=== PATIENT | female | born 1975 | race Caucasian/White ===

== ENCOUNTER 2023-02-04 12:29 | Emergency (ER) | payer MEDICARE, SELFPAY ==
[2023-02-04 12:30] VITALS: BP 135/90; PULSE 114; RESP 15; TEMP 37.2; O2SAT 96; BMI 23.9
--- NOTE | 2023-02-04 12:33 | HMH.EDGENADL ---
Discharge Plan Disposition Chief Complaint: Hyper/Hypoglycemia Prescriptions Prescriptions: No Action atorvastatin 20 mg Tablet 20 mg PO HS risperidone 0.25 mg Tablet 0.25 mg PO BID metoclopramide HCl 5 mg Tablet 5 mg PO AC pantoprazole 40 mg Tablet,Delayed Release (Dr/Ec) 40 mg PO DAILY insulin lispro [Humalog U-100 Insulin] 100 unit/mL Solution See Protocol SQ ACHS Protocol: Insulin Corrective Low-Dose Regimen Condition: Fingerstick Blood Glucose Dose/Route: Insulin Units Condition: 151-200 mg/dl Dose/Route: 2 unit/SQ Condition: 201-250 mg/dl Dose/Route: 4 units/SQ Condition: 251-300 mg/dl Dose/Route: 6 units/SQ Condition: 301-350 mg/dl Dose/Route: 8 units/SQ Condition: 351-400 mg/dl Dose/Route: 10 units/SQ Condition: 401-450 mg/dl Dose/Route: 12 units/SQ Condition: > 450 mg/dl Dose/Route: CALL MD Protocol Text: Low Intensity Sliding Scale Insulin ferrous sulfate 325 mg (65 mg iron) Tablet,Delayed Release (Dr/Ec) 325 mg PO DAILY insulin lispro protamin-lispro [Humalog Mix 75-25 KwikPen] 100 unit/mL (75-25) Insulin Pen 25 unit SQ BID bupropion HCl [Wellbutrin XL] 300 mg Tablet Extended Release 24 Hr 300 mg PO DAILY gabapentin 300 mg Tablet 300 mg PO TID Activity Restrictions/Add. Instructions Additional Instructions/Restrictions: Follow-up with your primary care doctor in about 2 to 3 days. Return to the emergency department immediately if symptoms worsen. Drink plenty of nonsugar a liquids by mouth. Take all your medications including insulin as prescribed. Clinical Impressions Clinical Impression: Hyperglycemia Instructions Patient Instructions: DI for Hyperglycemia -- Adult Discharge ED Provider: Rodríguez Mercado Adult HPI General Chief complaint: Hyper/Hypoglycemia Stated complaint: DKA Time Seen by Provider: 02/04/23 12:33 Mode of Arrival: EMS Source of Information: Patient and EMS History of Present Illness HPI narrative: The patient presents to the emergency department via ambulance complaining of a high blood sugar. The patient has a history of insulin-dependent diabetes. She was recently discharged from another facility for diabetic ketoacidosis. She has not had any insulin since yesterday. Related Data Home Medications Medication Instructions Recorded Confirmed atorvastatin 20 mg tablet 20 mg PO HS Cholesterol 02/04/23 02/04/23 bupropion HCl 300 mg 24 hr tablet, 300 mg PO DAILY Mood 02/04/23 02/04/23 extended release (Wellbutrin XL) ferrous sulfate 325 mg (65 mg 325 mg PO DAILY Supplement 02/04/23 02/04/23 iron) tablet,delayed release gabapentin 300 mg tablet 300 mg PO TID Pain 02/04/23 02/04/23 insulin lispro 100 unit/mL See Protocol SQ ACHS Hyperglycemia 02/04/23 02/04/23 subcutaneous solution (Humalog U-100 Insulin) insulin lispro protamine-lispro 25 unit SQ BID Diabetes 02/04/23 02/04/23 100 unit/mL (75-25) subcutaneous pen (Humalog Mix 75-25 KwikPen) metoclopramide HCl 5 mg tablet 5 mg PO AC Stomach 02/04/23 02/04/23 pantoprazole 40 mg tablet,delayed 40 mg PO DAILY Acid reflux 02/04/23 02/04/23 release risperidone 0.25 mg tablet 0.25 mg PO BID Mood 02/04/23 02/04/23 Allergies Allergy/AdvReac Type Severity Reaction Status Date / Time PENICILLIN Allergy Mild I-RASH Uncoded 10/04/17 14:30 [facility] Disclaimer: The information contained in this section may have been updated after the patient was seen, as this information can be updated by other users. Medical History (Updated 02/04/23 @ 15:21 by Rodríguez Mercado MD) Anxiety Bipolar 1 disorder COVID Diabetes mellitus, insulin dependent (IDDM), uncontrolled DKA (diabetic ketoacidosis) Essential (primary) hypertension Former smoker Gastroparesis GERD (gastroesophageal reflux disease) Herpes High cholesterol History of drug abuse in remission History of suicidal tendencies Leukocytosis MDD (major
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
--- NOTE | 2023-02-04 13:30 | PC.NURSE ---
Spoke to charge and she went to bedside to attempt IV access on patient. Attending provider notified of situation
[2023-02-04 13:48] VITALS: BP 111/77; PULSE 111; O2SAT 97
--- NOTE | 2023-02-04 13:51 | PC.NURSE ---
Pt c/o headache. MD notified. VO Tylenol 1gm
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
--- NOTE | 2023-02-04 13:52 | PC.NURSE ---
pt is sleeping in bed, call light @ bs
[2023-02-04 13:54] LABS: Chloride 102 mmol/L (98-107); Sodium 137 mmol/L (136-145)
[2023-02-04 13:55] LABS: Potassium 4.6 mmoL/L (3.5-5.1)
[2023-02-04 13:57] LABS: Alanine Aminotransferase 70 U/L (12-78); Albumin Level 4.3 g/dl (3.5-5.0); Albumin/Globulin Ratio 1.3 (1.1-1.8); Alkaline Phosphatase 139 U/L (38-126); Anion Gap 19.6 mEq/L (5-15); Aspartate Amino Transferase 38 U/L (14-36); Bilirubin,Total 0.5 mg/dl (0.2-1.3); Blood Urea Nitrogen 33 mg/dl (7-17); Calcium 10.1 mg/dl (8.4-10.2); Carbon Dioxide 20 mmol/L (22.0-30.0); Creatinine Clearance Estimated 52 mL/min (50-200); Estimated Glomerular Filt Rate 44 ml/min (>60); GFR (African American) 53 ML/MIN (>60); Globulin 3.3 g/dL (1.3-3.2); Lipase 158 U/L (23-300); Total Protein,Serum 7.6 g/dl (6.3-8.2)
[2023-02-04 14:00] VITALS: BP 112/72; O2SAT 98
[2023-02-04 14:00] LABS: Glucose 595 mg/dl (74-100)
[2023-02-04 14:01] LABS: Acetone, Serum (Rapid) Small (None Detect)
[2023-02-04 14:15] LABS: Basophils # 0.1 K/mm3 (0-0.2); Basophils % 0.4 % (0.1-2.0); Eosinophils # 0.1 K/mm3 (0.0-0.4); Hematocrit 35.1 % (37.0-47.0); Hemoglobin 10.6 g/dL (12.2-16.2); Lymphocytes # 2.2 K/mm3 (0.7-4.5); Lymphocytes % 17.7 % (10-50); Mean Corpuscular HGB Conc 30.1 g/dL (31.8-35.4); Mean Corpuscular Hemoglobin 26.7 pg (27.0-31.2); Mean Corpuscular Volume 88.9 fl (81-99); Mean Platelet Volume 8.6 fl (7.4-10.4); Monocytes # 0.6 K/mm3 (0.1-1.0); Monocytes % 4.6 % (1.7-9.3); Neutrophils # 9.4 K/mm3 (1.8-7.8); Neutrophils % 76.3 % (37.0-80.0); Platelet Count 401 K/mm3 (142-424); Red Blood Count 3.95 M/mm3 (4.20-5.40); Red Cell Distribution Width 18.9 % (11.5-17.5); White Blood Count 12.3 K/mm3 (4.8-10.8)
[2023-02-04 14:19] LABS: POC Glucose,Bedside 467 (70-110)
[2023-02-04 14:30] VITALS: BP 99/67; PULSE 110; O2SAT 96
[2023-02-04 15:00] VITALS: BP 102/64; PULSE 108; RESP 18; O2SAT 97
--- NOTE | 2023-02-04 15:12 | PC.NURSE ---
Patient has been resting since medicated for nausea and abdominal cramping. FSBS recheck due in 10 minutes
[2023-02-04 15:24] LABS: POC Glucose,Bedside 293 (70-110)
[2023-02-04 15:26] VITALS: BP 102/64; PULSE 98; RESP 15; TEMP 36.5; O2SAT 96
--- NOTE | 2023-02-04 15:26 | PC.NURSE ---
called sammy waller
--- NOTE | 2023-02-04 15:27 | PC.NURSE ---
rachelle rivas called they are setting up for transportation back to facility from er
--- NOTE | 2023-02-04 15:28 | PC.NURSE ---
Diego Mak notified to pickup their resident. Patient still resting, NAD. VSS
== END 2023-02-04 15:58 | disposition home or self-care (01) ==
PROVIDERS: Emergency Provider Emergency Medicine; PCP Emergency Medicine
DX: E11.65 Type 2 diabetes mellitus with hyperglycemia (principal); Z87.891 Personal history of nicotine dependence
CPT/HCPCS: 80053; 82009; 82962; 83690; 85025; 96360; 96361; 96372; 96374; 96375; 99284; 99285; J2405

== ENCOUNTER 2023-02-05 10:46 | Inpatient (IN) | payer MEDICARE, SELFPAY ==
[2023-02-05] VITALS (16 sets, daily range): BP systolic 87–117; BP diastolic 45–73; PULSE 106–122; RESP 15–20; TEMP 36.6–37.3; O2SAT 94–100; BMI 23.5
--- NOTE | 2023-02-05 10:56 | HMH.EDGENADL ---
Discharge Plan Disposition Patient Disposition: Admitted as Observation Condition: Serious Clinical Impressions Clinical Impression: DKA, type 1 Qualifiers: Diabetes mellitus complication detail: without coma Qualified Code(s): E10.10 - Type 1 diabetes mellitus with ketoacidosis without coma Discharge ED Provider: Rodríguez Mercado Adult HPI General Chief complaint: Recheck/Abnormal Lab/Rx Stated complaint: hyperglycemia Time Seen by Provider: 02/05/23 10:56 Mode of Arrival: EMS History of Present Illness HPI narrative: Patient presents to the emergency department via EMS for high glucose. She was seen here yesterday for the same. She is a known type I diabetic. She has a long history of noncompliance. Related Data Home Medications Medication Instructions Recorded Confirmed atorvastatin 20 mg tablet 20 mg PO HS Cholesterol 02/04/23 02/04/23 bupropion HCl 300 mg 24 hr tablet, 300 mg PO DAILY Mood 02/04/23 02/04/23 extended release (Wellbutrin XL) ferrous sulfate 325 mg (65 mg 325 mg PO DAILY Supplement 02/04/23 02/04/23 iron) tablet,delayed release gabapentin 300 mg tablet 300 mg PO TID Pain 02/04/23 02/04/23 insulin lispro 100 unit/mL See Protocol SQ ACHS Hyperglycemia 02/04/23 02/04/23 subcutaneous solution (Humalog U-100 Insulin) insulin lispro protamine-lispro 25 unit SQ BID Diabetes 02/04/23 02/04/23 100 unit/mL (75-25) subcutaneous pen (Humalog Mix 75-25 KwikPen) metoclopramide HCl 5 mg tablet 5 mg PO AC Stomach 02/04/23 02/04/23 pantoprazole 40 mg tablet,delayed 40 mg PO DAILY Acid reflux 02/04/23 02/04/23 release risperidone 0.25 mg tablet 0.25 mg PO BID Mood 02/04/23 02/04/23 Allergies Allergy/AdvReac Type Severity Reaction Status Date / Time Penicillins Allergy Intermediate Rash Verified 02/05/23 11:18 [facility] Disclaimer: The information contained in this section may have been updated after the patient was seen, as this information can be updated by other users. Medical History (Updated 02/05/23 @ 11:59 by Rodríguez Mercado MD) Anxiety Bipolar 1 disorder COVID Diabetes mellitus, insulin dependent (IDDM), uncontrolled DKA (diabetic ketoacidosis) Essential (primary) hypertension Former smoker Gastroparesis GERD (gastroesophageal reflux disease) Herpes High cholesterol History of drug abuse in remission History of suicidal tendencies Leukocytosis MDD (major depressive disorder) Neuropathy MALCOM (obstructive sleep apnea) RLS (restless legs syndrome) UTI (urinary tract infection) Social History (Updated 02/04/23 @ 15:21 by Rodríguez Mercado MD) Smoking Status: Former smoker alcohol intake: never current occupational status: unemployed Travel in the last 8 weeks: None ROS Obtained: Yes All systems reviewed & no additional complaints except as documented Gastrointestinal Gastrointestingal: Reports vomiting Physical Exam General General appearance: alert and in no apparent distress Comment: The patient has ketotic breath. Head Head exam: atraumatic Eye Eye exam: Present normal appearance ENT ENT exam: Present normal exam Neck Neck exam: Present normal inspection and full ROM; Absent tenderness or meningismus Chest Chest inspection: Present normal inspection and symmetric chest wall rise; Absent tenderness Respiratory Respiratory exam: Present normal lung sounds bilaterally; Absent respiratory distress or accessory muscle use Cardiovascular Cardiovascular exam: Present regular rate, normal rhythm and normal heart sounds Abdominal Exam Abdominal exam: Present soft and normal bowel sounds; Absent distention, tenderness, heel tap sign, Chan's sign, Rovsing's sign, tenderness at McBurney's Point or mass Extremities Exam Extremities exam: Present normal inspection and full ROM Back Exam Back exam: Present normal inspection; Absent CVA tenderness (R) or CVA tenderness (L) Neurological Exam Neurological exam: Present alert and oriented X3 Psychiatric
--- NOTE | 2023-02-05 11:05 | PC.NURSE ---
DR PEDERSON AT BEDSIDE
[2023-02-05 11:15] LABS: Basophils # 0.1 K/mm3 (0-0.2); Basophils % 0.5 % (0.1-2.0); Eosinophils # 0.1 K/mm3 (0.0-0.4); Eosinophils % 0.4 % (0.1-12.0); Hematocrit 36.6 % (37.0-47.0); Hemoglobin 10.8 g/dL (12.2-16.2); Lymphocytes # 2.2 K/mm3 (0.7-4.5); Mean Corpuscular HGB Conc 29.3 g/dL (31.8-35.4); Mean Corpuscular Hemoglobin 26.9 pg (27.0-31.2); Mean Corpuscular Volume 91.7 fl (81-99); Mean Platelet Volume 8.6 fl (7.4-10.4); Monocytes # 0.4 K/mm3 (0.1-1.0); Monocytes % 2.4 % (1.7-9.3); Neutrophils % 82.7 % (37.0-80.0); Platelet Count 476 K/mm3 (142-424); Red Cell Distribution Width 18.9 % (11.5-17.5); White Blood Count 15.8 K/mm3 (4.8-10.8)
[2023-02-05 11:16] LABS: Chloride 98 mmol/L (98-107); MANUAL DIFFERENTIAL MANUAL DIFFERENTIAL (MANUAL DIFF)
[2023-02-05 11:17] LABS: Potassium 5.3 mmoL/L (3.5-5.1); Sodium 137 mmol/L (136-145)
[2023-02-05 11:18] LABS: Coronavirus 19, PCR Not Detected (NotDetected); Influenza A, PCR Not Detected (NotDetected); Influenza B, PCR Not Detected (NotDetected)
[2023-02-05 11:19] LABS: Blood Urea Nitrogen 30 mg/dl (7-17); Creatinine Clearance Estimated 58 mL/min (50-200); Estimated Glomerular Filt Rate 44 ml/min (>60); GFR (African American) 53 ML/MIN (>60)
[2023-02-05 11:20] LABS: Anion Gap 33.3 mEq/L (5-15); Calcium 9.9 mg/dl (8.4-10.2); Carbon Dioxide 11 mmol/L (22.0-30.0)
[2023-02-05 11:34] LABS: Glucose 707 mg/dl (74-100)
[2023-02-05 11:35] LABS: Acetone, Serum (Rapid) Large (None Detect); Lymphocytes % 10 % (10-50); Monocytes % 5 % (2-9); Neutrophils % 85 % (42-76); Platelet Estimate Normal; RBC Morphology Normal; Total Cells Counted 100
--- NOTE | 2023-02-05 11:36 | PC.NURSE ---
CRITICAL GLUCOSE 707, PT NAME AND R/V WITH JORGE IN LAB. DR. PEDERSON NOTIFIED. VERBAL ORDER TO INCREASE INSULIN GTT TO 20UNITR/HR
--- NOTE | 2023-02-05 11:39 | PC.NURSE ---
INSULIN GTT INCREASED TO 20/UNITS/HR
--- NOTE | 2023-02-05 11:57 | PC.NURSE ---
DR PEDERSON SPEAKING WITH DR OLVERA FOR ADMISSION
--- NOTE | 2023-02-05 11:59 | PC.NURSE ---
TABLEAU LEAD NOTIFIED OF ADMISSION
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
--- NOTE | 2023-02-05 12:10 | PC.NURSE ---
Call light within reach, fall bracelet placed on patient's left arm; patient educated to not get out of bed without staff present at the BS.
--- NOTE | 2023-02-05 12:14 | PC.NURSE ---
report called to felisha yan on second floor at this time, states she will have staff come down to get pt.
--- NOTE | 2023-02-05 12:15 | PC.NURSE ---
Allergy bracelet placed on patient's left wrist
--- NOTE | 2023-02-05 13:02 | EXP.HP ---
History of Present Illness *Admission Date: 02/05/23 *Reason for visit:: High sugar *History of present illness: 47-year-old female with diabetes type 1 presents to the emergency department due to elevated sugar. She was evaluated in the emergency department yesterday by EMS for high glucose. States she has been having trouble obtaining and taking her outpatient insulin regimen. she is a resident at [facility] noted to have high glucose today and sent to the emergency department. In the emergency department she was noted to be in DKA started on insulin drip IV fluids. She currently is very nauseated. Does not provide much history due to her symptoms. States that she is awaiting placement at some psych facility. Otherwise no concerns or complaints at this time [facility] Disclaimer: The information contained in this section may have been updated after the patient was seen, as this information can be updated by other users. Medical History (Updated 02/05/23 @ 13:10 by Jhoana Stern MD) Anxiety Bipolar 1 disorder COVID Diabetes mellitus, insulin dependent (IDDM), uncontrolled DKA (diabetic ketoacidosis) Essential (primary) hypertension Former smoker Gastroparesis GERD (gastroesophageal reflux disease) Herpes High cholesterol History of drug abuse in remission History of suicidal tendencies Leukocytosis MDD (major depressive disorder) Neuropathy MALCOM (obstructive sleep apnea) RLS (restless legs syndrome) UTI (urinary tract infection) Social History (Updated 02/04/23 @ 15:21 by Rodríguez Mercado MD) Smoking Status: Former smoker alcohol intake: never current occupational status: unemployed Travel in the last 8 weeks: None Review of Systems Review of Systems Review of systems:: unable to obtain and pertinent systems reviewed and negative unless documented below Meds Home Medications and Allergies Home Medications Medication Instructions Recorded Confirmed Type atorvastatin 20 mg tablet 20 mg PO HS Cholesterol 02/04/23 02/04/23 History bupropion HCl 300 mg 24 hr tablet, 300 mg PO DAILY Mood 02/04/23 02/04/23 History extended release (Wellbutrin XL) ferrous sulfate 325 mg (65 mg 325 mg PO DAILY Supplement 02/04/23 02/04/23 History iron) tablet,delayed release gabapentin 300 mg tablet 300 mg PO TID Pain 02/04/23 02/04/23 History insulin lispro 100 unit/mL See Protocol SQ ACHS Hyperglycemia 04/21/23 04/21/23 History subcutaneous solution (Humalog U-100 Insulin) insulin lispro protamine-lispro 25 unit SQ BID Diabetes 02/04/23 02/04/23 History 100 unit/mL (75-25) subcutaneous pen (Humalog Mix 75-25 KwikPen) metoclopramide HCl 5 mg tablet 5 mg PO AC Stomach 02/04/23 02/04/23 History pantoprazole 40 mg tablet,delayed 40 mg PO DAILY Acid reflux 02/04/23 02/04/23 History release risperidone 0.25 mg tablet 0.25 mg PO BID Mood 02/04/23 02/04/23 History New Prescriptions to Start Prescriptions: Allergies Allergy/AdvReac Type Severity Reaction Status Date / Time Penicillins Allergy Intermediate Rash Verified 02/05/23 11:18 Exam Data for Last 24 hours Vital signs and Labs for Last 24 Hours: Temp Pulse Resp BP Pulse Ox 98.0 F 122 H 17 105/62 L 100 02/05/23 12:11 02/05/23 12:13 02/05/23 12:11 02/05/23 12:13 02/05/23 12:13 Laboratory Results - last 24 hr 02/05/23 11:00: WBC 15.8 H D, RBC 4.00 L, Hgb 10.8 L, Hct 36.6 L, MCV 91.7, MCH 26.9 L, MCHC 29.3 L, RDW 18.9 H, Plt Count 476 H, MPV 8.6, Neut % (Auto) 82.7 H, Lymph % (Auto) 14.0, [place] % (Auto) 2.4, Eos % (Auto) 0.4, Baso % (Auto) 0.5, Neut # (Auto) 13.0 H, Lymph # (Auto) 2.2, [place] # (Auto) 0.4, Eos # (Auto) 0.1, Baso # (Auto) 0.1, Total Counted 100, Neutrophils % (Manual) 85 H, Lymphocytes % (Manual) 10, Monocytes % (Manual) 5, Platelet Estimate Normal, RBC Morphology Normal 02/05/23 11:00: Sodium 137, Potassium 5.3 H, Chloride 98, Carbon Dioxide 11 L, Anion Gap 33.3 H, BUN 30 H, Creatinine 1.30 H, Estimated Crea
--- NOTE | 2023-02-05 13:07 | XR_ITS ---
PROCEDURE INFORMATION: Exam: XR Chest Exam date and time: 02/05/2023 1:28 PM Age: 47 years old Clinical indication: Other: Tachycardia TECHNIQUE: Imaging protocol: Radiologic exam of the chest. Views: 1 view. COMPARISON: No relevant prior studies available. FINDINGS: Lungs: Unremarkable. No consolidation. Pleural spaces: Unremarkable. No pleural effusion. No pneumothorax. Heart/Mediastinum: Unremarkable. No cardiomegaly. Bones/joints: Unremarkable. IMPRESSION: No acute findings.
[2023-02-05 13:15] LABS: POC Glucose,Bedside 471 (70-110)
[2023-02-05 14:03] LABS: Microscopic, Urine URINE MICROSCOPIC (MICROSCOPIC)
[2023-02-05 14:04] LABS: Appearance,Urine CLEAR (Clear); Bilirubin,Urine Negative (Negative); Blood, Urine Negative (Negative); Color,Urine YELLOW (Yellow); Glucose,Urine (UA) 3+ (Negative); Ketones,Urine 2+ (Negative); Leukocyte Esterase,Urine Negative (Negative); Nitrate,Urine Negative (Negative); PH,Urine 5.5 (5.0-8.5); Protein,Urine Negative (Negative); Urobilinogen,Urine 0.2 EU/dl (0.2)
[2023-02-05 14:09] LABS: POC Glucose,Bedside 280 (70-110)
[2023-02-05 14:16] LABS: Bacteria,Urine 1+ /lpf; WBC,Urine Occasional #/hpf (0-3)
[2023-02-05 15:13] LABS: POC Glucose,Bedside 155 (70-110)
[2023-02-05 15:59] LABS: Chloride 109 mmol/L (98-107); Sodium 144 mmol/L (136-145)
[2023-02-05 16:00] LABS: Potassium 3.9 mmoL/L (3.5-5.1)
[2023-02-05 16:02] LABS: Blood Urea Nitrogen 28 mg/dl (7-17); Creatinine Clearance Estimated 54 mL/min (50-200); Estimated Glomerular Filt Rate 53 ml/min (>60); GFR (African American) 65 ML/MIN (>60)
[2023-02-05 16:03] LABS: Anion Gap 19.9 mEq/L (5-15); Calcium 8.8 mg/dl (8.4-10.2); Carbon Dioxide 19 mmol/L (22.0-30.0); Glucose 143 mg/dl (74-100)
[2023-02-05 18:09] LABS: POC Glucose,Bedside 152 (70-110)
[2023-02-05 18:09] LABS: POC Glucose,Bedside 165 (70-110)
[2023-02-05 18:09] LABS: POC Glucose,Bedside 138 (70-110)
[2023-02-05 18:09] LABS: POC Glucose,Bedside 205 (70-110)
--- NOTE | 2023-02-05 18:50 | PC.NURSE ---
pt has been combative and uncooperative t/o shift, has threatened to rip IVs out and has been verbally aggressive with staff, remains on room air, pt educated on plan of care
[2023-02-05 19:04] LABS: POC Glucose,Bedside 175 (70-110)
[2023-02-05 19:22] LABS: Chloride 110 mmol/L (98-107); Potassium 3.8 mmoL/L (3.5-5.1); Sodium 144 mmol/L (136-145)
[2023-02-05 19:25] LABS: Anion Gap 16.8 mEq/L (5-15); Blood Urea Nitrogen 25 mg/dl (7-17); Calcium 8.6 mg/dl (8.4-10.2); Carbon Dioxide 21 mmol/L (22.0-30.0); Creatinine Clearance Estimated 59 mL/min (50-200); Estimated Glomerular Filt Rate 60 ml/min (>60); GFR (African American) 72 ML/MIN (>60); Glucose 179 mg/dl (74-100)
--- NOTE | 2023-02-05 23:50 | PC.NURSE ---
notified VALERIE Varela that pt was stuck by Alexandra from lab for BMP once and then when attempted to try again pt stated no more, I will not be stuck anymore , no new orders at this time, will retry to get labs with am labs
[2023-02-06] VITALS (10 sets, daily range): BP systolic 90–112; BP diastolic 49–74; PULSE 97–104; RESP 14–20; TEMP 36.6–37.9; O2SAT 89–99; BMI 20.3
--- NOTE | 2023-02-06 02:05 | PC.NURSE ---
pt's oxygen saturations 88-89% on room air while sleeping, placed 1LNC on pt and sats increased to 91-93%
[2023-02-06 06:20] LABS: POC Glucose,Bedside 213 (70-110)
[2023-02-06 06:20] LABS: POC Glucose,Bedside 173 (70-110)
[2023-02-06 06:20] LABS: POC Glucose,Bedside 146 (70-110)
[2023-02-06 06:20] LABS: POC Glucose,Bedside 161 (70-110)
[2023-02-06 06:20] LABS: POC Glucose,Bedside 214 (70-110)
[2023-02-06 06:20] LABS: POC Glucose,Bedside 173 (70-110)
[2023-02-06 06:59] LABS: Basophils # 0.1 K/mm3 (0-0.2); Basophils % 0.4 % (0.1-2.0); Eosinophils # 0.2 K/mm3 (0.0-0.4); Mean Platelet Volume 8.2 fl (7.4-10.4)
[2023-02-06 07:06] LABS: Eosinophils % 1.6 % (0.1-12.0); Hematocrit 29.4 % (37.0-47.0); Lymphocytes # 3.3 K/mm3 (0.7-4.5); Lymphocytes % 24.6 % (10-50); Mean Corpuscular HGB Conc 31.8 g/dL (31.8-35.4); Mean Corpuscular Hemoglobin 27.4 pg (27.0-31.2); Mean Corpuscular Volume 86.3 fl (81-99); Monocytes # 0.5 K/mm3 (0.1-1.0); Monocytes % 4.1 % (1.7-9.3); Neutrophils # 9.2 K/mm3 (1.8-7.8); Neutrophils % 69.3 % (37.0-80.0); Platelet Count 385 K/mm3 (142-424); Red Blood Count 3.41 M/mm3 (4.20-5.40); White Blood Count 13.3 K/mm3 (4.8-10.8)
[2023-02-06 07:07] LABS: Chloride 109 mmol/L (98-107); Potassium 3.9 mmoL/L (3.5-5.1); Sodium 137 mmol/L (136-145)
[2023-02-06 07:08] LABS: Hemoglobin 9.4 g/dL (12.2-16.2)
[2023-02-06 07:09] LABS: Alanine Aminotransferase 37 U/L (12-78); Aspartate Amino Transferase 27 U/L (14-36); Blood Urea Nitrogen 19 mg/dl (7-17); Creatinine Clearance Estimated 75 mL/min (50-200); Estimated Glomerular Filt Rate 77 ml/min (>60); GFR (African American) 93 ML/MIN (>60)
[2023-02-06 07:10] LABS: Albumin Level 3.1 g/dl (3.5-5.0); Albumin/Globulin Ratio 1.2 (1.1-1.8); Alkaline Phosphatase 94 U/L (38-126); Anion Gap 11.9 mEq/L (5-15); Bilirubin,Total 0.3 mg/dl (0.2-1.3); Calcium 8.1 mg/dl (8.4-10.2); Carbon Dioxide 20 mmol/L (22.0-30.0); Globulin 2.6 g/dL (1.3-3.2); Glucose 201 mg/dl (74-100); Magnesium 1.9 mg/dl (1.6-2.3); Phosphorous 2.8 mg/dl (2.5-4.5); Total Protein,Serum 5.7 g/dl (6.3-8.2)
--- NOTE | 2023-02-06 08:13 | EXP.ACUTE.PN ---
Subjective *Date: 02/06/23 *Time: 11:52 Interval history: No issues. Nausea improving. No concerns or complaints Medical Exam Vital signs and Labs for Last 24 Hours: Vital Signs Temp Pulse Pulse Resp BP BP Pulse Ox 02/06/23 07:34 98.2 F 02/06/23 06:00 104 H 14 107/57 L 99 02/06/23 04:00 100 H 17 106/51 L 91 L 02/06/23 02:00 102 H 15 98/62 L 89 L 02/06/23 00:00 102 H 16 98/49 L 98 02/06/23 04:00 99 H 02/06/23 04:00 98.6 F 02/06/23 00:19 102 H 02/05/23 22:00 106 H 15 93/49 L 94 L 02/05/23 20:00 110 H 18 99/59 L 94 L 02/05/23 20:00 110 H 02/05/23 20:00 112 H 98 02/05/23 20:00 99.2 F 02/05/23 18:00 113 H 20 102/52 L 94 L 02/05/23 17:00 114 H 20 116/46 L 96 02/05/23 16:00 110 H 02/05/23 12:42 120 H 02/05/23 16:00 112 H 20 88/48 L 95 02/05/23 16:16 111 H 95 02/05/23 13:00 118 H 98 02/05/23 15:00 110 H 20 96/60 L 96 02/05/23 14:00 118 H 20 87/70 L 97 02/05/23 15:09 97.8 F 02/05/23 13:00 113 H 16 94/54 L 98 02/05/23 12:13 122 H 105/62 L 100 02/05/23 12:11 98.0 F 120 H 17 105/62 L 02/05/23 11:30 116 H 20 117/73 100 02/05/23 11:18 113 H 15 109/58 L 99 02/05/23 10:47 97.8 F 119 H 18 111/45 L 98 Intake and Output 02/05/23 02/06/23 02/06/23 23:59 07:59 15:59 Intake Total 0 / 0 Output Total 200 / 400 550 / 550 Balance -200 / -400 -550 / -550 Intake: Intake, Oral Amount 0 / 0 Output: Output, Urine Amount 200 / 400 550 / 550 Other: Number of Unmeasured Voids 1 1 Weight 54.002 kg Patient Weight 02/06/23 23:59 Weight 54.002 kg Laboratory Results - last 24 hr 02/05/23 11:00: WBC 15.8 H D, RBC 4.00 L, Hgb 10.8 L, Hct 36.6 L, MCV 91.7, MCH 26.9 L, MCHC 29.3 L, RDW 18.9 H, Plt Count 476 H, MPV 8.6, Neut % (Auto) 82.7 H, Lymph % (Auto) 14.0, [place] % (Auto) 2.4, Eos % (Auto) 0.4, Baso % (Auto) 0.5, Neut # (Auto) 13.0 H, Lymph # (Auto) 2.2, [place] # (Auto) 0.4, Eos # (Auto) 0.1, Baso # (Auto) 0.1, Total Counted 100, Neutrophils % (Manual) 85 H, Lymphocytes % (Manual) 10, Monocytes % (Manual) 5, Platelet Estimate Normal, RBC Morphology Normal 02/05/23 11:00: Sodium 137, Potassium 5.3 H, Chloride 98, Carbon Dioxide 11 L, Anion Gap 33.3 H, BUN 30 H, Creatinine 1.30 H, Estimated Creat Clear 58, Estimated GFR 44 L, Est GFR ( Amer) 53 L, Glucose 707 H*, Calcium 9.9, Acetone Level Large 02/05/23 11:16: SARS-CoV-2 (PCR) Not detected, Influenza A Untype (PCR) Not detected, Influenza Type B (PCR) Not detected 02/05/23 12:04: Urine Color Yellow, Urine Appearance Clear, Urine pH 5.5, Ur Specific Milam 1.010, Urine Protein Negative, Urine Glucose (UA) 3+, Urine Ketones 2+, Urine Blood Negative, Urine Nitrate Negative, Urine Bilirubin Negative, Urine Urobilinogen 0.2, Ur Leukocyte Esterase Negative, Urine RBC None, Urine WBC Occasional, Ur Squamous Epith Cells 3-5, Urine Bacteria 1+ 02/05/23 13:07: POC Glucose 471 H* 02/05/23 14:03: POC Glucose 280 H 02/05/23 15:06: POC Glucose 155 H 02/05/23 15:33: POC Glucose 138 H 02/05/23 15:40: Sodium 144, Potassium 3.9 D, Chloride 109 H, Carbon Dioxide 19 L, Anion Gap 19.9 H, BUN 28 H, Creatinine 1.10 H, Estimated Creat Clear 54, Estimated GFR 53 L, Est GFR ( Amer) 65 D, Glucose 143 H D, Calcium 8.8 02/05/23 16:04: POC Glucose 152 H 02/05/23 17:05: POC Glucose 165 H 02/05/23 18:02: POC Glucose 205 H 02/05/23 18:57: POC Glucose 175 H 02/05/23 19:15: Sodium 144, Potassium 3.8, Chloride 110 H, Carbon Dioxide 21 L, Anion Gap 16.8 H, BUN 25 H, Creatinine 1.00, Estimated Creat Clear 59, Estimated GFR 60, Est GFR ( Amer) 72, Glucose 179 H D, Calcium 8.6 02/05/23 20:24: POC Glucose 173 H 02/05/23 22:17: POC Glucose 161 H 02/06/23 00:02: POC Glucose 146 H 02/06/23 01:50: POC Glucose 173 H 02/06/23 03:41: POC Glucose 213 H 02/06/23 06:12: POC Glucose 214 H
[2023-02-06 10:36] LABS: Acetone, Serum (Rapid) Small (None Detect)
[2023-02-06 14:20] LABS: POC Glucose,Bedside 265 (70-110)
[2023-02-06 16:39] LABS: POC Glucose,Bedside 246 (70-110)
--- NOTE | 2023-02-06 17:44 | PC.NURSE ---
pt has been cooperative t/o shift, has remained on room air, FSBS 265 and 246, has ambulated with standby assist to BR
[2023-02-07] VITALS: BP 100/63; PULSE 95; RESP 18; TEMP 36.9; O2SAT 96
[2023-02-07 04:43] VITALS: BP 121/73; PULSE 96; RESP 18; TEMP 36.7; O2SAT 97; BMI 22.6
[2023-02-07 06:18] LABS: POC Glucose,Bedside 415 (70-110)
[2023-02-07 06:18] LABS: POC Glucose,Bedside 386 (70-110)
--- NOTE | 2023-02-07 07:20 | EXP.DC.SUM ---
General Admission date:: 02/05/23 Discharge date: 02/07/23 HPI HPI HPI: 47-year-old female with diabetes type 1 presents to the emergency department due to elevated sugar. She was evaluated in the emergency department yesterday by EMS for high glucose. States she has been having trouble obtaining and taking her outpatient insulin regimen. she is a resident at [facility] noted to have high glucose today and sent to the emergency department. In the emergency department she was noted to be in DKA started on insulin drip IV fluids. She currently is very nauseated. Does not provide much history due to her symptoms. States that she is awaiting placement at some psych facility. Otherwise no concerns or complaints at this time Hospital Course Hospital Course Hospital Course: 47-year-old female type 1 diabetes presenting with DKA. High anion gap metabolic acidosis on admission. Started on DKA protocol. Problems addressed as follows: Diabetic ketoacidosis, resolved High anion gap metabolic acidosis -Patient started on insulin drip and IV fluids. Tolerated well with closure of gap over the first 24 hours. Transition to a basal bolus regimen. Given patient's residence at a personal half-way, she would benefit from more simplistic dosing. Will transition to twice daily 75/25 dosing with 25 units daily of Humalog mix. A1c obtained during admission, 10.5. Patient tolerating p.o. intake. No signs of infection. No indication for continued treatment of infection. Leukocytosis likely reactive due to her DKA. Patient needs close follow-up with her primary care provider for further adjustment of insulin regimen. Needs monitoring of fingersticks before meals and at bedtime. ALEX versus CKD: ALEX on admission, improved with fluid resuscitation Hyperlipidemia-continue home medications Medically stable for discharge back to personal half-[facility]. Medications sent to [facility] pharmacy. Recommend PCP follow-up for evaluation at [facility] within the next week. Exam Data for Last 24 hours Vital signs and Labs for Last 24 Hours: Temp Pulse Resp BP Pulse Ox 98.1 F 96 H 18 121/73 97 02/07/23 04:43 02/07/23 04:43 02/07/23 04:43 02/07/23 04:43 02/07/23 04:43 Laboratory Results - last 24 hr 02/06/23 06:44: Acetone Level Small 02/06/23 10:55: POC Glucose 265 H 02/06/23 16:32: POC Glucose 246 H 02/06/23 20:29: POC Glucose 386 H* 02/07/23 06:07: POC Glucose 415 H* I & O for Last 24 hours: Intake & Output 02/04/23 02/05/23 02/06/23 02/07/23 23:59 23:59 23:59 23:59 Intake Total 840 / 840 920 / 920 Output Total 400 / 400 950 / 1100 500 / 500 Balance -400 / -400 -110 / -260 420 / 420 Weight 53.099 kg 54.002 kg 60 kg Microbiology Reports for the Last 24 Hours: Microbiology 02/05/23 18:15 Urine,Clean Catch Urine Culture - Preliminary Constitutional Constitutional: no acute distress, average body habitus and chronically ill appearing *Routine HEENT Exam Head: Present normocephalic Eye: Present EOMI and PERRL ENT: Present mucous membranes moist *Routine Neck Exam Neck: Present supple; Absent lymphadenopathy *Routine Respiratory Exam Respiratory: Present CTA bilaterally and normal respiratory effort; Absent rhonchi, wheezes or crackles *Routine Cardiovascular Exam Cardiovascular: Present RRR *Routine Abdominal Exam Abdominal: Present soft, normoactive bowel sounds and tenderness (non-focal) *Routine Rectal Exam Patient deferred: visual exam *Routine Exam Patient deferred: external exam *Routine Extremities Exam Extremities: Absent cyanosis, clubbing or edema *Routine Skin Exam Skin: Present warm; Absent rash *Routine Neurological Exam Neurological: Present alert, oriented X3, CN II-XII intact and moving all extremities; Absent altered mental status Results Data Completed and Pending Labs on day of discharge: Labs from last 24 hours 02/07/23 02/06/23 02/06/23 06:07 20:29 1
[2023-02-07 07:41] LABS: Basophils # 0.1 K/mm3 (0-0.2); Basophils % 0.3 % (0.1-2.0); Eosinophils # 0.4 K/mm3 (0.0-0.4); Eosinophils % 2.4 % (0.1-12.0); Hematocrit 32.4 % (37.0-47.0); Hemoglobin 10.2 g/dL (12.2-16.2); Lymphocytes % 18.8 % (10-50); Mean Corpuscular HGB Conc 31.4 g/dL (31.8-35.4); Mean Corpuscular Hemoglobin 27.7 pg (27.0-31.2); Mean Corpuscular Volume 88.2 fl (81-99); Monocytes # 0.6 K/mm3 (0.1-1.0); Monocytes % 3.5 % (1.7-9.3); Neutrophils # 11.7 K/mm3 (1.8-7.8); Neutrophils % 74.9 % (37.0-80.0); Platelet Count 394 K/mm3 (142-424); Red Blood Count 3.68 M/mm3 (4.20-5.40); Red Cell Distribution Width 19.9 % (11.5-17.5); White Blood Count 15.7 K/mm3 (4.8-10.8)
[2023-02-07 07:42] LABS: Chloride 108 mmol/L (98-107); Sodium 136 mmol/L (136-145)
[2023-02-07 07:43] LABS: MANUAL DIFFERENTIAL MANUAL DIFFERENTIAL (MANUAL DIFF); Potassium 3.5 mmoL/L (3.5-5.1)
[2023-02-07 07:45] LABS: Alanine Aminotransferase 50 U/L (12-78); Albumin Level 3.2 g/dl (3.5-5.0); Albumin/Globulin Ratio 1.1 (1.1-1.8); Alkaline Phosphatase 88 U/L (38-126); Anion Gap 12.5 mEq/L (5-15); Aspartate Amino Transferase 40 U/L (14-36); Bilirubin,Total 0.2 mg/dl (0.2-1.3); Blood Urea Nitrogen 9 mg/dl (7-17); Carbon Dioxide 19 mmol/L (22.0-30.0); Creatinine Clearance Estimated 95 mL/min (50-200); Estimated Glomerular Filt Rate 90 ml/min (>60); GFR (African American) 109 ML/MIN (>60); Globulin 2.8 g/dL (1.3-3.2)
[2023-02-07 07:46] LABS: Calcium 8.2 mg/dl (8.4-10.2); Glucose 315 mg/dl (74-100)
[2023-02-07 07:50] VITALS: PULSE 106; O2SAT 100
[2023-02-07 07:55] VITALS: BP 139/85; PULSE 106; RESP 18; TEMP 36.7; O2SAT 100
[2023-02-07 08:05] LABS: Hemoglobin A1C 10.5 % (4.0-6.0)
[2023-02-07 08:11] LABS: Anisocytosis 1+; Lymphocytes % 18 % (10-50); Macrocytosis 1+; Monocytes % 5 % (2-9); Neutrophils % 77 % (42-76); Ovalocytes 1+; Platelet Estimate Slight Increase; Total Cells Counted 100
--- NOTE | 2023-02-07 09:56 | HMH.OTEV ---
OT Inpatient Evaluation Rehab OT IP Evaluation Start: 02/07/23 08:59 Freq: ONCE Status: Active Protocol: Document 02/07/23 09:47 HUBERMIK (Rec: 02/07/23 09:56 [email or web address] [id number]) Rehab OT IP Assessment Subjective History 47-year-old female with diabetes type 1 presents to the emergency department due to elevated sugar. She was evaluated in the emergency department yesterday by EMS for high glucose. States she has been having trouble obtaining and taking her outpatient insulin regimen. she is a resident at [facility] noted to have high glucose today and sent to the emergency department. In the emergency department she was noted to be in DKA started on insulin drip IV fluids. She currently is very nauseated. Does not provide much history due to her symptoms. States that she is awaiting placement at some psych facility. Otherwise no concerns or complaints at this time. Patient is a resident at [facility] of [facility]. Patient requires SBA/MIn A for ADLs such as bathing. Patient was able to complete all transfers SBA/SUP with RW. Subjective I can get up. Patient sitting upright in bed at arrival of tx. Analysis Patient's functional mobility to complete bed mobility, transfers, fx'l mobility to restroom and toileting. Patient completed all bed mobility task I. Patient completed all transfers I. Patient ambulated from EOB-> restroom ~10ft with SBA for safety with usage of RW. No LOB noted. Patient completed toileting tasks with SBA. Patient ambulated back to
--- NOTE | 2023-02-07 10:54 | DIET.NUTRFU ---
RD saw patient who is diabetic with A1c of 10.4%. Tried to review diet recommendations. She lives at [facility] and reports that she does not get to choose meal items. They are pre-selected. RD reviewed foods she should monitor and try not to eat too many starches or sugary items at one meal. She will be taking insulin upon discharge. She does drink Diet Pepsi, also drinks vitamin water- not sure is sugar free or not. Provided handouts to help. She also indicated she wants to speak to case work aide about discharge plans, they are aware.
[2023-02-07 10:58] VITALS: BMI 22.6
--- NOTE | 2023-02-07 11:01 | SW/DCPLANNER ---
This patient currently resides at [facility]. I have informed Janine reese/ [facility] that this patient is medically stable for discharge today. Janine has requested that [facility] [employer] be arranged. Patient has also requested a call from the Ombudsman at [facility]: I will update Alem Pierce.
[2023-02-07 11:38] VITALS: BP 106/84; PULSE 101; RESP 18; TEMP 36.9; O2SAT 99
--- NOTE | 2023-02-07 12:43 | HMH.PTEV ---
Physical Therapy Evaluation Rehab PT IP Evaluation Start: 02/07/23 08:59 Freq: ONCE Status: Active Protocol: Document 02/07/23 12:33 CECI (Rec: 02/07/23 12:43 CECI [id number]) Subjective/History History History Pt is a 47 year old female that presented to the ED on due to elevated sugar levels. Pt has Type 1 diabetes and reports that she has been having difficulty maintaining her outpatient insulin regimen. Pt resides at [facility]. In the ED, pt was found to be in DKA and started on insulin drip IV fluids. PMH: Anxiety Bipolar 1 disorder COVID Diabetes mellitus, insulin dependent (IDDM), uncontrolled DKA (diabetic ketoacidosis) Essential (primary) hypertension Former smoker Gastroparesis GERD (gastroesophageal reflux disease) Herpes High cholesterol History of drug abuse in remission History of suicidal tendencies Leukocytosis MDD (major depressive disorder ) Neuropathy MALCOM (obstructive sleep apnea) RLS (restless legs syndrome) UTI (urinary tract infection) Subjective Subjective Pt presents sitting upright in bed upon PT arrival. Pt pleasant and agreeable to therapy initial evaluation. Pt reports that she resides at [facility]. Pt reports that she ambulates with a RW at baseline and requires assistance for B/IADL 's. Pt denies reports of pain at rest. Rehab PT IP Eval Objective Appearance Patient Behavior Appropriate Patient Orientation Person,Place,Birthday Difficulty following instructio
--- NOTE | 2023-02-07 14:26 | SW/DCPLANNER ---
[facility] [employer] has been arranged for this patient.
[2023-02-07 14:29] LABS: POC Glucose,Bedside 174 (70-110)
--- NOTE | 2023-02-07 14:58 | PC.NURSE ---
late entry: 1230 Dr Jones notified of pt fsbs of 62 and 51. pt given apple juice per md request. [address] jones of pt repeat fsbs follow juice and lunch. fsbs 174
--- NOTE | 2023-02-08 13:14 | CARE MANAGER ---
Spoke with Janine at [facility]. She states patient is doing well. Her FSBS was 350 she states. She is getting her insulin. Dr. Rachel is due tomorrow and she will discuss with him the insulin orders and seeing if she needs anything increased. No other questions or concerns. TARAH Silva
--- NOTE | 2023-02-11 15:17 | CARE MANAGER ---
Spoke with patient regarding recent discharge. Patient states he is doing well, he is aware of f/u appointments and has started his new medication prescribed at discharge.
== END 2023-02-07 15:50 | disposition home or self-care (01) | DRG 638 ==
LOC: ER 11:59 → 2ND 12:11
PROVIDERS: Internal Medicine Adolescent Medicine; Nurse Practitioner Family; Admitting Provider Student in an Organized Health Care Education/Training Program; Emergency Provider Emergency Medicine; PCP Emergency Medicine; Visit Provider Student in an Organized Health Care Education/Training Program
DX: E10.10 Type 1 diabetes mellitus with ketoacidosis without coma (principal); N17.9 Acute kidney failure, unspecified; Z79.4 Long term (current) use of insulin; E78.00 Pure hypercholesterolemia, unspecified; E10.40 Type 1 diabetes mellitus with diabetic neuropathy, unspecified; E10.22 Type 1 diabetes mellitus with diabetic chronic kidney disease; I12.9 Hypertensive chronic kidney disease with stage 1 through stage 4 chronic kidney disease, or unspecified chronic kidney disease; N18.9 Chronic kidney disease, unspecified; E10.43 Type 1 diabetes mellitus with diabetic autonomic (poly)neuropathy; K31.84 Gastroparesis; G47.33 Obstructive sleep apnea (adult) (pediatric); F31.9 Bipolar disorder, unspecified; Z87.891 Personal history of nicotine dependence; G25.81 Restless legs syndrome
CPT/HCPCS: 36415; 71045; 80048; 80053; 81001; 82009; 82962; 83036; 83735; 84100; 85007; 85025; 87040; 87086; 97161; 97165; 99291; C9803; J2405; U0003; U0005

== ENCOUNTER 2023-02-10 16:19 | Observation (INO) | payer MEDICARE, SELFPAY ==
[2023-02-10 16:20] VITALS: BP 114/86; PULSE 118; RESP 16; TEMP 36.7; O2SAT 100; BMI 19.4
--- NOTE | 2023-02-10 16:31 | HMH.EDGENADL ---
Discharge Plan Disposition Patient Disposition: Admitted As Inpatient Prescriptions Prescriptions: No Action polyethylene glycol 3350 [Miralax] 17 gram Powder In Packet 17 g PO DAILY 30 Days Qty: 30 0RF atorvastatin 20 mg Tablet 20 mg PO HS 30 Days Qty: 30 0RF risperidone 0.25 mg Tablet 0.25 mg PO BID 30 Days Qty: 60 0RF pantoprazole 40 mg Tablet,Delayed Release (Dr/Ec) 40 mg PO DAILY 30 Days Qty: 30 0RF gabapentin 300 mg Capsule 300 mg PO TID 30 Days Qty: 90 0RF ferrous sulfate 325 mg (65 mg iron) Tablet,Delayed Release (Dr/Ec) 325 mg PO DAILY 30 Days Qty: 30 0RF insulin lispro protamin-lispro [Humalog Mix 75-25 KwikPen] 100 unit/mL (75-25) Insulin Pen 25 unit SQ BID 30 Days Qty: 15 0RF Rx Instructions: AT BREAKFAST AND SUPPER bupropion HCl [Wellbutrin XL] 300 mg Tablet Extended Release 24 Hr 300 mg PO DAILY 30 Days Qty: 30 0RF (DME) pen needle, diabetic [BD Ultra-Fine Micro Pen Needle] 32 gauge x 1/4 needle See Rx Instructions .Route Qty: 100 0RF Rx Instructions: As directed Clinical Impressions Clinical Impression: DKA (diabetic ketoacidosis) Instructions Patient Instructions: DI for Hyperglycemia -- Adult Discharge ED Provider: Valerie Loving General Adult HPI General Chief complaint: Hyper/Hypoglycemia Stated complaint: hyperglycemia Time Seen by Provider: 02/10/23 16:31 Mode of Arrival: EMS Source of Information: Patient Limitations: No Limitations Description of Symptoms (Recalled from ER Triage Doc. by RN): Presents from [facility] via EMS d/t hyperglycemia. FSBS >600. Pt states they do not check my blood sugar like they should . Reports she received insulin this morning, however unable to provide surrounding details. History of Present Illness HPI narrative: 47-year-old female from [facility] presents with hyperglycemia glucose was measured as high. She frequently comes to the emergency department for similar issues. She states she has some abdominal discomfort and a mild headache and states that the symptoms usually improve when her blood sugar improves. No fevers or chills she did states she has some vaginal discomfort and she feels like she might have a yeast infection which happens sometimes when her sugar is high. Related Data Previous Rx's Medication Instructions Recorded atorvastatin 20 mg tablet 20 mg PO HS Cholesterol 30 days 02/07/23 #30 tabs bupropion HCl 300 mg 24 hr tablet, 300 mg PO DAILY Mood 30 days #30 02/07/23 extended release (Wellbutrin XL) tabs ferrous sulfate 325 mg (65 mg 325 mg PO DAILY Supplement 30 days 02/07/23 iron) tablet,delayed release #30 tabs gabapentin 300 mg capsule 300 mg PO TID Pain 30 days #90 caps 02/07/23 insulin lispro protamine-lispro 25 unit (0.25 mL) SQ BID Diabetes 02/07/23 100 unit/mL (75-25) subcutaneous 30 days #15 mL pen (Humalog Mix 75-25 KwikPen) pantoprazole 40 mg tablet,delayed 40 mg PO DAILY Acid reflux 30 days 02/07/23 release #30 tabs pen needle, diabetic 32 gauge x #100 ea 02/07/23/ (BD Ultra-Fine Micro Pen Needle) polyethylene glycol 3350 17 gram 17 g PO DAILY 30 days #30 ea 02/07/23 oral powder packet (Miralax) risperidone 0.25 mg tablet 0.25 mg PO BID Mood 30 days #60 02/07/23 tabs Allergies Allergy/AdvReac Type Severity Reaction Status Date / Time Penicillins Allergy Intermediate Rash Verified 02/05/23 11:18 [facility] Disclaimer: The information contained in this section may have been updated after the patient was seen, as this information can be updated by other users. Medical History (Updated 02/10/23 @ 17:30 by Valerie Loving MD) Anxiety Bipolar 1 disorder Constipation COVID Diabetes mellitus, insulin dependent (IDDM), uncontrolled DKA (diabetic ketoacidosis) Essential (primary) hypertension Former smoker Gastroparesis GERD (gastroesophageal reflux disease) Herpes High cholesterol History of drug abuse in remission History of suici
[2023-02-10 16:45] LABS: Basophils # 0.1 K/mm3 (0-0.2); Basophils % 0.4 % (0.1-2.0); Eosinophils # 0.1 K/mm3 (0.0-0.4); Eosinophils % 1.1 % (0.1-12.0); Hematocrit 36.3 % (37.0-47.0); Hemoglobin 10.8 g/dL (12.2-16.2); Lymphocytes # 2.6 K/mm3 (0.7-4.5); Lymphocytes % 21.9 % (10-50); Mean Corpuscular HGB Conc 29.8 g/dL (31.8-35.4); Mean Corpuscular Hemoglobin 27.4 pg (27.0-31.2); Mean Corpuscular Volume 91.7 fl (81-99); Mean Platelet Volume 8.7 fl (7.4-10.4); Monocytes # 0.5 K/mm3 (0.1-1.0); Monocytes % 4.1 % (1.7-9.3); Neutrophils # 8.5 K/mm3 (1.8-7.8); Neutrophils % 72.5 % (37.0-80.0); Platelet Count 387 K/mm3 (142-424); Red Blood Count 3.96 M/mm3 (4.20-5.40); Red Cell Distribution Width 20.1 % (11.5-17.5); White Blood Count 11.7 K/mm3 (4.8-10.8)
--- NOTE | 2023-02-10 16:45 | PC.NURSE ---
ROSIE JAQUEZ NOTIFIED AT THIS TIME. WILL BE IN TO SEE PT ABOUT [facility] AT [facility]
[2023-02-10 16:48] LABS: Chloride 94 mmol/L (98-107); Sodium 130 mmol/L (136-145)
[2023-02-10 16:51] LABS: Alanine Aminotransferase 29 U/L (12-78); Albumin Level 4.4 g/dl (3.5-5.0); Albumin/Globulin Ratio 1.4 (1.1-1.8); Alkaline Phosphatase 126 U/L (38-126); Aspartate Amino Transferase 25 U/L (14-36); Bilirubin,Total 0.6 mg/dl (0.2-1.3); Blood Urea Nitrogen 16 mg/dl (7-17); Calcium 9.2 mg/dl (8.4-10.2); Carbon Dioxide 16 mmol/L (22.0-30.0); Creatinine Clearance Estimated 65 mL/min (50-200); Estimated Glomerular Filt Rate 67 ml/min (>60); GFR (African American) 82 ML/MIN (>60); Globulin 3.1 g/dL (1.3-3.2); Total Protein,Serum 7.5 g/dl (6.3-8.2)
[2023-02-10 16:52] LABS: Magnesium 2.1 mg/dl (1.6-2.3); Phosphorous 4.1 mg/dl (2.5-4.5)
[2023-02-10 17:00] LABS: Glucose 667 mg/dl (74-100)
--- NOTE | 2023-02-10 17:00 | PC.NURSE ---
FS 667. Dr. Loving notified.
[2023-02-10 17:19] LABS: Microscopic, Urine URINE MICROSCOPIC (MICROSCOPIC)
--- NOTE | 2023-02-10 17:39 | HMH.EDGENADL ---
Discharge Plan Disposition Patient Disposition: Admitted As Inpatient Prescriptions Prescriptions: No Action polyethylene glycol 3350 [Miralax] 17 gram Powder In Packet 17 g PO DAILY 30 Days Qty: 30 0RF atorvastatin 20 mg Tablet 20 mg PO HS 30 Days Qty: 30 0RF risperidone 0.25 mg Tablet 0.25 mg PO BID 30 Days Qty: 60 0RF pantoprazole 40 mg Tablet,Delayed Release (Dr/Ec) 40 mg PO DAILY 30 Days Qty: 30 0RF gabapentin 300 mg Capsule 300 mg PO TID 30 Days Qty: 90 0RF ferrous sulfate 325 mg (65 mg iron) Tablet,Delayed Release (Dr/Ec) 325 mg PO DAILY 30 Days Qty: 30 0RF insulin lispro protamin-lispro [Humalog Mix 75-25 KwikPen] 100 unit/mL (75-25) Insulin Pen 25 unit SQ BID 30 Days Qty: 15 0RF Rx Instructions: AT BREAKFAST AND SUPPER bupropion HCl [Wellbutrin XL] 300 mg Tablet Extended Release 24 Hr 300 mg PO DAILY 30 Days Qty: 30 0RF (DME) pen needle, diabetic [BD Ultra-Fine Micro Pen Needle] 32 gauge x 1/4 needle See Rx Instructions .Route Qty: 100 0RF Rx Instructions: As directed Clinical Impressions Clinical Impression: DKA (diabetic ketoacidosis) Instructions Patient Instructions: DI for Hyperglycemia -- Adult Discharge ED Provider: Valerie Loving General Adult HPI General Chief complaint: Hyper/Hypoglycemia Stated complaint: hyperglycemia Time Seen by Provider: 02/10/23 16:31 Mode of Arrival: EMS Source of Information: Patient Limitations: No Limitations Description of Symptoms (Recalled from ER Triage Doc. by RN): Presents from [facility] via EMS d/t hyperglycemia. FSBS >600. Pt states they do not check my blood sugar like they should . Reports she received insulin this morning, however unable to provide surrounding details. Related Data Previous Rx's Medication Instructions Recorded atorvastatin 20 mg tablet 20 mg PO HS Cholesterol 30 days 02/07/23 #30 tabs bupropion HCl 300 mg 24 hr tablet, 300 mg PO DAILY Mood 30 days #30 02/07/23 extended release (Wellbutrin XL) tabs ferrous sulfate 325 mg (65 mg 325 mg PO DAILY Supplement 30 days 02/07/23 iron) tablet,delayed release #30 tabs gabapentin 300 mg capsule 300 mg PO TID Pain 30 days #90 caps 02/07/23 insulin lispro protamine-lispro 25 unit (0.25 mL) SQ BID Diabetes 02/07/23 100 unit/mL (75-25) subcutaneous 30 days #15 mL pen (Humalog Mix 75-25 KwikPen) pantoprazole 40 mg tablet,delayed 40 mg PO DAILY Acid reflux 30 days 02/07/23 release #30 tabs pen needle, diabetic 32 gauge x #100 ea 02/07/2310/20 (BD Ultra-Fine Micro Pen Needle) polyethylene glycol 3350 17 gram 17 g PO DAILY 30 days #30 ea 02/07/23 oral powder packet (Miralax) risperidone 0.25 mg tablet 0.25 mg PO BID Mood 30 days #60 02/07/23 tabs Allergies Allergy/AdvReac Type Severity Reaction Status Date / Time Penicillins Allergy Intermediate Rash Verified 02/05/23 11:18 [facility] Disclaimer: The information contained in this section may have been updated after the patient was seen, as this information can be updated by other users. Medical History (Updated 02/10/23 @ 17:30 by Valerie Loving MD) Anxiety Bipolar 1 disorder Constipation COVID Diabetes mellitus, insulin dependent (IDDM), uncontrolled DKA (diabetic ketoacidosis) Essential (primary) hypertension Former smoker Gastroparesis GERD (gastroesophageal reflux disease) Herpes High cholesterol History of drug abuse in remission History of suicidal tendencies HTN (hypertension) Leukocytosis MDD (major depressive disorder) Neuropathy MALCOM (obstructive sleep apnea) RLS (restless legs syndrome) Sleep apnea UTI (urinary tract infection) Family History (Updated 02/05/23 @ 15:27 by Porsche Fall, TARAH) Other No significant family history Social History (Updated 02/05/23 @ 15:28 by Porsche Fall, TARAH) Smoking Status: Smoker, status unknown alcohol intake: never current occupational status: unemployed Travel in the last 8 wee
--- NOTE | 2023-02-10 17:51 | PC.NURSE ---
[employer] SAL[employer] NOTIFIED OF ADMISSION
[2023-02-10 17:54] LABS: Coronavirus 19, PCR Not Detected (NotDetected); Influenza A, PCR Not Detected (NotDetected); Influenza B, PCR Not Detected (NotDetected)
--- NOTE | 2023-02-10 18:06 | PC.NURSE ---
SHREYAS BRYAN AT BEDSIDE SPEAKING WITH PT
[2023-02-10 18:07] LABS: Appearance,Urine CLEAR (Clear); Bilirubin,Urine Negative (Negative); Blood, Urine 1+ (Negative); Color,Urine YELLOW (Yellow); Glucose,Urine (UA) 3+ (Negative); Ketones,Urine 1+ (Negative); Leukocyte Esterase,Urine Negative (Negative); Nitrate,Urine Negative (Negative); Protein,Urine Negative (Negative); Specific Gravity, Urine <= 1.005 (1.005-1.030); Urobilinogen,Urine 0.2 EU/dl (0.2)
--- NOTE | 2023-02-10 18:08 | PC.NURSE ---
US IV attempted, pt. did not tolerate procedure. Pt states I do not want you to do this anymore, I am done, leave me alone! . Dr. Loving notified. Will continue to monitor.
[2023-02-10 18:39] LABS: RBC,Urine Occasional #/hpf (0-3); Squamous Epithelial Cell,Urine Occasional #/hpf (0-5); WBC,Urine Occasional #/hpf (0-3)
[2023-02-10 18:56] LABS: POC Glucose,Bedside 563 (70-110)
[2023-02-10 18:59] LABS: VBG Base Excess -12.6 mmol/L (-2.4-2.3); VBG HCO3 14.4 mmol/L (23-30); VBG Oxygen Saturation 86.6 % (50-70); VBG PCO2 32.5 mmol/L (35-51); VBG PH 7.27 mmol/L (7.31-7.41); VBG PO2 58.9 mmol/L (28-40); VBG Total CO2 15.4 mmol/L (23-27)
[2023-02-10 19:13] LABS: Chloride 96 mmol/L (98-107); Sodium 132 mmol/L (136-145)
[2023-02-10 19:14] LABS: Potassium 4.8 mmoL/L (3.5-5.1)
[2023-02-10 19:16] LABS: Blood Urea Nitrogen 15 mg/dl (7-17); Creatinine Clearance Estimated 65 mL/min (50-200); Estimated Glomerular Filt Rate 67 ml/min (>60); GFR (African American) 82 ML/MIN (>60)
[2023-02-10 19:17] LABS: Anion Gap 25.8 mEq/L (5-15); Calcium 8.7 mg/dl (8.4-10.2); Carbon Dioxide 15 mmol/L (22.0-30.0)
--- NOTE | 2023-02-10 19:23 | EXP.HP ---
History of Present Illness *Admission Date: 02/10/23 *Reason for visit:: hyperglycemia *History of present illness: this is a 47-year-old female with history of type 1 diabetes, HLD, depression and medical noncompliance who presents from her living facility cheating on with complaints of nausea and hypoglycemia. She reports nausea that began this morning after not having her glucose checked and not receiving her insulin. She reports no other complaints other than nausea and mild abdominal pain. She is volitionally unwilling to give more information and states that she just does not feel good. Of note, patient was discharged earlier this week for similar admit. Emergency department work-up significant for glucose of 660, anion gap of 25, pH of 7.27. Labs consistent with DKA. Mild leukocytosis with a white count of 11 but no obvious infection source noted. She was given IV fluids, started on insulin drip and admitted to the hospital service for further evaluation and management. [facility] Disclaimer: The information contained in this section may have been updated after the patient was seen, as this information can be updated by other users. Medical History Anxiety Bipolar 1 disorder Constipation COVID Diabetes mellitus, insulin dependent (IDDM), uncontrolled DKA (diabetic ketoacidosis) Essential (primary) hypertension Former smoker Gastroparesis GERD (gastroesophageal reflux disease) Herpes High cholesterol History of drug abuse in remission History of suicidal tendencies HTN (hypertension) Leukocytosis MDD (major depressive disorder) Neuropathy MALCOM (obstructive sleep apnea) RLS (restless legs syndrome) Sleep apnea UTI (urinary tract infection) Family History No significant family history Social History (Updated 02/10/23 @ 21:59 by Desi Jackson RN) Smoking Status: Smoker, status unknown alcohol intake: never current occupational status: unemployed Travel in the last 8 weeks: None Review of Systems Review of Systems Review of systems:: pertinent systems reviewed and negative unless documented below Constitutional Constitutional: Reports fatigue ENT Ears, Nose, Mouth, and Throat: Reports dry mouth *Gastrointestinal Gastrointestinal: Reports nausea *Genitourinary Genitourinary: Reports urinary urgency Endocrine Endocrine: Reports fatigue Meds Home Medications and Allergies Home Medications Medication Instructions Recorded Confirmed Type atorvastatin 20 mg tablet 20 mg PO HS Cholesterol 30 days 02/07/23 02/10/23 Rx #30 tabs bupropion HCl 300 mg 24 hr tablet, 300 mg PO DAILY Mood 30 days #30 02/07/23 02/10/23 Rx extended release (Wellbutrin XL) tabs ferrous sulfate 325 mg (65 mg 325 mg PO DAILY Supplement 30 days 02/07/23 02/10/23 Rx iron) tablet,delayed release #30 tabs gabapentin 300 mg capsule 300 mg PO TID Pain 30 days #90 caps 02/07/23 02/10/23 Rx insulin lispro protamine-lispro 25 unit (0.25 mL) SQ BID Diabetes 02/07/23 02/10/23 Rx 100 unit/mL (75-25) subcutaneous 30 days #15 mL pen (Humalog Mix 75-25 KwikPen) pantoprazole 40 mg tablet,delayed 40 mg PO DAILY Acid reflux 30 days 02/07/23 02/10/23 Rx release #30 tabs risperidone 0.25 mg tablet 0.25 mg PO BID Mood 30 days #60 02/07/23 02/10/23 Rx tabs metoclopramide HCl 5 mg tablet 5 mg PO DAILY na 02/10/23 02/10/23 History pen needle, diabetic 32 gauge x 02/10/23 02/10/23 History 1/4 (BD Ultra-Fine Micro Pen Needle) New Prescriptions to Start Prescriptions: Allergies Allergy/AdvReac Type Severity Reaction Status Date / Time Penicillins Allergy Intermediate Rash Verified 02/05/23 11:18 Exam Data for Last 24 hours Vital signs and Labs for Last 24 Hours: Temp Pulse Resp BP Pulse Ox 98.1 F 118 H 16 114/86 100 02/10/23 16:20 02/10/23 16:20 02/10/23 16:20 02/10/23 16:20
--- NOTE | 2023-02-10 19:23 | PC.NURSE ---
Report called to Jonathan Contreras RN.
--- NOTE | 2023-02-10 19:33 | PC.NURSE ---
Pt arrived to floor via wheelchair @ 193
[2023-02-10 19:37] LABS: Glucose 589 mg/dl (74-100)
--- NOTE | 2023-02-10 19:38 | PC.NURSE ---
Pt to room 217 at this time. Lab reports glucose of 589. Reported to Valerie Hansen NP.
[2023-02-10 19:46] VITALS: BP 114/64; PULSE 117; RESP 15; TEMP 37.3; O2SAT 100
[2023-02-10 20:00] VITALS: BP 118/74; PULSE 110; RESP 16; O2SAT 100; O2SAT 99
[2023-02-10 20:02] VITALS: BP 115/65; PULSE 110; RESP 18; TEMP 36.6; O2SAT 99
--- NOTE | 2023-02-10 20:33 | PC.NURSE ---
Pt refused Lovenox injection. Pt states I just don't take them . Pt educated on use of lovenox injection during admission.
[2023-02-10 22:00] VITALS: BP 113/65; PULSE 109; RESP 12; O2SAT 98
[2023-02-10 22:03] LABS: Chloride 103 mmol/L (98-107); Potassium 3.8 mmoL/L (3.5-5.1); Sodium 136 mmol/L (136-145)
[2023-02-10 22:06] LABS: Blood Urea Nitrogen 13 mg/dl (7-17); Creatinine Clearance Estimated 74 mL/min (50-200); Estimated Glomerular Filt Rate 77 ml/min (>60); GFR (African American) 93 ML/MIN (>60)
[2023-02-10 22:07] LABS: Anion Gap 14.8 mEq/L (5-15); Calcium 8.8 mg/dl (8.4-10.2); Carbon Dioxide 22 mmol/L (22.0-30.0); Glucose 271 mg/dl (74-100)
--- NOTE | 2023-02-10 22:59 | PC.NURSE ---
Radha GAUGE MAKER notified of pts anion gap of 14.8. States to leave insulin gtt infusing at current rate at this time.
[2023-02-11] VITALS (7 sets, daily range): BP systolic 96–122; BP diastolic 59–76; PULSE 95–110; RESP 13–20; TEMP 36.6–37.3; O2SAT 94–97
--- NOTE | 2023-02-11 00:30 | PC.NURSE ---
Per Radha ALLEN, start D5 1/2 NS for FSBS <200. 0000 FSBS 181. D5 1/2 NS now infusing. Insulin gtt currently infusing @ 2.7 units/hr.
[2023-02-11 01:14] LABS: POC Glucose,Bedside 175 (70-110)
[2023-02-11 02:34] LABS: Anion Gap 8.5 mEq/L (5-15); Blood Urea Nitrogen 11 mg/dl (7-17); Calcium 8.1 mg/dl (8.4-10.2); Carbon Dioxide 27 mmol/L (22.0-30.0); Chloride 104 mmol/L (98-107); Creatinine Clearance Estimated 84 mL/min (50-200); Estimated Glomerular Filt Rate 90 ml/min (>60); GFR (African American) 109 ML/MIN (>60); Glucose 158 mg/dl (74-100); Potassium 3.5 mmoL/L (3.5-5.1); Sodium 136 mmol/L (136-145)
--- NOTE | 2023-02-11 02:45 | PC.NURSE ---
Spoke with Radha ALLEN regarding pts BMP. States will put in order for long-acting insulin, and to stop insulin gtt 1 hour after giving, and DC D5 1/2 NS, no maintenance fluids. States will also place order for K+ to be given.
--- NOTE | 2023-02-11 03:07 | PC.NURSE ---
Pt refused PO potassium, states i just dont want it, leave me alone . Radha ALLEN notified and states will order K+ IV
[2023-02-11 03:16] LABS: POC Glucose,Bedside 294 (70-110)
[2023-02-11 03:16] LABS: POC Glucose,Bedside 181 (70-110)
[2023-02-11 03:16] LABS: POC Glucose,Bedside 248 (70-110)
[2023-02-11 03:16] LABS: POC Glucose,Bedside 161 (70-110)
[2023-02-11 03:16] LABS: POC Glucose,Bedside 233 (70-110)
[2023-02-11 03:16] LABS: POC Glucose,Bedside 444 (70-110)
[2023-02-11 03:16] LABS: POC Glucose,Bedside 165 (70-110)
[2023-02-11 06:08] LABS: Basophils % 0.4 % (0.1-2.0); Eosinophils # 0.3 K/mm3 (0.0-0.4); Eosinophils % 3.9 % (0.1-12.0); Hematocrit 28.3 % (37.0-47.0); Lymphocytes # 3.2 K/mm3 (0.7-4.5); Lymphocytes % 43.8 % (10-50); Mean Corpuscular HGB Conc 32.6 g/dL (31.8-35.4); Mean Corpuscular Hemoglobin 28.5 pg (27.0-31.2); Mean Corpuscular Volume 87.4 fl (81-99); Mean Platelet Volume 8.3 fl (7.4-10.4); Monocytes # 0.4 K/mm3 (0.1-1.0); Monocytes % 5.2 % (1.7-9.3); Neutrophils # 3.4 K/mm3 (1.8-7.8); Neutrophils % 46.8 % (37.0-80.0); Platelet Count 323 K/mm3 (142-424); Red Blood Count 3.24 M/mm3 (4.20-5.40); Red Cell Distribution Width 20.7 % (11.5-17.5); White Blood Count 7.2 K/mm3 (4.8-10.8)
--- NOTE | 2023-02-11 06:09 | PC.NURSE ---
Insulin gtt and D5 1/2 NS D/C at 0400 this morning. Pt has no complaints at this time, states she feels much better. Pt has ambulated to with standby assistance twice this shift. Pt is uncooperative at times. Left sided weakness and contraction to left hand noted, pt states this is her baseline from previous stroke. Pt remains on RA and is tolerating well, NSR-sinus tach on tele.
[2023-02-11 06:13] LABS: Hemoglobin 9.2 g/dL (12.2-16.2)
[2023-02-11 06:16] LABS: Chloride 104 mmol/L (98-107); Potassium 4.1 mmoL/L (3.5-5.1); Sodium 135 mmol/L (136-145)
[2023-02-11 06:18] LABS: Blood Urea Nitrogen 10 mg/dl (7-17); Creatinine Clearance Estimated 86 mL/min (50-200); Estimated Glomerular Filt Rate 90 ml/min (>60); GFR (African American) 109 ML/MIN (>60)
[2023-02-11 06:19] LABS: Alanine Aminotransferase 21 U/L (12-78); Albumin Level 3.1 g/dl (3.5-5.0); Albumin/Globulin Ratio 1.1 (1.1-1.8); Alkaline Phosphatase 82 U/L (38-126); Anion Gap 11.1 mEq/L (5-15); Aspartate Amino Transferase 17 U/L (14-36); Bilirubin,Total 0.3 mg/dl (0.2-1.3); Calcium 8.1 mg/dl (8.4-10.2); Carbon Dioxide 24 mmol/L (22.0-30.0); Globulin 2.7 g/dL (1.3-3.2); Glucose 155 mg/dl (74-100); Magnesium 1.8 mg/dl (1.6-2.3); Phosphorous 3.1 mg/dl (2.5-4.5); Total Protein,Serum 5.8 g/dl (6.3-8.2)
--- NOTE | 2023-02-11 06:56 | PC.NURSE ---
Radha ALLEN notified of increasing FSBS of 172 and 206. States she will put in order for home insulin now.
[2023-02-11 07:01] LABS: POC Glucose,Bedside 149 (70-110)
[2023-02-11 07:01] LABS: POC Glucose,Bedside 206 (70-110)
[2023-02-11 07:01] LABS: POC Glucose,Bedside 172 (70-110)
[2023-02-11 07:01] LABS: POC Glucose,Bedside 144 (70-110)
--- NOTE | 2023-02-11 07:53 | EXP.ACUTE.PN ---
Subjective *Date: 02/11/23 *Time: 10:46 Interval history: Patient alert this morning. Oriented to person place and time. Continues to complain of abdominal pain. Denies any nausea. Afebrile, stable on room air. Blood pressure within normal limits, remains slightly tachycardic. Independent on evaluation with PT. No fever, shortness of breath, chest pain. Medical Exam Vital signs and Labs for Last 24 Hours: Vital Signs Temp Pulse Pulse Resp BP BP Pulse Ox 02/11/23 06:00 95 H 17 122/76 96 02/11/23 04:00 100 H 02/11/23 04:00 97.9 F 98 H 14 114/71 96 02/11/23 03:31 97 02/11/23 02:00 98.3 F 97 H 14 121/76 94 L 02/11/23 00:00 110 H 02/10/23 20:00 110 H 02/11/23 00:00 105 H 13 96/59 L 96 02/10/23 22:00 109 H 12 113/65 98 02/10/23 20:00 100 02/10/23 20:00 110 H 16 118/74 99 02/10/23 20:02 98 F 110 H 18 115/65 02/10/23 19:46 99.1 F 117 H 15 114/64 100 02/10/23 16:20 98.1 F 118 H 16 114/86 100 Intake and Output 02/10/23 02/10/23 02/11/23 15:59 23:59 07:59 Intake Total 3328 / 3328 Output Total 500 / 500 250 / 250 Balance -500 / -500 3078 / 3078 Intake: Intake, Oral Amount 60 / 60 Intake, Total IV Amount 3268 / 3268 0.9 % Sodium Chloride 1000ML 1, 1149 / 1149 000 ml @ 150 mls/hr IV .Q6H40M [facility] Rx#:[id number] Insulin Regular, Human 100 unit In 0.9 % Sodium Chloride 100 ml @ 2 UNITS/HR 2.02 mls/hr IV .Q25H [facility] Rx#:[id number] Lactated Ringers 1000ML 1,000 2000 / 2000 ml @ 999 mls/hr IV .Q1H1M [facility] Rx#:[id number] Lactated Ringers 1000ML 1,000 100 / 100 ml @ 999 mls/hr IV .Q1H1M [facility] Rx#:[id number] Output: Output, Urine Amount 500 / 500 250 / 250 Other: Weight 53.07 kg 54.431 kg Patient Weight 02/11/23 23:59 Weight 54.431 kg Laboratory Results - last 24 hr 02/10/23 16:25: WBC 11.7 H, RBC 3.96 L, Hgb 10.8 L, Hct 36.3 L, MCV 91.7, MCH 27.4, MCHC 29.8 L, RDW 20.1 H, Plt Count 387, MPV 8.7, Neut % (Auto) 72.5, Lymph % (Auto) 21.9, [place] % (Auto) 4.1, Eos % (Auto) 1.1, Baso % (Auto) 0.4, Neut # (Auto) 8.5 H, Lymph # (Auto) 2.6, [place] # (Auto) 0.5, Eos # (Auto) 0.1, Baso # (Auto) 0.1 02/10/23 16:25: Sodium 130 L, Potassium 5.0, Chloride 94 L, Carbon Dioxide 16 L, Anion Gap 25.0 H, BUN 16, Creatinine 0.90, Estimated Creat Clear 65, Estimated GFR 67, Est GFR ( Amer) 82, Glucose 667 H*, Calcium 9.2, Total Bilirubin 0.6, AST 25, ALT 29, Alkaline Phosphatase 126, Total Protein 7.5, Albumin 4.4, Globulin 3.1, Albumin/Globulin Ratio 1.4 02/10/23 16:25: Phosphorus 4.1, Magnesium 2.1 02/10/23 16:36: VBG pH 7.27 L, VBG pCO2 32.5 L, VBG pO2 58.9 H, VBG HCO3 14.4 L, VBG Total CO2 15.4 L, VBG O2 Saturation 86.6 H, VBG Base Excess -12.6 L 02/10/23 16:40: Urine Color Yellow, Urine Appearance Clear, Urine pH 6.0, Ur Specific [place] <= 1.005, Urine Protein Negative, Urine Glucose (UA) 3+, Urine Ketones 1+, Urine Blood 1+, Urine Nitrate Negative, Urine Bilirubin Negative, Urine Urobilinogen 0.2, Ur Leukocyte Esterase Negative, Urine RBC Occasional, Urine WBC Occasional, Ur Squamous Epith Cells Occasional, Urine Bacteria None 02/10/23 17:46: SARS-CoV-2 (PCR) Not detected, Influenza A Untype (PCR) Not detected, Influenza Type B (PCR) Not detected 02/10/23 17:48: Sodium 132 L, Potassium 4.8, Chloride 96 L, Carbon Dioxide 15 L, Anion Gap 25.8 H, BUN 15, Creatinine 0.90, Estimated Creat Clear 65, Estimated GFR 67, Est GFR ( Amer) 82, Glucose 589 H*, Calcium 8.7 02/10/23 18:45: POC Glucose 563 H* 02/10/23 19:51: POC Glucose 444 H* 02/10/23 21:06: POC Glucose 294 H 02/10/23 21:35: Sodium 136, Potassium 3.8 D, Chloride 103, Carbon Dioxide 22, Anion Gap 14.8, BUN 13, Creatinine 0.80, Estimated Creat Clear 74, Estimated GFR 77, Est GFR ( Amer) 93, Glucose 271 H D, Calcium 8.8 02/10/23 22:05: POC Glucose 248 H 02/10/23 23:03: POC Gl
--- NOTE | 2023-02-11 09:53 | HMH.OTEV ---
OT Inpatient Evaluation Rehab OT IP Evaluation Start: 02/11/23 07:54 Freq: ONCE Status: Active Protocol: Document 02/11/23 09:46 HUBERMIK (Rec: 02/11/23 09:53 HUBERMIK [id number]) Rehab OT IP Assessment Subjective History this is a 47-year-old female with history of type 1 diabetes, HLD, depression and medical noncompliance who presents from her living facility cheating on with complaints of nausea and hypoglycemia. She reports nausea that began this morning after not having her glucose checked and not receiving her insulin. She reports no other complaints other than nausea and mild abdominal pain. She is volitionally unwilling to give more information and states that she just does not feel good. Of note, patient was discharged earlier this week for similar admit. Emergency department work-up significant for glucose of 660 , anion gap of 25, pH of 7.27. Labs consistent with DKA. Mild leukocytosis with a white count of 11 but no obvious infection source noted. She was given IV fluids, started on insulin drip and admitted to the hospital service for further evaluation and management. Patient is a resident at [facility]. Patient was independent with ADLs and fx'l mobility. Subjective I can get up. Analysis Patient's ADLs, bed mobility, transfers and safety independently. No LOB noted. Objective Patient Orientation Person,Name,Age,Year Upper Extremity Gross ROM WFL Transfer Training Sit/Stand/Pivot Transfer Assist Level Independent Chair Transfer Ability Independent Chair Transfer Technique Sit to/from Ambulatory Chair Transfer Assistive Devices Rolling Walker Lower Body Dressing Ability Independent Commode/Toilet Transfer
--- NOTE | 2023-02-11 09:55 | SW/DCPLANNER ---
Addendum entered by [facility] 02/11/23 14:57: Per MD request patient information has been faxed to [facility]. Intake w/ [facility] stated they would review patient information then call and follow up with this patient. Addendum entered by [facility] 02/11/23 12:36: Marlee w/ Peg stated that services will start Tuesday02/14/23. Addendum entered by [facility] 02/11/23 11:40: If patient discharges tomorrow [employer] can be arranged. If patient discharges on Tuesday the [facility] has offered to transport patient back to [facility] due to [facility] not currently having transportation. Addendum entered by [facility] 02/11/23 10:35: MD is reviewing medications and pending no setbacks and does well with medications will discharge patient back to [facility] over the weekend. I have faxed patient information/order to [facility] for services to begin on Tuesday02/14/23. I have updated Janine w/ Diego Mak. Original Note: This patient currently resides at [facility]. I did call and speak w/ Janine at [facility] and she did mention that patient is doing well at their facility. Janine also stated that patient is taking her Insulin as directed. Patient ambulated well with PT/OT this AM. I will follow up with MD then discuss plan with Diego Mak.
--- NOTE | 2023-02-11 10:40 | HMH.PTEV ---
Physical Therapy Evaluation Rehab PT IP Evaluation Start: 02/11/23 07:54 Freq: ONCE Status: Active Protocol: Document 02/11/23 08:15 NATALIA (Rec: 02/11/23 10:39 PHOCHRISTY [id number]) Subjective/History History History 47 yowf adm to [facility] with DKA secondary to DM-I. She is resident of a local personal shelter with hx of bipolar disorder also. She reports she is generally independent with all mobility using a RW. Subjective Subjective Pt reports generally feeling tired and unwell, but agrees to mobility assessment. Rehab PT IP Eval Objective Appearance Patient Behavior Appropriate Patient Orientation Person,Place,Time Difficulty following instructions none Speech Pattern Clear Ambulation Patient Able to Ambulate Yes Ambulation Observation IP General Gait Pattern Observation No Deviations/Normal Ambulation Distance (feet) 30 Ambulation Assistive Device Rolling Walker Ambulation Ability Independent Balance Ability to Arise Able, uses arms to help Sitting Balance Steady, safe Standing Balance Steady, wide stance Dynamic Sitting Balance Ability Good Dynamic Standing Balance Ability Good Transfers Bed Transfer Ability Independent Chair Transfer Ability Independent Sit to Stand Bed Transfer Ability Independent Sit to Stand Chair Transfer Ability Independent ROM All Extremities PT ROM Status WFL MMT All Extremities PT MMT WFL Rehab PT IP prob,goals,plan Problems Date of Evaluation: 02/11/23 Discharge Plan PT Discharge Plan Pt is currently at baseline for allmobility and is appropriate to return to prior living situation once medically stable. G -code Required No Eval Complexity Eval Charge Codes 78015 - Moderate Complexity PHYSICIAN CERTIFICATION: I certify the specified therapy services for Magali High are required, authorized, and reviewed every 30 days.
[2023-02-11 11:18] LABS: POC Glucose,Bedside 244 (70-110)
--- NOTE | 2023-02-11 13:29 | DIET.NUTRFU ---
RD was consulted to see patient and review diabetic education. RD saw patient 02/07 and provided handouts. Provided and reviewed again. Also reviewed menu at bedside and example meals she [facility] at [facility]. She continues to dislikes [facility] and does not want to go back. Case mgt aware. She claims they do not provide her insulin when needed and they do let her pick her meals. Provider verified that [facility] is providing insulin on schedule doctor provides. Provider here may adjust insulin dose prior to discharge to better met needs. At time of visit she was eating potato chips and pudding and then requested more potato chips and pudding. RD tried to explain that those items are Carb/simple sugars and not advised to eat all at once. Reviewed sample meals that she has received at [facility] in past and how to count them correctly. She claims she understand and will try to follow recommendations. Reviewed menu with her for tomorrow and counted the carbs together, will hand in to kitchen
--- NOTE | 2023-02-11 14:35 | PC.NURSE ---
Addendum entered by Dilia Delaney RN 02/11/23 18:48: PT STATED AT 1840 THAT SHE WANTED THE PAPER TO SIGN AND SHE WAS LEAVING. PT SIGNED AMA PAPER AFTER SHE INITIALLY REFUSED TO SIGN EARLIER. PT STATED SHE WAS JUST GOING TO WALK TO [facility]. PT WAS ENCOURAGED TO STAY UNTIL WE COULD GET HER RIDE TOMORROW B/C SHE DID NOT HAVE ANY SHOES TO WALK HOME IN. PT STATED SHE DID NOT HAVE ANY SHOES AT [facility] EITHER AND SHE WOULD BE FINE. NOTIFIED . PT LEFT THE FLOOR AT 1850. Addendum entered by Dilia Delaney RN 02/11/23 18:23: PT GOT OOB AT 1745 AND STATED SHE WAS LEAVING. PT PULLED OUT HER IV'S AND REFUSED TO LET STAFF WRAP WITH [facility]. PT WAS GIVEN THE AMA FORM AND STATED I'M LEAVING AND I AM NOT SIGNING ANYTHING . DR. FIGUEROA WAS NOTIFIED. TALKED TO TAWANNA OVER THE PHONE AND SHE STATED SHE WOULD CALL [facility] TO UPDATE THEM ON WHAT WAS GOING ON. AFTER PT FOUND OUT SHE WAS NOT GOING TO HAVE A RIDE TO GET BACK TO [facility] SHE WAS GOING TO STAY FOR NOW. PT STATED I'M NOT ABLE TO WALK THAT FAR. STATED PT DOES NOT NEED IV ACCESS AT THIS TIME. Addendum entered by Dilia Delaney RN 02/11/23 16:29: [facility] CALLED BACK AND STATED THAT PT COULD FOLLOW UP ON A OUTPATIENT BASIS HOWEVER THERE WAS NO REASON FOR THEM TO EXCEPT HER INPATIENT. PT CONTINUES TO BE VERY AGITATED AND EMOTIONAL. PT STATES SHE WANTS HER BROTHER TO COME PICK HER UP HOWEVER HE WILL NOT ANSWER HER PHONE CALLS. PT ASKED IF STAFF COULD CALL HIS CELL. STAFF CALLED WITH NO ANSWER. PT STATED SHE WANTED HER BROTHER TO TAKE HER TO [facility] OR [place] BUT SHE NO LONGER WANTED TO STAY AT [facility]. Original Note: PT CALLED OUT AND STATED SHE WANTED TO LEAVE AND SHE REQUESTED AMA PAPERS TO SIGN. THIS NURSE WENT IN TO TALK TO PT. PT STATED I JUST WANT TO LEAVE, I'M TIRED OF BEING IN HOSPITALS AND I JUST WANT TO GO TO [facility] TO GET ALL MY STUFF AND GO BACK TO [facility]. PT HAS VOICED TO SEVERAL STAFF THIS SHIFT THAT SHE HATES [place] AND SHE DID NOT WANT TO GO BACK THERE TO LIVE. PT ALSO HAS STATED HER BROTHER WHO SHE RESIDED WITH WHEN SHE LIVED IN [facility] IS NO LONGER LIVING THERE AND THEY LOST THEIR HOME. PT STATED SHE HAS ONE LIVING SON AND ONE SON . PT STATES SHE DOES NOT HAVE A NUMBER FOR HER LIVING SON BUT SHE DOES KNOW WHERE TO FIND HIM. PT STATES SHE WAS FROM [facility] AND THAT IS WHERE SHE WANTED TO GO. PT ATTEMPTED TO PULL OUT HER OWN IV'S AND STATED I'M LEAVING ONE WAY OR ANOTHER EVEN IF SHE HAS TO BE HOMELESS. WAS ON THE FLOOR AT THE TIME AND ALSO TALKED TO PT. PT VOICED TO HIM WELL THAT SHE DID NOT CARE WHAT HAPPENED OR IF SHE LEFT AND HAD TO COME RIGHT BACK SHE WAS TIRED AND JUST WANTED TO LEAVE. PT WAS ENCOURAGED TO STAY WITH US LONG ENOUGH TO SEE IF WE CAN WORK ON GETTING HER A BED AT [facility].
[2023-02-11 15:52] LABS: POC Glucose,Bedside 284 (70-110)
--- NOTE | 2023-02-11 17:54 | EXP.DC.SUM ---
General Admission date:: 02/10/23 Discharge date: 02/11/23 HPI HPI HPI: Ms. High is a 47-year-old female with history of type 1 diabetes, HLD, depression and medical noncompliance who presents from her living facility cheating on with complaints of nausea and hypoglycemia.? She reports nausea that began this morning after not having her glucose checked and not receiving her insulin.? She reports no other complaints other than nausea and mild abdominal pain.? She is volitionally unwilling to give more information and states that she just does not feel good.? Of note, patient was discharged earlier this week for similar admit. ? Emergency department work-up significant for glucose of 660, anion gap of 25, pH of 7.27.? Labs consistent with DKA.? Mild leukocytosis with a white count of 11 but no obvious infection source noted.? She was given IV fluids, started on insulin drip and admitted to the hospital service for further evaluation and management. Exam Data for Last 24 hours Vital signs and Labs for Last 24 Hours: Temp Pulse Resp BP Pulse Ox 99.1 F 103 H 20 118/66 95 02/11/23 08:53 02/11/23 08:00 02/11/23 08:00 02/11/23 08:00 02/11/23 08:00 Laboratory Results - last 24 hr 02/10/23 16:36: VBG pH 7.27 L, VBG pCO2 32.5 L, VBG pO2 58.9 H, VBG HCO3 14.4 L, VBG Total CO2 15.4 L, VBG O2 Saturation 86.6 H, VBG Base Excess -12.6 L 02/10/23 16:40: Urine Color Yellow, Urine Appearance Clear, Urine pH 6.0, Ur Specific [place] <= 1.005, Urine Protein Negative, Urine Glucose (UA) 3+, Urine Ketones 1+, Urine Blood 1+, Urine Nitrate Negative, Urine Bilirubin Negative, Urine Urobilinogen 0.2, Ur Leukocyte Esterase Negative, Urine RBC Occasional, Urine WBC Occasional, Ur Squamous Epith Cells Occasional, Urine Bacteria None 02/10/23 17:46: SARS-CoV-2 (PCR) Not detected, Influenza A Untype (PCR) Not detected, Influenza Type B (PCR) Not detected 02/10/23 17:48: Sodium 132 L, Potassium 4.8, Chloride 96 L, Carbon Dioxide 15 L, Anion Gap 25.8 H, BUN 15, Creatinine 0.90, Estimated Creat Clear 65, Estimated GFR 67, Est GFR ( Amer) 82, Glucose 589 H*, Calcium 8.7 02/10/23 18:45: POC Glucose 563 H* 02/10/23 19:51: POC Glucose 444 H* 02/10/23 21:06: POC Glucose 294 H 02/10/23 21:35: Sodium 136, Potassium 3.8 D, Chloride 103, Carbon Dioxide 22, Anion Gap 14.8, BUN 13, Creatinine 0.80, Estimated Creat Clear 74, Estimated GFR 77, Est GFR ( Amer) 93, Glucose 271 H D, Calcium 8.8 02/10/23 22:05: POC Glucose 248 H 02/10/23 23:03: POC Glucose 233 H 02/11/23 00:07: POC Glucose 181 H 02/11/23 01:07: POC Glucose 175 H 02/11/23 02:05: Sodium 136, Potassium 3.5, Chloride 104, Carbon Dioxide 27, Anion Gap 8.5, BUN 11, Creatinine 0.70, Estimated Creat Clear 84, Estimated GFR 90, Est GFR ( Amer) 109, Glucose 158 H D, Calcium 8.1 L 02/11/23 02:07: POC Glucose 165 H 02/11/23 03:01: POC Glucose 161 H 02/11/23 04:07: POC Glucose 149 H 02/11/23 05:05: POC Glucose 144 H 02/11/23 05:47: WBC 7.2 D, RBC 3.24 L, Hgb 9.2 L D, Hct 28.3 L, MCV 87.4, MCH 28.5, MCHC 32.6, RDW 20.7 H, Plt Count 323, MPV 8.3, Neut % (Auto) 46.8, Lymph % (Auto) 43.8, [place] % (Auto) 5.2, Eos % (Auto) 3.9, Baso % (Auto) 0.4, Neut # (Auto) 3.4, Lymph # (Auto) 3.2, [place] # (Auto) 0.4, Eos # (Auto) 0.3, Baso # (Auto) 0.0 02/11/23 05:47: Sodium 135 L, Potassium 4.1, Chloride 104, Carbon Dioxide 24, Anion Gap 11.1, BUN 10, Creatinine 0.70, Estimated Creat Clear 86, Estimated GFR 90, Est GFR ( Amer) 109, Glucose 155 H, Calcium 8.1 L, Phosphorus 3.1, Magnesium 1.8 D, Total Bilirubin 0.3, AST 17 D, ALT 21 D, Alkaline Phosphatase 82, Total Protein 5.8 L, Albumin 3.1 L D, Globulin 2.7, Albumin/Globulin Ratio 1.1 02/11/23 06:06: POC Glucose 172 H 02/11/23 06:54: POC Glucose 206 H 02/11/23 11:00: POC Glucose 244 H 02/11/23 15:36: POC Glucose 284 H I & O for Last 24 hours: Intake & Output 02/08/23 02/09/23 02/10/23 02/11/23 23:59 23:59 23:59 23:59 Intake Total 4288 / 4288 Output Total
--- NOTE | 2023-02-11 18:48 | EXP.DC.SUM ---
General Admission date:: 02/10/23 Discharge date: 02/11/23 HPI HPI HPI: this is a 47-year-old female with history of type 1 diabetes, HLD, depression and medical noncompliance who presents from her living facility cheating on with complaints of nausea and hypoglycemia.? She reports nausea that began this morning after not having her glucose checked and not receiving her insulin.? She reports no other complaints other than nausea and mild abdominal pain.? She is volitionally unwilling to give more information and states that she just does not feel good.? Of note, patient was discharged earlier this week for similar admit. ? Emergency department work-up significant for glucose of 660, anion gap of 25, pH of 7.27.? Labs consistent with DKA.? Mild leukocytosis with a white count of 11 but no obvious infection source noted.? She was given IV fluids, started on insulin drip and admitted to the hospital service for further evaluation and management. Hospital Course Hospital Course Hospital Course: This is a 47-year-old female with a history of type 1 diabetes, medical noncompliance, HLD who is readmitted this week for her second episode of DKA.? She is noted to have an anion gap of 25, glucose in the 600s.? She will be admitted for insulin drip, serial BMPs.? Gap closed overnight.? Plan was to transition to basal bolus regimen.? Reports from personal-senior living state that she has been getting her insulin, concerned that her regimen is not adequate with twice daily.? Changes as follows: DKA Insulin-dependent diabetes -Gap closed overnight.? Anion gap of 11 on labs this morning.? Electrolytes stable with potassium of 4.1.? Bicarb 24.? Plan was to transition to a basal bolus regimen given failure of her 75/25 regimen at her personal senior living. Unfortunately patient left before able to transition to glargine this evening. Informed her personal-senior living that she was leaving AGAINST MEDICAL ADVICE. Did send higher dose of her 75/25 regimen (30 units twice daily) to make sure she had at least an increase changed to reduce risk for readmission. Patient is alert and oriented, has capacity to make her own decisions however she is making a decision that is putting her at increased harm and significantly increasing her risk of readmission within the next few days. Strong concern that she will go back into DKA. Patient's medical noncompliance and her social situation are barriers to her improvement and barriers to successful discharge and decreased risk of readmission. Case management was consulted during hospitalization and assisted with setting her up with home health. Home health is supposed to see her at her personal-senior living on Tuesday if she is still there. Additionally today patient had requested to go to an inpatient psych facility. The facility did an over the phone intake eval. Patient was deemed to not be suicidal and therefore not meeting inpatient criteria. Provided with resources for outpatient appointment. Strong concern the patient will not make an appointment or keep an appointment given her poor insight and decisions during hospitalization. Resume previous medications at discharge. No new prescription sent other than an increase in her Humalog mix 75/25 KwikPen to 30 units twice daily. Exam Data for Last 24 hours Vital signs and Labs for Last 24 Hours: Temp Pulse Resp BP Pulse Ox 99.1 F 103 H 20 118/66 95 02/11/23 08:53 02/11/23 08:00 02/11/23 08:00 02/11/23 08:00 02/11/23 08:00 Laboratory Results - last 24 hr 02/10/23 16:36: VBG pH 7.27 L, VBG pCO2 32.5 L, VBG pO2 58.9 H, VBG HCO3 14.4 L, VBG Total CO2 15.4 L, VBG O2 Saturation 86.6 H, VBG Base Excess -12.6 L 02/10/23 17:46: SARS-CoV-2 (PCR) Not detected, Influenza A Untype (PCR) Not detected, Influenza Type B (PCR) Not detected 02/10/23 17:48: Sodium 132 L, Potassium 4.8, Chloride 96 L, Carbon Dioxide 15 L, Anion Gap 25.8 H, BUN 15, Creatinine 0.90, Estimated Creat [place]
== END 2023-02-11 18:50 | disposition left against medical advice (07) ==
LOC: ER 17:30 → 2ND 18:54
PROVIDERS: Admitting Provider Internal Medicine Adolescent Medicine; Emergency Provider Student in an Organized Health Care Education/Training Program; PCP Emergency Medicine; Visit Provider Internal Medicine Adolescent Medicine
DX: E11.10 Type 2 diabetes mellitus with ketoacidosis without coma (principal)
CPT/HCPCS: 36415; 80048; 80053; 81001; 82803; 82962; 83735; 84100; 85025; 87086; 97162; 97165; 99291; C9803; G0378; J2405; J3475; U0003; U0005

== ENCOUNTER 2023-02-12 09:33 | Observation (INO) | payer MEDICARE, SELFPAY ==
[2023-02-12] VITALS (10 sets, daily range): BP systolic 101–150; BP diastolic 55–94; PULSE 84–115; RESP 16–18; TEMP 36.6–36.8; O2SAT 96–100; BMI 20.9
--- NOTE | 2023-02-12 09:49 | HMH.EDGENADL ---
Discharge Plan Disposition Patient Disposition: Admitted As Inpatient Condition: Serious Chief Complaint: Hyper/Hypoglycemia Prescriptions Prescriptions: No Action atorvastatin 20 mg Tablet 20 mg PO HS 30 Days Qty: 30 0RF risperidone 0.25 mg Tablet 0.25 mg PO BID 30 Days Qty: 60 0RF pantoprazole 40 mg Tablet,Delayed Release (Dr/Ec) 40 mg PO DAILY 30 Days Qty: 30 0RF gabapentin 300 mg Capsule 300 mg PO TID 30 Days Qty: 90 0RF ferrous sulfate 325 mg (65 mg iron) Tablet,Delayed Release (Dr/Ec) 325 mg PO DAILY 30 Days Qty: 30 0RF bupropion HCl [Wellbutrin XL] 300 mg Tablet Extended Release 24 Hr 300 mg PO DAILY 30 Days Qty: 30 0RF metoclopramide HCl 5 mg Tablet 5 mg PO DAILY (DME) pen needle, diabetic [BD Ultra-Fine Micro Pen Needle] 32 gauge x 1/4 needle See Rx Instructions .ROUTE Rx Instructions: As directed insulin lispro protamin-lispro [Humalog Mix 75-25 KwikPen] 100 unit/mL (75-25) Insulin Pen 30 unit SQ BID 30 Days Qty: 15 0RF Rx Instructions: AT BREAKFAST AND SUPPER Referrals Follow up/Referrals: Provider,Referral, MD [Primary Care Provider] - See instructions Clinical Impressions Clinical Impression: DKA (diabetic ketoacidosis) Instructions Patient Instructions: DI for Hyperglycemia -- Adult Discharge ED Provider: Neftaly Pierce General Adult HPI General Chief complaint: Hyper/Hypoglycemia Stated complaint: Hyperglycemia Time Seen by Provider: 02/12/23 09:49 Mode of Arrival: EMS Source of Information: Patient Limitations: No Limitations Description of Symptoms (Recalled from ER Triage Doc. by RN): pt to ed c/o hyperglycemia. pt states she signed herself out of the hospital yesterday. pt reports 1 episode of emesis this morning. pt reports im just tired. History of Present Illness HPI narrative: Patient is a 47-year-old female with multiple comorbidities, insulin-dependent diabetes with medication noncompliance who presents emergency department for high blood sugar and vomiting. Patient was admitted yesterday for DKA and signed herself out AGAINST MEDICAL ADVICE having capacity. Patient has not taken her insulin since. This morning she had 1 episode of nonbloody nonbilious vomiting, staff found her sugar reading high and transported her here for continued evaluation. No other acute complaints at this time. Related Data Home Medications Medication Instructions Recorded Confirmed metoclopramide HCl 5 mg tablet 5 mg PO DAILY na 02/10/23 02/10/23 pen needle, diabetic 32 gauge x 02/10/23 02/10/2310/20 (BD Ultra-Fine Micro Pen Needle) Previous Rx's Medication Instructions Recorded atorvastatin 20 mg tablet 20 mg PO HS Cholesterol 30 days 02/07/23 #30 tabs bupropion HCl 300 mg 24 hr tablet, 300 mg PO DAILY Mood 30 days #30 02/07/23 extended release (Wellbutrin XL) tabs ferrous sulfate 325 mg (65 mg 325 mg PO DAILY Supplement 30 days 02/07/23 iron) tablet,delayed release #30 tabs gabapentin 300 mg capsule 300 mg PO TID Pain 30 days #90 caps 02/07/23 pantoprazole 40 mg tablet,delayed 40 mg PO DAILY Acid reflux 30 days 02/07/23 release #30 tabs risperidone 0.25 mg tablet 0.25 mg PO BID Mood 30 days #60 02/07/23 tabs insulin lispro protamine-lispro 30 unit (0.3 mL) SQ BID Diabetes 02/11/23 100 unit/mL (75-25) subcutaneous 30 days #15 mL pen (Humalog Mix 75-25 KwikPen) Allergies Allergy/AdvReac Type Severity Reaction Status Date / Time Penicillins Allergy Intermediate Rash Verified 02/05/23 11:18 [facility] Disclaimer: The information contained in this section may have been updated after the patient was seen, as this information can be updated by other users. Medical History Anxiety Bipolar 1 disorder Constipation COVID Diabetes mellitus, insulin dependent (IDDM), uncontrolled DKA (diabetic ketoacidosis) Essential (primary) hypertension Former smoke
--- NOTE | 2023-02-12 10:09 | PC.NURSE ---
called [facility] to confirm pt can receive insulin and they stated the pt refused to take insulin due to a dr stating something was wrong with medicine. Relayed messaged to Dr. Pierce
--- NOTE | 2023-02-12 10:13 | PC.NURSE ---
pt refusing to have any care from the medical staff at this time. Able to state her name and year, states that if she can tell him that she understands that her sugar is high and that it could cause if she leaves, pt refuses to state this statement, pt states that she does not want to repeat this sentence because she does not have to repeat anything to us. , Nikki RN and myself at at this time. Pt swinging her arms, taking the tourniquet off and stating to leave her alone, she doesn't want us to touch her. Educated that if she is not able to repeat this, medically we have to care for her. PT states that we are judging her by asking her these questions.
--- NOTE | 2023-02-12 10:38 | PC.NURSE ---
pt voided 900ml and collected ua sample
[2023-02-12 10:43] LABS: Microscopic, Urine URINE MICROSCOPIC (MICROSCOPIC)
[2023-02-12 10:56] LABS: Appearance,Urine CLEAR (Clear); Bilirubin,Urine Negative (Negative); Blood, Urine Negative (Negative); Color,Urine YELLOW (Yellow); Glucose,Urine (UA) 3+ (Negative); Ketones,Urine 1+ (Negative); Leukocyte Esterase,Urine Negative (Negative); Nitrate,Urine Negative (Negative); Protein,Urine Negative (Negative); Specific Gravity, Urine <= 1.005 (1.005-1.030); Urobilinogen,Urine 0.2 EU/dl (0.2)
--- NOTE | 2023-02-12 11:10 | PC.NURSE ---
Addendum entered by Marlys Rai RN 02/12/23 11:14: aware, lab contacted for lab. pt is ok for lab draw at this time Original Note: multiple attempts to obtain an IV by ER nurses and HS, no success at this time.
[2023-02-12 11:19] LABS: Bacteria,Urine Trace /lpf; WBC,Urine Occasional #/hpf (0-3)
--- NOTE | 2023-02-12 12:02 | PC.NURSE ---
attempted an IV, no success at this time, labs were able to be drawn and sent to lab
[2023-02-12 12:05] LABS: Basophils # 0.1 K/mm3 (0-0.2); Basophils % 0.4 % (0.1-2.0); Eosinophils # 0.2 K/mm3 (0.0-0.4); Eosinophils % 1.4 % (0.1-12.0); Hemoglobin 10.8 g/dL (12.2-16.2); Lymphocytes # 2.2 K/mm3 (0.7-4.5); Lymphocytes % 20.4 % (10-50); Mean Corpuscular HGB Conc 30.9 g/dL (31.8-35.4); Mean Corpuscular Hemoglobin 28.3 pg (27.0-31.2); Mean Corpuscular Volume 91.7 fl (81-99); Mean Platelet Volume 8.9 fl (7.4-10.4); Monocytes # 0.5 K/mm3 (0.1-1.0); Monocytes % 4.6 % (1.7-9.3); Neutrophils # 7.8 K/mm3 (1.8-7.8); Neutrophils % 73.2 % (37.0-80.0); Platelet Count 327 K/mm3 (142-424); Red Blood Count 3.82 M/mm3 (4.20-5.40); Red Cell Distribution Width 20.1 % (11.5-17.5); White Blood Count 10.6 K/mm3 (4.8-10.8)
[2023-02-12 12:11] LABS: Lactic Acid 1.2 mmol/L (0.7-2.1)
--- NOTE | 2023-02-12 12:22 | PC.NURSE ---
critical lab reported to , noted that blood was hemolytic. will attempt redraw.
--- NOTE | 2023-02-12 12:32 | PC.NURSE ---
22 IV started in the right upper arm. blood sent to lab, pt tolerated well.
--- NOTE | 2023-02-12 12:35 | PC.NURSE ---
Rudy called and said he was on his way to speak with the pt
--- NOTE | 2023-02-12 12:35 | PC.NURSE ---
ok to wait until new blood results due to previous blood work was hemolytic. Labs states the blood work is spinning now.
[2023-02-12 12:51] LABS: Chloride 89 mmol/L (98-107); Sodium 128 mmol/L (136-145)
[2023-02-12 12:52] LABS: Potassium 5.5 mmoL/L (3.5-5.1)
[2023-02-12 12:54] LABS: Alanine Aminotransferase 28 U/L (12-78); Albumin Level 4.2 g/dl (3.5-5.0); Albumin/Globulin Ratio 1.2 (1.1-1.8); Alkaline Phosphatase 98 U/L (38-126); Anion Gap 24.5 mEq/L (5-15); Aspartate Amino Transferase 39 U/L (14-36); Bilirubin,Total 0.9 mg/dl (0.2-1.3); Blood Urea Nitrogen 15 mg/dl (7-17); Carbon Dioxide 20 mmol/L (22.0-30.0); Creatinine Clearance Estimated 84 mL/min (50-200); Estimated Glomerular Filt Rate 90 ml/min (>60); GFR (African American) 109 ML/MIN (>60); Globulin 3.4 g/dL (1.3-3.2); Total Protein,Serum 7.6 g/dl (6.3-8.2)
[2023-02-12 12:59] LABS: Acetone, Serum (Rapid) Large (None Detect); Glucose 624 mg/dl (74-100)
--- NOTE | 2023-02-12 13:07 | PC.NURSE ---
[address] Pierce face to face that pt glu 624 and K+ is 5.5. stated that specimen is still slightly hemolyzed. no new orders, proceed with ordered insulin.
[2023-02-12 13:29] LABS: POC Glucose,Bedside 516 (70-110)
--- NOTE | 2023-02-12 13:32 | EXP.HP ---
History of Present Illness *Admission Date: 02/12/23 *Reason for visit:: bounce back, DKA *History of present illness: Ms. High is a 47-year-old female with history of type 1 diabetes, HLD, depression and medical noncompliance who presents from her personal nursing home with elevated glucose secondary to noncompliance with regimen. Presented today she just did not feel well. States she is having nausea, belly pain, fatigue. This is her third presentation to the ER this week for same symptoms. Previous to time she has been in DKA. Has not been taking her medication as prescribed at her personal-nursing home. Of note, left AMA yesterday evening from the hospital and does not recall taking any insulin last night or this morning prior to coming back to the ER. Initially did not want to have labs drawn and did not want to stay at the hospital. After many conversations with staff in the hospital ore bridge operator, patient states she is interested in being treated. Labs obtained showingglucose of >600, anion gap of 24, ketones in urine, Na 128, K 5.5. Labs consistent with DKA. Initiated on subcu insulin. Patient is hemodynamically stable, alert and oriented, tolerating and requesting p.o. intake. We will treat her with subcu injections and start basal insulin tonight. On evaluation, patient is feeling better with improvement in her glucose. Fingerstick glucose less than 300 on arrival to the floor. Asking for something to eat. Denies any shortness of breath, chest pain, nausea or vomiting. Responding well to sliding scale short acting insulin [facility] Disclaimer: The information contained in this section may have been updated after the patient was seen, as this information can be updated by other users. Medical History Anxiety Bipolar 1 disorder Constipation COVID Diabetes mellitus, insulin dependent (IDDM), uncontrolled DKA (diabetic ketoacidosis) Essential (primary) hypertension Former smoker Gastroparesis GERD (gastroesophageal reflux disease) Herpes High cholesterol History of drug abuse in remission History of suicidal tendencies HTN (hypertension) Leukocytosis MDD (major depressive disorder) Neuropathy MALCOM (obstructive sleep apnea) RLS (restless legs syndrome) Sleep apnea UTI (urinary tract infection) Family History No significant family history Social History Smoking Status: Never smoker alcohol intake: never current occupational status: unemployed Travel in the last 8 weeks: None Review of Systems Review of Systems Review of systems (narrative): 14 point review of systems performed, pertinent positives and negatives as per HPI Meds Home Medications and Allergies Home Medications Medication Instructions Recorded Confirmed Type atorvastatin 20 mg tablet 20 mg PO HS Cholesterol 30 days 02/07/23 02/12/23 Rx #30 tabs bupropion HCl 300 mg 24 hr tablet, 300 mg PO DAILY Mood 30 days #30 02/07/23 02/12/23 Rx extended release (Wellbutrin XL) tabs ferrous sulfate 325 mg (65 mg 325 mg PO DAILY Supplement 30 days 02/07/23 02/12/23 Rx iron) tablet,delayed release #30 tabs pantoprazole 40 mg tablet,delayed 40 mg PO DAILY Acid reflux 30 days 02/07/23 02/12/23 Rx release #30 tabs risperidone 0.25 mg tablet 0.25 mg PO BID Mood 30 days #60 02/07/23 02/12/23 Rx tabs metoclopramide HCl 5 mg tablet 5 mg PO AC Nausea & vomiting 02/10/23 02/12/23 History gabapentin 300 mg capsule 300 mg PO TID NERVE PAIN 02/12/23 02/12/23 History insulin lispro protamine-lispro 30 unit SQ BIDWMEAL Diabetes 02/12/23 02/12/23 History 100 unit/mL (75-25) subcutaneous pen New Prescriptions to Start Prescriptions: Allergies Allergy/AdvReac Type Severity Reaction Status Date / Time Penicillins Allergy Intermediate Rash Verified 02/05/23 11:18 Exam Data for Last
--- NOTE | 2023-02-12 13:37 | PC.NURSE ---
covid swab sent to lab
[2023-02-12 13:48] LABS: VBG Base Excess -4.8 mmol/L (-2.4-2.3); VBG HCO3 21.2 mmol/L (23-30); VBG PCO2 41.2 mmol/L (35-51); VBG PH 7.33 mmol/L (7.31-7.41); VBG PO2 53.4 mmol/L (28-40); VBG Total CO2 22.5 mmol/L (23-27)
--- NOTE | 2023-02-12 13:49 | PC.NURSE ---
rounded on pt, she is sleeping, call light at bs
[2023-02-12 13:51] LABS: Coronavirus 19, PCR Not Detected (NotDetected); Influenza A, PCR Not Detected (NotDetected); Influenza B, PCR Not Detected (NotDetected)
[2023-02-12 14:52] LABS: POC Glucose,Bedside 380 (70-110)
--- NOTE | 2023-02-12 15:01 | PC.NURSE ---
report called to krystin reza rn
--- NOTE | 2023-02-12 15:16 | PC.NURSE ---
patient arrived by w/c to room 205 from ED
[2023-02-12 16:10] LABS: POC Glucose,Bedside 267 (70-110)
--- NOTE | 2023-02-12 17:06 | PC.NURSE ---
courtesy tech round: pt walked to and from bathroom with x1 assistance. pt is back in bed eating supper. call light is within reach
--- NOTE | 2023-02-12 17:36 | PC.NURSE ---
PT IS RESTING IN BED. ALERT AND ORIENTED X4. PT HAS TOLERATED EATING AND DRINKING SINCE ARRIVING TO THE FLOOR. NO NAUSEA/VOMITING. LUNG SOUNDS CLEAR. ABDOMEN SOFT/NON TENDER WITH ACTIVE BOWEL SOUNDS. AMBULATED TO THE BATHROOM WITH 1 ASSIST. IV NOTED TO THE KAYE. PT IS AGREEABLE TO TREATMENT AT THIS TIME. WILL CONTINUE TO MONITOR.
--- NOTE | 2023-02-12 18:33 | PC.NURSE ---
PT REFUSED LAB WORK THIS EVENING. NOTIFIED AND STATED WE WOULD REEVALUATE WITH LAB WORK IN THE MORNING. ACETONE UA ORDERED FOR THIS EVENING.
[2023-02-12 18:38] LABS: Chloride 100 mmol/L (98-107); Potassium 5.4 mmoL/L (3.5-5.1); Sodium 133 mmol/L (136-145)
[2023-02-12 18:41] LABS: Anion Gap 17.4 mEq/L (5-15); Blood Urea Nitrogen 14 mg/dl (7-17); Calcium 8.9 mg/dl (8.4-10.2); Carbon Dioxide 21 mmol/L (22.0-30.0); Creatinine Clearance Estimated 88 mL/min (50-200); Estimated Glomerular Filt Rate 90 ml/min (>60); GFR (African American) 109 ML/MIN (>60)
[2023-02-12 18:47] LABS: Glucose 401 mg/dl (74-100)
[2023-02-12 20:35] LABS: POC Glucose,Bedside 267 (70-110)
[2023-02-12 23:26] LABS: POC Glucose,Bedside 82 (70-110)
--- NOTE | 2023-02-13 00:46 | PC.NURSE ---
AT 2100 PATIENT'S FSBS WAS 267, RECEIVED LANTUS 20 UNITS SUBCUT. NO S/S WAS GIVEN PATIENT HAD RECEIVED 20 UNITS HUMALOG AT 1849. AT 2300 PATIENT'S FSBS WAS 82. RECEIVED SHERBIT AND PEPSI.
[2023-02-13 03:52] VITALS: BP 106/68; PULSE 76; RESP 16; TEMP 36.7; O2SAT 98; BMI 20.8
[2023-02-13 05:25] LABS: POC Glucose,Bedside 292 (70-110)
[2023-02-13 08:00] VITALS: BP 99/72; PULSE 103; RESP 16; TEMP 36.8; O2SAT 98
[2023-02-13 08:18] LABS: POC Glucose,Bedside 128 (70-110)
[2023-02-13 08:56] LABS: Sodium 139 mmol/L (136-145)
[2023-02-13 08:57] LABS: Anion Gap 14.6 mEq/L (5-15); Carbon Dioxide 20 mmol/L (22.0-30.0); Chloride 109 mmol/L (98-107); Potassium 4.6 mmoL/L (3.5-5.1)
--- NOTE | 2023-02-13 10:30 | PC.NURSE ---
THIS MORNING PT WAS VERY PLEASANT. PT TOLERATED A FULL BREAKFAST AND HAD AN ADDITIONAL PUDDING AND 2 BAGS OF CHIPS. PT WAS GIVEN ONE OF HER MORNING MEDS AND STATED SHE WANTED A DIET PEPSI AND ANOTHER BAG OF CHIPS. PT WAS TOLD THAT PHYSICIAN STATED THIS MORNING THAT SHE DID NOT NEED ANY ADDITIONAL CHIPS AT THIS TIME BUT IT WAS OKAY FOR HER TO HAVE A DIET PEPSI. PT STATED NO I DON'T WANT ANYTHING. JUST BRING ME THE AMA PAPER TO SIGN. NOTIFIED PHYSICIAN AND HE TRIED TO TALK TO PT AND SHE STATED SHE WAS JUST GOING TO GO BACK TO [facility]. PT WAS GIVEN THE AMA PAPER AND REFUSED TO SIGN. 2 NURSES SIGNED FORM. IV WAS REMOVED. PT AMBULATED IN THE UGALDE AND STATED HOW DO I GET OUT OF THIS PLACE OFFERED TO WALK PT DOWN TO THE LOBBY AND SHE STATED I DON'T NEED ANY HELP .
--- NOTE | 2023-02-13 10:50 | EXP.DC.SUM ---
General Admission date:: 02/12/23 Discharge date: 02/13/23 HPI HPI HPI: Ms. High is a 47-year-old female with history of type 1 diabetes, HLD, depression and medical noncompliance who presents from her personal snf with elevated glucose secondary to noncompliance with regimen. Presented today she just did not feel well. States she is having nausea, belly pain, fatigue. This is her third presentation to the ER this week for same symptoms. Previous to time she has been in DKA. Has not been taking her medication as prescribed at her personal-snf. Of note, left AMA yesterday evening from the hospital and does not recall taking any insulin last night or this morning prior to coming back to the ER. Initially did not want to have labs drawn and did not want to stay at the hospital. After many conversations with staff in the hospital it service manager, patient states she is interested in being treated. Labs obtained showingglucose of >600, anion gap of 24, ketones in urine, Na 128, K 5.5. Labs consistent with DKA. Initiated on subcu insulin. Patient is hemodynamically stable, alert and oriented, tolerating and requesting p.o. intake. We will treat her with subcu injections and start basal insulin tonight. On evaluation, patient is feeling better with improvement in her glucose. Fingerstick glucose less than 300 on arrival to the floor. Asking for something to eat. Denies any shortness of breath, chest pain, nausea or vomiting. Responding well to sliding scale short acting insulin Hospital Course Hospital Course Hospital Course: This is a 47-year-old female with a history of type 1 diabetes, medical noncompliance, HLD who is readmitted this week for her third episode of DKA after leaving last night AGAINST MEDICAL ADVICE.? She has not had any insulin since leaving the hospital per her report.? Reportedly made it back to her personal snf last night.? Presents today with glucose in the 600s from [facility] riv[facility].? She is noted to have an anion gap of 24.? Admitted for DKA.? Given her clinical stability and previous plan to transition regimen to basal bolus from her twice daily dosing, will treat with subcu corrections.? Alert and oriented at this time.? Problems addressed as follows: DKA Insulin-dependent diabetes -On arrival, gap is elevated 25 with small ketones in her urine. Early DKA. Patient after much discussion was amenable to admission for further treatment. Stayed overnight. Transition to insulin glargine and mealtime insulin. Was showing improvement with improved morning glucose control. Recommend transitioning to insulin glargine 30 units nightly and 8 units of short acting at mealtime. Patient refused any further care, refused morning labs, and decided to leave AMA. Insulin sent to her pharmacy for personal-snf reflecting changes made during this hospitalization. Strong concern she will likely bounce back. ?medical noncompliance versus social barriers to adequate outpatient care ?-Case management consult for assistance with social issues, living situation, home health. Bipolar depression, complicates her medication adherence and medical decision making.? Increased Risperdal to 0.5 mg twice daily, continued buspirone 300 mg daily. GERD: PO protonix daily Abdominal pain/constipation: Bowel regimen with docusate/senna twice daily scheduled HLD: Continue statin Left AGAINST MEDICAL ADVICE again Exam Data for Last 24 hours Vital signs and Labs for Last 24 Hours: Temp Pulse Resp BP Pulse Ox 98.2 F 103 H 16 99/72 L 98 02/13/23 08:00 02/13/23 08:00 02/13/23 08:00 02/13/23 08:00 02/13/23 08:00 Laboratory Results - last 24 hr 02/12/23 10:37: Urine Color Yellow, Urine Appearance Clear, Urine pH 7.0, Ur Specific [place] <= 1.005, Urine Protein Negative, Urine Glucose (UA) 3+, Urine Ketones 1+, Urine Blood Negative, Urine Nitrate Negative, Urine Bilirubin Negative, Urine Urobilinogen 0.2, Ur Leukocyte E
--- NOTE | 2023-02-14 14:05 | CARE MANAGER ---
Contacted [facility] and spoke with Lena. She states patient is doing better today. Her blood sugar was in the 300s this morning. We reviewed her insulin regimen with 8 units of Humalog (Lispro) with meals and 30 units of Glargine (Lantus). They verbalized understanding. TARAH Silva
== END 2023-02-13 09:47 | disposition left against medical advice (07) | DRG 639 ==
LOC: ER 13:35 → 2ND 13:57
PROVIDERS: Admitting Provider Internal Medicine Adolescent Medicine; Emergency Provider Emergency Medicine; Visit Provider Internal Medicine Adolescent Medicine
DX: E10.10 Type 1 diabetes mellitus with ketoacidosis without coma (principal); E78.5 Hyperlipidemia, unspecified; F31.9 Bipolar disorder, unspecified; Z86.16 Personal history of COVID-19; F41.9 Anxiety disorder, unspecified; K21.9 Gastro-esophageal reflux disease without esophagitis; K59.00 Constipation, unspecified; Z87.891 Personal history of nicotine dependence; G47.33 Obstructive sleep apnea (adult) (pediatric); Z91.148 Patient's other noncompliance with medication regimen for other reason; Z79.84 Long term (current) use of oral hypoglycemic drugs; Z20.822 Contact with and (suspected) exposure to COVID-19
CPT/HCPCS: G0378; 36415; 80048; 80053; 81001; 82009; 82803; 82962; 83605; 83735; 84100; 85025; 87086; 97162; 97165; 99285; 99291; C9803; J2405; J3475; U0003; U0005

== ENCOUNTER 2023-02-25 11:48 | Observation (INO) | payer MEDICARE, SELFPAY ==
[2023-02-25] VITALS (11 sets, daily range): BP systolic 94–122; BP diastolic 64–78; PULSE 96–108; RESP 16–20; TEMP 36.7–37.1; O2SAT 94–99; BMI 19.7; BMI 21.0
--- NOTE | 2023-02-25 12:35 | PC.NURSE ---
rounded on pt she was sleeping, call light at bs
[2023-02-25 12:37] LABS: Chloride 91 mmol/L (98-107)
[2023-02-25 12:38] LABS: VBG Base Excess -8.7 mmol/L (-2.4-2.3); VBG HCO3 15.9 mmol/L (23-30); VBG Oxygen Saturation 99.3 % (50-70); VBG PCO2 25.5 mmol/L (35-51); VBG PH 7.41 mmol/L (7.31-7.41); VBG PO2 179.8 mmol/L (28-40); VBG Total CO2 16.7 mmol/L (23-27)
[2023-02-25 12:38] LABS: Potassium 4.6 mmoL/L (3.5-5.1); Sodium 128 mmol/L (136-145)
[2023-02-25 12:40] LABS: Alanine Aminotransferase 19 U/L (12-78); Alkaline Phosphatase 92 U/L (38-126); Aspartate Amino Transferase 22 U/L (14-36); Bilirubin,Total 0.6 mg/dl (0.2-1.3); Blood Urea Nitrogen 17 mg/dl (7-17); Creatinine Clearance Estimated 64 mL/min (50-200); Estimated Glomerular Filt Rate 67 ml/min (>60); GFR (African American) 82 ML/MIN (>60)
[2023-02-25 12:41] LABS: Albumin Level 3.9 g/dl (3.5-5.0); Albumin/Globulin Ratio 1.3 (1.1-1.8); Anion Gap 23.6 mEq/L (5-15); Basophils % 0.6 % (0.1-2.0); Carbon Dioxide 18 mmol/L (22.0-30.0); Eosinophils # 0.1 K/mm3 (0.0-0.4); Eosinophils % 1.6 % (0.1-12.0); Globulin 2.9 g/dL (1.3-3.2); Hematocrit 35.3 % (37.0-47.0); Hemoglobin 11.2 g/dL (12.2-16.2); Lymphocytes # 1.9 K/mm3 (0.7-4.5); Lymphocytes % 28.1 % (10-50); Mean Corpuscular HGB Conc 31.8 g/dL (31.8-35.4); Mean Corpuscular Volume 91.2 fl (81-99); Monocytes # 0.4 K/mm3 (0.1-1.0); Monocytes % 5.4 % (1.7-9.3); Neutrophils # 4.2 K/mm3 (1.8-7.8); Neutrophils % 64.3 % (37.0-80.0); Platelet Count 218 K/mm3 (142-424); Red Blood Count 3.87 M/mm3 (4.20-5.40); Red Cell Distribution Width 18.6 % (11.5-17.5); Total Protein,Serum 6.8 g/dl (6.3-8.2); White Blood Count 6.6 K/mm3 (4.8-10.8)
[2023-02-25 12:43] LABS: Lactic Acid 1.5 mmol/L (0.7-2.1)
[2023-02-25 12:46] LABS: C-Reactive Protein 0.9 mg/L (0-4)
[2023-02-25 12:53] LABS: Glucose 520 mg/dl (74-100)
--- NOTE | 2023-02-25 12:53 | PC.NURSE ---
MD aware of glucose of 520
--- NOTE | 2023-02-25 13:45 | PC.NURSE ---
rounded on pt, she was sleeping in bed call light at bs
[2023-02-25 13:59] LABS: Acetone, Serum (Rapid) Small (None Detect)
[2023-02-25 14:22] LABS: Microscopic, Urine URINE MICROSCOPIC (MICROSCOPIC)
[2023-02-25 14:24] LABS: Appearance,Urine CLEAR (Clear); Bilirubin,Urine Negative (Negative); Blood, Urine Negative (Negative); Color,Urine YELLOW (Yellow); Glucose,Urine (UA) 3+ (Negative); Ketones,Urine 3+ (Negative); Leukocyte Esterase,Urine Negative (Negative); Nitrate,Urine Negative (Negative); Protein,Urine Negative (Negative); Urobilinogen,Urine 0.2 EU/dl (0.2)
--- NOTE | 2023-02-25 14:32 | PC.NURSE ---
fs 304
--- NOTE | 2023-02-25 14:34 | PC.NURSE ---
Case management has been notified of admission
[2023-02-25 14:35] LABS: Coronavirus 19, PCR Not Detected (NotDetected); Influenza A, PCR Not Detected (NotDetected); Influenza B, PCR Not Detected (NotDetected)
[2023-02-25 14:38] LABS: POC Glucose,Bedside 304 (70-110)
[2023-02-25 14:39] LABS: Bacteria,Urine Trace /lpf
--- NOTE | 2023-02-25 14:42 | PC.NURSE ---
rounded on pt no complaints at this time,call light at bs
--- NOTE | 2023-02-25 14:47 | EXP.HP ---
History of Present Illness *Admission Date: 02/25/23 *Reason for visit:: Blood sugar *History of present illness: This is a 47-year-old female that presents to [facility] emergency department at the request of her living facility for uncontrolled blood sugar. Her past medical history significant for diabetes with identified medical noncompliance. She describes not taking her insulin with increase calorie intake and then she started experiencing weakness and fatigue. She has experienced previous episodes of DKA and the staff at her facility brought her to the ED for evaluation. In the ED her blood gas identifies a normal pH and her blood sugars elevated. She received IV fluid resuscitation and insulin therapy with a correcting blood sugar. She will be admitted to continue with fluid resuscitation and insulin therapy. [facility] Medical History Anxiety Bipolar 1 disorder Constipation COVID Diabetes mellitus, insulin dependent (IDDM), uncontrolled DKA (diabetic ketoacidosis) Essential (primary) hypertension Former smoker Gastroparesis GERD (gastroesophageal reflux disease) Herpes High cholesterol History of drug abuse in remission History of suicidal tendencies HTN (hypertension) Leukocytosis MDD (major depressive disorder) Neuropathy MALCOM (obstructive sleep apnea) RLS (restless legs syndrome) Sleep apnea UTI (urinary tract infection) Family History No significant family history Social History (Updated 02/25/23 @ 16:20 by Dilia Delaney RN) Smoking Status: Current every day smoker alcohol intake: never current occupational status: unemployed Travel in the last 8 weeks: None Review of Systems Review of Systems Review of systems:: pertinent systems reviewed and negative unless documented below Constitutional Constitutional: Reports lethargy and Reports weakness Eyes Eyes: Reports blurry vision *Cardiovascular Cardiovascular: Denies chest pain, Denies chest pain at rest, Denies dyspnea, Denies dyspnea on exertion and Denies palpitations *Respiratory Respiratory: Denies cough, Denies dyspnea and Denies dyspnea on exertion *Gastrointestinal Gastrointestinal: Denies hematemesis, Denies loose stools, Reports nausea and Denies vomiting *Genitourinary Genitourinary: Reports vaginal pruritus *Neurologic Neurologic: Reports weakness Endocrine Endocrine: Denies palpitations Meds Home Medications and Allergies Home Medications Medication Instructions Recorded Confirmed Type atorvastatin 20 mg tablet 20 mg PO HS Cholesterol 30 days 02/07/23 02/12/23 Rx #30 tabs bupropion HCl 300 mg 24 hr tablet, 300 mg PO DAILY Mood 30 days #30 02/07/23 02/12/23 Rx extended release (Wellbutrin XL) tabs ferrous sulfate 325 mg (65 mg 325 mg PO DAILY Supplement 30 days 02/07/23 02/12/23 Rx iron) tablet,delayed release #30 tabs pantoprazole 40 mg tablet,delayed 40 mg PO DAILY Acid reflux 30 days 02/07/23 02/12/23 Rx release #30 tabs gabapentin 300 mg capsule 300 mg PO TID NERVE PAIN 02/12/23 02/12/23 History insulin glargine 100 unit/mL (3 30 unit (0.3 mL) SQ HS 30 days #9 02/13/23 Rx mL) subcutaneous pen (Lantus mL Solostar U-100 Insulin) insulin lispro 100 unit/mL 8 unit (0.08 mL) SQ TID 30 days 02/13/23 Rx subcutaneous solution (Humalog #7.2 mL U-100 Insulin) pen needle, diabetic 32 gauge x #100 ea 02/13/23 Rx 5/32 (BD Akilah 2nd Gen Pen Needle) risperidone 0.5 mg tablet 0.5 mg PO BID 30 days #60 tabs 02/13/23 Rx New Prescriptions to Start Prescriptions: Allergies Allergy/AdvReac Type Severity Reaction Status Date / Time Penicillins Allergy Intermediate Rash Verified 02/05/23 11:18 Exam Data for Last 24 hours Vital signs and Labs for Last 24 Hours: Temp Pulse Resp BP Pulse Ox 98.1 F 100 H 16 100/72 L 96 02/25/23 11:49 02/25/23 14:30 02/25/23 14:17
--- NOTE | 2023-02-25 15:19 | PC.NURSE ---
rounded on pt and updated her she not able to have a tray until she arrives to floor per er md, no complaints at this time
--- NOTE | 2023-02-25 15:28 | PC.NURSE ---
Juan brought bells down for us to put at bedside for the pt to ring out for assistance sing our call light system is down
--- NOTE | 2023-02-25 15:40 | PC.NURSE ---
Report has been called to Remigio RASCON
--- NOTE | 2023-02-25 15:42 | HMH.EDGENADL ---
Discharge Plan Disposition Patient Disposition: Admitted As Inpatient Clinical Impressions Clinical Impression: Diabetes mellitus, insulin dependent (IDDM), uncontrolled, Hyperglycemia Discharge ED Provider: Edison Sierra General Adult HPI General Chief complaint: Weakness Stated complaint: hyperglycemic Time Seen by Provider: 02/25/23 11:55 Mode of Arrival: EMS Source of Information: Patient Limitations: No Limitations Description of Symptoms (Recalled from ER Triage Doc. by RN): c/o weakness, PHELAN, achy, unable to eat for the past 2 days due to not being able to get to the cafeteria from the weakness. States she also has a yeast infection. Glucose with EMS was 518 History of Present Illness HPI narrative: Patient is a 47-year-old female well-known to the emergency department with a past medical history of insulin-dependent diabetes with recurrent DKA, hyperlipidemia who presents with generalized weakness and decreased oral intake. She says that she has been feeling weak as well as having a headache. She reports that she has not had much of an appetite and has been eating well. She says that she has not been taking her insulin because she has not been eating. Fingerstick glucose by EMS was 518. Related Data Home Medications Medication Instructions Recorded Confirmed gabapentin 300 mg capsule 300 mg PO TID NERVE PAIN 02/12/23 02/12/23 Previous Rx's Medication Instructions Recorded atorvastatin 20 mg tablet 20 mg PO HS Cholesterol 30 days 02/07/23 #30 tabs bupropion HCl 300 mg 24 hr tablet, 300 mg PO DAILY Mood 30 days #30 02/07/23 extended release (Wellbutrin XL) tabs ferrous sulfate 325 mg (65 mg 325 mg PO DAILY Supplement 30 days 02/07/23 iron) tablet,delayed release #30 tabs pantoprazole 40 mg tablet,delayed 40 mg PO DAILY Acid reflux 30 days 02/07/23 release #30 tabs insulin glargine 100 unit/mL (3 30 unit (0.3 mL) SQ HS 30 days #9 02/13/23 mL) subcutaneous pen (Lantus mL Solostar U-100 Insulin) insulin lispro 100 unit/mL 8 unit (0.08 mL) SQ TID 30 days 02/13/23 subcutaneous solution (Humalog #7.2 mL U-100 Insulin) pen needle, diabetic 32 gauge x #100 ea 02/13/23 (BD Akilah 2nd Gen Pen Needle) risperidone 0.5 mg tablet 0.5 mg PO BID 30 days #60 tabs 02/13/23 Allergies Allergy/AdvReac Type Severity Reaction Status Date / Time Penicillins Allergy Intermediate Rash Verified 02/05/23 11:18 [facility] Disclaimer: The information contained in this section may have been updated after the patient was seen, as this information can be updated by other users. Medical History (Updated 02/25/23 @ 15:48 by Edison Sierra MD) Anxiety Bipolar 1 disorder Constipation COVID Diabetes mellitus, insulin dependent (IDDM), uncontrolled DKA (diabetic ketoacidosis) Essential (primary) hypertension Former smoker Gastroparesis GERD (gastroesophageal reflux disease) Herpes High cholesterol History of drug abuse in remission History of suicidal tendencies HTN (hypertension) Leukocytosis MDD (major depressive disorder) Neuropathy MALCOM (obstructive sleep apnea) RLS (restless legs syndrome) Sleep apnea UTI (urinary tract infection) Family History No significant family history Social History Smoking Status: Current every day smoker alcohol intake: never current occupational status: unemployed Travel in the last 8 weeks: None ROS Obtained: Yes All systems reviewed & no additional complaints except as documented Physical Exam General General appearance: alert and in no apparent distress Head Head exam: atraumatic, normocephalic and normal inspection Eye Eye exam: Present normal appearance and PERRL ENT ENT exam: Present normal exam, mucous membranes moist and normal external ear exam Neck Neck exam: Present normal inspection and trachea midline Chest Chest inspection: Pre
--- NOTE | 2023-02-25 16:03 | PC.NURSE ---
arrived to floor by w/c from ED
--- NOTE | 2023-02-25 18:17 | PC.NURSE ---
new admit this shift for dka. pt refusing lovenox injections. did allow finger stick and fsbs was 399 ssi admin per order.
[2023-02-25 21:21] LABS: POC Glucose,Bedside 318 (70-110)
[2023-02-26] VITALS: BP 106/67; PULSE 101; RESP 18; TEMP 36.7; O2SAT 97
[2023-02-26 01:04] LABS: POC Glucose,Bedside 399 (70-110)
[2023-02-26 04:00] VITALS: BP 123/80; PULSE 92; RESP 18; TEMP 36.5; O2SAT 98; BMI 21.4
[2023-02-26 06:17] LABS: POC Glucose,Bedside 423 (70-110)
[2023-02-26 08:00] VITALS: BP 121/74; PULSE 99; RESP 16; TEMP 36.7; O2SAT 100
[2023-02-26 10:15] LABS: Anion Gap 18.1 mEq/L (5-15); Blood Urea Nitrogen 9 mg/dl (7-17); Calcium 8.5 mg/dl (8.4-10.2); Carbon Dioxide 23 mmol/L (22.0-30.0); Chloride 101 mmol/L (98-107); Creatinine Clearance Estimated 90 mL/min (50-200); Estimated Glomerular Filt Rate 90 ml/min (>60); GFR (African American) 109 ML/MIN (>60); Glucose 106 mg/dl (74-100); Magnesium 1.7 mg/dl (1.6-2.3); Phosphorous 3.2 mg/dl (2.5-4.5); Potassium 4.1 mmoL/L (3.5-5.1); Sodium 138 mmol/L (136-145)
--- NOTE | 2023-02-26 10:25 | P.CONPHA_ITS ---
Pharmacy Intervention Comments: MEDICATION RECONCILIATION COMPLETED ON PATIENT USING MAR FROM [facility] AND DISCHARGE SUMMARY FROM PREVIOUS ADMISSION. -ALESHIA RUBIO, RUBEND
--- NOTE | 2023-02-26 10:25 | HMH.PHAINT1 ---
Pharmacy Intervention Comments: MEDICATION RECONCILIATION COMPLETED ON PATIENT USING MAR FROM [facility] AND DISCHARGE SUMMARY FROM PREVIOUS ADMISSION. -ALESHIA RUBIO, RUBEND
--- NOTE | 2023-02-26 10:30 | EXP.DC.SUM ---
General Admission date:: 02/25/23 Discharge date: 02/26/23 HPI HPI HPI: This is a 47-year-old female that presents to [facility] emergency department at the request of her living facility for uncontrolled blood sugar. Her past medical history significant for diabetes with identified medical noncompliance. She describes not taking her insulin with increase calorie intake and then she started experiencing weakness and fatigue. She has experienced previous episodes of DKA and the staff at her facility brought her to the ED for evaluation. In the ED her blood gas identifies a normal pH and her blood sugars elevated. She received IV fluid resuscitation and insulin therapy with a correcting blood sugar. She will be admitted to continue with fluid resuscitation and insulin therapy. Hospital Course Hospital Course Hospital Course: The patient is admitted to the medical unit with routine blood sugar monitoring and insulin administration. Her follow-up laboratory studies identify improvement. The patient identifies improvement and inquires about discharge home. She will be discharged home with her routine medications. Inpatient diabetes education is provided concerning routine blood sugar monitoring and insulin administration. She understands the importance of routine follow-up with her PCP and routine blood glucose evaluations. We have recommended a follow-up with her PCP this coming week. Exam Data for Last 24 hours Vital signs and Labs for Last 24 Hours: Temp Pulse Resp BP Pulse Ox 98.1 F 99 H 16 121/74 100 02/26/23 08:00 02/26/23 08:00 02/26/23 08:00 02/26/23 08:00 02/26/23 08:00 Laboratory Results - last 24 hr 02/25/23 12:25: WBC 6.6, RBC 3.87 L, Hgb 11.2 L, Hct 35.3 L, MCV 91.2, MCH 29.0, MCHC 31.8, RDW 18.6 H, Plt Count 218, MPV 9.0, Neut % (Auto) 64.3, Lymph % (Auto) 28.1, [place] % (Auto) 5.4, Eos % (Auto) 1.6, Baso % (Auto) 0.6, Neut # (Auto) 4.2, Lymph # (Auto) 1.9, [place] # (Auto) 0.4, Eos # (Auto) 0.1, Baso # (Auto) 0.0 02/25/23 12:25: Sodium 128 L, Potassium 4.6, Chloride 91 L, Carbon Dioxide 18 L, Anion Gap 23.6 H, BUN 17, Creatinine 0.90, Estimated Creat Clear 64, Estimated GFR 67, Est GFR ( Amer) 82, Glucose 520 H*, Calcium 9.0, Total Bilirubin 0.6, AST 22, ALT 19, Alkaline Phosphatase 92, C-Reactive Protein 0.9, Total Protein 6.8, Albumin 3.9, Globulin 2.9, Albumin/Globulin Ratio 1.3, Acetone Level Small 02/25/23 12:25: Lactate 1.5 02/25/23 12:31: VBG pH 7.41, VBG pCO2 25.5 L, VBG pO2 179.8 H, VBG HCO3 15.9 L, VBG Total CO2 16.7 L, VBG O2 Saturation 99.3 H, VBG Base Excess -8.7 L 02/25/23 14:16: Urine Color Yellow, Urine Appearance Clear, Urine pH 6.0, Ur Specific [place] 1.010, Urine Protein Negative, Urine Glucose (UA) 3+, Urine Ketones 3+, Urine Blood Negative, Urine Nitrate Negative, Urine Bilirubin Negative, Urine Urobilinogen 0.2, Ur Leukocyte Esterase Negative, Urine RBC None, Urine WBC 5-10, Ur Squamous Epith Cells 3-5, Urine Bacteria Trace 02/25/23 14:29: SARS-CoV-2 (PCR) Not detected, Influenza A Untype (PCR) Not detected, Influenza Type B (PCR) Not detected 02/25/23 14:31: POC Glucose 304 H* 02/25/23 17:33: POC Glucose 399 H* 02/25/23 21:14: POC Glucose 318 H* 02/26/23 06:10: POC Glucose 423 H* 02/26/23 09:45: Sodium 138, Potassium 4.1, Chloride 101, Carbon Dioxide 23, Anion Gap 18.1 H, BUN 9 D, Creatinine 0.70 D, Estimated Creat Clear 90, Estimated GFR 90, Est GFR ( Amer) 109 D, Glucose 106 H D, Calcium 8.5, Phosphorus 3.2, Magnesium 1.7 I & O for Last 24 hours: Intake & Output 02/23/23 02/24/23 02/25/23 02/26/23 23:59 23:59 23:59 23:59 Intake Total 960 / 1440 960 / 960 Output Total 400 / 400 2400 / 2400 Balance 560 / 1040 -1440 / -1440 Weight 55.877 kg 56.926 kg Constitutional Constitutional: no acute distress, thin, chronically ill appearing and cooperative *Routine HEENT Exam Head: Present normocephalic Eye: Present EOMI and PERRL ENT: Present mucous
--- NOTE | 2023-02-26 11:30 | PC.NURSE ---
pt has been discahrged form the facility. Took all belonggins with her and voiced understanding of all dc education. [facility] rivas to case picker pt. nursing walked pt down. IV discontinued.
--- NOTE | 2023-02-28 13:07 | CARE MANAGER ---
Contacted [facility] related to patient's hospital discharge. They state today her sugar is in the 300s. She is taking her insulin and they are aware of them adding the ASA. Denies any questions or concerns. TARAH Silva
== END 2023-02-26 11:24 | disposition home or self-care (01) ==
LOC: ER 12:33 → 2ND 15:23
PROVIDERS: Admitting Provider Family Medicine; Emergency Provider Student in an Organized Health Care Education/Training Program; Visit Provider Family Medicine
DX: E11.65 Type 2 diabetes mellitus with hyperglycemia (principal); Z91.198 Patient's noncompliance with other medical treatment and regimen for other reason; Z79.4 Long term (current) use of insulin; Z79.899 Other long term (current) drug therapy; Z86.16 Personal history of COVID-19; I10 Essential (primary) hypertension; Z20.822 Contact with and (suspected) exposure to COVID-19
CPT/HCPCS: G0378; 80048; 80053; 81001; 82009; 82803; 82962; 83605; 83735; 84100; 85025; 86140; 87086; 87635; 87636; 99285; C9803; U0003; U0005

== ENCOUNTER 2023-03-05 21:51 | Inpatient (IN) | payer MEDICARE, SELFPAY ==
[2023-03-05 21:52] VITALS: BP 130/82; PULSE 120; RESP 18; TEMP 36.8; O2SAT 95
[2023-03-05 22:00] VITALS: BP 110/69; PULSE 98; RESP 18; O2SAT 96
--- NOTE | 2023-03-05 22:10 | ECG_ITS ---
APPROVED REPORT Exam: Resting ECG HR:98 bpm ECG Measurements Heart Rate 98 AXES NC 152 P 52 QRSd 98 QRS 56 QT 353 T 50 QTc 408 Conclusion SINUS RHYTHM NORMAL ECG UNCONFIRMED REPORT Electronically signed by : eJd Early MD 03/06/2023 07:31:54
--- NOTE | 2023-03-05 22:10 | XR_ITS ---
PROCEDURE INFORMATION: Exam: XR Chest Exam date and time: 03/05/2023 10:17 PM Age: 47 years old Clinical indication: Other: Hyperglycemia TECHNIQUE: Imaging protocol: Radiologic exam of the chest. Views: 1 view. COMPARISON: CR XR CHEST PORTABLE 02/05/2023 1:28 PM FINDINGS: Lungs: Lungs are clear. Pleural spaces: No pleural effusion. No pneumothorax. Heart/Mediastinum: Normal cardiomediastinal silhouette. Bones/joints: No acute osseous abnormality. IMPRESSION: No acute findings.
[2023-03-05 22:21] LABS: Basophils % 0.5 % (0.1-2.0); Eosinophils # 0.2 K/mm3 (0.0-0.4); Eosinophils % 2.6 % (0.1-12.0); Hematocrit 36.1 % (37.0-47.0); Hemoglobin 11.1 g/dL (12.2-16.2); Lymphocytes # 2.2 K/mm3 (0.7-4.5); Lymphocytes % 34.9 % (10-50); Mean Corpuscular HGB Conc 30.8 g/dL (31.8-35.4); Mean Corpuscular Hemoglobin 30.4 pg (27.0-31.2); Mean Corpuscular Volume 98.8 fl (81-99); Mean Platelet Volume 9.3 fl (7.4-10.4); Monocytes # 0.4 K/mm3 (0.1-1.0); Monocytes % 6.1 % (1.7-9.3); Neutrophils # 3.6 K/mm3 (1.8-7.8); Neutrophils % 55.9 % (37.0-80.0); Platelet Count 252 K/mm3 (142-424); Red Blood Count 3.65 M/mm3 (4.20-5.40); Red Cell Distribution Width 17.2 % (11.5-17.5); White Blood Count 6.4 K/mm3 (4.8-10.8)
[2023-03-05 22:24] LABS: Chloride 80 mmol/L (98-107); Sodium 119 mmol/L (136-145)
[2023-03-05 22:25] LABS: Potassium 5.1 mmoL/L (3.5-5.1)
[2023-03-05 22:27] LABS: Alanine Aminotransferase 20 U/L (12-78); Alkaline Phosphatase 76 U/L (38-126); Aspartate Amino Transferase 29 U/L (14-36); Bilirubin,Total 0.8 mg/dl (0.2-1.3); Blood Urea Nitrogen 26 mg/dl (7-17); Creatinine Clearance Estimated 55 mL/min (50-200); Estimated Glomerular Filt Rate 53 ml/min (>60); GFR (African American) 65 ML/MIN (>60)
[2023-03-05 22:28] LABS: Albumin Level 3.9 g/dl (3.5-5.0); Albumin/Globulin Ratio 1.4 (1.1-1.8); Anion Gap 27.1 mEq/L (5-15); Calcium 8.8 mg/dl (8.4-10.2); Carbon Dioxide 17 mmol/L (22.0-30.0); Globulin 2.7 g/dL (1.3-3.2); Total Protein,Serum 6.6 g/dl (6.3-8.2)
[2023-03-05 22:29] LABS: Acetone, Serum (Rapid) Moderate (None Detect)
[2023-03-05 22:30] VITALS: BP 106/58; PULSE 96; RESP 20; O2SAT 97
[2023-03-05 22:35] LABS: Microscopic, Urine URINE MICROSCOPIC (MICROSCOPIC)
[2023-03-05 22:38] LABS: Glucose 972 mg/dl (74-100)
[2023-03-05 22:40] LABS: Appearance,Urine CLEAR (Clear); Bilirubin,Urine Negative (Negative); Blood, Urine TRACE-I (Negative); Color,Urine YELLOW (Yellow); Glucose,Urine (UA) 3+ (Negative); Ketones,Urine 1+ (Negative); Leukocyte Esterase,Urine Negative (Negative); Nitrate,Urine Negative (Negative); PH,Urine 5.5 (5.0-8.5); Protein,Urine Negative (Negative); Urobilinogen,Urine 0.2 EU/dl (0.2)
[2023-03-05 22:44] LABS: Troponin I < 0.01 ng/ml (0.00-0.034)
[2023-03-05 22:55] LABS: Bacteria,Urine Trace /lpf; RBC,Urine Occasional #/hpf (0-3); Squamous Epithelial Cell,Urine Occasional #/hpf (0-5); WBC,Urine Occasional #/hpf (0-3)
[2023-03-05 23:00] VITALS: BP 98/57; PULSE 98; RESP 18; O2SAT 96
--- NOTE | 2023-03-05 23:23 | HMH.EDGENADL ---
Discharge Plan Disposition Patient Disposition: Admitted As Inpatient Chief Complaint: Hyper/Hypoglycemia Prescriptions Prescriptions: No Action aspirin 81 mg tablet,delayed release (DR/EC) See Rx Instructions .ROUTE .COMPLEX Qty: 30 11RF Dose Instruction: GIVE 1 TABLET BY MOUTH ONCE DAILY Rx Instructions: GIVE 1 TABLET BY MOUTH ONCE DAILY risperidone 0.5 mg tablet See Rx Instructions .ROUTE .COMPLEX Qty: 60 11RF Dose Instruction: GIVE 1 TABLET BY MOUTH TWICE DAILY Rx Instructions: GIVE 1 TABLET BY MOUTH TWICE DAILY atorvastatin 20 mg Tablet 20 mg PO HS 30 Days Qty: 30 0RF pantoprazole 40 mg Tablet,Delayed Release (Dr/Ec) 40 mg PO DAILY 30 Days Qty: 30 0RF ferrous sulfate 325 mg (65 mg iron) Tablet,Delayed Release (Dr/Ec) 325 mg PO DAILY 30 Days Qty: 30 0RF bupropion HCl [Wellbutrin XL] 300 mg Tablet Extended Release 24 Hr 300 mg PO DAILY 30 Days Qty: 30 0RF gabapentin 300 mg capsule 300 mg PO TID insulin lispro [Humalog U-100 Insulin] 100 unit/mL solution 8 unit SQ TID Rx Instructions: with meals insulin glargine [Lantus Solostar U-100 Insulin] 100 unit/mL (3 mL) insulin pen 30 unit SQ HS (DME) pen needle, diabetic [BD Akilah 2nd Gen Pen Needle] 32 gauge x 5/32 needle See Rx Instructions .ROUTE Rx Instructions: As directed Referrals Follow up/Referrals: Jovanny Rachel MD [Primary Care Provider] - See instructions Clinical Impressions Clinical Impression: Diabetes mellitus, insulin dependent (IDDM), uncontrolled, Diabetic ketoacidosis Discharge ED Provider: Wilson (ED)Jovanny General Adult HPI General Chief complaint: Hyper/Hypoglycemia Stated complaint: HYPERGLYCEMIA Time Seen by Provider: 03/05/23 22:30 Mode of Arrival: EMS Source of Information: Patient, EMS and Medical Record Limitations: No Limitations Description of Symptoms (Recalled from ER Triage Doc. by RN): EMS reports pt blood sugar was reading high at [facility]. pt was administered insulin around 2100. unsure the type of insulin or how much. pt is reading high on our glucose monitor. History of Present Illness HPI narrative: sent from longterm with elevated glu and known diabetic and not feeling well Onset (ago): day(s) Severity: severe Associated symptoms: denies other symptoms Related Data Home Medications Medication Instructions Recorded Confirmed gabapentin 300 mg capsule 300 mg PO TID NERVE PAIN 02/12/23 02/25/23 insulin glargine 100 unit/mL (3 30 unit SQ HS Diabetes 02/25/23 02/25/23 mL) subcutaneous pen (Lantus Solostar U-100 Insulin) insulin lispro 100 unit/mL 8 unit SQ TID Diabetes 02/25/23 02/25/23 subcutaneous solution (Humalog U-100 Insulin) pen needle, diabetic 32 gauge x 02/25/23 02/25/23 (BD Akilah 2nd Gen Pen Needle) Previous Rx's Medication Instructions Recorded atorvastatin 20 mg tablet 20 mg PO HS Cholesterol 30 days 02/07/23 #30 tabs bupropion HCl 300 mg 24 hr tablet, 300 mg PO DAILY Mood 30 days #30 02/07/23 extended release (Wellbutrin XL) tabs ferrous sulfate 325 mg (65 mg 325 mg PO DAILY Supplement 30 days 02/07/23 iron) tablet,delayed release #30 tabs pantoprazole 40 mg tablet,delayed 40 mg PO DAILY Acid reflux 30 days 02/07/23 release #30 tabs aspirin 81 mg tablet,delayed See Rx Instructions .Route 03/03/23 release .COMPLEX #30 ea risperidone 0.5 mg tablet See Rx Instructions .Route 03/04/23 .COMPLEX #60 ea Allergies Allergy/AdvReac Type Severity Reaction Status Date / Time Penicillins Allergy Intermediate Rash Verified 02/05/23 11:18 [facility] Disclaimer: The information contained in this section may have been updated after the patient was seen, as this information can be updated by other users. Medical History (Updated 03/05/23 @ 23:36 by Jovanny Rachel (ED)MD) Anxiety Bipolar 1 disorder Constipation COVID Diabetes mellitus, insulin dependent (
[2023-03-05 23:54] VITALS: BP 101/62; PULSE 95; RESP 20; O2SAT 96
[2023-03-06] VITALS (23 sets, daily range): BP systolic 65–151; BP diastolic 47–92; PULSE 68–110; RESP 11–22; TEMP 36.5–37.1; O2SAT 98–100; BMI 19.9
[2023-03-06 00:17] LABS: Coronavirus 19, PCR Not Detected (NotDetected); Influenza A, PCR Not Detected (NotDetected); Influenza B, PCR Not Detected (NotDetected)
--- NOTE | 2023-03-06 00:21 | EXP.HP ---
History of Present Illness *Admission Date: 03/06/23 *Reason for visit:: Hyperglycemia *History of present illness: This is a 47-year-old female with a past medical history of diabetes, depression, hypertension, iron deficiency anemia, HLD who resides at a retirement and presents emergency department today with complaints of hyperglycemia and generalized malaise and fatigue. She does have a history of medical noncompliance and states that when she goes to get her medicine at the medicine window at the retirement, there is not always someone there to give her her medicines. She reports missing her 4 PM dose but has felt generalized malaise and fatigue all day. She reports not getting out of bed much today. She endorses nausea but no vomiting. Denies fever, cough, congestion. Emergency department work-up consistent with DKA. Glucose 972 with an anion gap of 27. Ketones in urine. Moderate acetone. Given the above-mentioned problems she will be admitted to the hospital service for further evaluation management. [facility] Disclaimer: The information contained in this section may have been updated after the patient was seen, as this information can be updated by other users. Medical History Anxiety Bipolar 1 disorder Constipation COVID Diabetes mellitus, insulin dependent (IDDM), uncontrolled DKA (diabetic ketoacidosis) Essential (primary) hypertension Former smoker Gastroparesis GERD (gastroesophageal reflux disease) Herpes High cholesterol History of drug abuse in remission History of suicidal tendencies HTN (hypertension) Leukocytosis MDD (major depressive disorder) Neuropathy MALCOM (obstructive sleep apnea) RLS (restless legs syndrome) Sleep apnea UTI (urinary tract infection) Family History No significant family history Social History (Updated 03/06/23 @ 04:06 by Arely Hernandez RN) Smoking Status: Current every day smoker alcohol intake: never current occupational status: unemployed Travel in the last 8 weeks: None Review of Systems Review of Systems Review of systems:: pertinent systems reviewed and negative unless documented below Review of systems (narrative): See HPI Meds Home Medications and Allergies Home Medications Medication Instructions Recorded Confirmed Type atorvastatin 20 mg tablet 20 mg PO HS Cholesterol 30 days 02/07/23 03/06/23 Rx #30 tabs bupropion HCl 300 mg 24 hr tablet, 300 mg PO DAILY Mood 30 days #30 02/07/23 03/06/23 Rx extended release (Wellbutrin XL) tabs ferrous sulfate 325 mg (65 mg 325 mg PO DAILY Supplement 30 days 02/07/23 03/06/23 Rx iron) tablet,delayed release #30 tabs pantoprazole 40 mg tablet,delayed 40 mg PO DAILY Acid reflux 30 days 02/07/23 03/06/23 Rx release #30 tabs gabapentin 300 mg capsule 300 mg PO TID NERVE PAIN 02/12/23 03/06/23 History insulin glargine 100 unit/mL (3 30 unit SQ HS Diabetes 02/25/23 03/06/23 History mL) subcutaneous pen (Lantus Solostar U-100 Insulin) insulin lispro 100 unit/mL 8 unit SQ TID Diabetes 02/25/23 03/06/23 History subcutaneous solution (Humalog U-100 Insulin) aspirin 81 mg tablet,delayed 81 mg PO DAILY HEART HEALTH 03/06/23 03/06/23 History release risperidone 0.5 mg tablet 0.5 mg PO BID MOOD 03/06/23 03/06/23 History New Prescriptions to Start Prescriptions: Allergies Allergy/AdvReac Type Severity Reaction Status Date / Time Penicillins Allergy Intermediate Rash Verified 02/05/23 11:18 Exam Data for Last 24 hours Vital signs and Labs for Last 24 Hours: Temp Pulse Resp BP Pulse Ox 98.2 F 95 H 20 101/62 L 96 03/05/23 21:52 03/05/23 23:54 03/05/23 23:54 03/05/23 23:54 03/05/23 23:54 Laboratory Results - last 24 hr 03/05/23 21:20: WBC 6.4, RBC 3.65 L, Hgb 11.1 L, Hct 36.1 L, MCV 98.8, MCH 30.4, MCHC 30.8 L, RDW 17.2, Plt Count 252, MPV 9.3, Neut % (A
--- NOTE | 2023-03-06 01:54 | PC.NURSE ---
report called to second floor
[2023-03-06 01:55] LABS: POC Glucose,Bedside 520 (70-110)
--- NOTE | 2023-03-06 02:27 | PC.NURSE ---
pt admitted to 218 from ER
--- NOTE | 2023-03-06 02:29 | PC.NURSE ---
notified VALERIE Hansen of pt's syncopal episode when attempting to walk pt to bathroom, pt hypotensive, FORENSIC ARTIST ordered 2 liters NS to be given, instructed to lower insulin drip to 4units/hr for fsbs of 520
--- NOTE | 2023-03-06 02:43 | ECG_ITS ---
APPROVED REPORT Exam: Resting ECG HR:93 bpm ECG Measurements Heart Rate [address] 161 P 43 QRSd 95 QRS 43 QT 363 T 57 QTc 414 Conclusion SINUS RHYTHM POSSIBLE LEFT ATRIAL ENLARGEMENT [-0.1mV P-WAVE IN V1/V2] BORDERLINE ECG UNCONFIRMED REPORT Electronically signed by : Jed Early MD 03/07/2023 20:24:09
[2023-03-06 03:16] LABS: POC Glucose,Bedside 473 (70-110)
[2023-03-06 03:16] LABS: POC Glucose,Bedside 415 (70-110)
[2023-03-06 03:33] LABS: VBG Base Excess -2.9 mmol/L (-2.4-2.3); VBG HCO3 22.7 mmol/L (23-30); VBG Oxygen Saturation 80.7 % (50-70); VBG PCO2 41.5 mmol/L (35-51); VBG PH 7.36 mmol/L (7.31-7.41); VBG Total CO2 23.9 mmol/L (23-27)
[2023-03-06 03:37] LABS: Chloride 92 mmol/L (98-107)
[2023-03-06 03:38] LABS: Potassium 3.4 mmoL/L (3.5-5.1); Sodium 131 mmol/L (136-145)
[2023-03-06 03:40] LABS: Blood Urea Nitrogen 25 mg/dl (7-17); Creatinine Clearance Estimated 55 mL/min (50-200); Estimated Glomerular Filt Rate 53 ml/min (>60); GFR (African American) 65 ML/MIN (>60)
[2023-03-06 03:41] LABS: Anion Gap 17.4 mEq/L (5-15); Calcium 9.2 mg/dl (8.4-10.2); Carbon Dioxide 25 mmol/L (22.0-30.0); Glucose 334 mg/dl (74-100)
[2023-03-06 03:42] LABS: Lactic Acid 3.8 mmol/L (0.7-2.1)
[2023-03-06 04:00] LABS: Troponin I < 0.01 ng/ml (0.00-0.034)
[2023-03-06 04:15] LABS: POC Glucose,Bedside 284 (70-110)
[2023-03-06 05:06] LABS: POC Glucose,Bedside 231 (70-110)
[2023-03-06 06:59] LABS: POC Glucose,Bedside 161 (70-110)
[2023-03-06 06:59] LABS: POC Glucose,Bedside 148 (70-110)
[2023-03-06 07:33] LABS: Reflex Lactic Add Lactic Reflex
[2023-03-06 08:16] LABS: POC Glucose,Bedside 124 (70-110)
[2023-03-06 09:26] LABS: POC Glucose,Bedside 151 (70-110)
[2023-03-06 09:39] LABS: Basophils % 0.5 % (0.1-2.0); Eosinophils # 0.3 K/mm3 (0.0-0.4); Eosinophils % 4.6 % (0.1-12.0); Hematocrit 35.7 % (37.0-47.0); Hemoglobin 11.5 g/dL (12.2-16.2); Lymphocytes # 2.4 K/mm3 (0.7-4.5); Lymphocytes % 38.5 % (10-50); Mean Corpuscular HGB Conc 32.1 g/dL (31.8-35.4); Mean Corpuscular Hemoglobin 29.6 pg (27.0-31.2); Mean Corpuscular Volume 92.4 fl (81-99); Mean Platelet Volume 8.7 fl (7.4-10.4); Monocytes # 0.4 K/mm3 (0.1-1.0); Monocytes % 7.1 % (1.7-9.3); Neutrophils % 49.2 % (37.0-80.0); Platelet Count 264 K/mm3 (142-424); Red Blood Count 3.86 M/mm3 (4.20-5.40); Red Cell Distribution Width 17.9 % (11.5-17.5); White Blood Count 6.2 K/mm3 (4.8-10.8)
[2023-03-06 09:47] LABS: Anion Gap 17.6 mEq/L (5-15); Blood Urea Nitrogen 19 mg/dl (7-17); Calcium 8.5 mg/dl (8.4-10.2); Carbon Dioxide 25 mmol/L (22.0-30.0); Chloride 104 mmol/L (98-107); Creatinine Clearance Estimated 86 mL/min (50-200); Estimated Glomerular Filt Rate 90 ml/min (>60); GFR (African American) 109 ML/MIN (>60); Glucose 156 mg/dl (74-100); Potassium 4.6 mmoL/L (3.5-5.1); Sodium 142 mmol/L (136-145)
[2023-03-06 10:04] LABS: Procalcitonin 0.413 ng/mL (0.0-2.0)
[2023-03-06 10:14] LABS: POC Glucose,Bedside 179 (70-110)
[2023-03-06 11:27] LABS: POC Glucose,Bedside 234 (70-110)
[2023-03-06 12:27] LABS: POC Glucose,Bedside 254 (70-110)
--- NOTE | 2023-03-06 13:08 | PC.NURSE ---
FSBS 542, Dr. Jones notified and stated he did not want a stat glucose drawn, insulin gtt titrated per protocol
[2023-03-06 13:32] LABS: POC Glucose,Bedside 542 (70-110)
[2023-03-06 14:42] LABS: POC Glucose,Bedside 463 (70-110)
--- NOTE | 2023-03-06 15:10 | PC.NURSE ---
FSBS 504, Dr. Jones stated not to get stat glucose, he will put in new orders
[2023-03-06 15:21] LABS: POC Glucose,Bedside 504 (70-110)
[2023-03-06 16:22] LABS: POC Glucose,Bedside 492 (70-110)
[2023-03-06 17:14] LABS: POC Glucose,Bedside 374 (70-110)
[2023-03-06 18:59] LABS: POC Glucose,Bedside 374 (70-110)
[2023-03-06 18:59] LABS: POC Glucose,Bedside 270 (70-110)
[2023-03-06 19:16] LABS: Chloride 111 mmol/L (98-107); Sodium 135 mmol/L (136-145)
[2023-03-06 19:20] LABS: Anion Gap 13.3 mEq/L (5-15); Blood Urea Nitrogen 16 mg/dl (7-17); Calcium 8.5 mg/dl (8.4-10.2); Carbon Dioxide 17 mmol/L (22.0-30.0); Creatinine Clearance Estimated 67 mL/min (50-200); Estimated Glomerular Filt Rate 67 ml/min (>60); GFR (African American) 82 ML/MIN (>60); Glucose 288 mg/dl (74-100)
[2023-03-06 19:29] LABS: Potassium 6.3 mmoL/L (3.5-5.1)
--- NOTE | 2023-03-06 19:42 | PC.NURSE ---
notified VALERIE Hansen of pt's critical potassium of 6.3, NICU RN to come to bedside and will place new orders
[2023-03-06 20:17] LABS: Chloride 107 mmol/L (98-107); Potassium 4.4 mmoL/L (3.5-5.1); Sodium 135 mmol/L (136-145)
[2023-03-06 20:20] LABS: Blood Urea Nitrogen 15 mg/dl (7-17); Calcium 8.2 mg/dl (8.4-10.2); Carbon Dioxide 21 mmol/L (22.0-30.0); Creatinine Clearance Estimated 75 mL/min (50-200); Estimated Glomerular Filt Rate 77 ml/min (>60); GFR (African American) 93 ML/MIN (>60); Glucose 165 mg/dl (74-100)
[2023-03-06 20:21] LABS: Anion Gap 11.4 mEq/L (5-15)
--- NOTE | 2023-03-06 20:27 | EXP.EVENT.NO ---
please let this serve as an addendum to the H&P written for this patient on 03/05. Timing of this note at 0400 on 03/06. After further assessment by bedside RN, patient complained of severe depression and passive suicidal thoughts in the last 3 months. On further questioning patient does not have plan and does not pose an immediate risk for being of acute harm to self. No 1:1 required.
--- NOTE | 2023-03-06 20:40 | PC.NURSE ---
insulin drip and IVF stopped as gap now closed, sliding scale started but fsbs 126 so no lispro given, lantus given per emar pt very upset, wanted to leave ama, and told this RN had suicidal thoughts upon leaving, notified nazia Hansen and started 1 to 1 observation
[2023-03-07] VITALS (10 sets, daily range): BP systolic 82–148; BP diastolic 49–93; PULSE 97–108; RESP 13–23; TEMP 36.8–37.3; O2SAT 98–100; BMI 22.8
--- NOTE | 2023-03-07 04:44 | EXP.EVENT.NO ---
At approximately 8:30, RN notified this RECOATING MACHINE OPERATOR that patient had increasing agitation and wanting to leave AMA. Patient reported further sucidial ideations and state to the nurse She would go jump off a bridge and that she was tired of living . I presented to bedside and spoke with patient. Patient is extremely tearful stating that she just wants to leave. When asked her specifically about plans she did state that she was unsure of exactly what she would do but she did not feel like she had anything to live for anymore. At that time, one-to-one precautions were put in place due to increasing suicidal thoughts and comments.
[2023-03-07 06:03] LABS: POC Glucose,Bedside 74 (70-110)
[2023-03-07 06:03] LABS: POC Glucose,Bedside 89 (70-110)
[2023-03-07 06:03] LABS: POC Glucose,Bedside 126 (70-110)
[2023-03-07 06:13] LABS: Basophils % 0.2 % (0.1-2.0); Eosinophils # 0.2 K/mm3 (0.0-0.4); Eosinophils % 2.4 % (0.1-12.0); Hematocrit 32.9 % (37.0-47.0); Hemoglobin 10.7 g/dL (12.2-16.2); Lymphocytes # 1.5 K/mm3 (0.7-4.5); Lymphocytes % 18.9 % (10-50); Mean Corpuscular HGB Conc 32.6 g/dL (31.8-35.4); Mean Corpuscular Hemoglobin 30.3 pg (27.0-31.2); Mean Corpuscular Volume 93.2 fl (81-99); Mean Platelet Volume 8.5 fl (7.4-10.4); Monocytes # 0.6 K/mm3 (0.1-1.0); Monocytes % 8.2 % (1.7-9.3); Neutrophils # 5.5 K/mm3 (1.8-7.8); Neutrophils % 70.3 % (37.0-80.0); Platelet Count 225 K/mm3 (142-424); Red Blood Count 3.53 M/mm3 (4.20-5.40); White Blood Count 7.8 K/mm3 (4.8-10.8)
[2023-03-07 06:16] LABS: Alanine Aminotransferase 32 U/L (12-78); Albumin Level 2.9 g/dl (3.5-5.0); Albumin/Globulin Ratio 1.1 (1.1-1.8); Alkaline Phosphatase 66 U/L (38-126); Aspartate Amino Transferase 100 U/L (14-36); Blood Urea Nitrogen 14 mg/dl (7-17); Calcium 7.6 mg/dl (8.4-10.2); Carbon Dioxide 22 mmol/L (22.0-30.0); Chloride 111 mmol/L (98-107); Creatinine Clearance Estimated 99 mL/min (50-200); Estimated Glomerular Filt Rate 90 ml/min (>60); GFR (African American) 109 ML/MIN (>60); Globulin 2.6 g/dL (1.3-3.2); Glucose 75 mg/dl (74-100); Magnesium 1.7 mg/dl (1.6-2.3); Phosphorous 3.3 mg/dl (2.5-4.5); Sodium 140 mmol/L (136-145); Total Protein,Serum 5.5 g/dl (6.3-8.2)
[2023-03-07 06:25] LABS: Bilirubin,Total 0.1 mg/dl (0.2-1.3)
[2023-03-07 07:36] LABS: Hemoglobin A1C 10.7 % (4.0-6.0)
[2023-03-07 11:21] LABS: POC Glucose,Bedside 315 (70-110)
--- NOTE | 2023-03-07 11:23 | SW/DCPLANNER ---
Addendum entered by Wendy Mak 03/07/23 14:50: Karishma reese/ Venus Martin is reviewing this information and waiting for MD to review patient information. Karishma was able to speak with patient via phone. Original Note: Patient information has been faxed to toby reese/ [facility] per MD request.
--- NOTE | 2023-03-07 12:33 | PC.NURSE ---
pt ripped IV out and refused to let nurse help, she refused to let 2X2 and coban be placed at the bleeding area, Dr. Jones notified, ok for patient to be med surg and for IV to stay out and no telemetry
--- NOTE | 2023-03-07 13:05 | EXP.ACUTE.PN ---
Subjective *Date: 03/07/23 *Time: 13:05 Interval history: Patient doing better this morning. Has been switched to basal bolus regimen with adequate glucose control. Tolerating p.o. intake. Had a bowel movement this morning. Had an outburst this morning, decided she did not want to be cared for, threatening to leave and hurt herself. Stated she does not care anymore and just wanted to leave so she could jump off a bridge. Having significant emotional stress from change in living situation over the past 2 to 3 months, feeling abandoned by her family. Significant emotional stress from the loss of his son in the past 5 to 6 months. Medical Exam Vital signs and Labs for Last 24 Hours: Vital Signs Temp Pulse Pulse Pulse Resp BP Pulse Ox 03/07/23 12:00 105 H 20 148/93 H 100 03/07/23 08:00 100 H 03/07/23 10:00 107 H 23 143/83 H 98 03/07/23 08:00 104 H 20 113/77 100 03/07/23 08:00 104 H 100 03/07/23 08:00 98.3 F 03/07/23 06:00 104 H 17 104/64 L 98 03/07/23 04:00 100 H 03/07/23 04:00 98.5 F 03/07/23 00:00 97 H 03/06/23 20:00 106 H 03/06/23 22:00 105 H 16 83/48 L 98 03/07/23 01:00 100 03/07/23 02:00 98 H 13 82/49 L 100 03/07/23 00:00 97 H 15 92/57 L 99 03/06/23 20:00 107 H 14 93/60 L 100 03/06/23 20:00 99 03/07/23 00:00 98.3 F 03/06/23 20:00 98.8 F 03/06/23 18:00 104 H 18 89/60 L 100 03/06/23 16:00 110 H 03/06/23 16:26 108 H 100 03/06/23 16:00 108 H 17 116/77 100 03/06/23 15:38 98.7 F 03/06/23 14:00 101 H 14 124/80 100 Intake and Output 03/06/23 03/07/23 03/07/23 23:59 07:59 15:59 Intake Total 480 / 4451 1800 / 2400 600 / 2400 Output Total 500 / 500 1400 / 2350 950 / 2350 Balance -1 400 / 50 -350 / 50 Intake: Intake, Oral Amount 480 / 1680 1800 / 2400 600 / 2400 Output: Output, Urine Amount 500 / 500 1400 / 2350 950 / 2350 Other: Number of Unmeasured Voids 0 0 1 Number of Bowel Movements 1 Weight 62.324 kg Patient Weight 03/07/23 23:59 Weight 62.324 kg Laboratory Results - last 24 hr 03/06/23 13:05: POC Glucose 542 H* 03/06/23 14:05: POC Glucose 463 H* 03/06/23 15:04: POC Glucose 504 H* 03/06/23 16:00: POC Glucose 492 H* 03/06/23 17:06: POC Glucose 374 H* 03/06/23 18:03: POC Glucose 374 H* 03/06/23 18:30: Sodium 135 L, Potassium 6.3 H* D, Chloride 111 H, Carbon Dioxide 17 L, Anion Gap 13.3, BUN 16, Creatinine 0.90 D, Estimated Creat Clear 67, Estimated GFR 67, Est GFR ( Amer) 82 D, Glucose 288 H D, Calcium 8.5 03/06/23 18:50: POC Glucose 270 H 03/06/23 20:05: Sodium 135 L, Potassium 4.4 D, Chloride 107, Carbon Dioxide 21 L, Anion Gap 11.4, BUN 15, Creatinine 0.80, Estimated Creat Clear 75, Estimated GFR 77, Est GFR ( Amer) 93, Glucose 165 H D, Calcium 8.2 L 03/06/23 20:32: POC Glucose 126 H 03/07/23 03:10: POC Glucose 74 03/07/23 05:40: WBC 7.8 D, RBC 3.53 L, Hgb 10.7 L, Hct 32.9 L, MCV 93.2, MCH 30.3, MCHC 32.6, RDW 18.0 H, Plt Count 225, MPV 8.5, Neut % (Auto) 70.3, Lymph % (Auto) 18.9, Calloway % (Auto) 8.2, Eos % (Auto) 2.4, Baso % (Auto) 0.2, Neut # (Auto) 5.5, Lymph # (Auto) 1.5, Calloway # (Auto) 0.6, Eos # (Auto) 0.2, Baso # (Auto) 0.0 03/07/23 05:40: Sodium 140, Potassium 4.0, Chloride 111 H, Carbon Dioxide 22, Anion Gap 11.0, BUN 14, Creatinine 0.70, Estimated Creat Clear 99, Estimated GFR 90, Est GFR ( Amer) 109, Glucose 75 D, Calcium 7.6 L, Phosphorus 3.3, Magnesium 1.7 D, Total Bilirubin 0.1 L, AST 100 H D, ALT 32 D, Alkaline Phosphatase 66, Total Protein 5.5 L, Albumin 2.9 L D, Globulin 2.6, Albumin/Globulin Ratio 1.1 03/07/23 05:40: Hemoglobin A1c 10.7 H 03/07/23 05:55: POC Glucose 89 03/07/23 11:14: POC Glucose 315 H* I & O for Labs for Last 24 Hours: Intake & Output 03/04/23 03/05/23 03/06/23 03/07/23 23:59 23:59 23:59 23:59 Intake Total 3251 / 4451 240
[2023-03-07 16:13] LABS: Amphetamine/Metha Screen,Urine Negative ng/ml (<1000)
[2023-03-07 16:14] LABS: Barbiturates Screen,Urine Negative ng/ml (<200); Benzodiazepines Screen,Urine Negative ng/ml (<200)
[2023-03-07 16:15] LABS: Cannabinoid Screen,Urine Negative ng/ml (<50)
[2023-03-07 16:16] LABS: Cocaine Screen,Urine Negative ng/ml (<300); Methadone Screen,Urine Negative ng/ml (<300)
[2023-03-07 16:17] LABS: Opiate Screen,Urine Negative ng/ml (<300)
[2023-03-07 16:18] LABS: Phencyclidine Screen,Urine Negative ng/ml (<25)
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
--- NOTE | 2023-03-07 17:16 | PC.NURSE ---
1600 FSBS, patient became combative, threatening to leave, took all clothes off and refused all care, VALERIE Torres came to bedside, pt still stating she is leaving, pt did go back to her bed, but refused to put clothes back on, has requested her supper be brought to bedside
[2023-03-07 17:22] LABS: POC Glucose,Bedside 317 (70-110)
--- NOTE | 2023-03-07 17:24 | PC.NURSE ---
pt has refused 1630 insulin dose
--- NOTE | 2023-03-07 18:37 | EXP.DC.SUM ---
General Admission date:: 03/06/23 Discharge date: 03/07/23 HPI HPI HPI: This is a 47-year-old female with a past medical history of diabetes, depression, hypertension, iron deficiency anemia, HLD who resides at a residential and presents emergency department today with complaints of hyperglycemia and generalized malaise and fatigue.? She does have a history of medical noncompliance and states that when she goes to get her medicine at the medicine window at the residential, there is not always someone there to give her her medicines.? She reports missing her 4 PM dose but has felt generalized malaise and fatigue all day.? She reports not getting out of bed much today.? She endorses nausea but no vomiting.? Denies fever, cough, congestion. Emergency department work-up consistent with DKA.? Glucose 972 with an anion gap of 27.? Ketones in urine.? Moderate acetone.? Given the above-mentioned problems she will be admitted to the hospital service for further evaluation management. Hospital Course Hospital Course Hospital Course: This is a 47-year-old female with a history of medical noncompliance, diabetes, who resides at a residential who presents emergency department today with hyperglycemia.? She has multiple recurrent admissions for medical noncompliance leading to hyperglycemia and DKA.? Anion gap is closed.? She has been transitioned to a basal bolus regimen.? Tolerating current regimen well with improvement clinically.? Ambulating independently.? Stable on room air.? Exhibiting thoughts of harm and symptoms of depression at this time.? Behavioral health consulted today.? Problems addressed as follows: DKA Uncontrolled diabetes Initiated on DKA protocol, initially on a drip. Gap closed within 24 hours. Transition to basal bolus regimen. Continue Lantus 30 units nightly, sliding scale with meals or resumption of home regimen of 10 to 12 units with meals based on fingerstick. Vital stable. Electrolytes normalized. A1c 10.7 on admission. Depression Suicidal thoughts Patient expressing thoughts of self-harm.? Behavioral health consult placed today.? Behavioral health evaluated. Given current suicidal ideation, recommended transfer to inpatient psychiatry for further management. Continued Wellbutrin 300 mg daily and Risperdal increased to 1 mg twice a day. 72-hour hold obtained. Patient to be transported via police to [facility] for further evaluation Hyponatremia and ALEX have resolved Exam Data for Last 24 hours Vital signs and Labs for Last 24 Hours: Temp Pulse Resp BP Pulse Ox 98.5 F 108 H 18 116/87 99 03/07/23 16:00 03/07/23 16:00 03/07/23 16:00 03/07/23 16:00 03/07/23 16:00 Laboratory Results - last 24 hr 03/06/23 18:03: POC Glucose 374 H* 03/06/23 18:30: Sodium 135 L, Potassium 6.3 H* D, Chloride 111 H, Carbon Dioxide 17 L, Anion Gap 13.3, BUN 16, Creatinine 0.90 D, Estimated Creat Clear 67, Estimated GFR 67, Est GFR ( Amer) 82 D, Glucose 288 H D, Calcium 8.5 03/06/23 18:50: POC Glucose 270 H 03/06/23 20:05: Sodium 135 L, Potassium 4.4 D, Chloride 107, Carbon Dioxide 21 L, Anion Gap 11.4, BUN 15, Creatinine 0.80, Estimated Creat Clear 75, Estimated GFR 77, Est GFR ( Amer) 93, Glucose 165 H D, Calcium 8.2 L 03/06/23 20:32: POC Glucose 126 H 03/07/23 03:10: POC Glucose 74 03/07/23 05:40: WBC 7.8 D, RBC 3.53 L, Hgb 10.7 L, Hct 32.9 L, MCV 93.2, MCH 30.3, MCHC 32.6, RDW 18.0 H, Plt Count 225, MPV 8.5, Neut % (Auto) 70.3, Lymph % (Auto) 18.9, Travis % (Auto) 8.2, Eos % (Auto) 2.4, Baso % (Auto) 0.2, Neut # (Auto) 5.5, Lymph # (Auto) 1.5, Travis # (Auto) 0.6, Eos # (Auto) 0.2, Baso # (Auto) 0.0 03/07/23 05:40: Sodium 140, Potassium 4.0, Chloride 111 H, Carbon Dioxide 22, Anion Gap 11.0, BUN 14, Creatinine 0.70, Estimated Creat Clear 99, Estimated GFR 90, Est GFR ( Amer) 109, Glucose 75 D, Calcium 7.6 L, Phosphorus 3.3, Magnesium 1.7 D, Total Bilirubin 0.1 L, AST 100 H D, ALT 32 D, Alkaline Phosphatase 6
== END 2023-03-07 18:45 | DRG 638 ==
LOC: ER 23:36 → 2ND 03-06 00:47
PROVIDERS: Nurse Practitioner Acute Care; Admitting Provider Internal Medicine Adolescent Medicine; Emergency Provider Emergency Medicine; PCP Emergency Medicine; Visit Provider Internal Medicine Adolescent Medicine
DX: E11.10 Type 2 diabetes mellitus with ketoacidosis without coma (principal); E87.1 Hypo-osmolality and hyponatremia; R45.851 Suicidal ideations; Z79.4 Long term (current) use of insulin; F31.9 Bipolar disorder, unspecified; Z87.891 Personal history of nicotine dependence; I10 Essential (primary) hypertension; E78.00 Pure hypercholesterolemia, unspecified; G47.33 Obstructive sleep apnea (adult) (pediatric); E11.40 Type 2 diabetes mellitus with diabetic neuropathy, unspecified; E11.43 Type 2 diabetes mellitus with diabetic autonomic (poly)neuropathy; K31.84 Gastroparesis; G25.81 Restless legs syndrome; Z91.199 Patient's noncompliance with other medical treatment and regimen due to unspecified reason
CPT/HCPCS: 36415; 71045; 80048; 80053; 80305; 81001; 82009; 82803; 82962; 83036; 83605; 83735; 84100; 84145; 84484; 85025; 87636; 93005; 93041; 99285; C9803; U0003; U0005

== ENCOUNTER 2023-03-12 18:00 | Observation (INO) | payer MEDICARE, SELFPAY ==
[2023-03-12 18:00] VITALS: BP 102/64; PULSE 112; RESP 18; TEMP 36.7; O2SAT 96; BMI 25.0
--- NOTE | 2023-03-12 18:01 | HMH.EDGENADL ---
Discharge Plan Disposition Chief Complaint: Weakness Prescriptions Prescriptions: No Action atorvastatin 20 mg Tablet 20 mg PO HS 30 Days Qty: 30 0RF pantoprazole 40 mg Tablet,Delayed Release (Dr/Ec) 40 mg PO DAILY 30 Days Qty: 30 0RF ferrous sulfate 325 mg (65 mg iron) Tablet,Delayed Release (Dr/Ec) 325 mg PO DAILY 30 Days Qty: 30 0RF bupropion HCl [Wellbutrin XL] 300 mg Tablet Extended Release 24 Hr 300 mg PO DAILY 30 Days Qty: 30 0RF gabapentin 300 mg capsule 300 mg PO TID aspirin 81 mg tablet,delayed release (DR/EC) 81 mg PO DAILY Label Comments: GIVE 1 TABLET BY MOUTH ONCE DAILY sennosides-docusate sodium [Stool Softener-Stimulant Laxat] 8.6-50 mg Tablet 1 tab PO BID Qty: 0 0RF risperidone 1 mg Tablet 1 mg PO BID Qty: 0 0RF insulin lispro [Humalog U-100 Insulin] 100 unit/mL solution 8 unit SQ TID Rx Instructions: with meals insulin glargine [Lantus Solostar U-100 Insulin] 100 unit/mL (3 mL) insulin pen 30 unit SQ HS Discharge ED Provider: Valerie Loving General Adult HPI General Chief complaint: Weakness Stated complaint: weakness Time Seen by Provider: 03/12/23 18:01 History of Present Illness HPI narrative: Patient is a 47-year-old female with a history of diabetes medication noncompliance very well-known to the emergency department into this hospital with multiple recent admissions for DKA presenting today with hyperglycemia. She states that she has been very weak and out of the location where she lives, [facility], that she must be able to go to the window where medications are dispensed in order to get her medications however her weakness has been so profound that she has been unable to go to the window and she claims that they refused to bring them to her room. Therefore she states her weakness and her illness have only gotten worse and she has not been taking her medications. EMS says her blood sugar was read around 500 prior to arrival. She denies any fevers chills or other infectious symptoms including cough or urinary tract infection symptoms. Related Data Home Medications Medication Instructions Recorded Confirmed gabapentin 300 mg capsule 300 mg PO TID NERVE PAIN 02/12/23 03/06/23 insulin glargine 100 unit/mL (3 30 unit SQ HS Diabetes 02/25/23 03/06/23 mL) subcutaneous pen (Lantus Solostar U-100 Insulin) insulin lispro 100 unit/mL 8 unit SQ TID Diabetes 02/25/23 03/06/23 subcutaneous solution (Humalog U-100 Insulin) aspirin 81 mg tablet,delayed 81 mg PO DAILY HEART HEALTH 03/06/23 03/06/23 release Previous Rx's Medication Instructions Recorded atorvastatin 20 mg tablet 20 mg PO HS Cholesterol 30 days 02/07/23 #30 tabs bupropion HCl 300 mg 24 hr tablet, 300 mg PO DAILY Mood 30 days #30 02/07/23 extended release (Wellbutrin XL) tabs ferrous sulfate 325 mg (65 mg 325 mg PO DAILY Supplement 30 days 02/07/23 iron) tablet,delayed release #30 tabs pantoprazole 40 mg tablet,delayed 40 mg PO DAILY Acid reflux 30 days 02/07/23 release #30 tabs risperidone 1 mg tablet 1 mg PO BID #0 tabs 03/07/23 sennosides 8.6 mg-docusate sodium 1 tab PO BID #0 tabs 03/07/23 50 mg tablet (Stool Softener-Stimulant Laxative) Allergies Allergy/AdvReac Type Severity Reaction Status Date / Time Penicillins Allergy Intermediate Rash Verified 03/12/23 18:45 [facility] Disclaimer: The information contained in this section may have been updated after the patient was seen, as this information can be updated by other users. Medical History (Updated 03/11/23 @ 00:00 by Background Daemorin) Anxiety Bipolar 1 disorder Constipation COVID Diabetes mellitus, insulin dependent (IDDM), uncontrolled DKA (diabetic ketoacidosis) Essential (primary) hypertension Former smoker Gastroparesis GERD (gastroesophageal reflux disease) Herpes High cholesterol History of drug abuse in remission History of suicidal tendencies HTN (hyperte
--- NOTE | 2023-03-12 18:02 | XR_ITS ---
PROCEDURE INFORMATION: Exam: XR Chest Exam date and time: 03/12/23 06:23 PM Age: 47 years old Clinical indication: Dyspnea TECHNIQUE: Imaging protocol: Radiologic exam of the chest. Views: 1 view. COMPARISON: CR XR CHEST PORTABLE 03/05/23 10:17 PM FINDINGS: Lungs: Unremarkable. No consolidation. Pleural spaces: Unremarkable. No pleural effusion. No pneumothorax. Heart/Mediastinum: Unremarkable. No cardiomegaly. Bones/joints: Unremarkable. IMPRESSION: No acute findings.
--- NOTE | 2023-03-12 18:20 | PC.NURSE ---
XIANG SANCHEZ AT
[2023-03-12 18:50] LABS: Microscopic, Urine URINE MICROSCOPIC (MICROSCOPIC)
[2023-03-12 18:53] LABS: Appearance,Urine CLOUDY (Clear); Blood, Urine TRACE-L (Negative); Color,Urine YELLOW (Yellow); Glucose,Urine (UA) 3+ (Negative); Ketones,Urine 3+ (Negative); Leukocyte Esterase,Urine 1+ (Negative); Nitrate,Urine Negative (Negative); PH,Urine 5.5 (5.0-8.5); Protein,Urine Negative (Negative); Urobilinogen,Urine 0.2 EU/dl (0.2)
[2023-03-12 18:55] LABS: Basophils % 0.4 % (0.1-2.0); Eosinophils # 0.1 K/mm3 (0.0-0.4); Eosinophils % 1.6 % (0.1-12.0); Hematocrit 36.5 % (37.0-47.0); Hemoglobin 11.6 g/dL (12.2-16.2); Lymphocytes # 2.9 K/mm3 (0.7-4.5); Lymphocytes % 39.1 % (10-50); Mean Corpuscular HGB Conc 31.7 g/dL (31.8-35.4); Mean Corpuscular Hemoglobin 29.3 pg (27.0-31.2); Mean Corpuscular Volume 92.2 fl (81-99); Mean Platelet Volume 8.7 fl (7.4-10.4); Monocytes # 0.5 K/mm3 (0.1-1.0); Monocytes % 6.6 % (1.7-9.3); Neutrophils # 3.8 K/mm3 (1.8-7.8); Neutrophils % 52.3 % (37.0-80.0); Platelet Count 302 K/mm3 (142-424); Red Blood Count 3.96 M/mm3 (4.20-5.40); Red Cell Distribution Width 16.7 % (11.5-17.5); White Blood Count 7.3 K/mm3 (4.8-10.8)
[2023-03-12 18:59] LABS: Bilirubin,Urine 1+ (Negative)
[2023-03-12 19:00] VITALS: BP 104/71; PULSE 111; O2SAT 98
[2023-03-12 19:04] LABS: Chloride 93 mmol/L (98-107); Potassium 4.4 mmoL/L (3.5-5.1); Sodium 133 mmol/L (136-145)
[2023-03-12 19:06] LABS: Alanine Aminotransferase 20 U/L (12-78); Alkaline Phosphatase 99 U/L (38-126); Aspartate Amino Transferase 16 U/L (14-36); Bilirubin,Total 0.5 mg/dl (0.2-1.3); Blood Urea Nitrogen 30 mg/dl (7-17); Creatinine Clearance Estimated 50 mL/min (50-200); Estimated Glomerular Filt Rate 37 ml/min (>60); GFR (African American) 45 ML/MIN (>60)
[2023-03-12 19:07] LABS: Albumin Level 4.1 g/dl (3.5-5.0); Albumin/Globulin Ratio 1.4 (1.1-1.8); Anion Gap 23.4 mEq/L (5-15); Calcium 9.6 mg/dl (8.4-10.2); Carbon Dioxide 21 mmol/L (22.0-30.0); Magnesium 2.2 mg/dl (1.6-2.3); Phosphorous 4.3 mg/dl (2.5-4.5); Total Protein,Serum 7.1 g/dl (6.3-8.2)
[2023-03-12 19:11] LABS: Glucose 496 mg/dl (74-100)
[2023-03-12 19:12] LABS: Bacteria,Urine 1+ /lpf; RBC,Urine Occasional #/hpf (0-3); Squamous Epithelial Cell,Urine 20-50 #/hpf (0-5); WBC,Urine 50-100 #/hpf (0-3)
[2023-03-12 19:29] LABS: VBG Base Excess -6.6 mmol/L (-2.4-2.3); VBG HCO3 19.3 mmol/L (23-30); VBG Oxygen Saturation 83.8 % (50-70); VBG PCO2 37.3 mmol/L (35-51); VBG PH 7.33 mmol/L (7.31-7.41); VBG Total CO2 20.4 mmol/L (23-27)
--- NOTE | 2023-03-12 19:49 | PC.NURSE ---
Dr. Loving at attempting U/S guided IV access
[2023-03-12 20:05] VITALS: BP 98/63; PULSE 116; O2SAT 98
--- NOTE | 2023-03-12 20:46 | PC.NURSE ---
Alexandra from LAB at
[2023-03-12 20:53] VITALS: BP 114/78; PULSE 110; RESP 16; TEMP 36.7; O2SAT 98
[2023-03-12 20:54] LABS: Coronavirus 19, PCR Not Detected (NotDetected); Influenza A, PCR Not Detected (NotDetected); Influenza B, PCR Not Detected (NotDetected)
[2023-03-12 21:12] LABS: Chloride 100 mmol/L (98-107); Potassium 3.2 mmoL/L (3.5-5.1); Sodium 137 mmol/L (136-145)
[2023-03-12 21:14] LABS: Blood Urea Nitrogen 26 mg/dl (7-17); Creatinine Clearance Estimated 63 mL/min (50-200); Estimated Glomerular Filt Rate 48 ml/min (>60); GFR (African American) 59 ML/MIN (>60)
[2023-03-12 21:15] LABS: Barbiturates Screen,Urine Negative ng/ml (<200); Benzodiazepines Screen,Urine Negative ng/ml (<200)
[2023-03-12 21:15] LABS: Anion Gap 23.2 mEq/L (5-15); Calcium 9.1 mg/dl (8.4-10.2); Carbon Dioxide 17 mmol/L (22.0-30.0); Glucose 280 mg/dl (74-100); Magnesium 1.8 mg/dl (1.6-2.3); Phosphorous 3.1 mg/dl (2.5-4.5)
[2023-03-12 21:16] LABS: Amphetamine/Metha Screen,Urine Negative ng/ml (<1000)
[2023-03-12 21:17] LABS: Cannabinoid Screen,Urine Negative ng/ml (<50); Methadone Screen,Urine Negative ng/ml (<300)
[2023-03-12 21:18] LABS: Cocaine Screen,Urine Negative ng/ml (<300)
[2023-03-12 21:19] LABS: Opiate Screen,Urine Negative ng/ml (<300); Phencyclidine Screen,Urine Negative ng/ml (<25)
[2023-03-12 21:21] LABS: Lactic Acid 5.7 mmol/L (0.7-2.1)
[2023-03-12 21:34] VITALS: BMI 20.5
[2023-03-12 21:36] VITALS: BP 113/64; PULSE 98; RESP 16; TEMP 36.8; O2SAT 97
--- NOTE | 2023-03-12 22:01 | PC.NURSE ---
DURING PT ADMISSION PT STATED THAT SHE HAS HAD THOUGHTS OF WANTING TO HARM HERSELF AND STATED THAT SHE HAS HAD PLANS TO HARM HERSELF. SHE STATED THAT SHE LOST HER SON IN OCTOBER AND JUST WANTS TO BE WITH HER SON. PT HAS ALSO STATED THAT SOMETIMES SHE WANTS TO BUT OTHER TIMES SHE WANTS TO LIVE. PT TOLD THAT SHE WOULD BE IN ONE ON ONE OBSERVATION FOR HER SAFETY. PT WAS AGITATED THAT SHE COULD NOT BE IN HER ROOM ALONE. PT REEDUCATED THAT WE ARE JUST TRYING TO KEEP HER SAFE AND THIS IS HOSPITAL POLICY. ALL ITEMS THAT PT COULD USE TO HARM HERSELF HAVE BEEN REMOVED FROM PT'S ROOM, PT HAS BEEN PLACED IN A PAPER GOWN, SCANNER REMOVED FROM COMPUTER IN THE ROOM, AND TECH IS AT BEDSIDE WITHIN ARMS REACH. HEALTHCARE CONSULTANT IS AWARE AND SUICIDE PROTOCOL IS IN PLACE.
[2023-03-12 22:06] LABS: Acetone, Serum (Rapid) Small (None Detect)
--- NOTE | 2023-03-12 22:06 | EXP.HP ---
History of Present Illness *Admission Date: 03/12/23 *Reason for visit:: dka *History of present illness: multiple admits for smae in last 4 months. [facility] Disclaimer: The information contained in this section may have been updated after the patient was seen, as this information can be updated by other users. Medical History Anxiety Bipolar 1 disorder Constipation COVID Diabetes mellitus, insulin dependent (IDDM), uncontrolled DKA (diabetic ketoacidosis) Essential (primary) hypertension Former smoker Gastroparesis GERD (gastroesophageal reflux disease) Herpes High cholesterol History of drug abuse in remission History of suicidal tendencies HTN (hypertension) Leukocytosis MDD (major depressive disorder) Neuropathy MALCOM (obstructive sleep apnea) RLS (restless legs syndrome) Sleep apnea Suicidal ideation UTI (urinary tract infection) Family History Other No significant family history Social History Smoking Status: Current every day smoker alcohol intake: never current occupational status: unemployed and disabled Travel in the last 8 weeks: None Review of Systems Constitutional Constitutional: Reports system reviewed and no additional complaints, except as documented, Reports fatigue, Reports lethargy and Reports malaise Eyes Eyes: Reports system reviewed and no additional complaints, except as documented ENT Ears, Nose, Mouth, and Throat: Reports system reviewed and no additional complaints, except as documented *Cardiovascular Cardiovascular: Reports system reviewed and no additional complaints, except as documented *Respiratory Respiratory: Reports system reviewed and no additional complaints, except as documented *Gastrointestinal Gastrointestinal: Reports system reviewed and no additional complaints, except as documented *Genitourinary Genitourinary: Reports system reviewed and no additional complaints, except as documented *Musculoskeletal Musculoskeletal: Reports arthralgias Integumentary/Breasts Skin/Breast: Reports system reviewed and no additional complaints, except as documented *Neurologic Neurologic: Reports system reviewed and no additional complaints, except as documented Psychiatric Psychiatric: Reports abnormal sleep pattern, Reports anhedonia, Reports anxiety, Reports depression and Reports hopelessness Comments: lack of self care Endocrine Endocrine: Reports fatigue Hematologic/Lymphatic Hematologic/Lymphatic: Reports system reviewed and no additional complaints, except as documented Allergic/Immunologic Allergic/Immunologic: Reports system reviewed and no additional complaints, except as documented Meds Home Medications and Allergies Home Medications Medication Instructions Recorded Confirmed Type atorvastatin 20 mg tablet 20 mg PO HS Cholesterol 30 days 02/07/23 03/12/23 Rx #30 tabs bupropion HCl 300 mg 24 hr tablet, 300 mg PO DAILY Mood 30 days #30 02/07/23 03/12/23 Rx extended release (Wellbutrin XL) tabs ferrous sulfate 325 mg (65 mg 325 mg PO DAILY Supplement 30 days 02/07/23 03/12/23 Rx iron) tablet,delayed release #30 tabs pantoprazole 40 mg tablet,delayed 40 mg PO DAILY Acid reflux 30 days 02/07/23 03/12/23 Rx release #30 tabs gabapentin 300 mg capsule 300 mg PO TID NERVE PAIN 02/12/23 03/12/23 History insulin glargine 100 unit/mL (3 30 unit SQ HS Diabetes 02/25/23 03/12/23 History mL) subcutaneous pen (Lantus Solostar U-100 Insulin) insulin lispro 100 unit/mL 8 unit SQ TID Diabetes 02/25/23 03/12/23 History subcutaneous solution (Humalog U-100 Insulin) aspirin 81 mg tablet,delayed 81 mg PO DAILY HEART HEALTH 03/06/23 03/12/23 History release risperidone 1 mg tablet 1 mg PO BID MOOD 03/12/23 03/12/23 History sennosides 8.6 mg-docusate sodium 1 tab PO BID CONSTIPATION 03/12/23 05
--- NOTE | 2023-03-12 22:40 | PC.NURSE ---
Pt arrived to floor via stretcher @ 2100
[2023-03-13] VITALS (11 sets, daily range): BP systolic 85–133; BP diastolic 55–80; PULSE 92–110; RESP 16–18; TEMP 36.8–37.2; O2SAT 97–99; BMI 20.5
[2023-03-13 00:34] LABS: Reflex Lactic Add Lactic Reflex
[2023-03-13 00:44] LABS: Chloride 100 mmol/L (98-107); Sodium 136 mmol/L (136-145)
[2023-03-13 00:45] LABS: Potassium 3.8 mmoL/L (3.5-5.1)
[2023-03-13 00:47] LABS: Blood Urea Nitrogen 24 mg/dl (7-17); Creatinine Clearance Estimated 56 mL/min (50-200); Estimated Glomerular Filt Rate 53 ml/min (>60); GFR (African American) 65 ML/MIN (>60)
[2023-03-13 00:48] LABS: Anion Gap 12.8 mEq/L (5-15); Calcium 9.1 mg/dl (8.4-10.2); Carbon Dioxide 27 mmol/L (22.0-30.0); Glucose 162 mg/dl (74-100)
[2023-03-13 04:53] LABS: Chloride 109 mmol/L (98-107); Potassium 4.2 mmoL/L (3.5-5.1); Sodium 139 mmol/L (136-145)
--- NOTE | 2023-03-13 04:54 | PC.NURSE ---
NO ACUTE CHANGES SINCE ARRIVING TO THE FLOOR. PT REMAINS IN ONE ON ONE OBSERVATION. PT HAS RESTED WELL. REMAINS ON INSULIN DRIP AT 3.4 UNITS/HR. NO C/O PAIN OR NAUSEA/VOMITING. VSS. SUICIDE PRECAUTIONS IN PLACE. STAFF REMAINS WITHIN ARMS REACH.
[2023-03-13 04:56] LABS: Anion Gap 17.2 mEq/L (5-15); Blood Urea Nitrogen 23 mg/dl (7-17); Calcium 9.2 mg/dl (8.4-10.2); Carbon Dioxide 17 mmol/L (22.0-30.0); Creatinine Clearance Estimated 69 mL/min (50-200); Estimated Glomerular Filt Rate 67 ml/min (>60); GFR (African American) 82 ML/MIN (>60); Glucose 129 mg/dl (74-100)
[2023-03-13 07:26] LABS: POC Glucose,Bedside 197 (70-110)
[2023-03-13 07:26] LABS: POC Glucose,Bedside 158 (70-110)
[2023-03-13 07:26] LABS: POC Glucose,Bedside 172 (70-110)
[2023-03-13 07:26] LABS: POC Glucose,Bedside 191 (70-110)
[2023-03-13 07:26] LABS: POC Glucose,Bedside 142 (70-110)
[2023-03-13 07:26] LABS: POC Glucose,Bedside 244 (70-110)
[2023-03-13 07:26] LABS: POC Glucose,Bedside 152 (70-110)
[2023-03-13 07:26] LABS: POC Glucose,Bedside 153 (70-110)
[2023-03-13 07:26] LABS: POC Glucose,Bedside 134 (70-110)
[2023-03-13 07:26] LABS: POC Glucose,Bedside 98 (70-110)
[2023-03-13 07:26] LABS: POC Glucose,Bedside 132 (70-110)
[2023-03-13 08:19] LABS: POC Glucose,Bedside 141 (70-110)
[2023-03-13 08:29] LABS: Anion Gap 13.9 mEq/L (5-15); Blood Urea Nitrogen 20 mg/dl (7-17); Calcium 8.4 mg/dl (8.4-10.2); Carbon Dioxide 25 mmol/L (22.0-30.0); Chloride 102 mmol/L (98-107); Creatinine Clearance Estimated 78 mL/min (50-200); Estimated Glomerular Filt Rate 77 ml/min (>60); GFR (African American) 93 ML/MIN (>60); Glucose 130 mg/dl (74-100); Potassium 3.9 mmoL/L (3.5-5.1); Sodium 137 mmol/L (136-145)
--- NOTE | 2023-03-13 08:37 | HMH.PHAINT1 ---
Pharmacy Intervention Comments: MEDICATION RECONCILIATION COMPLETED ON PATIENT USING DISCHARGE SUMMARY FROM PREVIOUS ADMISSION. -ALESHIA RUBIO, RUBEND
--- NOTE | 2023-03-13 08:53 | EXP.ACUTE.PN ---
Subjective *Date: 03/13/23 *Time: 08:53 Interval history: No issues, feeling. Wants to go to [facility] Medical Exam Vital signs and Labs for Last 24 Hours: Vital Signs Temp Pulse Pulse Pulse Resp BP BP 03/13/23 08:00 99 H 03/13/23 08:00 97 H 16 95/66 L 03/13/23 07:25 98.2 F 03/13/23 06:00 92 H 16 90/55 L 03/13/23 04:00 100 H 03/13/23 04:00 98.3 F 97 H 17 85/66 L 03/13/23 00:00 100 H 03/13/23 02:00 94 H 16 100/64 L 03/13/23 00:00 98.2 F 97 H 18 91/55 L 03/12/23 21:36 98.2 F 98 H 16 113/64 03/12/23 20:53 98.1 F 110 H 16 114/78 03/12/23 20:05 116 H 98/63 L 03/12/23 19:00 111 H 104/71 L 03/12/23 18:00 98.1 F 112 H 18 102/64 L Pulse Ox 03/13/23 08:00 03/13/23 08:00 99 03/13/23 07:25 03/13/23 06:00 98 03/13/23 04:00 03/13/23 04:00 98 03/13/23 00:00 03/13/23 02:00 99 03/13/23 00:00 97 03/12/23 21:36 97 03/12/23 20:53 03/12/23 20:05 98 03/12/23 19:00 98 03/12/23 18:00 96 Intake and Output 03/12/23 03/13/23 03/13/23 23:59 07:59 15:59 Intake Total 480 / 480 Output Total 0 / 0 Balance 480 / 480 Intake: Intake, Oral Amount 480 / 480 Output: Output, Urine Amount 0 / 0 Other: Number of Unmeasured Voids 1 Weight 55.973 kg 55.973 kg Patient Weight 03/13/23 23:59 Weight 55.973 kg Laboratory Results - last 24 hr 03/12/23 18:40: WBC 7.3, RBC 3.96 L, Hgb 11.6 L, Hct 36.5 L, MCV 92.2, MCH 29.3, MCHC 31.7 L, RDW 16.7, Plt Count 302, MPV 8.7, Neut % (Auto) 52.3, Lymph % (Auto) 39.1, [place] % (Auto) 6.6, Eos % (Auto) 1.6, Baso % (Auto) 0.4, Neut # (Auto) 3.8, Lymph # (Auto) 2.9, [place] # (Auto) 0.5, Eos # (Auto) 0.1, Baso # (Auto) 0.0 03/12/23 18:40: Sodium 133 L, Potassium 4.4, Chloride 93 L, Carbon Dioxide 21 L, Anion Gap 23.4 H, BUN 30 H, Creatinine 1.50 H, Estimated Creat Clear 50, Estimated GFR 37 L, Est GFR ( Amer) 45 L, Glucose 496 H*, Calcium 9.6, Phosphorus 4.3, Magnesium 2.2, Total Bilirubin 0.5, AST 16, ALT 20, Alkaline Phosphatase 99, Total Protein 7.1 D, Albumin 4.1, Globulin 3.0, Albumin/Globulin Ratio 1.4 03/12/23 18:40: Urine Opiates Screen Negative, Urine Methadone Screen Negative, Ur Barbituates Screen Negative, Ur Phencyclidine Scrn Negative, Ur Amphetamines Screen Negative, U Benzodiazepines Scrn Negative, Urine Cocaine Screen Negative, U Marijuana (THC) Screen Negative 03/12/23 18:46: Urine Color Yellow, Urine Appearance Cloudy, Urine pH 5.5, Ur Specific [place] 1.020, Urine Protein Negative, Urine Glucose (UA) 3+, Urine Ketones 3+, Urine Blood Trace-l, Urine Nitrate Negative, Urine Bilirubin 1+ A, Urine Urobilinogen 0.2, Ur Leukocyte Esterase 1+ A, Urine RBC Occasional, Urine WBC 50-100, Ur Squamous Epith Cells 20-50, Urine Bacteria 1+ 03/12/23 19:16: VBG pH 7.33, VBG pCO2 37.3, VBG pO2 48.0 H, VBG HCO3 19.3 L, VBG Total CO2 20.4 L, VBG O2 Saturation 83.8 H, VBG Base Excess -6.6 L 03/12/23 19:21: SARS-CoV-2 (PCR) Not detected, Influenza A Untype (PCR) Not detected, Influenza Type B (PCR) Not detected 03/12/23 20:53: Sodium 137, Potassium 3.2 L D, Chloride 100, Carbon Dioxide 17 L, Anion Gap 23.2 H, BUN 26 H, Creatinine 1.20 H, Estimated Creat Clear 63, Estimated GFR 48 L, Est GFR ( Amer) 59 D, Glucose 280 H D, Calcium 9.1, Phosphorus 3.1 D, Magnesium 1.8 D 03/12/23 20:53: Lactate 5.7 H 03/12/23 21:06: POC Glucose 244 H 03/12/23 21:45: Acetone Level Small 03/12/23 22:20: POC Glucose 172 H 03/12/23 22:48: POC Glucose 158 H 03/13/23 00:06: POC Glucose 142 H 03/13/23 00:33: Sodium 136, Potassium 3.8, Chloride 100, Carbon Dioxide 27, Anion Gap 12.8, BUN 24 H, Creatinine 1.10 H, Estimated Creat Clear 56, Estimated GFR 53 L, Est GFR ( Amer) 65, Glucose 162 H D, Calcium 9.1 03/13/23 00:33: Lactate 1.0 03/13/23 01:24: POC Glucose 197 H 03/13/23 02:27: POC Glucose 152 H 03/13/23 03:17: POC Glucose 98 03/13/23 04:06: POC Glucose 132 H 05
--- NOTE | 2023-03-13 09:02 | PC.NURSE ---
1:1 patient observation note: pt is lying on her right side resting. pt states she is comfortable and is going to take a nap. Staff will remain at bedside.
[2023-03-13 09:55] LABS: POC Glucose,Bedside 163 (70-110)
--- NOTE | 2023-03-13 11:23 | PC.NURSE ---
pt 1;1 observation note: pt observation notes were accidentally marked not done for 1100 and 1115 . pt has staff at bedside and is still under 1;1 staff supervision.
[2023-03-13 11:25] LABS: POC Glucose,Bedside 314 (70-110)
--- NOTE | 2023-03-13 11:35 | PC.NURSE ---
PER HOSPITALIST PT WAS ORDERED LANTUS 10 UNITS AT 0945 AND INSULIN DRIP WAS STOPPED AT 1045. D5NS WAS DC'D. PT HAS NS @ 150ML/HR INFUSING AND MED INTENSITY SLIDING SCALE WAS ORDERED. PT CAN BE TRANSFERRED OUT OF STEPDOWN.
--- NOTE | 2023-03-13 16:55 | P.EN_ITS ---
Paged by nurse to evaluate patient. She is wanting to leave AGAINST MEDICAL ADVICE. Upon discussion she states that she is sad and wants to leave the hospital to go join her son who is . When asked further what she means she discussed how she is tired of being in and out of the hospital so much. She thinks about committing suicide, current plan is to hang herself like she did and long term many years ago. With conversation the patient became less tearful and was agreeable to staying. Requesting help with nerves . Agreeable to stay for further treatment of DKA, will prescribe Ativan 1 mg p.o. every 6 hours as needed
[2023-03-13 17:08] LABS: POC Glucose,Bedside 401 (70-110)
--- NOTE | 2023-03-13 17:20 | PC.NURSE ---
PT IS RESTING IN BED. ALERT AND ORIENTED X4. PT HAS BEEN 1:1 T/O THE SHIFT. EATING AND DRINKING WELL. PT STARTED TO GET VERY EMOTIONAL AT 1600 THIS AFTERNOON AND STATED SHE WANTED TO TALK TO THE PHYSICIAN ABOUT BEING DISCHARGED. PT DOES NOT WANT TO GO BACK TO [facility] BUT SHE DIDN'T WANT TO SIT HERE TILL TUESDAY WAITING FOR SOMEONE TO FIND ANOTHER PLACE FOR HER TO GO. HOSPITALIST CAME TO TALK TO PT AND SHE STATED TO HIM THAT SHE WAS JUST REALLY DEPRESSED AND SHE WANTED TO GO BE WITH HER SON THAT SHE LOST BACK IN OCTOBER. PT STATED SHE HAS ATTEMPTED SUICIDE IN THE PAST. HOSPITALIST STATED HE WAS NOT COMFORTABLE WITH DISCHARGING PT BUT HE WOULD GIVE HER SOMETHING TO HELP WITH HER ANXIETY. ATIVAN 1 MG PO Q6H WAS ORDERED. WILL CONTINUE TO MONITOR.
[2023-03-13 20:37] LABS: POC Glucose,Bedside 310 (70-110)
--- NOTE | 2023-03-13 21:27 | PC.NURSE ---
pump cleared of mult. shifts
[2023-03-14] VITALS: BP 128/76; PULSE 100; PULSE 101; RESP 18; TEMP 37.2; O2SAT 99
[2023-03-14 04:00] VITALS: BP 137/75; PULSE 100; PULSE 96; RESP 18; TEMP 37.1; O2SAT 98; BMI 22.8
[2023-03-14 05:51] LABS: Basophils % 0.2 % (0.1-2.0); Eosinophils # 0.2 K/mm3 (0.0-0.4); Eosinophils % 4.2 % (0.1-12.0); Hematocrit 36.2 % (37.0-47.0); Hemoglobin 11.4 g/dL (12.2-16.2); Lymphocytes # 1.8 K/mm3 (0.7-4.5); Lymphocytes % 38.2 % (10-50); Mean Corpuscular HGB Conc 31.4 g/dL (31.8-35.4); Mean Corpuscular Hemoglobin 29.5 pg (27.0-31.2); Mean Corpuscular Volume 94.1 fl (81-99); Mean Platelet Volume 9.3 fl (7.4-10.4); Monocytes # 0.3 K/mm3 (0.1-1.0); Neutrophils # 2.4 K/mm3 (1.8-7.8); Neutrophils % 50.4 % (37.0-80.0); Platelet Count 146 K/mm3 (142-424); Red Blood Count 3.85 M/mm3 (4.20-5.40); Red Cell Distribution Width 16.7 % (11.5-17.5); White Blood Count 4.8 K/mm3 (4.8-10.8)
[2023-03-14 05:57] LABS: Alanine Aminotransferase 18 U/L (12-78); Albumin Level 2.9 g/dl (3.5-5.0); Albumin/Globulin Ratio 1.3 (1.1-1.8); Alkaline Phosphatase 76 U/L (38-126); Aspartate Amino Transferase 21 U/L (14-36); Bilirubin,Total 0.2 mg/dl (0.2-1.3); Blood Urea Nitrogen 15 mg/dl (7-17); Calcium 7.9 mg/dl (8.4-10.2); Carbon Dioxide 22 mmol/L (22.0-30.0); Chloride 103 mmol/L (98-107); Creatinine Clearance Estimated 86 mL/min (50-200); Estimated Glomerular Filt Rate 77 ml/min (>60); GFR (African American) 93 ML/MIN (>60); Globulin 2.3 g/dL (1.3-3.2); Magnesium 1.8 mg/dl (1.6-2.3); Phosphorous 3.2 mg/dl (2.5-4.5); Sodium 132 mmol/L (136-145); Total Protein,Serum 5.2 g/dl (6.3-8.2)
--- NOTE | 2023-03-14 06:04 | PC.NURSE ---
Addendum entered by Eda Roth RN 03/14/23 06:08: Gregg Frazier TRAFFIC OPERATIONS MANAGER states to give 20u Humalog now and recheck BS 2 hr post administration. Read back, verified, carried out. Original Note: FS 579 on glucometer. Nadine in lab states they just got morning labs on pt which include a glucose.
[2023-03-14 06:06] LABS: Glucose 595 mg/dl (74-100)
[2023-03-14 06:07] LABS: POC Glucose,Bedside 579 (70-110)
[2023-03-14 07:36] VITALS: BP 116/81; PULSE 108; RESP 22; TEMP 37.1; O2SAT 98
[2023-03-14 08:00] VITALS: PULSE 100
--- NOTE | 2023-03-14 10:26 | SW/DCPLANNER ---
Addendum entered by [facility] 03/14/23 12:58: Gina has stated this patient does qualify for admission to [facility]. I will relay information to nursing staff and MD to complete discharge summary and contact [place] [employer] for transportation. Addendum entered by [facility] 03/14/23 12:57: Zoom call is being completed between patient and Gina at [facility]: I am present in room for zoom call. Addendum entered by [facility] 03/14/23 12:56: Zoom call with C Addendum entered by [facility] 03/14/23 11:42: Gina w/ [facility] [phone] is currently reviewing patient information and all Involuntary Hold forms and will call me back to set up Telehealth Zoom evaluation. Original Note: Per MD request due to patient expressing suicidal thoughts (wanting to hang herself and go be with her son that has already ) an Involuntary Hold process w/ Tobin Noguera and [facility] has been started. Paperwork will be completed and sent to Medical Center Director then Telehealth call with [facility] [place] will be completed.
--- NOTE | 2023-03-14 10:58 | EXP.ACUTE.PN ---
Subjective *Date: 03/14/23 *Time: 10:58 Interval history: Patient's blood sugar up again this morning. She snacks throughout most of the night. Denies any nausea or vomiting. No shortness of breath or chest pain. Initially talking about how much she liked the nurses and how nice they were overnight, then switched and became very aggravated with me during interview. Tells us we do not care. Feels that she does not want to be here. Tells that she wants to be with her son who is . Currently has a one-on-one sitter. Medical Exam Vital signs and Labs for Last 24 Hours: Vital Signs Temp Pulse Pulse Pulse Resp BP Pulse Ox 03/14/23 08:00 100 H 03/14/23 07:36 98.8 F 108 H 22 116/81 98 03/14/23 04:00 100 H 03/14/23 04:00 98.8 F 96 H 18 137/75 98 03/14/23 00:00 100 H 03/14/23 00:00 98.9 F 101 H 18 128/76 99 03/13/23 20:00 110 H 03/13/23 20:00 104 H 99 03/13/23 20:00 99.0 F 105 H 18 118/70 99 03/13/23 16:00 102 H 03/13/23 12:00 100 H 03/13/23 15:19 98.4 F 103 H 16 133/80 99 03/13/23 11:26 98.4 F 100 H 18 99/66 L 99 Intake and Output 03/13/23 03/14/23 03/14/23 23:59 07:59 15:59 Intake Total 3155 / 4355 1674 / 1674 Output Total 700 / 1100 3100 / 3400 300 / 3400 Balance 2455 / 3255 -1426 / -1726 -300 / -1726 Intake: Intake, Oral Amount 960 / 2160 1440 / 1440 Intake, Total IV Amount 2194 234 / 234 0.9 % Sodium Chloride 1000ML 1, 2194 234 / 234 000 ml @ 150 mls/hr IV .[id number] [facility] Rx#:[id number] Output: Output, Urine Amount 700 / 1100 3100 / 3400 300 / 3400 Other: Number of Unmeasured Voids 1 0 0 Number of Bowel Movements 1 Weight 62.227 kg Patient Weight 03/14/23 23:59 Weight 62.227 kg Laboratory Results - last 24 hr 03/13/23 11:11: POC Glucose 314 H* 03/13/23 17:01: POC Glucose 401 H* 03/13/23 20:30: POC Glucose 310 H* 03/14/23 05:35: WBC 4.8 D, RBC 3.85 L, Hgb 11.4 L, Hct 36.2 L, MCV 94.1, MCH 29.5, MCHC 31.4 L, RDW 16.7, Plt Count 146 D, MPV 9.3, Neut % (Auto) 50.4, Lymph % (Auto) 38.2, [place] % (Auto) 7.0, Eos % (Auto) 4.2, Baso % (Auto) 0.2, Neut # (Auto) 2.4, Lymph # (Auto) 1.8, [place] # (Auto) 0.3, Eos # (Auto) 0.2, Baso # (Auto) 0.0 03/14/23 05:35: Sodium 132 L, Potassium 5.0 D, Chloride 103, Carbon Dioxide 22, Anion Gap 12.0, BUN 15, Creatinine 0.80, Estimated Creat Clear 86, Estimated GFR 77, Est GFR ( Amer) 93, Glucose 595 H* D, Calcium 7.9 L, Phosphorus 3.2, Magnesium 1.8, Total Bilirubin 0.2, AST 21 D, ALT 18, Alkaline Phosphatase 76, Total Protein 5.2 L D, Albumin 2.9 L D, Globulin 2.3, Albumin/Globulin Ratio 1.3 03/14/23 06:00: POC Glucose 579 H* I & O for Labs for Last 24 Hours: Intake & Output 03/11/23 03/12/23 03/13/23 03/14/23 23:59 23:59 23:59 23:59 Intake Total 4355 / 4355 1674 / 1674 Output Total 700 / 1100 3400 / 3400 Balance 3655 / 3255 -1726 / -1726 Weight 55.973 kg 55.973 kg 62.227 kg Microbiology Reports for the Last 24 Hours: Microbiology 03/12/23 18:46 Urine,Clean Catch Urine Culture - Preliminary Constitutional: Present no acute distress, thin and chronically ill appearing Head: Present atraumatic and normocephalic ENT: Present mucous membranes moist Comment:: edentulous Neck: Present normal inspection Respiratory: Present normal respiratory effort; Absent rhonchi, stridor, wheezes or crackles Cardiac: Present Regular Rhythm and Tachycardia GI: Present soft and normal bowel sounds; Absent distention or tenderness Extremities: Present normal inspection and full ROM Skin: Present intact; Absent erythema Neuro: Present Grossly Intact, alert, awake, oriented x 3 and moves all extremities Additional Findings:: depressed, exhibiting SI. tearful and agitated Assessment and Plan *Assessment and plan (1) DKA (diabetic ketoacidosis): Status: Acute Category: Medical Code(s): E11.10 -
[2023-03-14 11:09] LABS: POC Glucose,Bedside 124 (70-110)
[2023-03-14 11:09] LABS: POC Glucose,Bedside 477 (70-110)
[2023-03-14 11:21] VITALS: BP 108/75; PULSE 109; RESP 20; TEMP 37.2; O2SAT 97
[2023-03-14 12:00] VITALS: PULSE 120
--- NOTE | 2023-03-14 13:06 | EXP.DC.SUM ---
General Admission date:: 03/12/23 Discharge date: 03/14/23 HPI HPI HPI: Patient is a 47-year-old female with a history of diabetes medication noncompliance very well-known to the emergency department and hospitalist service, with multiple recent admissions for DKA presenting today with hyperglycemia.? She states that she has been very weak and out of the location where she lives, [place], that she must be able to go to the window where medications are dispensed in order to get her medications however her weakness has been so profound that she has been unable to go to the window and she claims that they refused to bring them to her room.? Therefore she states her weakness and her illness have only gotten worse and she has not been taking her medications.? EMS says her blood sugar was read around 500 prior to arrival.? She denies any fevers chills or other infectious symptoms including cough or urinary tract infection symptoms. Hospital Course Hospital Course Hospital Course: 47-year-old female presenting with DKA secondary to medication noncompliance.? Gap remains closed.? Blood sugar elevated on morning labs however 11/21/1993.? Received 20 units of insulin with improvement, glucose on rounds down in the mid 400s.? Continues to have passive suicidal thoughts this morning however overnight has made active threats stating she wanted to hang herself.? Discussing case with case management today and getting their assistance in completing 72-hour hold form given patient's continued statements of self-harm. Will have intake eval with [facility] later this morning. DKA Poorly controlled diabetes -On basal bolus regimen, received 30 units Lantus last night, given blood sugar elevation this morning will increase to 40 units tonight. -On high intensity sliding scale insulin at this time. receiving on average 12-15 units with meals. -Tolerating p.o. intake, discontinued IV fluids -Cultures remain negative, no source of infection. Bipolar depression Borderline personality disorder Suicidal ideation - Continue home medications for bipolar. - passive this morning however active last night with comments about hanging herself. - One-on-one sitter at this time - Placed on 72-hour hold, intake eval performed with [facility]. Patient excepted for admission. Will transfer to inpatient psychiatric unit for further management of her bipolar depression Medically stable at this time to dicsharge to inpatient psych hospital. Exam Data for Last 24 hours Vital signs and Labs for Last 24 Hours: Temp Pulse Resp BP Pulse Ox 99.0 F 109 H 20 108/75 L 97 03/14/23 11:21 03/14/23 11:21 03/14/23 11:21 03/14/23 11:21 03/14/23 11:21 Laboratory Results - last 24 hr 03/13/23 17:01: POC Glucose 401 H* 03/13/23 20:30: POC Glucose 310 H* 03/14/23 05:35: WBC 4.8 D, RBC 3.85 L, Hgb 11.4 L, Hct 36.2 L, MCV 94.1, MCH 29.5, MCHC 31.4 L, RDW 16.7, Plt Count 146 D, MPV 9.3, Neut % (Auto) 50.4, Lymph % (Auto) 38.2, [place] % (Auto) 7.0, Eos % (Auto) 4.2, Baso % (Auto) 0.2, Neut # (Auto) 2.4, Lymph # (Auto) 1.8, [place] # (Auto) 0.3, Eos # (Auto) 0.2, Baso # (Auto) 0.0 03/14/23 05:35: Sodium 132 L, Potassium 5.0 D, Chloride 103, Carbon Dioxide 22, Anion Gap 12.0, BUN 15, Creatinine 0.80, Estimated Creat Clear 86, Estimated GFR 77, Est GFR ( Amer) 93, Glucose 595 H* D, Calcium 7.9 L, Phosphorus 3.2, Magnesium 1.8, Total Bilirubin 0.2, AST 21 D, ALT 18, Alkaline Phosphatase 76, Total Protein 5.2 L D, Albumin 2.9 L D, Globulin 2.3, Albumin/Globulin Ratio 1.3 03/14/23 06:00: POC Glucose 579 H* 03/14/23 08:10: POC Glucose 477 H* 03/14/23 10:58: POC Glucose 124 H I & O for Last 24 hours: Intake & Output 03/11/23 03/12/23 03/13/23 03/14/23 23:59 23:59 23:59 23:59 Intake Total 4355 / 4355 2274 / 2274 Output Total 700 / 1100 3400 / 3400 Balance 3655 / 3255 -1126 / -1126 Weight 55.973 kg 55.973 kg 62.227 kg Microbiology Reports for the Last 24 Ho
--- NOTE | 2023-03-14 14:26 | PC.NURSE ---
Patient resting in bed. RN called dispatch for transport at 1424.
[2023-06-13 10:03] LABS: POC Glucose,Bedside 509 (70-110)
== END 2023-03-14 14:50 | DRG 638 ==
LOC: ER 19:20 → 2ND 20:19
PROVIDERS: Internal Medicine Adolescent Medicine; Nurse Practitioner Family; Admitting Provider Student in an Organized Health Care Education/Training Program; Emergency Provider Student in an Organized Health Care Education/Training Program; PCP Emergency Medicine; Visit Provider Student in an Organized Health Care Education/Training Program
DX: E11.10 Type 2 diabetes mellitus with ketoacidosis without coma (principal); F31.89 Other bipolar disorder; R45.851 Suicidal ideations; Z86.16 Personal history of COVID-19; F17.210 Nicotine dependence, cigarettes, uncomplicated; Z79.4 Long term (current) use of insulin; Z91.199 Patient's noncompliance with other medical treatment and regimen due to unspecified reason; I10 Essential (primary) hypertension; K21.9 Gastro-esophageal reflux disease without esophagitis; G47.33 Obstructive sleep apnea (adult) (pediatric); G25.81 Restless legs syndrome; E78.00 Pure hypercholesterolemia, unspecified; E11.21 Type 2 diabetes mellitus with diabetic nephropathy
CPT/HCPCS: 36415; 71045; 80048; 80053; 80305; 81001; 82009; 82803; 82962; 83605; 83735; 84100; 85025; 87086; 87636; 99285; C9803; G0378; U0003; U0005

== ENCOUNTER 2023-03-20 13:45 | Inpatient (IN) | payer MEDICARE, SELFPAY ==
[2023-03-20] VITALS (20 sets, daily range): BP systolic 77–111; BP diastolic 45–69; PULSE 98–120; RESP 14–22; TEMP 36.3–36.8; O2SAT 93–100; BMI 21.6; BMI 20.6
--- NOTE | 2023-03-20 13:59 | PC.NURSE ---
pt presents to ED per her friend. pt states she told her friend to bring her here. upon arrival to ED pt is refusing all treatment. pt has refused to multiple staff. pt did allow us to obtain a fingerstick that reads high. pt did allow us to obtain a blood pressure with a reading of 77/45. pt keeps attempting to make herself vomit. pt is alert to self, birthdate, location, date and year.
--- NOTE | 2023-03-20 14:03 | PC.NURSE ---
PT REFUSED ABG AT THIS TIME
--- NOTE | 2023-03-20 14:03 | PC.NURSE ---
charge nurse asked for police to be called
--- NOTE | 2023-03-20 14:09 | HMH.EDGENADL ---
Discharge Plan Disposition Patient Disposition: Admitted As Inpatient Condition: Critical Clinical Impressions Clinical Impression: DKA (diabetic ketoacidosis) Discharge ED Provider: Wilson (MALENA)Jovanny General Adult HPI General Chief complaint: Abdominal Pain Stated complaint: vomiting,diarrhea Time Seen by Provider: 03/20/23 14:06 Mode of Arrival: Ambulatory Source of Information: Patient Limitations: No Limitations History of Present Illness HPI narrative: 47-year-old female presenting to the emergency department with nausea, vomiting, diarrhea. Symptoms started earlier today. She felt generally unwell when she woke up. She has had multiple episodes of nausea and vomiting. Has not checked her blood glucose. Friend drove her to the emergency department. She had an episode of fecal incontinence. No particular abdominal pain. No headache, chest pain, shortness of breath. No fevers, chills. She has type 2 diabetes, controlled by metformin and insulin. Says she does not check her blood glucose at home. No other medications prior to arrival. Related Data Home Medications Medication Instructions Recorded Confirmed gabapentin 300 mg capsule 300 mg PO TID NERVE PAIN 02/12/23 03/12/23 insulin lispro 100 unit/mL 8 unit SQ AC Diabetes 02/25/23 03/13/23 subcutaneous solution (Humalog U-100 Insulin) aspirin 81 mg tablet,delayed 81 mg PO DAILY HEART HEALTH 03/06/23 03/12/23 release risperidone 1 mg tablet 1 mg PO BID MOOD 03/12/23 03/12/23 sennosides 8.6 mg-docusate sodium 1 tab PO BID CONSTIPATION 03/12/23 03/12/23 50 mg tablet (Stool Softener-Stimulant Laxative) Previous Rx's Medication Instructions Recorded atorvastatin 20 mg tablet 20 mg PO HS Cholesterol 30 days 02/07/23 #30 tabs bupropion HCl 300 mg 24 hr tablet, 300 mg PO DAILY Mood 30 days #30 02/07/23 extended release (Wellbutrin XL) tabs ferrous sulfate 325 mg (65 mg 325 mg PO DAILY Supplement 30 days 02/07/23 iron) tablet,delayed release #30 tabs pantoprazole 40 mg tablet,delayed 40 mg PO DAILY Acid reflux 30 days 02/07/23 release #30 tabs insulin glargine 100 unit/mL (3 40 unit (0.4 mL) SQ HS 30 days #03/14/23 mL) subcutaneous pen mL Allergies Allergy/AdvReac Type Severity Reaction Status Date / Time Penicillins Allergy Intermediate Rash Verified 03/12/23 18:45 [facility] Disclaimer: The information contained in this section may have been updated after the patient was seen, as this information can be updated by other users. Medical History Anxiety Bipolar 1 disorder Constipation COVID Diabetes mellitus, insulin dependent (IDDM), uncontrolled DKA (diabetic ketoacidosis) Essential (primary) hypertension Former smoker Gastroparesis GERD (gastroesophageal reflux disease) Herpes High cholesterol History of drug abuse in remission History of suicidal tendencies HTN (hypertension) Leukocytosis MDD (major depressive disorder) Neuropathy MALCOM (obstructive sleep apnea) RLS (restless legs syndrome) Sleep apnea Suicidal ideation UTI (urinary tract infection) Family History Other No significant family history Social History (Updated 03/20/23 @ 19:02 by Mary Martino) Smoking Status: Current every day smoker alcohol intake: never current occupational status: unemployed and disabled Travel in the last 8 weeks: None ROS Obtained: Yes All systems reviewed & no additional complaints except as documented Constitutional Constitutional: Reports body ache, Reports headache(s) and Reports malaise Eyes Eyes: Denies blurry vision and Denies diplopia ENT Ears, Nose, Mouth, and Throat: Reports headache(s) and Denies sore throat Cardiovascular Cardiovascular: Denies chest pain, Denies dyspnea and Denies palpitations Respiratory Respiratory: Denies cough and Denies dyspnea Gastrointestinal Gastrointest
--- NOTE | 2023-03-20 14:10 | PC.NURSE ---
pt refusing treatment, attempting to stick her finger down her throat to try and vomit. Pt given emesis bag pt smacks it out of staffs hands. Pt smacking and swing arms at multiple staff members trying to hit them. Multiple staff members have attempted to talk to pt to calm her down, pt refusing care and will start cussing at staff.
[2023-03-20 14:22] LABS: Basophils % 0.4 % (0.1-2.0); Lymphocytes # 0.8 K/mm3 (0.7-4.5); Lymphocytes % 7.9 % (10-50); Mean Corpuscular HGB Conc 26.9 g/dL (31.8-35.4); Mean Corpuscular Hemoglobin 29.8 pg (27.0-31.2); Mean Corpuscular Volume 110.6 fl (81-99); Mean Platelet Volume 9.9 fl (7.4-10.4); Monocytes # 0.4 K/mm3 (0.1-1.0); Monocytes % 4.1 % (1.7-9.3); Neutrophils # 8.5 K/mm3 (1.8-7.8); Neutrophils % 87.5 % (37.0-80.0); Platelet Count 249 K/mm3 (142-424); Red Cell Distribution Width 15.5 % (11.5-17.5); White Blood Count 9.7 K/mm3 (4.8-10.8)
--- NOTE | 2023-03-20 14:22 | ECG_ITS ---
APPROVED REPORT Exam: Resting ECG HR:111 bpm ECG Measurements Heart Rate 111 AXES KS 204 P 97 QRSd 108 QRS 85 QT 356 T 60 QTc 422 Conclusion SINUS TACHYCARDIA LEFT ATRIAL Abnormality MINIMAL ST DEPRESSION [0.025+ mV ST DEPRESSION] ABNORMAL RHYTHM ECG UNCONFIRMED REPORT Electronically signed by : Jed Early MD 03/21/2023 21:27:47
--- NOTE | 2023-03-20 14:24 | PC.NURSE ---
police at bedside. pt sticking her fingers down her throat trying to make herself puke. pt was medicated per dec.
--- NOTE | 2023-03-20 14:25 | PC.NURSE ---
when you try to assist pt and treat her she starts swinging trying to hit us says leave her alone she dont want no treatment . PD at BS
[2023-03-20 14:28] LABS: MANUAL DIFFERENTIAL MANUAL DIFFERENTIAL (MANUAL DIFF)
[2023-03-20 14:37] LABS: Chloride 83 mmol/L (98-107)
[2023-03-20 14:38] LABS: Sodium 126 mmol/L (136-145)
[2023-03-20 14:40] LABS: Alanine Aminotransferase 24 U/L (12-78); Albumin Level 4.1 g/dl (3.5-5.0); Albumin/Globulin Ratio 1.7 (1.1-1.8); Alkaline Phosphatase 112 U/L (38-126); Aspartate Amino Transferase 23 U/L (14-36); Bilirubin,Total 0.3 mg/dl (0.2-1.3); Blood Urea Nitrogen 46 mg/dl (7-17); Creatinine Clearance Estimated 31 mL/min (50-200); Estimated Glomerular Filt Rate 25 ml/min (>60); GFR (African American) 31 ML/MIN (>60); Globulin 2.4 g/dL (1.3-3.2); Total Protein,Serum 6.5 g/dl (6.3-8.2)
[2023-03-20 14:41] LABS: Calcium 9.4 mg/dl (8.4-10.2); Magnesium 2.9 mg/dl (1.6-2.3); Phosphorous 12.9 mg/dl (2.5-4.5)
[2023-03-20 14:50] LABS: Carbon Dioxide < 5 mmol/L (22.0-30.0)
--- NOTE | 2023-03-20 14:50 | PC.NURSE ---
Dr. Narayan notified of lab calling regarding pt's fsbs reading over 1250, lab states they will have to dilute pt's blood down to get official read. pt's potassium 6.0, co2 <5.
--- NOTE | 2023-03-20 14:53 | PC.NURSE ---
contacted pharmacy r/t insulin drip dosing
--- NOTE | 2023-03-20 15:06 | PC.NURSE ---
attempted to go in and obtain 2nd IV on pt. pt refused to be stuck at this time.
[2023-03-20 15:19] LABS: Coronavirus 19, PCR Not Detected (NotDetected); Influenza A, PCR Not Detected (NotDetected); Influenza B, PCR Not Detected (NotDetected)
--- NOTE | 2023-03-20 15:26 | PC.NURSE ---
fsbs-[id number], Dr. Narayan notified.
--- NOTE | 2023-03-20 15:41 | PC.NURSE ---
placed call to [facility] for transfer, they are to call back
--- NOTE | 2023-03-20 15:48 | PC.NURSE ---
pt asked at this time if we can start another IV on her, pt declined at this time.
--- NOTE | 2023-03-20 15:50 | PC.NURSE ---
facesheet faxed to [facility]
--- NOTE | 2023-03-20 16:06 | PC.NURSE ---
Dr Narayan speaking with [facility]
--- NOTE | 2023-03-20 16:12 | PC.NURSE ---
MD speaking with patient regarding needing ABG and lab draw to check fsbs, pt refused at this time.
[2023-03-20 16:16] LABS: Lymphocytes % 7 % (10-50); Monocytes % 3 % (2-9); Neutrophils % 90 % (42-76); Total Cells Counted 100
[2023-03-20 16:17] LABS: Anisocytosis 1+; Hypochromasia 1+; Macrocytosis 1+; Platelet Estimate Normal
--- NOTE | 2023-03-20 16:37 | PC.NURSE ---
Called [facility] pt is on list for ICU bed,
--- NOTE | 2023-03-20 16:42 | PC.NURSE ---
lab called to come down and attempt to fingerstick and obtain blood in peditubes. pt in agreeance at this time.
--- NOTE | 2023-03-20 17:02 | PC.NURSE ---
lab was able to obtain finger stick to get blood in pedi tubes. awaiting results at this time.
[2023-03-20 17:12] LABS: VBG Base Excess -21.9 mmol/L (-2.4-2.3); VBG HCO3 6.2 mmol/L (23-30); VBG PO2 122.7 mmol/L (28-40); VBG Total CO2 6.7 mmol/L (23-27)
[2023-03-20 17:15] LABS: VBG PCO2 16.4 mmol/L (35-51)
--- NOTE | 2023-03-20 17:17 | PC.NURSE ---
notified of VBG results
--- NOTE | 2023-03-20 17:36 | PC.NURSE ---
lab states bmp results should be back in approx 10 minutes
[2023-03-20 17:45] LABS: Chloride 93 mmol/L (98-107); Potassium 5.4 mmoL/L (3.5-5.1); Sodium 133 mmol/L (136-145)
[2023-03-20 17:48] LABS: Blood Urea Nitrogen 49 mg/dl (7-17); Creatinine Clearance Estimated 33 mL/min (50-200); Estimated Glomerular Filt Rate 27 ml/min (>60); GFR (African American) 32 ML/MIN (>60)
[2023-03-20 17:49] LABS: Calcium 9.4 mg/dl (8.4-10.2)
--- NOTE | 2023-03-20 17:57 | PC.NURSE ---
XIANG SANCHEZ speaking with Dr. Jnoes (hospitalist)
[2023-03-20 18:09] LABS: Anion Gap 40.4 mEq/L (5-15); Carbon Dioxide < 5 mmol/L (22.0-30.0); Glucose 1389 mg/dl (74-100)
--- NOTE | 2023-03-20 18:09 | PC.NURSE ---
1809- lab called with critical glucose, insulin drip titrated at this time according to protocol. fsbs was due to be checked at this time. time changed to 1900 d/t just receiving results and titrating drip.
--- NOTE | 2023-03-20 18:09 | PC.NURSE ---
lab called with criticals co2 less then 5 and glucose 1379. md aware and insulin drip adjusted
--- NOTE | 2023-03-20 18:25 | PC.NURSE ---
spoke with Alexandra in lab notifying her of next lab draw at 1900.
--- NOTE | 2023-03-20 19:03 | PC.NURSE ---
random blood glucose STAT place r/t glucometer reading HIGH
[2023-03-20 19:30] LABS: Chloride 100 mmol/L (98-107); Potassium 4.1 mmoL/L (3.5-5.1); Sodium 138 mmol/L (136-145)
[2023-03-20 19:33] LABS: Anion Gap 33.1 mEq/L (5-15); Blood Urea Nitrogen 47 mg/dl (7-17); Calcium 9.2 mg/dl (8.4-10.2); Creatinine Clearance Estimated 33 mL/min (50-200); Estimated Glomerular Filt Rate 28 ml/min (>60); GFR (African American) 34 ML/MIN (>60)
[2023-03-20 19:50] LABS: Carbon Dioxide 9 mmol/L (22.0-30.0); Glucose 851 mg/dl (74-100)
--- NOTE | 2023-03-20 19:53 | PC.NURSE ---
notified VALERIE Varela of pt's critical co2 of 9 (up from less than 5) and lab glucose of 851 (down from 1389), no new orders at this time insulin drip at 9units/hr; notified [facility] Varela that pt's glucose has decreased by 538 ([phone]) in 3 hours therefore continuing drip at 9units/hr and not increasing drip as glucose is decreasing appropriately
--- NOTE | 2023-03-20 20:09 | PC.NURSE ---
pink sheet applied to report sheet, pt brought gabapentin home med to hospital, placed in pt specific bin for pharmacy to package tomorrow
--- NOTE | 2023-03-20 20:14 | EXP.HP ---
History of Present Illness *Admission Date: 03/20/23 *Reason for visit:: Elevated blood glucose levels *History of present illness: Ms. High is a 47-year-old female with a past medical history of DM, history of DKA, history of suicidal ideation, Anxiety Disorder, Bipolar disorder. She presents to [facility] due to weakness, feeling unwell and elevated blood glucose levels. In the ER, the patient's CMP showed a blood glucose of 1389 mg/dl and anion gap of 44. VBG showed a pH of 7.20 and a HCo3 of 6.2. CBC was unremarkable. In the ER the patient was placed on DKA protocol. The patient was admitted with initial impression of DKA. [facility] Disclaimer: The information contained in this section may have been updated after the patient was seen, as this information can be updated by other users. Medical History Anxiety Bipolar 1 disorder Constipation COVID Diabetes mellitus, insulin dependent (IDDM), uncontrolled DKA (diabetic ketoacidosis) Essential (primary) hypertension Former smoker Gastroparesis GERD (gastroesophageal reflux disease) Herpes High cholesterol History of drug abuse in remission History of suicidal tendencies HTN (hypertension) Leukocytosis MDD (major depressive disorder) Neuropathy MALCOM (obstructive sleep apnea) RLS (restless legs syndrome) Sleep apnea Suicidal ideation UTI (urinary tract infection) Family History Other No significant family history Social History Smoking Status: Current every day smoker alcohol intake: never current occupational status: unemployed and disabled Travel in the last 8 weeks: None Review of Systems Review of Systems Review of systems:: unable to obtain Meds Home Medications and Allergies Home Medications Medication Instructions Recorded Confirmed Type atorvastatin 20 mg tablet 20 mg PO HS Cholesterol 30 days 02/07/23 03/21/23 Rx #30 tabs bupropion HCl 300 mg 24 hr tablet, 300 mg PO DAILY Mood 30 days #30 02/07/23 03/21/23 Rx extended release (Wellbutrin XL) tabs ferrous sulfate 325 mg (65 mg 325 mg PO DAILY Supplement 30 days 02/07/23 03/21/23 Rx iron) tablet,delayed release #30 tabs pantoprazole 40 mg tablet,delayed 40 mg PO DAILY Acid reflux 30 days 02/07/23 03/21/23 Rx release #30 tabs gabapentin 300 mg capsule 300 mg PO TID Nerve pain 02/12/23 03/21/23 History insulin lispro 100 unit/mL 8 unit SQ AC Diabetes 02/25/23 03/21/23 History subcutaneous solution (Humalog U-100 Insulin) aspirin 81 mg tablet,delayed 81 mg PO DAILY Heart health 03/06/23 03/21/23 History release risperidone 1 mg tablet 1 mg PO BID Mood 03/12/23 03/21/23 History sennosides 8.6 mg-docusate sodium 1 tab PO BID Constipation 03/12/23 03/21/23 History 50 mg tablet (Stool Softener-Stimulant Laxative) insulin glargine 100 unit/mL (3 40 unit SQ HS Diabetes 03/21/23 03/21/23 History mL) subcutaneous pen New Prescriptions to Start Prescriptions: Allergies Allergy/AdvReac Type Severity Reaction Status Date / Time Penicillins Allergy Intermediate Rash Verified 03/12/23 18:45 Exam Data for Last 24 hours Vital signs and Labs for Last 24 Hours: Temp Pulse Resp BP Pulse Ox 97.7 F 114 H 16 99/53 L 98 03/20/23 18:51 03/20/23 18:51 03/20/23 18:51 03/20/23 18:51 03/20/23 18:51 Laboratory Results - last 24 hr 03/20/23 14:15: WBC 9.7, RBC 3.70 L, Hgb 11.0 L, Hct 41.0, MCV 110.6 H, MCH 29.8, MCHC 26.9 L, RDW 15.5, Plt Count 249, MPV 9.9, Neut % (Auto) 87.5 H, Lymph % (Auto) 7.9 L, [place] % (Auto) 4.1, Eos % (Auto) 0.0 L, Baso % (Auto) 0.4, Neut # (Auto) 8.5 H, Lymph # (Auto) 0.8, [place] # (Auto) 0.4, Eos # (Auto) 0.0, Baso # (Auto) 0.0, Total Counted 100, Neutrophils % (Manual) 90 H, Lymphocytes % (Manual) 7 L, Monocytes % (Manual) 3, Platelet Estimate No
[2023-03-20 20:28] LABS: Glucose 1592 mg/dl (74-100)
--- NOTE | 2023-03-20 21:47 | PC.NURSE ---
had another RN Marlon Peters count the gabapentin home med with this RN and placed in locked instructor adjunct surgical technician pt's room
--- NOTE | 2023-03-20 22:25 | PC.NURSE ---
attempted to get another IV on pt as current IV is in shoulder, but unscuccessful, notified house TJ and TJ to come try and get another IV on pt
[2023-03-20 22:28] LABS: Microscopic, Urine URINE MICROSCOPIC (MICROSCOPIC)
[2023-03-20 22:29] LABS: Appearance,Urine CLEAR (Clear); Bilirubin,Urine Negative (Negative); Blood, Urine Negative (Negative); Color,Urine YELLOW (Yellow); Glucose,Urine (UA) 2+ (Negative); Ketones,Urine 2+ (Negative); Leukocyte Esterase,Urine Negative (Negative); Nitrate,Urine Negative (Negative); PH,Urine 5.5 (5.0-8.5); Protein,Urine Negative (Negative); Urobilinogen,Urine 0.2 EU/dl (0.2)
[2023-03-20 22:41] LABS: Urine Pregnancy, HCG Qual. Negative (Negative)
[2023-03-20 22:44] LABS: Barbiturates Screen,Urine Negative ng/ml (<200); Benzodiazepines Screen,Urine Negative ng/ml (<200)
[2023-03-20 22:45] LABS: Amphetamine/Metha Screen,Urine Negative ng/ml (<1000)
[2023-03-20 22:46] LABS: Cannabinoid Screen,Urine Negative ng/ml (<50); Cocaine Screen,Urine Negative ng/ml (<300)
[2023-03-20 22:47] LABS: Methadone Screen,Urine Negative ng/ml (<300); Opiate Screen,Urine Negative ng/ml (<300)
[2023-03-20 22:48] LABS: Phencyclidine Screen,Urine Negative ng/ml (<25); WBC,Urine Occasional #/hpf (0-3); Yeast,Urine Occasional /lpf
[2023-03-20 23:11] LABS: Chloride 105 mmol/L (98-107); Potassium 3.5 mmoL/L (3.5-5.1); Sodium 142 mmol/L (136-145)
[2023-03-20 23:14] LABS: Anion Gap 18.5 mEq/L (5-15); Blood Urea Nitrogen 49 mg/dl (7-17); Calcium 9.2 mg/dl (8.4-10.2); Carbon Dioxide 22 mmol/L (22.0-30.0); Creatinine Clearance Estimated 35 mL/min (50-200); Estimated Glomerular Filt Rate 30 ml/min (>60); GFR (African American) 37 ML/MIN (>60); Glucose 380 mg/dl (74-100)
[2023-03-21] VITALS (13 sets, daily range): BP systolic 89–120; BP diastolic 50–78; PULSE 85–107; RESP 14–19; TEMP 36.9–37.2; O2SAT 92–99; BMI 21.2
--- NOTE | 2023-03-21 00:49 | PC.NURSE ---
pt's fsbs 224, notified VALERIE Seymour, decreased insulin drip to 4.5units/hr and starting D5NS at 75mL/hr as instructed
[2023-03-21 03:06] LABS: Chloride 109 mmol/L (98-107); Sodium 145 mmol/L (136-145)
[2023-03-21 03:07] LABS: Potassium 3.4 mmoL/L (3.5-5.1)
[2023-03-21 03:09] LABS: Blood Urea Nitrogen 45 mg/dl (7-17); Creatinine Clearance Estimated 39 mL/min (50-200); Estimated Glomerular Filt Rate 35 ml/min (>60); GFR (African American) 42 ML/MIN (>60)
[2023-03-21 03:10] LABS: Anion Gap 11.4 mEq/L (5-15); Calcium 9.1 mg/dl (8.4-10.2); Carbon Dioxide 28 mmol/L (22.0-30.0); Glucose 151 mg/dl (74-100)
[2023-03-21 05:58] LABS: Basophils % 0.2 % (0.1-2.0); Eosinophils % 0.3 % (0.1-12.0); Hematocrit 30.3 % (37.0-47.0); Lymphocytes # 2.4 K/mm3 (0.7-4.5); Lymphocytes % 15.1 % (10-50); Mean Corpuscular Hemoglobin 29.2 pg (27.0-31.2); Mean Corpuscular Volume 91.2 fl (81-99); Mean Platelet Volume 8.8 fl (7.4-10.4); Monocytes # 1.4 K/mm3 (0.1-1.0); Monocytes % 8.6 % (1.7-9.3); Neutrophils # 12.1 K/mm3 (1.8-7.8); Neutrophils % 75.9 % (37.0-80.0); Platelet Count 254 K/mm3 (142-424); Red Blood Count 3.32 M/mm3 (4.20-5.40); Red Cell Distribution Width 16.1 % (11.5-17.5)
[2023-03-21 06:03] LABS: Chloride 109 mmol/L (98-107); Potassium 3.7 mmoL/L (3.5-5.1); Sodium 142 mmol/L (136-145)
[2023-03-21 06:06] LABS: Anion Gap 9.7 mEq/L (5-15); Blood Urea Nitrogen 44 mg/dl (7-17); Calcium 8.9 mg/dl (8.4-10.2); Carbon Dioxide 27 mmol/L (22.0-30.0); Creatinine Clearance Estimated 49 mL/min (50-200); Estimated Glomerular Filt Rate 44 ml/min (>60); GFR (African American) 53 ML/MIN (>60); Glucose 145 mg/dl (74-100)
[2023-03-21 06:07] LABS: Magnesium 2.3 mg/dl (1.6-2.3)
[2023-03-21 06:12] LABS: MANUAL DIFFERENTIAL MANUAL DIFFERENTIAL (MANUAL DIFF)
[2023-03-21 06:45] LABS: POC Glucose,Bedside 430 (70-110)
[2023-03-21 06:45] LABS: POC Glucose,Bedside 130 (70-110)
[2023-03-21 06:45] LABS: POC Glucose,Bedside 138 (70-110)
[2023-03-21 06:45] LABS: POC Glucose,Bedside 183 (70-110)
[2023-03-21 06:45] LABS: POC Glucose,Bedside 156 (70-110)
[2023-03-21 06:45] LABS: POC Glucose,Bedside 554 (70-110)
[2023-03-21 06:45] LABS: POC Glucose,Bedside 224 (70-110)
[2023-03-21 06:46] LABS: POC Glucose,Bedside 153 (70-110)
[2023-03-21 06:46] LABS: POC Glucose,Bedside 150 (70-110)
--- NOTE | 2023-03-21 06:58 | PC.NURSE ---
gap closed, nazia Seymour stopped insulin drip, 10 units levemir given, 0700 fsbs 153
--- NOTE | 2023-03-21 07:21 | HMH.PHAINT1 ---
Pharmacy Intervention Comments: Home medication list verified through discharge med list from previous admission.
[2023-03-21 08:23] LABS: Lymphocytes % 10 % (10-50); Monocytes % 3 % (2-9); Neutrophils % 87 % (42-76); Platelet Estimate Normal; RBC Morphology Normal; Total Cells Counted 100
[2023-03-21 09:22] LABS: Hemoglobin 9.7 g/dL (12.2-16.2)
--- NOTE | 2023-03-21 09:29 | PC.NURSE ---
ok to transfer pt out of stepdown [address] ur[address]
--- NOTE | 2023-03-21 09:30 | PC.NURSE ---
Pt worked with PT/OT during eval but refused to get up to the chair at this time. PT/OT will attempt to get pt up again this afternoon. 0930
--- NOTE | 2023-03-21 09:33 | SW/DCPLANNER ---
Addendum entered by [facility] 03/23/23 11:46: I have updated Marlee w/ [facility] that patient discharged back to [facility] yesterday. Updated patient information has been faxed. Addendum entered by [facility] 03/22/23 15:43: I have arranged [facility] for this patient. Addendum entered by [facility] 03/22/23 11:04: Per the plan for this patient is to return to [facility] today: [facility] will be arranged once medically stable for discharge. Addendum entered by [facility] 03/21/23 13:09: I have notified Janine at [facility] regarding patient's hospital admission. I am waiting on a call back from Janine regarding when patient went to stay with friends and medications sent with patient. Addendum entered by [facility] 03/21/23 11:12: Per [facility] this case does meet criteria for investigation by [facility]. Original Note: I have made a report to [facility] regarding this case of self neglect, hospital readmissions and at harm to self. I will follow up with ID# once reviewed. ID# [id number]
--- NOTE | 2023-03-21 10:08 | HMH.OTEV ---
OT Inpatient Evaluation Rehab OT IP Evaluation Start: 03/21/23 08:42 Freq: ONCE Status: Active Protocol: [facility] 03/21/23 09:[facility] (Rec: 03/21/23 10:07 [facility] [id number]) Rehab OT IP Assessment Subjective History Pt oriented x 3. Pt agreeable to engage in therapy evaluation. Pt admitted on 03/20/23 due to DKA. Prior to being in the hospital, pt lived at [facility]. Pt claims she was independent with all ADLs such as feeding, bathing, and dressing. Pt reports she did use a walker at times. Pt was on a home visit when she became sick because she did not bring her insulin home with her. Pt has a past medical history of: Anxiety Bipolar 1 disorder Constipation COVID Diabetes mellitus, insulin dependent (IDDM), uncontrolled DKA (diabetic ketoacidosis) Essential (primary) hypertension Former smoker Gastroparesis GERD (gastroesophageal reflux disease) Herpes High cholesterol History of drug abuse in remission History of suicidal tendencies HTN (hypertension) Leukocytosis MDD (major depressive disorder ) Neuropathy MALCOM (obstructive sleep apnea) RLS (restless legs syndrome) Sleep apnea Suicidal ideation UTI (urinary tract infection) Subjective I don't want to get to the chair. Pt resting in bed. Pt agreeable to complete evaluation, but refuses to get to chair. Pt completed bed
--- NOTE | 2023-03-21 10:08 | HMH.PTEV ---
Physical Therapy Evaluation Rehab PT IP Evaluation Start: 03/21/23 08:42 Freq: ONCE Status: Active Protocol: Document 03/21/23 09:57 CECI (Rec: 03/21/23 10:08 [facility] [id number]) Subjective/History History History Pt is a 47 year old female that presented to [facility] ED with reports of weakness, feeling unwell and elevated blood glucose levels. While in ED, pt CMP showed a blood glucose of 1389 mg/dl and anion gap of 44. VBG showed a pH of 7.20 and a HCo3 of 6.2. CBC was unremarkable. Pt was placed on DKA protcol and admitted for inpatient management. PMH: DM, history of DKA, history of suicidal ideation, Anxiety Disorder, Bipolar disorder. Subjective Subjective Pt presents supine in bed, states she is very sleepy but agreeable to therapy evaluation. Pt denies reports of pain at rest. Pt reports that she resides at [facility] at baseline and sometimes uses a walker for ambulation. Pt performed supine to sit on EOB with min A x1, pt performed sit to stand with min A x2 to steady. Pt refused attempt at ambulation but was agreeable to sidestep at EOB. Pt required min A x2 to steady and demonstrated multidirectional lean that required therapist assist to correct. Following evaluation, pt left supine in bed with call light and all needs within reach. Rehab PT IP Eval Objective Appearance Patient Behavior Fatigued Patient Orientation Person,Place,Situation Difficulty following instructions mild Speech Pattern Appropriate,Monotone Ambulation Patient Able to Ambulate No Balance Ability to Arise Able, uses arms to help Sitting Balance Leans or slides in chair Standing Balance Unsteady Dynamic Sitting Balance Ability Poor Dyn
--- NOTE | 2023-03-21 12:38 | DIET.NUTRFU ---
RD attended rounds this morning with IDT and provider. Patient has been admitted multiple times this year with uncontrolled diabetes. She has been educated in past and does not follow. She lives at [facility] but wants to find other housing arrangements. She claims she cannot pick her meals. When she is here she normally requests multiple snacks consisting of soda and chips. Provider indicated for her to be up for meals and follow a more strict diabetic diet with 3 meals and 1 bedtime snack/day. And skip all these extra snacks with non-diabetic items. Will visit again and offer education, she has been provided in the past and she is just not interested.
--- NOTE | 2023-03-21 13:06 | EXP.ACUTE.PN ---
Subjective *Date: 03/21/23 *Time: 17:20 Interval history: 47 year old female who presented to the ED yesterday for c/o weakness and elevated blood sugar. PMHX diabetes, hx of DKA, anxiety and bipolar disorder. Her workup in the ED revealed blood glucose of 1389 and Gap of 44. Over night her Gap closed and she was transitioned to sq insulin. Last Gap 9.7. Pending PT/OT consult. Hopefully discharge tomorrow. Pt is still weak. Will encourage ambulation. Medical Exam Vital signs and Labs for Last 24 Hours: Vital Signs Temp Pulse Pulse Resp BP BP Pulse Ox 03/21/23 12:02 103 H 03/21/23 08:00 100 H 03/21/23 08:10 103 H 97 03/21/23 09:00 102 H 18 116/71 93 L 03/21/23 08:00 103 H 18 120/78 97 03/21/23 09:20 98.5 F 03/21/23 04:00 100 H 03/21/23 06:00 103 H 16 92/58 L 96 03/21/23 04:00 98.6 F 03/21/23 04:00 103 H 17 92/51 L 96 03/21/23 02:00 104 H 19 108/60 L 98 03/21/23 00:00 107 H 03/21/23 00:00 98.9 F 03/21/23 01:57 95 03/21/23 00:00 105 H 16 89/50 L 92 L 03/20/23 20:00 98 03/20/23 22:00 103 H 14 91/51 L 93 L 03/20/23 20:00 113 H 16 111/64 98 03/20/23 20:00 110 H 03/20/23 20:00 98.3 F 03/20/23 18:51 97.7 F 114 H 16 99/53 L 98 03/20/23 18:30 109 H 16 86/49 L 97 03/20/23 18:00 110 H 18 93/45 L 99 03/20/23 17:30 112 H 20 108/66 L 99 03/20/23 17:00 110 H 18 105/61 L 99 03/20/23 18:33 98.0 F 112 H 18 93/55 L 03/20/23 18:16 110 H 18 93/54 L 99 03/20/23 17:41 101 H 18 108/66 L 99 03/20/23 16:30 110 H 16 103/69 L 100 03/20/23 16:43 112 H 22 103/69 L 96 03/20/23 16:00 120 H 20 111/50 L 99 03/20/23 15:30 116 H 22 101/60 L 94 L 03/20/23 15:00 120 H 18 102/63 L 99 03/20/23 14:30 111 H 18 105/59 L 99 03/20/23 14:20 110 H 16 93/52 L 99 03/20/23 14:06 98 H 18 86/50 L 99 03/20/23 14:14 117 H 20 105/59 L 95 03/20/23 13:47 97.4 F L 110 H 20 77/45 L 96 Intake and Output 03/20/23 03/21/23 03/21/23 23:59 07:59 15:59 Intake Total 120 / 1832 1712 / 1832 Output Total 200 / 200 50 / 50 0 / 50 Balance -200 / -80 70 / 1782 171 / 178 Intake: Intake, Oral Amount 120 / 360 240 / 360 Intake, Total IV Amount 1472 / 1472 Dextrose 5 % and 0.9 % NaCl 1, 1472 / 1472 000 ml @ 75 mls/hr IV .[id number] [facility] Rx#:[id number] Output: Output, Urine Amount 200 / 200 50 / 50 0 / 50 Other: Number of Unmeasured Voids 1 1 Number of Bowel Movements 1 Weight 56.331 kg 57.663 kg Patient Weight 03/21/23 23:59 Weight 57.663 kg Laboratory Results - last 24 hr 03/20/23 14:15: WBC 9.7, RBC 3.70 L, Hgb 11.0 L, Hct 41.0, MCV 110.6 H, MCH 29.8, MCHC 26.9 L, RDW 15.5, Plt Count 249, MPV 9.9, Neut % (Auto) 87.5 H, Lymph % (Auto) 7.9 L, [place] % (Auto) 4.1, Eos % (Auto) 0.0 L, Baso % (Auto) 0.4, Neut # (Auto) 8.5 H, Lymph # (Auto) 0.8, [place] # (Auto) 0.4, Eos # (Auto) 0.0, Baso # (Auto) 0.0, Total Counted 100, Neutrophils % (Manual) 90 H, Lymphocytes % (Manual) 7 L, Monocytes % (Manual) 3, Platelet Estimate Normal, Hypochromasia 1+, Anisocytosis 1+, Macrocytosis 1+ 03/20/23 14:15: Sodium 126 L, Potassium 6.0 H, Chloride 83 L, Carbon Dioxide < 5 L*, Anion Gap 44.0 H, BUN 46 H, Creatinine 2.10 H, Estimated Creat Clear 31, Estimated GFR 25 L, Est GFR ( Amer) 31 L, Glucose 1592 H*, Calcium 9.4, Phosphorus 12.9 H, Magnesium 2.9 H, Total Bilirubin 0.3, AST 23, ALT 24, Alkaline Phosphatase 112, Total Protein 6.5, Albumin 4.1, Globulin 2.4, Albumin/Globulin Ratio 1.7 03/20/23 14:50: VBG pH 7.20 L, VBG pCO2 16.4 L, VBG pO2 122.7 H, VBG HCO3 6.2 L, VBG Total CO2 6.7 L, VBG O2 Saturation 98.0 H, VBG Base Excess -21.9 L 03/20/23 15:11: SARS-CoV-2 (PCR) Not detected, Influenza A Untype (PCR) Not detected, Influenza Type B (PCR) Not detected 03/20/23 17:0
--- NOTE | 2023-03-21 15:18 | PC.NURSE ---
pt was up to chair for lunch for approx 10-15 minutes then was insistent to go back to bed. pt states that she does not feel well. pt is also having episodes of incontinence. states sometimes she knows when she has to gom but not always. episode occurred during pt bed bath. pt informed this nurse and KARLA mobley that she was peeing in bried. staff was present at bedside assisting with bath, yet pt continued to void in brief. pt again oriented to call lopez and to let staff know when she needed assistance to bsc. lung sounds clear, bowel sounds active. pt noted to be extremely drowsy compared to previous admissions. notified Brian GOMEZ that pt was drowsy and had 1300 dose of Gabapentin due. per brian ok to hold med. nad noted.
[2023-03-21 16:56] LABS: POC Glucose,Bedside 154 (70-110)
--- NOTE | 2023-03-21 17:14 | PC.NURSE ---
discussed with Dr Jones, pt fsbs 154 pt has poor appetite at this time and does not feel well. pt has had drastic change in fsbs after admin during previous admissions. ok per Dr jones to hold 2units of insulin ordered at this time. 1700
[2023-03-21 18:30] LABS: Chloride 102 mmol/L (98-107); Potassium 4.2 mmoL/L (3.5-5.1); Sodium 136 mmol/L (136-145)
[2023-03-21 18:33] LABS: Anion Gap 16.2 mEq/L (5-15); Blood Urea Nitrogen 28 mg/dl (7-17); Carbon Dioxide 22 mmol/L (22.0-30.0); Creatinine Clearance Estimated 64 mL/min (50-200); Estimated Glomerular Filt Rate 60 ml/min (>60); GFR (African American) 72 ML/MIN (>60)
[2023-03-21 18:34] LABS: Calcium 8.9 mg/dl (8.4-10.2); Glucose 305 mg/dl (74-100)
[2023-03-21 20:41] LABS: POC Glucose,Bedside 446 (70-110)
[2023-03-22] VITALS: BP 103/65; PULSE 104; PULSE 94; RESP 16; TEMP 36.7; O2SAT 94
[2023-03-22 04:00] VITALS: BP 112/66; PULSE 87; PULSE 88; PULSE 89; RESP 16; RESP 18; TEMP 36.8; O2SAT 93; O2SAT 94; BMI 21.5
[2023-03-22 05:45] LABS: POC Glucose,Bedside 215 (70-110)
[2023-03-22 06:23] LABS: Basophils % 0.3 % (0.1-2.0); Chloride 106 mmol/L (98-107); Eosinophils # 0.2 K/mm3 (0.0-0.4); Eosinophils % 2.8 % (0.1-12.0); Hematocrit 31.7 % (37.0-47.0); Hemoglobin 10.1 g/dL (12.2-16.2); Lymphocytes # 2.7 K/mm3 (0.7-4.5); Lymphocytes % 30.7 % (10-50); Mean Corpuscular HGB Conc 31.8 g/dL (31.8-35.4); Mean Corpuscular Hemoglobin 29.8 pg (27.0-31.2); Mean Corpuscular Volume 93.7 fl (81-99); Mean Platelet Volume 8.3 fl (7.4-10.4); Monocytes # 0.6 K/mm3 (0.1-1.0); Monocytes % 7.3 % (1.7-9.3); Neutrophils # 5.2 K/mm3 (1.8-7.8); Platelet Count 212 K/mm3 (142-424); Red Blood Count 3.38 M/mm3 (4.20-5.40); Red Cell Distribution Width 15.7 % (11.5-17.5); Sodium 141 mmol/L (136-145); White Blood Count 8.8 K/mm3 (4.8-10.8)
[2023-03-22 06:26] LABS: Blood Urea Nitrogen 21 mg/dl (7-17); Calcium 8.9 mg/dl (8.4-10.2); Carbon Dioxide 27 mmol/L (22.0-30.0); Creatinine Clearance Estimated 81 mL/min (50-200); Estimated Glomerular Filt Rate 77 ml/min (>60); GFR (African American) 93 ML/MIN (>60); Glucose 178 mg/dl (74-100)
[2023-03-22 06:38] LABS: Magnesium 2.3 mg/dl (1.6-2.3)
[2023-03-22 07:37] VITALS: BP 96/71; PULSE 99; RESP 19; TEMP 36.7; O2SAT 94
[2023-03-22 08:00] VITALS: O2SAT 98
[2023-03-22 08:53] VITALS: BMI 21.5
[2023-03-22 11:16] VITALS: BP 130/78; PULSE 94; RESP 16; TEMP 36.9; O2SAT 99
[2023-03-22 12:09] LABS: POC Glucose,Bedside 373 (70-110)
--- NOTE | 2023-03-22 14:31 | EXP.DC.SUM ---
General Admission date:: 03/20/23 Discharge date: 03/22/23 HPI HPI HPI: Ms. High is a 47-year-old female with a past medical history of DM, history of DKA, history of suicidal ideation, Anxiety Disorder, Bipolar disorder. She presents to [facility] due to weakness, feeling unwell and elevated blood glucose levels. In the ER, the patient's CMP showed a blood glucose of 1389 mg/dl and anion gap of 44. VBG showed a pH of 7.20 and a HCo3 of 6.2. CBC was unremarkable. In the ER the patient was placed on DKA protocol. The patient was admitted with initial impression of DKA. Hospital Course Hospital Course Hospital Course: 47 year old female who presented to the ED yesterday for c/o weakness and elevated blood sugar. PMHX diabetes, hx of DKA, anxiety and bipolar disorder.? Presented with severe hyperglycemia with glucose greater than 1500, anion gap greater than 40. Treated with insulin drip, gap closed well and was able to transition to basal bolus regimen. Meeting criteria for discharge home. Discussed case with care workers at her personal-detention along with her PCP who will visit her tomorrow at her personal-detention. Problems addressed as follows: DKA Uncontrolled diabetes -Patient has been admitted recently on:? 02/05, 02/10, 02/12, 02/25, 03/06 and 03/12 for similar occurrences. Went on a home visit from personal-detention and did not have/take her insulin. Presented with severe DKA with glucose greater than 1500 and gap of 44 initially. Initiated on IV fluids, insulin drip. Gap closed over the first 24 hours with the ability to transition to basal bolus regimen. Patient tolerating her home regimen of 40 units of glargine at night. We will continue this regimen for now. Mealtime insulin adjusted to 10 units with meals. If fingerstick before meal is greater than 400, recommend giving 15 units of short acting insulin. Case management assisted with care. Communicated with patient's PCP and discussed case for close follow-up. PT and OT evaluated during admission, no placement recs at this time. Back to baseline function on day of discharge. Anxiety Bipolar -Continued her home regimen of Wellbutrin and Risperdal. We will schedule for follow-up with psychiatry at [facility] on discharge. of note patient much more cooperative this hospitalization. HLD -Continue Atorvastatin 20 mg daily. Stable for discharge back to nursing facility. Worked with patient on insulin administration, she administers doses to herself with good compliance and technique. Extensive counseling on medications, need to adhere to regimen, and need for close follow-up for further adjustment. Spent 40 minutes in discharge counseling and direct care with patient. Exam Data for Last 24 hours Vital signs and Labs for Last 24 Hours: Temp Pulse Resp BP Pulse Ox 98.5 F 94 H 16 130/78 99 03/22/23 11:16 03/22/23 11:16 03/22/23 11:16 03/22/23 11:16 03/22/23 11:16 Laboratory Results - last 24 hr 03/21/23 16:45: POC Glucose 154 H 03/21/23 18:15: Sodium 136, Potassium 4.2, Chloride 102, Carbon Dioxide 22, Anion Gap 16.2 H, BUN 28 H D, Creatinine 1.00 D, Estimated Creat Clear 64, Estimated GFR 60, Est GFR ( Amer) 72 D, Glucose 305 H D, Calcium 8.9 03/21/23 20:30: POC Glucose 446 H* 03/22/23 05:27: Sodium 141, Potassium 4.0, Chloride 106, Carbon Dioxide 27, Anion Gap 12.0, BUN 21 H, Creatinine 0.80, Estimated Creat Clear 81, Estimated GFR 77, Est GFR ( Amer) 93 D, Glucose 178 H D, Calcium 8.9 03/22/23 05:27: WBC 8.8 D, RBC 3.38 L, Hgb 10.1 L, Hct 31.7 L, MCV 93.7, MCH 29.8, MCHC 31.8, RDW 15.7, Plt Count 212, MPV 8.3, Neut % (Auto) 59.0, Lymph % (Auto) 30.7, [place] % (Auto) 7.3, Eos % (Auto) 2.8, Baso % (Auto) 0.3, Neut # (Auto) 5.2, Lymph # (Auto) 2.7, [place] # (Auto) 0.6, Eos # (Auto) 0.2, Baso # (Auto) 0.0 03/22/23 05:27: Magnesium 2.3 03/22/23 05:32: POC Glucose 215 H 03/22/23 11:54: POC Glucose 37
[2023-03-22 15:10] VITALS: BP 115/77; PULSE 99; RESP 18; TEMP 36.9; O2SAT 97
--- NOTE | 2023-03-22 15:43 | HMH.PHAINT1 ---
Pharmacy Intervention Comments: Discharge medication counseling completed. Patient was to start injecting 10 units of Humalog before meals instead of 8 units. She verbalized understanding and had no questions. Nurse was getting her insulin pen and was going to have her inject herself before leaving.
--- NOTE | 2023-03-22 16:04 | PC.NURSE ---
educated patient on insulin administration. return demonstration of supper insulin dose.
[2023-03-22 17:34] LABS: POC Glucose,Bedside 262 (70-110)
== END 2023-03-22 16:08 | disposition home or self-care (01) | DRG 639 ==
LOC: ER 14:41 → 2ND 18:30
PROVIDERS: Emergency Medicine; Admitting Provider Internal Medicine Adolescent Medicine; Emergency Provider Emergency Medicine; PCP Emergency Medicine; Visit Provider Internal Medicine Adolescent Medicine
DX: E11.10 Type 2 diabetes mellitus with ketoacidosis without coma (principal); Z79.4 Long term (current) use of insulin; I10 Essential (primary) hypertension; E11.43 Type 2 diabetes mellitus with diabetic autonomic (poly)neuropathy; K31.84 Gastroparesis; E78.00 Pure hypercholesterolemia, unspecified; G47.33 Obstructive sleep apnea (adult) (pediatric); K21.9 Gastro-esophageal reflux disease without esophagitis; F17.200 Nicotine dependence, unspecified, uncomplicated; F31.9 Bipolar disorder, unspecified; F41.9 Anxiety disorder, unspecified
CPT/HCPCS: 36415; 80048; 80053; 80305; 81001; 81025; 82803; 82962; 83735; 84100; 85007; 85025; 87636; 93005; 97110; 97162; 97166; 97530; 99291; C9803; J2405; U0003; U0005

== ENCOUNTER 2023-03-24 21:52 | Observation (INO) | payer MEDICARE, SELFPAY ==
[2023-03-24 21:52] VITALS: BP 118/71; PULSE 114; RESP 22; TEMP 36.9; O2SAT 100; BMI 20.7
[2023-03-24 21:59] VITALS: BMI 20.7
[2023-03-24 22:13] LABS: Microscopic, Urine URINE MICROSCOPIC (MICROSCOPIC)
[2023-03-24 22:20] VITALS: BP 158/86; PULSE 115; RESP 18; O2SAT 98
[2023-03-24 22:21] LABS: Basophils % 0.2 % (0.1-2.0); Eosinophils # 0.1 K/mm3 (0.0-0.4); Eosinophils % 0.6 % (0.1-12.0); Lymphocytes % 17.1 % (10-50); Mean Corpuscular Hemoglobin 29.6 pg (27.0-31.2); Mean Corpuscular Volume 102.1 fl (81-99); Mean Platelet Volume 9.1 fl (7.4-10.4); Monocytes # 0.5 K/mm3 (0.1-1.0); Monocytes % 4.3 % (1.7-9.3); Neutrophils % 77.8 % (37.0-80.0); Platelet Count 253 K/mm3 (142-424); Red Blood Count 3.72 M/mm3 (4.20-5.40); Red Cell Distribution Width 15.4 % (11.5-17.5); White Blood Count 11.5 K/mm3 (4.8-10.8)
[2023-03-24 22:28] LABS: Chloride 94 mmol/L (98-107); Sodium 129 mmol/L (136-145)
[2023-03-24 22:30] VITALS: BP 119/74; PULSE 114; RESP 20; O2SAT 100
[2023-03-24 22:31] LABS: Alanine Aminotransferase 17 U/L (12-78); Albumin Level 4.2 g/dl (3.5-5.0); Albumin/Globulin Ratio 1.4 (1.1-1.8); Alkaline Phosphatase 107 U/L (38-126); Aspartate Amino Transferase 19 U/L (14-36); Bilirubin,Total 0.4 mg/dl (0.2-1.3); Blood Urea Nitrogen 25 mg/dl (7-17); Calcium 9.4 mg/dl (8.4-10.2); Creatinine Clearance Estimated 48 mL/min (50-200); Estimated Glomerular Filt Rate 44 ml/min (>60); GFR (African American) 53 ML/MIN (>60); Globulin 3.1 g/dL (1.3-3.2); Total Protein,Serum 7.3 g/dl (6.3-8.2)
[2023-03-24 22:32] LABS: Acetone, Serum (Rapid) Moderate (None Detect)
--- NOTE | 2023-03-24 22:34 | HMH.EDGENADL ---
Discharge Plan Disposition Patient Disposition: Admitted Chief Complaint: Hyper/Hypoglycemia Prescriptions Prescriptions: No Action (DME) Dexcom G7 Rating Clerk Misc See Rx Instructions .Route Qty: 1 0RF Rx Instructions: As directed (DME) Dexcom G7 Sensor Device See Rx Instructions .Route Qty: 1 0RF Rx Instructions: As directed atorvastatin 20 mg Tablet 20 mg PO HS 30 Days Qty: 30 0RF pantoprazole 40 mg Tablet,Delayed Release (Dr/Ec) 40 mg PO DAILY 30 Days Qty: 30 0RF ferrous sulfate 325 mg (65 mg iron) Tablet,Delayed Release (Dr/Ec) 325 mg PO DAILY 30 Days Qty: 30 0RF bupropion HCl [Wellbutrin XL] 300 mg Tablet Extended Release 24 Hr 300 mg PO DAILY 30 Days Qty: 30 0RF gabapentin 300 mg capsule 300 mg PO TID aspirin 81 mg tablet,delayed release (DR/EC) 81 mg PO DAILY Label Comments: GIVE 1 TABLET BY MOUTH ONCE DAILY insulin lispro [Humalog U-100 Insulin] 100 unit/mL solution 10 unit SQ AC 30 Days Qty: 10 0RF insulin glargine 100 unit/mL (3 mL) Insulin Pen 40 unit SQ HS 30 Days Qty: 12 0RF sennosides-docusate sodium [Stool Softener-Stimulant Laxat] 8.6-50 mg tablet 1 tab PO BID risperidone 1 mg tablet 1 mg PO BID Referrals Follow up/Referrals: Jovanny Rachel MD [Primary Care Provider] - See instructions Clinical Impressions Clinical Impression: Diabetes mellitus, insulin dependent (IDDM), uncontrolled, DKA (diabetic ketoacidosis) Instructions Patient Instructions: DI for Hyperglycemia -- Adult Discharge ED Provider: Wilson (ED)Jovanny General Adult HPI General Chief complaint: Hyper/Hypoglycemia Stated complaint: Hyperglycemia Time Seen by Provider: 03/24/23 22:00 Mode of Arrival: EMS Source of Information: Patient, EMS and Medical Record Limitations: No Limitations Description of Symptoms (Recalled from ER Triage Doc. by RN): EMS called out for hyperglycemia. pt c/o weakness, vomitting x 2 days History of Present Illness HPI narrative: pt with reported weakness and not eating - for reported nausea - pt has hx of iddm and recurrent dka Onset (ago): day(s) Severity: moderate Related Data Home Medications Medication Instructions Recorded Confirmed gabapentin 300 mg capsule 300 mg PO TID Nerve pain 02/12/23 03/21/23 aspirin 81 mg tablet,delayed 81 mg PO DAILY Heart health 03/06/23 03/21/23 release risperidone 1 mg tablet 1 mg PO BID Mood 03/12/23 03/21/23 sennosides 8.6 mg-docusate sodium 1 tab PO BID Constipation 03/12/23 03/21/23 50 mg tablet (Stool Softener-Stimulant Laxative) Previous Rx's Medication Instructions Recorded atorvastatin 20 mg tablet 20 mg PO HS Cholesterol 30 days 02/07/23 #30 tabs bupropion HCl 300 mg 24 hr tablet, 300 mg PO DAILY Mood 30 days #30 02/07/23 extended release (Wellbutrin XL) tabs ferrous sulfate 325 mg (65 mg 325 mg PO DAILY Supplement 30 days 02/07/23 iron) tablet,delayed release #30 tabs pantoprazole 40 mg tablet,delayed 40 mg PO DAILY Acid reflux 30 days 02/07/23 release #30 tabs insulin glargine 100 unit/mL (3 40 unit (0.4 mL) SQ HS Diabetes 30 03/22/23 mL) subcutaneous pen days #12 mL insulin lispro 100 unit/mL 10 unit (0.1 mL) SQ AC Diabetes 30 03/22/23 subcutaneous solution (Humalog days #10 mL U-100 Insulin) blood-glucose meter,continuous #1 ea 03/23/23 (Dexcom G7 Rating Clerk) blood-glucose sensor (Dexcom G7 #1 ea 03/23/23 Sensor device) Allergies Allergy/AdvReac Type Severity Reaction Status Date / Time Penicillins Allergy Intermediate Rash Verified 03/12/23 18:45 [facility] Disclaimer: The information contained in this section may have been updated after the patient was seen, as this information can be updated by other users. Medical History Anxiety Bipolar 1 disorder Constipation COVID Diabetes mellitus, insulin dependent (IDDM), uncontrolled DKA (diabetic ketoacido
[2023-03-24 22:38] LABS: Appearance,Urine CLEAR (Clear); Blood, Urine TRACE-I (Negative); Color,Urine YELLOW (Yellow); Glucose,Urine (UA) 2+ (Negative); Ketones,Urine 1+ (Negative); Leukocyte Esterase,Urine Negative (Negative); Nitrate,Urine Negative (Negative); Protein,Urine Negative (Negative); Specific Gravity, Urine 1.015 (1.005-1.030); Urobilinogen,Urine 0.2 EU/dl (0.2)
[2023-03-24 22:40] LABS: Bilirubin,Urine 1+ (Negative)
[2023-03-24 22:41] LABS: RBC,Urine Occasional #/hpf (0-3); Squamous Epithelial Cell,Urine Occasional #/hpf (0-5)
[2023-03-24 22:41] LABS: Coronavirus 19, PCR Not Detected (NotDetected); Influenza A, PCR Not Detected (NotDetected); Influenza B, PCR Not Detected (NotDetected)
[2023-03-24 22:44] LABS: Carbon Dioxide 9 mmol/L (22.0-30.0); Glucose 717 mg/dl (74-100)
--- NOTE | 2023-03-24 22:44 | PC.NURSE ---
Critical Lab value called by component lab tech-Sonja Maza. Co2-9 and Glucose-717. Results passed on to Nurse Melisa Angel and MD Rachel.
--- NOTE | 2023-03-24 23:36 | EXP.HP ---
History of Present Illness *Admission Date: 03/24/23 *Reason for visit:: DKA *History of present illness: 47 year old patient reports to ED via ems from [facility] with c/o nausea and hyperglycemia. The patient has been to [facility] and admitted a total of 8 times now for DKA. PMHX of Diabetes, HLD, bipolar, and depression. The ED physician spoke with the hospitalist team and the patient was admitted for medical management of DKA. She will be start on an insulin gtt and IV fluids. The patient report to me that she had been taken her medicine. In report to the ED nurse from [facility] the patient had refused her medication tonight. The patient is alert to self and situation. Does not c/o anything else at this time. [facility] Disclaimer: The information contained in this section may have been updated after the patient was seen, as this information can be updated by other users. Medical History Anxiety Bipolar 1 disorder Constipation COVID Diabetes mellitus, insulin dependent (IDDM), uncontrolled DKA (diabetic ketoacidosis) Essential (primary) hypertension Former smoker Gastroparesis GERD (gastroesophageal reflux disease) Herpes High cholesterol History of drug abuse in remission History of suicidal tendencies HTN (hypertension) Leukocytosis MDD (major depressive disorder) Neuropathy MALCOM (obstructive sleep apnea) RLS (restless legs syndrome) Sleep apnea Suicidal ideation UTI (urinary tract infection) Family History Other No significant family history Social History (Updated 03/25/23 @ 06:41 by Arely Hernandez RN) Smoking Status: Current every day smoker alcohol intake: never current occupational status: unemployed and disabled Travel in the last 8 weeks: None Review of Systems Review of Systems Review of systems:: pertinent systems reviewed and negative unless documented below Constitutional Constitutional: Reports system reviewed and no additional complaints, except as documented Eyes Eyes: Reports system reviewed and no additional complaints, except as documented ENT Ears, Nose, Mouth, and Throat: Reports system reviewed and no additional complaints, except as documented *Respiratory Respiratory: Reports system reviewed and no additional complaints, except as documented *Gastrointestinal Gastrointestinal: Reports system reviewed and no additional complaints, except as documented *Genitourinary Genitourinary: Reports system reviewed and no additional complaints, except as documented *Musculoskeletal Musculoskeletal: Reports system reviewed and no additional complaints, except as documented Integumentary/Breasts Skin/Breast: Reports system reviewed and no additional complaints, except as documented *Neurologic Neurologic: Reports system reviewed and no additional complaints, except as documented Psychiatric Psychiatric: Reports system reviewed and no additional complaints, except as documented Endocrine Endocrine: Reports system reviewed and no additional complaints, except as documented Hematologic/Lymphatic Hematologic/Lymphatic: Reports system reviewed and no additional complaints, except as documented Meds Home Medications and Allergies Home Medications Medication Instructions Recorded Confirmed Type atorvastatin 20 mg tablet 20 mg PO HS Cholesterol 30 days 02/07/23 03/25/23 Rx #30 tabs bupropion HCl 300 mg 24 hr tablet, 300 mg PO DAILY Mood 30 days #30 02/07/23 03/25/23 Rx extended release (Wellbutrin XL) tabs ferrous sulfate 325 mg (65 mg 325 mg PO DAILY Supplement 30 days 02/07/23 03/25/23 Rx iron) tablet,delayed release #30 tabs pantoprazole 40 mg tablet,delayed 40 mg PO DAILY Acid reflux 30 days 02/07/23 03/25/23 Rx release #30 tabs gabapentin 300 mg capsule 300 mg PO TID Nerve pain 02/12/23 03/25/23 History aspirin 81 mg tablet,delayed 81 mg PO DAILY Heart health 03/06/23 03/25/23
[2023-03-24 23:43] VITALS: BP 124/74; PULSE 106; RESP 16; TEMP 36.9; O2SAT 100
--- NOTE | 2023-03-24 23:49 | PC.NURSE ---
pt admitted to 216 from ED
[2023-03-25] VITALS (12 sets, daily range): BP systolic 80–142; BP diastolic 53–89; PULSE 97–109; RESP 16–20; TEMP 36.7; O2SAT 97–100; BMI 21.9
[2023-03-25 00:02] LABS: POC Glucose,Bedside 515 (70-110)
[2023-03-25 01:06] LABS: POC Glucose,Bedside 449 (70-110)
[2023-03-25 02:06] LABS: POC Glucose,Bedside 339 (70-110)
--- NOTE | 2023-03-25 05:30 | PC.NURSE ---
0500-fsbs 127, D5NS started at 75mL/hr 0520-notified VALERIE looney that pt's gap closed, instructed to give 10units levemier and then in one hour stop insulin drip and D5NS and then resume achs fsbs for 1100
--- NOTE | 2023-03-25 06:06 | PC.NURSE ---
Pt arrived to floor via stretcher @ [id number]
[2023-03-25 06:20] LABS: Anion Gap 14.3 mEq/L (5-15); Blood Urea Nitrogen 20 mg/dl (7-17); Calcium 8.7 mg/dl (8.4-10.2); Carbon Dioxide 22 mmol/L (22.0-30.0); Chloride 107 mmol/L (98-107); Creatinine Clearance Estimated 63 mL/min (50-200); Estimated Glomerular Filt Rate 60 ml/min (>60); GFR (African American) 72 ML/MIN (>60); Glucose 170 mg/dl (74-100); Potassium 3.3 mmoL/L (3.5-5.1); Sodium 140 mmol/L (136-145)
--- NOTE | 2023-03-25 06:30 | PC.NURSE ---
stopped insulin drip and D5NS per order from VALERIE Seymour
[2023-03-25 06:55] LABS: Phosphorous 2.7 mg/dl (2.5-4.5)
[2023-03-25 07:53] LABS: POC Glucose,Bedside 127 (70-110)
[2023-03-25 07:53] LABS: POC Glucose,Bedside 110 (70-110)
[2023-03-25 07:53] LABS: POC Glucose,Bedside 235 (70-110)
[2023-03-25 07:53] LABS: POC Glucose,Bedside 175 (70-110)
[2023-03-25 08:59] LABS: Chloride 104 mmol/L (98-107); Potassium 4.1 mmoL/L (3.5-5.1); Sodium 134 mmol/L (136-145)
[2023-03-25 09:02] LABS: Anion Gap 15.1 mEq/L (5-15); Blood Urea Nitrogen 16 mg/dl (7-17); Calcium 8.5 mg/dl (8.4-10.2); Carbon Dioxide 19 mmol/L (22.0-30.0); Creatinine Clearance Estimated 74 mL/min (50-200); Estimated Glomerular Filt Rate 67 ml/min (>60); GFR (African American) 82 ML/MIN (>60); Glucose 261 mg/dl (74-100)
--- NOTE | 2023-03-25 09:18 | PC.NURSE ---
COURTESY TECH NOTE; ROUNDED ON PT 0830, ASSISTED PT TO BEDSIDE COMMODE X1 ASSIST, ACTIVITY TOLERATED WELL, OUTPUT OF 200 ML, ASSISTED PT TO REPOSITION IN BED, COFFEE BROUGHT AT PT REQUEST, PURSE GIVEN TO PT AT PT REQUEST, CALL LIGHT WITHIN REACH, NO FURTHER REQUESTS AT THIS TIME. Andree ROTH, SRNA
--- NOTE | 2023-03-25 09:55 | SW/DCPLANNER ---
Addendum entered by Wendy Mak 03/25/23 12:55: I have arranged [employer] for this patient. Addendum entered by Wendy Bronaugh 03/25/23 11:39: Patient will discharge back to [facility] today. I have updated Janine Mak and will arrange [employer] once ready for discharge. Original Note: Patient currently resides at [facility]. Patient expressed an interest in discharging to [facility]: currently no beds available. I will continue to update Janine Mak during patient's hospital admission. Discharge date is unknown at this time.
[2023-03-25 11:39] LABS: POC Glucose,Bedside 348 (70-110)
--- NOTE | 2023-03-25 12:33 | EXP.DC.SUM ---
General Admission date:: 03/24/23 Discharge date: 03/25/23 HPI HPI HPI: 47 year old patient reports to ED via ems from [facility] with c/o nausea and hyperglycemia. The patient has been to [facility] and admitted a total of 8 times now for DKA. PMHX of Diabetes, HLD, bipolar, and depression. The ED physician spoke with the hospitalist team and the patient was admitted for medical management of DKA. She will be start on an insulin gtt and IV fluids. The patient report to me that she had been taken her medicine. In report to the ED nurse from [facility] the patient had refused her medication tonight. The patient is alert to self and situation. Does not c/o anything else at this time. Hospital Course Hospital Course Hospital Course: The patient's anion gap closed; her insulin drip was discontinued and she was started on a diet which she tolerated well. She had refused her insulin because she was angry and was counseled on the importance of taking her insulin. She did not have any suicidal ideations. No changes were made to her medications and she will be going back to [facility]. Exam Data for Last 24 hours Vital signs and Labs for Last 24 Hours: Temp Pulse Resp BP Pulse Ox 98.0 F 102 H 18 142/89 H 99 03/25/23 12:00 03/25/23 10:47 03/25/23 10:47 03/25/23 10:47 03/25/23 10:47 Laboratory Results - last 24 hr 03/24/23 21:57: Urine Color Yellow, Urine Appearance Clear, Urine pH 6.0, Ur Specific [place] 1.015, Urine Protein Negative, Urine Glucose (UA) 2+, Urine Ketones 1+, Urine Blood Trace-i, Urine Nitrate Negative, Urine Bilirubin 1+ A, Urine Urobilinogen 0.2, Ur Leukocyte Esterase Negative, Urine RBC Occasional, Urine WBC None, Ur Squamous Epith Cells Occasional, Urine Bacteria None 03/24/23 22:10: WBC 11.5 H D, RBC 3.72 L, Hgb 11.0 L, Hct 38.0, MCV 102.1 H, MCH 29.6, MCHC 29.0 L, RDW 15.4, Plt Count 253, MPV 9.1, Neut % (Auto) 77.8, Lymph % (Auto) 17.1, Carbon % (Auto) 4.3, Eos % (Auto) 0.6, Baso % (Auto) 0.2, Neut # (Auto) 9.0 H, Lymph # (Auto) 2.0, Carbon # (Auto) 0.5, Eos # (Auto) 0.1, Baso # (Auto) 0.0 03/24/23 22:10: Sodium 129 L, Potassium 5.0 D, Chloride 94 L, Carbon Dioxide 9 L* D, Anion Gap 31.0 H, BUN 25 H, Creatinine 1.30 H D, Estimated Creat Clear 48, Estimated GFR 44 L, Est GFR ( Amer) 53 L D, Glucose 717 H*, Calcium 9.4, Total Bilirubin 0.4, AST 19, ALT 17, Alkaline Phosphatase 107, Total Protein 7.3, Albumin 4.2, Globulin 3.1, Albumin/Globulin Ratio 1.4, Acetone Level Moderate 03/24/23 22:30: SARS-CoV-2 (PCR) Not detected, Influenza A Untype (PCR) Not detected, Influenza Type B (PCR) Not detected 03/24/23 23:55: POC Glucose 515 H* 03/25/23 00:59: POC Glucose 449 H* 03/25/23 01:58: POC Glucose 339 H* 03/25/23 02:46: POC Glucose 235 H 03/25/23 03:48: POC Glucose 175 H 03/25/23 04:00: Sodium 140, Potassium 3.3 L D, Chloride 107, Carbon Dioxide 22, Anion Gap 14.3, BUN 20 H, Creatinine 1.00 D, Estimated Creat Clear 63, Estimated GFR 60, Est GFR ( Amer) 72 D, Glucose 170 H D, Calcium 8.7 03/25/23 04:00: Magnesium 2.0 D 03/25/23 04:00: Phosphorus 2.7 03/25/23 04:40: POC Glucose 127 H 03/25/23 06:04: POC Glucose 110 03/25/23 08:46: Sodium 134 L, Potassium 4.1 D, Chloride 104, Carbon Dioxide 19 L, Anion Gap 15.1 H, BUN 16, Creatinine 0.90, Estimated Creat Clear 74, Estimated GFR 67, Est GFR ( Amer) 82, Glucose 261 H D, Calcium 8.5 03/25/23 11:27: POC Glucose 348 H* I & O for Last 24 hours: Intake & Output 03/22/23 03/23/23 03/24/23 03/25/23 23:59 23:59 23:59 23:59 Intake Total 480 / 480 Output Total 1450 / 1450 Balance -970 / -970 Weight 56.699 kg 59.647 kg Constitutional Constitutional: no acute distress *Routine HEENT Exam Head: Present normocephalic Eye: Present EOMI and PERRL ENT: Present mucous membranes moist *Routine Neck Exam Neck: Present supple; Absent lymphadenopathy *Routine Respiratory Exam Respiratory: Present CTA bilaterally *Routine Cardiovascular Exam Cardiovascular:
== END 2023-03-25 14:06 | disposition home health service (06) ==
LOC: ER 23:09 → 2ND 03-25 06:26
PROVIDERS: Nurse Practitioner Critical Care Medicine; Nurse Practitioner Family; Admitting Provider Internal Medicine Adolescent Medicine; Emergency Provider Emergency Medicine; PCP Emergency Medicine; Visit Provider Internal Medicine Adolescent Medicine
DX: E11.10 Type 2 diabetes mellitus with ketoacidosis without coma (principal)
CPT/HCPCS: 80048; 80053; 81001; 82009; 82962; 83735; 84100; 85025; 99285; C9803; G0378; J2405; U0003; U0005

== ENCOUNTER 2023-03-27 08:02 | Inpatient (IN) | payer MEDICARE, SELFPAY ==
[2023-03-27] VITALS (14 sets, daily range): BP systolic 93–160; BP diastolic 57–89; PULSE 66–127; RESP 16–28; TEMP 36.4–36.9; O2SAT 95–100; BMI 22.8; BMI 20.5
--- NOTE | 2023-03-27 08:15 | PC.NURSE ---
at the bedside with u/s to establish IV access
--- NOTE | 2023-03-27 08:22 | PC.NURSE ---
MD remains at the bedside attempting IV access. pt agitated, pulling off bp cuff and pulse ox. pt yelling at MD while trying to obtain IV access.
--- NOTE | 2023-03-27 08:27 | HMH.EDGENADL ---
Discharge Plan Disposition Patient Disposition: Admitted Prescriptions Prescriptions: No Action lithium carbonate 300 mg capsule 300 mg PO HS Qty: 30 11RF fluoxetine 20 mg capsule 20 mg PO QAM Qty: 30 11RF atorvastatin 20 mg Tablet 20 mg PO HS 30 Days Qty: 30 0RF pantoprazole 40 mg Tablet,Delayed Release (Dr/Ec) 40 mg PO DAILY 30 Days Qty: 30 0RF ferrous sulfate 325 mg (65 mg iron) Tablet,Delayed Release (Dr/Ec) 325 mg PO DAILY 30 Days Qty: 30 0RF bupropion HCl [Wellbutrin XL] 300 mg Tablet Extended Release 24 Hr 300 mg PO DAILY 30 Days Qty: 30 0RF gabapentin 300 mg capsule 300 mg PO TID aspirin 81 mg tablet,delayed release (DR/EC) 81 mg PO DAILY Label Comments: GIVE 1 TABLET BY MOUTH ONCE DAILY insulin lispro [Humalog U-100 Insulin] 100 unit/mL solution 10 unit SQ AC 30 Days Qty: 10 0RF insulin glargine 100 unit/mL (3 mL) Insulin Pen 40 unit SQ HS 30 Days Qty: 12 0RF sennosides-docusate sodium [Stool Softener-Stimulant Laxat] 8.6-50 mg tablet 1 tab PO BID risperidone 1 mg tablet 1 mg PO BID Referrals Follow up/Referrals: Provider,Referral, MD [Primary Care Provider] - See instructions Clinical Impressions Clinical Impression: DKA (diabetic ketoacidosis), Medical non-compliance, Abscess of scalp Discharge ED Provider: Valerie [facility] HPI General Chief complaint: Dizziness Stated complaint: vomiting Time Seen by Provider: 03/27/23 08:27 History of Present Illness HPI narrative: Patient is a 47-year-old female very well-known to this hospital system with recurrent admissions for DKA medication noncompliance presents today with similar complaints. She states that Diego rivas again has not been giving her her medications. She presents today by EMS with hyperglycemia rapid breathing also complains of some pain and swelling on her scalp. No other fevers or other localized symptoms. Related Data Home Medications Medication Instructions Recorded Confirmed gabapentin 300 mg capsule 300 mg PO TID Nerve pain 02/12/23 03/25/23 aspirin 81 mg tablet,delayed 81 mg PO DAILY Heart health 03/06/23 03/25/23 release risperidone 1 mg tablet 1 mg PO BID Mood 03/12/23 03/25/23 sennosides 8.6 mg-docusate sodium 1 tab PO BID Constipation 03/12/23 03/25/23 50 mg tablet (Stool Softener-Stimulant Laxative) Previous Rx's Medication Instructions Recorded atorvastatin 20 mg tablet 20 mg PO HS Cholesterol 30 days 02/07/23 #30 tabs bupropion HCl 300 mg 24 hr tablet, 300 mg PO DAILY Mood 30 days #30 02/07/23 extended release (Wellbutrin XL) tabs ferrous sulfate 325 mg (65 mg 325 mg PO DAILY Supplement 30 days 02/07/23 iron) tablet,delayed release #30 tabs pantoprazole 40 mg tablet,delayed 40 mg PO DAILY Acid reflux 30 days 02/07/23 release #30 tabs insulin glargine 100 unit/mL (3 40 unit (0.4 mL) SQ HS Diabetes 30 03/22/23 mL) subcutaneous pen days #12 mL insulin lispro 100 unit/mL 10 unit (0.1 mL) SQ AC Diabetes 30 03/22/23 subcutaneous solution (Humalog days #10 mL U-100 Insulin) fluoxetine 20 mg capsule 20 mg PO QAM #30 caps 03/25/23 lithium carbonate 300 mg capsule 300 mg PO HS #30 caps 03/25/23 Allergies Allergy/AdvReac Type Severity Reaction Status Date / Time Penicillins Allergy Intermediate Rash Verified 03/12/23 18:45 [facility] Disclaimer: The information contained in this section may have been updated after the patient was seen, as this information can be updated by other users. Medical History Anxiety Bipolar 1 disorder Constipation COVID Diabetes mellitus, insulin dependent (IDDM), uncontrolled DKA (diabetic ketoacidosis) Essential (primary) hypertension Former smoker Gastroparesis GERD (gastroesophageal reflux disease) Herpes High cholesterol History of drug abuse in remission History of suicidal tendencies HTN (hypertension) Leukocytosis M
--- NOTE | 2023-03-27 08:35 | PC.NURSE ---
pt asked to be placed in a gown since the clothes she was wearing was the only ones she had, me and luis fernando help assist pt change from clothes to gown and gave several warm blankets
--- NOTE | 2023-03-27 09:00 | PC.NURSE ---
pt was calling for assistance i go in the room pt asked for ice chips i told pt she was not allowed at this time due to she had been vomiting and not able to hold anything down, she then stated she was getting out of the bed through her covers off, i asked ER MD if she could have a few ice chips to try and calm pt down he says yes, after getting ice chips and going back into the room and pt is out of bed standing in front of the sink in room 11 with her head bent down and drinking water from the faucet she then climbs back in bed once she was settled and safely in the bed i cover pt up and gave her ice chips
--- NOTE | 2023-03-27 09:23 | PC.NURSE ---
pt combative at this time, refusing IV, refusing vitals or care. verbal order for ativan 2mg IM given by .
--- NOTE | 2023-03-27 09:26 | PC.NURSE ---
covid swab sent to lab
--- NOTE | 2023-03-27 09:26 | PC.NURSE ---
pt is now in room 7 so we could keep a closer eye on pt since giving meds, assisted pt using a bedpan and gave warm blanket tap lopez at bedside
--- NOTE | 2023-03-27 09:27 | PC.NURSE ---
pt medicated per DEC. pt yelling at staff requesting ice chips while dry heaving into emesis bag.
[2023-03-27 09:44] LABS: Coronavirus 19, PCR Not Detected (NotDetected); Influenza A, PCR Not Detected (NotDetected); Influenza B, PCR Not Detected (NotDetected)
[2023-03-27 09:44] LABS: Microscopic, Urine URINE MICROSCOPIC (MICROSCOPIC)
[2023-03-27 10:19] LABS: Basophils % 0.2 % (0.1-2.0); Hematocrit 37.9 % (37.0-47.0); Hemoglobin 10.6 g/dL (12.2-16.2); Lymphocytes # 0.9 K/mm3 (0.7-4.5); Lymphocytes % 4.9 % (10-50); Mean Corpuscular Hemoglobin 29.8 pg (27.0-31.2); Mean Corpuscular Volume 106.2 fl (81-99); Mean Platelet Volume 10.2 fl (7.4-10.4); Monocytes # 0.6 K/mm3 (0.1-1.0); Monocytes % 3.1 % (1.7-9.3); Neutrophils # 17.7 K/mm3 (1.8-7.8); Neutrophils % 91.8 % (37.0-80.0); Platelet Count 294 K/mm3 (142-424); Red Blood Count 3.57 M/mm3 (4.20-5.40); White Blood Count 19.3 K/mm3 (4.8-10.8)
[2023-03-27 10:20] LABS: VBG Base Excess -28.1 mmol/L (-2.4-2.3); VBG HCO3 4.4 mmol/L (23-30); VBG Oxygen Saturation 93.1 % (50-70); VBG PO2 93.1 mmol/L (28-40); VBG Total CO2 5.1 mmol/L (23-27)
[2023-03-27 10:21] LABS: Alanine Aminotransferase 23 U/L (12-78); Albumin Level 4.3 g/dl (3.5-5.0); Albumin/Globulin Ratio 1.3 (1.1-1.8); Alkaline Phosphatase 146 U/L (38-126); Aspartate Amino Transferase 24 U/L (14-36); Bilirubin,Total 0.4 mg/dl (0.2-1.3); Blood Urea Nitrogen 27 mg/dl (7-17); Calcium 9.3 mg/dl (8.4-10.2); Chloride 93 mmol/L (98-107); Creatinine Clearance Estimated 40 mL/min (50-200); Estimated Glomerular Filt Rate 28 ml/min (>60); GFR (African American) 34 ML/MIN (>60); Globulin 3.3 g/dL (1.3-3.2); Magnesium 2.6 mg/dl (1.6-2.3); Phosphorous 8.6 mg/dl (2.5-4.5); Potassium 5.8 mmoL/L (3.5-5.1); Sodium 133 mmol/L (136-145); Total Protein,Serum 7.6 g/dl (6.3-8.2)
[2023-03-27 10:22] LABS: MANUAL DIFFERENTIAL MANUAL DIFFERENTIAL (MANUAL DIFF)
[2023-03-27 10:23] LABS: VBG PCO2 22.1 mmol/L (35-51); VBG PH 6.92 mmol/L (7.31-7.41)
--- NOTE | 2023-03-27 10:23 | PC.NURSE ---
[facility] called by RT. SANCHEZ notified.
[2023-03-27 10:24] LABS: Anion Gap 40.8 mEq/L (5-15)
[2023-03-27 10:25] LABS: Carbon Dioxide < 5 mmol/L (22.0-30.0)
--- NOTE | 2023-03-27 10:25 | PC.NURSE ---
co2 <5 called from lab
[2023-03-27 10:30] LABS: Glucose 885 mg/dl (74-100)
--- NOTE | 2023-03-27 10:30 | PC.NURSE ---
glucose of 880 called from lab. notified.
[2023-03-27 10:39] LABS: Appearance,Urine CLEAR (Clear); Bilirubin,Urine Negative (Negative); Blood, Urine TRACE-I (Negative); Color,Urine YELLOW (Yellow); Glucose,Urine (UA) 3+ (Negative); Ketones,Urine 3+ (Negative); Leukocyte Esterase,Urine Negative (Negative); Nitrate,Urine Negative (Negative); PH,Urine 5.5 (5.0-8.5); Protein,Urine TRACE (Negative); Urobilinogen,Urine 3 EU/dl (0.2)
--- NOTE | 2023-03-27 10:39 | EXP.PHA.CONS ---
Pharmacy Consult Date: 03/27/23 Time: 10:39 Referring provider: DR. MINA Reason for Consult:: VANCOMYCIN DOSING Allergies Allergy/AdvReac Type Severity Reaction Status Date / Time Penicillins Allergy Intermediate Rash Verified 03/12/23 18:45 Home Medications Medication Instructions Recorded Confirmed Type atorvastatin 20 mg tablet 20 mg PO HS Cholesterol 30 days 02/07/23 03/25/23 Rx #30 tabs bupropion HCl 300 mg 24 hr tablet, 300 mg PO DAILY Mood 30 days #30 02/07/23 03/25/23 Rx extended release (Wellbutrin XL) tabs ferrous sulfate 325 mg (65 mg 325 mg PO DAILY Supplement 30 days 02/07/23 03/25/23 Rx iron) tablet,delayed release #30 tabs pantoprazole 40 mg tablet,delayed 40 mg PO DAILY Acid reflux 30 days 02/07/23 03/25/23 Rx release #30 tabs gabapentin 300 mg capsule 300 mg PO TID Nerve pain 02/12/23 03/25/23 History aspirin 81 mg tablet,delayed 81 mg PO DAILY Heart health 03/06/23 03/25/23 History release risperidone 1 mg tablet 1 mg PO BID Mood 03/12/23 03/25/23 History sennosides 8.6 mg-docusate sodium 1 tab PO BID Constipation 03/12/23 03/25/23 History 50 mg tablet (Stool Softener-Stimulant Laxative) insulin glargine 100 unit/mL (3 40 unit (0.4 mL) SQ HS Diabetes 30 03/22/23 03/25/23 Rx mL) subcutaneous pen days #12 mL insulin lispro 100 unit/mL 10 unit (0.1 mL) SQ AC Diabetes 30 03/22/23 Rx subcutaneous solution (Humalog days #10 mL U-100 Insulin) fluoxetine 20 mg capsule 20 mg PO QAM #30 caps 03/25/23 Rx lithium carbonate 300 mg capsule 300 mg PO HS #30 caps 03/25/23 Rx New Prescriptions to Start Prescriptions: Height: 1.73 m Weight: 68.039 kg Laboratory Results:: Laboratory Results - last 24 hr 03/27/23 09:41: WBC 19.3 H D, RBC 3.57 L, Hgb 10.6 L, Hct 37.9, MCV 106.2 H, MCH 29.8, MCHC 28.0 L, RDW 15.0, Plt Count 294, MPV 10.2, Neut % (Auto) 91.8 H, Lymph % (Auto) 4.9 L, [place] % (Auto) 3.1, Eos % (Auto) 0.0 L, Baso % (Auto) 0.2, Neut # (Auto) 17.7 H, Lymph # (Auto) 0.9, [place] # (Auto) 0.6, Eos # (Auto) 0.0, Baso # (Auto) 0.0 03/27/23 09:41: Sodium 133 L, Potassium 5.8 H D, Chloride 93 L, Carbon Dioxide < 5 L* D, Anion Gap 40.8 H, BUN 27 H D, Creatinine 1.90 H D, Estimated Creat Clear 40, Estimated GFR 28 L, Est GFR ( Amer) 34 L D, Glucose 885 H*, Calcium 9.3, Phosphorus 8.6 H D, Magnesium 2.6 H D, Total Bilirubin 0.4, AST 24 D, ALT 23 D, Alkaline Phosphatase 146 H, Total Protein 7.6, Albumin 4.3, Globulin 3.3 H, Albumin/Globulin Ratio 1.3 03/27/23 09:59: VBG pH 6.92 L, VBG pCO2 22.1 L, VBG pO2 93.1 H, VBG HCO3 4.4 L, VBG Total CO2 5.1 L, VBG O2 Saturation 93.1 H, VBG Base Excess -28.1 L Medical History: Medical History (Updated 03/27/23 @ 10:15 by Valerie Mina MD) Anxiety Bipolar 1 disorder Constipation COVID Diabetes mellitus, insulin dependent (IDDM), uncontrolled DKA (diabetic ketoacidosis) Essential (primary) hypertension Former smoker Gastroparesis GERD (gastroesophageal reflux disease) Herpes High cholesterol History of drug abuse in remission History of suicidal ideation History of suicidal tendencies HTN (hypertension) Leukocytosis MDD (major depressive disorder) Neuropathy MALCOM (obstructive sleep apnea) RLS (restless legs syndrome) Sleep apnea Suicidal ideation UTI (urinary tract infection) Assessment and Plan Assessment and plan all Dx Assessment and Plan for all problems:: Pharmacokinetic dosing service Objective: Patient: Floor: Age: 74 yo Serum creatinine: 0.60 mg/dL Height: 65.0 Inches Weight (kg): 61.6 Assessment: IBW (kg): 57.00 Dosing wt(kg): 61.6 Estimated Creatinine clearance (ml/min): 75.1 CRCL method: Cockcroft and Gault using ibw(default). Drug selected: Vancomycin Loading dose (mg): Vd (liters): 46.2 (factor used: 0.75 L/kg) Stu (hr-1): 0.067 Half life (hrs): 10.35 CLvanco=?? 3.
--- NOTE | 2023-03-27 11:07 | PC.NURSE ---
PLACED A CHAIR ALARM ON HER BED AND HOOKED TO GOWN PT KEEPS TRYING TO GET OUT OF BED
[2023-03-27 11:13] LABS: RBC,Urine Occasional #/hpf (0-3); WBC,Urine Occasional #/hpf (0-3)
[2023-03-27 11:15] LABS: Lactic Acid 1.9 mmol/L (0.7-2.1)
[2023-03-27 11:32] LABS: Lymphocytes % 5 % (10-50); Macrocytosis 2+; Monocytes % 3 % (2-9); Neutrophils % 92 % (42-76); Platelet Estimate Normal; Total Cells Counted 100
--- NOTE | 2023-03-27 11:43 | PC.NURSE ---
arrived by stretcher to floor
--- NOTE | 2023-03-27 12:07 | EXP.HP ---
History of Present Illness *Admission Date: 03/27/23 *Reason for visit:: DKA *History of present illness: Magali High is a 47 year old female who is a resident at [facility] with a past medical history of diabetes mellitus, recurrent hospital admissions due to DKA secondary to medication noncompliance, bipolar disorder, cigarette nicotine dependence and hyperlipidemia. She presented via EMS with a chief complaints of dizziness. Workup in the ED revealed blood glucose of 885, CO2 <5, K 5.8 and a VBG pH 6.92. At the time of my interview the patient was alert but confused, oriented to person but not place or time. Initial vitals: BP 128/89 - P 66 - RR 16 - T 97.9 degrees F - SpO2 98% RA Initial workup: CBC with 19.3K WBCs VBG pH 6.92 BMP na 133, K 5.8, CO2 <5, cr 1.9 (baseline ~1), glucose 885 UA 3+ ketones PFSH PFSH Disclaimer: The information contained in this section may have been updated after the patient was seen, as this information can be updated by other users. Medical History Anxiety Bipolar 1 disorder Constipation COVID Diabetes mellitus, insulin dependent (IDDM), uncontrolled DKA (diabetic ketoacidosis) Essential (primary) hypertension Former smoker Gastroparesis GERD (gastroesophageal reflux disease) Herpes High cholesterol History of drug abuse in remission History of suicidal tendencies HTN (hypertension) Leukocytosis MDD (major depressive disorder) Neuropathy MALCOM (obstructive sleep apnea) RLS (restless legs syndrome) Sleep apnea Suicidal ideation UTI (urinary tract infection) Family History Other No significant family history Social History (Updated 03/25/23 @ 06:41 by Arely Hernandez RN) Smoking Status: Current every day smoker alcohol intake: never current occupational status: unemployed and disabled Travel in the last 8 weeks: None Review of Systems Review of Systems Review of systems:: unable to obtain (secondary to encephalopathy) Meds Home Medications and Allergies Home Medications Medication Instructions Recorded Confirmed Type atorvastatin 20 mg tablet 20 mg PO HS Cholesterol 30 days 02/07/23 03/27/23 Rx #30 tabs bupropion HCl 300 mg 24 hr tablet, 300 mg PO DAILY Mood 30 days #30 02/07/23 03/27/23 Rx extended release (Wellbutrin XL) tabs ferrous sulfate 325 mg (65 mg 325 mg PO DAILY Supplement 30 days 02/07/23 03/27/23 Rx iron) tablet,delayed release #30 tabs pantoprazole 40 mg tablet,delayed 40 mg PO DAILY Acid reflux 30 days 02/07/23 03/27/23 Rx release #30 tabs gabapentin 300 mg capsule 300 mg PO TID Nerve pain 02/12/23 03/27/23 History aspirin 81 mg tablet,delayed 81 mg PO DAILY Heart health 03/06/23 03/27/23 History release risperidone 1 mg tablet 1 mg PO BID Mood 03/12/23 03/27/23 History insulin glargine 100 unit/mL (3 40 unit (0.4 mL) SQ HS Diabetes 30 03/22/23 03/27/23 Rx mL) subcutaneous pen days #12 mL insulin lispro 100 unit/mL 10 unit (0.1 mL) SQ AC Diabetes 30 03/22/23 03/27/23 Rx subcutaneous solution (Humalog days #10 mL U-100 Insulin) fluoxetine 20 mg capsule 20 mg PO QAM per 03/27/23 03/27/23 History lithium carbonate 300 mg capsule 300 mg PO HS per 03/27/23 03/27/23 History New Prescriptions to Start Prescriptions: Allergies Allergy/AdvReac Type Severity Reaction Status Date / Time Penicillins Allergy Intermediate Rash Verified 03/12/23 18:45 Exam Data for Last 24 hours Vital signs and Labs for Last 24 Hours: Temp Pulse Resp BP Pulse Ox 97.6 F 125 H 16 93/69 L 97 03/27/23 11:58 03/27/23 11:03 03/27/23 08:03 03/27/23 11:03 03/27/23 11:03 Laboratory Results - last 24 hr 03/27/23 09:17: SARS-CoV-2 (PCR) Not detected, Influenza A Untype (PCR) Not detected, Influenza Type B (PCR) Not detected 03/27/23 09:22: Urine Color Yellow, Urine Appearance Clear, Urine pH 5.5, Ur
[2023-03-27 12:44] LABS: Chloride 91 mmol/L (98-107)
[2023-03-27 12:45] LABS: Sodium 130 mmol/L (136-145)
[2023-03-27 12:47] LABS: Blood Urea Nitrogen 28 mg/dl (7-17); Creatinine Clearance Estimated 30 mL/min (50-200); Estimated Glomerular Filt Rate 27 ml/min (>60); GFR (African American) 32 ML/MIN (>60)
[2023-03-27 12:48] LABS: Calcium 9.2 mg/dl (8.4-10.2); Magnesium 2.6 mg/dl (1.6-2.3); Phosphorous 8.7 mg/dl (2.5-4.5)
--- NOTE | 2023-03-27 13:09 | HMH.ITSTN ---
CT head was ordered. went to floor to get patient she was combative and not able to have scan at this time. Nurse to call if it changes. When I got back down to xray ordered was cancelled already. Nurse will call if additional imaging needed.
[2023-03-27 13:19] LABS: Anion Gap 40.8 mEq/L (5-15)
[2023-03-27 13:22] LABS: Carbon Dioxide < 5 mmol/L (22.0-30.0); Glucose 747 mg/dl (74-100)
[2023-03-27 13:23] LABS: Potassium 6.8 mmoL/L (3.5-5.1)
--- NOTE | 2023-03-27 13:41 | PC.NURSE ---
late entry: 939 arrived to er to attempt Midline per ER MD request. upon arrival iv had been established by ER MD, notified midline not needed at this time. 1200 notified by primary RN that additional line needed r/t meds being incompatible. upon assessment of pt it was noted that she is not alert and oriented and is not able to consent to receive a midline at this time. 20 r fa was able to be started with US at this time tho.
--- NOTE | 2023-03-27 13:45 | PC.NURSE ---
1200 fsbs completed by primary rn. results on monitor read hi . lab unable to draw labs. blood drawn from iv stick. results called to katrin haynes at [phone]. 1313 fsbs completed by primary rn katrin haynes, results read hi . katrin haynes spoke with Dr Thomas about needing repeat glucose following hi result. Per Dr Thomas no need to draw random stat glucose at this time. draw bmp at 1400 instead.
[2023-03-27 14:37] LABS: POC Glucose,Bedside 517 (70-110)
[2023-03-27 14:59] LABS: Chloride 102 mmol/L (98-107); Sodium 137 mmol/L (136-145)
[2023-03-27 15:00] LABS: Potassium 4.7 mmoL/L (3.5-5.1)
[2023-03-27 15:03] LABS: Blood Urea Nitrogen 27 mg/dl (7-17); Calcium 8.6 mg/dl (8.4-10.2); Creatinine Clearance Estimated 40 mL/min (50-200); Estimated Glomerular Filt Rate 37 ml/min (>60); GFR (African American) 45 ML/MIN (>60)
[2023-03-27 15:04] LABS: Anion Gap 34.7 mEq/L (5-15)
[2023-03-27 15:07] LABS: Carbon Dioxide < 5 mmol/L (22.0-30.0); Glucose 425 mg/dl (74-100)
[2023-03-27 15:15] LABS: POC Glucose,Bedside 372 (70-110)
--- NOTE | 2023-03-27 15:22 | PC.NURSE ---
Addendum entered by Dilia Delaney RN 03/27/23 16:17: 1600 GLUCOSE CHECK 195. INSULIN DRIP TITRATED TO 2 UNITS. Original Note: PT IS RESTING IN BED. ALERT TO SELF ONLY. PT THINKS SHE IS IN [facility]. PT IS VERY DROWSY WITH MUMBLED SPEECH. PT HAS BEEN UNCOOPERATIVE ON AND OFF SINCE ARRIVING TO THE FLOOR. NEW U/S GUIDED IV ACCESS NOTED TO THE RFA. 1500 GLUCOSE WAS 372. INSULIN DRIP TITRATED TO 6 UNITS. CRITICAL LABS HAVE BEEN REPORTED TO HOSPITALIST. HOSPITALIST ORDERED FOR VANCOMYCIN TO BE STOPPED DUE TO PT'S KIDNEY INJURY. PT HAS SMALL ABSCESS WITH MILD DRAINAGE NOTED TO THE HEAD. LUNG SOUNDS CLEAR. ABDOMEN SOFT/NON TENDER WITH ACTIVE BOWEL SOUNDS. PT HAS BEEN URINATING PER ATTENDS/BEDPAN AND HAS HAD 2 SOFT FORMED BOWEL MOVEMENTS. WILL CONTINUE TO MONITOR.
[2023-03-27 15:46] LABS: VBG HCO3 9.1 mmol/L (23-30); VBG Oxygen Saturation 72.2 % (50-70); VBG PCO2 27.8 mmol/L (35-51); VBG PO2 39.9 mmol/L (28-40)
[2023-03-27 15:49] LABS: VBG PH 7.13 mmol/L (7.31-7.41)
[2023-03-27 18:33] LABS: VBG Base Excess -11.8 mmol/L (-2.4-2.3); VBG HCO3 14.4 mmol/L (23-30); VBG Oxygen Saturation 97.1 % (50-70); VBG PCO2 28.8 mmol/L (35-51); VBG PH 7.32 mmol/L (7.31-7.41); VBG PO2 93.3 mmol/L (28-40); VBG Total CO2 15.3 mmol/L (23-27)
[2023-03-27 18:42] LABS: Chloride 108 mmol/L (98-107); Potassium 3.4 mmoL/L (3.5-5.1); Sodium 138 mmol/L (136-145)
[2023-03-27 18:45] LABS: Blood Urea Nitrogen 24 mg/dl (7-17); Creatinine Clearance Estimated 50 mL/min (50-200); Estimated Glomerular Filt Rate 48 ml/min (>60); GFR (African American) 59 ML/MIN (>60)
[2023-03-27 18:46] LABS: Anion Gap 18.4 mEq/L (5-15); Calcium 8.5 mg/dl (8.4-10.2); Carbon Dioxide 15 mmol/L (22.0-30.0); Glucose 122 mg/dl (74-100)
[2023-03-27 20:25] LABS: POC Glucose,Bedside 147 (70-110)
[2023-03-27 21:11] LABS: POC Glucose,Bedside 143 (70-110)
[2023-03-27 22:15] LABS: POC Glucose,Bedside 158 (70-110)
[2023-03-27 23:06] LABS: Chloride 106 mmol/L (98-107); Potassium 3.6 mmoL/L (3.5-5.1); Sodium 136 mmol/L (136-145)
[2023-03-27 23:08] LABS: POC Glucose,Bedside 140 (70-110)
[2023-03-27 23:09] LABS: Anion Gap 17.6 mEq/L (5-15); Blood Urea Nitrogen 20 mg/dl (7-17); Calcium 8.4 mg/dl (8.4-10.2); Carbon Dioxide 16 mmol/L (22.0-30.0); Creatinine Clearance Estimated 60 mL/min (50-200); Estimated Glomerular Filt Rate 60 ml/min (>60); GFR (African American) 72 ML/MIN (>60); Glucose 154 mg/dl (74-100); Phosphorous 2.8 mg/dl (2.5-4.5)
[2023-03-28] VITALS (12 sets, daily range): BP systolic 99–168; BP diastolic 41–84; PULSE 90–110; RESP 14–18; TEMP 36.6–37.2; O2SAT 97–100; BMI 21.9
[2023-03-28 00:13] LABS: POC Glucose,Bedside 181 (70-110)
[2023-03-28 01:18] LABS: POC Glucose,Bedside 158 (70-110)
[2023-03-28 01:56] LABS: POC Glucose,Bedside 155 (70-110)
[2023-03-28 01:56] LABS: POC Glucose,Bedside 114 (70-110)
[2023-03-28 01:56] LABS: POC Glucose,Bedside 195 (70-110)
[2023-03-28 01:56] LABS: POC Glucose,Bedside 119 (70-110)
[2023-03-28 02:22] LABS: POC Glucose,Bedside 217 (70-110)
[2023-03-28 03:39] LABS: Acetone, Serum (Rapid) Moderate (None Detect)
[2023-03-28 03:44] LABS: Chloride 109 mmol/L (98-107); Potassium 3.8 mmoL/L (3.5-5.1); Sodium 136 mmol/L (136-145)
[2023-03-28 03:47] LABS: Anion Gap 20.8 mEq/L (5-15); Blood Urea Nitrogen 18 mg/dl (7-17); Creatinine Clearance Estimated 76 mL/min (50-200); Estimated Glomerular Filt Rate 77 ml/min (>60); GFR (African American) 93 ML/MIN (>60); Glucose 227 mg/dl (74-100)
[2023-03-28 03:48] LABS: Calcium 8.2 mg/dl (8.4-10.2)
[2023-03-28 03:49] LABS: Carbon Dioxide 10 mmol/L (22.0-30.0)
[2023-03-28 04:22] LABS: POC Glucose,Bedside 258 (70-110)
[2023-03-28 05:09] LABS: POC Glucose,Bedside 250 (70-110)
[2023-03-28 06:10] LABS: POC Glucose,Bedside 214 (70-110)
[2023-03-28 06:14] LABS: Basophils % 0.1 % (0.1-2.0); Eosinophils # 0.1 K/mm3 (0.0-0.4); Eosinophils % 0.7 % (0.1-12.0); Hematocrit 28.4 % (37.0-47.0); Lymphocytes # 1.6 K/mm3 (0.7-4.5); Mean Corpuscular HGB Conc 31.3 g/dL (31.8-35.4); Mean Corpuscular Hemoglobin 29.8 pg (27.0-31.2); Mean Corpuscular Volume 95.3 fl (81-99); Mean Platelet Volume 8.7 fl (7.4-10.4); Monocytes # 1.2 K/mm3 (0.1-1.0); Monocytes % 9.6 % (1.7-9.3); Neutrophils # 9.5 K/mm3 (1.8-7.8); Neutrophils % 76.7 % (37.0-80.0); Platelet Count 242 K/mm3 (142-424); Red Blood Count 2.99 M/mm3 (4.20-5.40); Red Cell Distribution Width 15.2 % (11.5-17.5); White Blood Count 12.4 K/mm3 (4.8-10.8)
[2023-03-28 06:19] LABS: Chloride 107 mmol/L (98-107); Potassium 3.4 mmoL/L (3.5-5.1); Sodium 136 mmol/L (136-145)
[2023-03-28 06:22] LABS: Anion Gap 17.4 mEq/L (5-15); Blood Urea Nitrogen 16 mg/dl (7-17); Carbon Dioxide 15 mmol/L (22.0-30.0); Creatinine Clearance Estimated 72 mL/min (50-200); Estimated Glomerular Filt Rate 67 ml/min (>60); GFR (African American) 82 ML/MIN (>60)
[2023-03-28 06:23] LABS: Calcium 8.2 mg/dl (8.4-10.2); Glucose 224 mg/dl (74-100)
[2023-03-28 07:06] LABS: POC Glucose,Bedside 171 (70-110)
--- NOTE | 2023-03-28 07:20 | HMH.PHAINT1 ---
Pharmacy Intervention Comments: MEDICATION RECONCILIATION COMPLETED ON PATIENT USING DISCHARGE SUMMARY FROM PREVIOUS ADMISSION. -ALESHIA RUBIO, RUBEND
[2023-03-28 07:25] LABS: Hemoglobin 8.9 g/dL (12.2-16.2)
--- NOTE | 2023-03-28 08:00 | PC.NURSE ---
Per Dr. Jones, follow orders over dka protocol. FSBG 154, fluids changed to D5NS at 70 from NS at 125. NS order now discontinued.
[2023-03-28 08:01] LABS: POC Glucose,Bedside 154 (70-110)
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
[2023-03-28 09:14] LABS: POC Glucose,Bedside 156 (70-110)
--- NOTE | 2023-03-28 09:18 | DIET.NUTRFU ---
Rd consulted secondary to nery score of 14- puts patient at moderate risk for skin breakdown. This patient has been here multiple already this month chito DKA, she non complaint with medication and diet regimen. She lives at [facility], she is independent at [facility] with meals and is continent. Upon admit she noted incontinent and wearing a brief this increases her risks. Once her BS are under control her appetite is fairly good requesting non diabetic appropriate snacks. She will start on a diabetic diet today, will monitor compliance and po intake. BS upon admit were noted at 885, today her sugars at 5am was 250 and is now 156. Insulin in place. She is also on dextrose for calorie replace. social worker assistant looking for possible placement.
--- NOTE | 2023-03-28 11:29 | HMH.OTEV ---
OT Inpatient Evaluation Rehab OT IP Evaluation Start: 03/28/23 08:05 Freq: ONCE Status: Active Protocol: Document 03/28/23 11:23 [email or web address] (Rec: 03/28/23 11:29 APOLONIA [id number]) Rehab OT IP Assessment Subjective History Magali High is a 47 year old female who is a resident at [facility] with a past medical history of diabetes mellitus, recurrent hospital admissions due to DKA secondary to medication noncompliance, bipolar disorder, cigarette nicotine dependence and hyperlipidemia. She presented via EMS with a chief complaints of dizziness. Workup in the ED revealed blood glucose of 885, CO2 <5, K 5.8 and a VBG pH 6.92. At the time of my interview the patient was alert but confused , oriented to person but not place or time. Initial vitals: BP 128/89 - P 66 - RR 16 - T 97.9 degrees F - SpO2 98% RA Initial workup: CBC with 19.3K WBCs VBG pH 6.92 BMP na 133, K 5.8, CO2 <5, cr 1.9 (baseline ~1), glucose 885 UA 3+ ketones Subjective Yeah. Patient sitting upright on BSC at arrival of tx. Patient was continent of bladder and bowel mgt tr this date. Patient required Max A for toilet hygiene and Min A for SPT due to unsteadiness on B feet. Assisted Patient back to bed sitting upright with Mod A. Patient is a poor historian and at this time difficulty verbalizing place and time. Objective Patient Orientation Person,Name Upper Extremity Gross ROM WFL Bed Mobility bed mobility - supine/sit Assist Level Moderate x 1 (50% assist) Transfer Training Sit/Stand/Pivot Transfer Assist Level Minimal x 1 (25% assist) Chair Transfer Ability
[2023-03-28 11:33] LABS: POC Glucose,Bedside 212 (70-110)
[2023-03-28 11:54] LABS: Calcium 8.4 mg/dl (8.4-10.2); Magnesium 1.9 mg/dl (1.6-2.3)
--- NOTE | 2023-03-28 13:02 | HMH.PTEV ---
Physical Therapy Evaluation Rehab PT IP Evaluation Start: 03/28/23 08:05 Freq: ONCE Status: Active Protocol: Document 03/28/23 10:00 PHOCHRISTY (Rec: 03/28/23 13:02 PHORNE [id number]) Subjective/History History History 47 yowf adm with DKA. She lives at a local personal alf and is generally independent with all mobility and ADLs. hx of IDDM. Subjective Subjective pt reports she feels slwwpy this am, agrees to treatment. Rehab PT IP Eval Objective Appearance Patient Behavior Appropriate Patient Orientation Person,Place,Time Difficulty following instructions none Speech Pattern Clear Ambulation Patient Able to Ambulate Yes Ambulation Observation IP General Gait Pattern Observation Wide Based Gait Ambulation Distance (feet) 3 Ambulation Assistive Device None Ambulation Ability Minimal x 1 (25% assist) Balance Ability to Arise Able, uses arms to help Sitting Balance Steady, safe Standing Balance Steady, wide stance Dynamic Sitting Balance Ability Good Dynamic Standing Balance Ability Good Transfers Bed Transfer Ability Contact Guard/Hand Hold Chair Transfer Ability Minimal x 1 (25% assist) Sit to Stand Bed Transfer Ability Contact Guard/Hand Hold Sit to Stand Chair Transfer Ability Contact Guard/Hand Hold ROM All Extremities PT ROM Status WFL MMT All Extremities PT MMT WFL Rehab PT IP prob,goals,plan Problems Date of Evaluation: 03/28/23 PT IP Problems Bed Mobility,Transfers,Gait Rehab Potential Rehab Potential Good Plan PT Intervention Plan Bed Mobility,Transfers,Gait PT Plan Frequency Daily Duration LOS Discharge Goals Bed Transfer Ability Supervision/Stand by Sit to Stand Chair Transfer Ability Supervision/Stand by Ambulation Assistive Device Rolling Walker Ambulation Distance (feet) 20 Discharge Plan PT Discharge Plan Pt is currently most appropriate for rehab placement once medically stable for d/c. However, she could return to personal alf if she is able to meet her mobility goals prior to d/ c. G -code Required No Eval Complexity Eval Charge Codes 29699 - High Complexity PHYSICIAN CERTIF
[2023-03-28 13:56] LABS: Chloride 110 mmol/L (98-107)
[2023-03-28 13:57] LABS: Sodium 135 mmol/L (136-145)
[2023-03-28 14:00] LABS: Anion Gap 17.8 mEq/L (5-15); Blood Urea Nitrogen 13 mg/dl (7-17); Calcium 8.7 mg/dl (8.4-10.2); Carbon Dioxide 12 mmol/L (22.0-30.0); Creatinine Clearance Estimated 81 mL/min (50-200); Estimated Glomerular Filt Rate 77 ml/min (>60); GFR (African American) 93 ML/MIN (>60); Glucose 200 mg/dl (74-100)
[2023-03-28 14:03] LABS: Potassium 4.8 mmoL/L (3.5-5.1)
--- NOTE | 2023-03-28 14:46 | EXP.ACUTE.PN ---
Subjective *Date: 03/28/23 *Time: 15:13 Interval history: Her anion gap is closed. More alert this morning, requesting something to eat. Started on basal insulin. Denies any shortness of breath or chest pain. Does complain of some soreness with the lesion on her scalp. Also complaining of vaginal itching. Did well eating her breakfast. Had goals of care meeting with patient and care team including myself, christineman from her [facility], director of her [facility], Patient's social science professor, and hospital social work and case management. Extensive discussion about patient's self-harm by skipping her meds when she is frustrated other people. Discussed administration of her medication at [facility]. Patient expressed that she does not want to be at the [facility] any longer and has not wanted to for a while. She is upset by people that are there. [facility] Wants to go to [place]. States she would rather be homeless and living at [facility]. States that she can give herself her medications. When asked why she chooses not to give herself her shots, she has no good answer. Medical Exam Vital signs and Labs for Last 24 Hours: Vital Signs Temp Pulse Pulse Resp BP Pulse Ox 03/28/23 08:00 99 H 03/28/23 08:11 98.9 F 03/28/23 06:00 103 H 16 132/68 99 03/28/23 04:00 110 H 03/28/23 04:17 98 03/28/23 04:00 106 H 18 168/79 H 98 03/28/23 02:00 102 H 16 99/41 L 97 03/28/23 00:00 104 H 03/28/23 00:00 104 H 03/28/23 00:00 98.7 F 104 H 14 131/53 L 98 03/27/23 22:00 106 H 16 160/78 H 100 03/27/23 20:00 99 H 03/27/23 20:00 99 H 03/27/23 20:00 98.4 F 95 H 18 147/63 H 97 03/27/23 20:00 97 03/27/23 18:00 98.1 F 104 H 18 113/66 100 03/27/23 16:00 97 H 03/27/23 16:00 98 H 24 108/61 L 97 Intake and Output 03/27/23 03/28/23 03/28/23 23:59 07:59 15:59 Intake Total 0 / 1020 800 / 2870 2070 / 2870 Output Total 0 / 300 0 / 400 400 / 400 Balance 0 / 720 800 / 2470 1670 / 2470 Intake: Intake, Oral Amount 0 / 0 50 / 410 360 / 410 Intake, Total IV Amount 750 / 750 Dextrose 5 % and 0.9 % NaCl 1, 750 / 750 000 ml @ 75 mls/hr IV .[id number] [facility] Rx#:[id number] Infusion Intake 1710 / 1710 0.9 % Sodium Chloride 1000ML 1, 1710 / 1710 000 ml @ 150 mls/hr IV .[id number] [facility] Rx#:[id number] Output: Output, Urine Amount 0 / 300 0 / 400 400 / 400 Other: Number of Unmeasured Voids 1 1 1 Number of Bowel Movements 1 1 Weight 58.258 kg 58.25 kg Patient Weight 03/28/23 23:59 Weight 58.25 kg Laboratory Results - last 24 hr 03/27/23 14:30: Sodium 137, Potassium 4.7 D, Chloride 102, Carbon Dioxide < 5 L*, Anion Gap 34.7 H, BUN 27 H, Creatinine 1.50 H D, Estimated Creat Clear 40, Estimated GFR 37 L, Est GFR ( Amer) 45 L D, Glucose 425 H* D, Calcium 8.6 03/27/23 14:57: VBG pH 7.13 L, VBG pCO2 27.8 L, VBG pO2 39.9, VBG HCO3 9.1 L, VBG Total CO2 10.0 L, VBG O2 Saturation 72.2 H, VBG Base Excess -20.0 L 03/27/23 15:06: POC Glucose 372 H* 03/27/23 16:15: POC Glucose 195 H 03/27/23 17:06: POC Glucose 155 H 03/27/23 18:00: VBG pH 7.32, VBG pCO2 28.8 L, VBG pO2 93.3 H, VBG HCO3 14.4 L, VBG Total CO2 15.3 L, VBG O2 Saturation 97.1 H, VBG Base Excess -11.8 L 03/27/23 18:07: POC Glucose 119 H 03/27/23 18:30: Sodium 138, Potassium 3.4 L D, Chloride 108 H, Carbon Dioxide 15 L, Anion Gap 18.4 H, BUN 24 H, Creatinine 1.20 H, Estimated Creat Clear 50, Estimated GFR 48 L, Est GFR ( Amer) 59 D, Glucose 122 H D, Calcium 8.5 03/27/23 19:08: POC Glucose 114 H 03/27/23 20:18: POC Glucose 147 H 03/27/23 21:03: POC Glucose 143 H 03/27/23 22:08: POC Glucose 158 H 03/27/23 22:45: Sodium 136, Potassium 3.6, Chloride 106, Carbon Dioxide 16 L, Anion Gap 17.6 H, BUN 20 H, Creatinine 1.00, Estimated Creat Clear 60, Estimated GFR 60, Est GFR ( Amer) 72 D,
[2023-03-28 15:14] LABS: POC Glucose,Bedside 298 (70-110)
[2023-03-28 18:18] LABS: POC Glucose,Bedside 247 (70-110)
[2023-03-28 18:46] LABS: Chloride 106 mmol/L (98-107); Sodium 133 mmol/L (136-145)
[2023-03-28 18:47] LABS: Potassium 3.7 mmoL/L (3.5-5.1)
[2023-03-28 18:49] LABS: Anion Gap 11.7 mEq/L (5-15); Blood Urea Nitrogen 9 mg/dl (7-17); Carbon Dioxide 19 mmol/L (22.0-30.0); Creatinine Clearance Estimated 81 mL/min (50-200); Estimated Glomerular Filt Rate 77 ml/min (>60); GFR (African American) 93 ML/MIN (>60)
[2023-03-28 18:50] LABS: Calcium 8.1 mg/dl (8.4-10.2); Glucose 239 mg/dl (74-100)
[2023-03-28 20:45] LABS: POC Glucose,Bedside 301 (70-110)
[2023-03-28 23:23] LABS: Calcium 8.2 mg/dl (8.4-10.2); Magnesium 1.9 mg/dl (1.6-2.3)
[2023-03-28 23:56] LABS: Phosphorous 1.5 mg/dl (2.5-4.5)
[2023-03-29] VITALS (9 sets, daily range): BP systolic 94–138; BP diastolic 54–87; PULSE 90–107; RESP 16–20; TEMP 36.3–37.5; O2SAT 97–100; BMI 22.1
--- NOTE | 2023-03-29 05:19 | PC.NURSE ---
Patient A&Ox3-4, pleasant and cooperative throughout shift. VSS. Patient assisted/educated on giving own insulin per MD request.
[2023-03-29 05:49] LABS: POC Glucose,Bedside 318 (70-110)
[2023-03-29 06:28] LABS: Chloride 109 mmol/L (98-107); Sodium 137 mmol/L (136-145)
[2023-03-29 06:31] LABS: Blood Urea Nitrogen 8 mg/dl (7-17); Carbon Dioxide 20 mmol/L (22.0-30.0); Creatinine Clearance Estimated 81 mL/min (50-200); Estimated Glomerular Filt Rate 77 ml/min (>60); GFR (African American) 93 ML/MIN (>60)
[2023-03-29 06:32] LABS: Calcium 8.4 mg/dl (8.4-10.2); Glucose 323 mg/dl (74-100)
--- NOTE | 2023-03-29 08:39 | EXP.ACUTE.PN ---
Subjective *Date: 03/29/23 *Time: 14:33 Interval history: Ms. High remained hemodynamically stable overnight. Tolerating p.o. intake. Blood sugars showing better control over the past 24 hours. Gap remains closed. Unfortunately has developed some drainage from the lesion on her scalp overnight. Antibiotic coverage broadened today. Denies any nausea, vomiting. Had a bowel movement today. Medical Exam Vital signs and Labs for Last 24 Hours: Vital Signs Temp Pulse Pulse Resp BP Pulse Ox 03/29/23 08:00 100 H 18 116/65 99 03/29/23 08:00 99 03/29/23 06:00 96 H 16 115/75 98 03/29/23 04:00 98.6 F 03/29/23 04:00 98 03/29/23 04:00 90 16 122/77 98 03/29/23 04:00 90 03/29/23 02:00 96 H 16 94/54 L 98 03/29/23 00:00 100 H 18 99/67 L 98 03/29/23 00:00 100 H 03/29/23 00:00 99.5 F 03/28/23 22:00 98 H 16 129/84 100 03/28/23 20:00 99 H 03/28/23 20:00 100 03/28/23 20:00 97.9 F 03/28/23 18:00 98.0 F 03/28/23 16:00 90 03/28/23 15:20 98.9 F Intake and Output 03/28/23 03/29/23 03/29/23 23:59 07:59 15:59 Intake Total 480 / 3350 50 / 50 Output Total 650 / 1050 1250 / 1250 Balance -170 / 2300 -1200 / -1200 Intake: Intake, Oral Amount 480 / 890 Intake, Total IV Amount 50 / 50 Cefepime HCl 1 gm In 0.9 % 50 / 50 Sodium Chloride 50 ml @ 100 mls /hr IV Q12H [facility] Rx#:[id number] Output: Output, Urine Amount 650 / 1050 1250 / 1250 Other: Number of Unmeasured Voids 1 1 Weight 58.74 kg Patient Weight 03/29/23 23:59 Weight 58.74 kg Laboratory Results - last 24 hr 03/28/23 09:07: POC Glucose 156 H 03/28/23 11:26: POC Glucose 212 H 03/28/23 11:33: Calcium 8.4, Phosphorus 2.0 L D, Magnesium 1.9 03/28/23 11:33: Sodium 135 L, Potassium 4.8 D, Chloride 110 H, Carbon Dioxide 12 L, Anion Gap 17.8 H, BUN 13, Creatinine 0.80, Estimated Creat Clear 81, Estimated GFR 77, Est GFR ( Amer) 93, Glucose 200 H, Calcium 8.7 03/28/23 15:04: POC Glucose 298 H 03/28/23 18:09: POC Glucose 247 H 03/28/23 18:23: Sodium 133 L, Potassium 3.7 D, Chloride 106, Carbon Dioxide 19 L, Anion Gap 11.7, BUN 9 D, Creatinine 0.80, Estimated Creat Clear 81, Estimated GFR 77, Est GFR ( Amer) 93, Glucose 239 H, Calcium 8.1 L 03/28/23 20:38: POC Glucose 301 H* 03/28/23 23:00: Calcium 8.2 L, Phosphorus 1.5 L, Magnesium 1.9 03/29/23 05:36: POC Glucose 318 H* 03/29/23 05:43: Sodium 137, Potassium 4.0, Chloride 109 H, Carbon Dioxide 20 L, Anion Gap 12.0, BUN 8, Creatinine 0.80, Estimated Creat Clear 81, Estimated GFR 77, Est GFR ( Amer) 93, Glucose 323 H D, Calcium 8.4 I & O for Labs for Last 24 Hours: Intake & Output 03/26/23 03/27/23 03/28/23 03/29/23 23:59 23:59 23:59 23:59 Intake Total 1020 / 1020 3350 / 3350 50 / 50 Output Total 300 / 300 1050 / 1050 1250 / 1250 Balance 720 / 720 2300 / 2300 -1200 / -1200 Weight 54.431 kg 58.25 kg 58.74 kg Constitutional: Present no acute distress, thin and chronically ill appearing Head: Present atraumatic ENT: Present mucous membranes moist Comment:: edentulous; occipital lesion unroofed overnight, scant purulent drainage. Matting of hair. Neck: Present normal inspection Respiratory: Present normal respiratory effort; Absent rhonchi, stridor, wheezes or crackles Cardiac: Present Regular Rhythm and Tachycardia GI: Present soft and normal bowel sounds; Absent distention or tenderness Extremities: Present normal inspection and full ROM Skin: Present intact; Absent erythema Neuro: Present Grossly Intact, alert, awake, oriented x 3 and moves all extremities Additional Findings:: depressed, exhibiting SI. tearful and agitated Assessment and Plan *Assessment and plan (1) DKA (diabetic ketoacidosis): Status: Acute Category: Medical Code(s): E11.10 - Type 2 diabetes mellitus with ketoacidosis without coma (2) Abscess of s
--- NOTE | 2023-03-29 10:41 | PC.NURSE ---
Per Dr. Jones, pt okay to come out SD status.
[2023-03-29 11:15] LABS: Lithium (Eskalith(R)) 0.3 mmol/L (0.5-1.2)
--- NOTE | 2023-03-29 11:50 | DIET.NUTRFU ---
Meal intake improving at 75%, LBM today. Provider working on insulin regimen and possible placement secondary to wound scalp. This RD has educated patient multiple times on diabetic diet recommendations. She is noncompliant with taking insulin and has multiple admissions to hospital recently. She dislikes her living arrangements. spot worker has tried to review different discharge options. Feel she benefits from place where meals are provided, I do not feel she would meet her nutritional needs if she depended on herself to provide them. Will continue to monitor meal intake.
--- NOTE | 2023-03-29 15:48 | EXP.PHA.CONS ---
Pharmacy Consult Date: 03/29/23 Time: 15:51 Referring provider: DR FIGUEROA Reason for Consult:: VANCOMYCIN DOSING CONSULT Allergies Allergy/AdvReac Type Severity Reaction Status Date / Time Penicillins Allergy Intermediate Rash Verified 03/12/23 18:45 Home Medications Medication Instructions Recorded Confirmed Type atorvastatin 20 mg tablet 20 mg PO HS Cholesterol 30 days 02/07/23 03/27/23 Rx #30 tabs bupropion HCl 300 mg 24 hr tablet, 300 mg PO DAILY Mood 30 days #30 02/07/23 03/27/23 Rx extended release (Wellbutrin XL) tabs ferrous sulfate 325 mg (65 mg 325 mg PO DAILY Supplement 30 days 02/07/23 03/27/23 Rx iron) tablet,delayed release #30 tabs pantoprazole 40 mg tablet,delayed 40 mg PO DAILY Acid reflux 30 days 02/07/23 03/27/23 Rx release #30 tabs gabapentin 300 mg capsule 300 mg PO TID Nerve pain 02/12/23 03/27/23 History aspirin 81 mg tablet,delayed 81 mg PO DAILY Heart health 03/06/23 03/27/23 History release risperidone 1 mg tablet 1 mg PO BID Mood 03/12/23 03/27/23 History insulin lispro 100 unit/mL 10 unit (0.1 mL) SQ AC Diabetes 30 03/22/23 03/27/23 Rx subcutaneous solution ( days #10 mL U-100 Insulin) fluoxetine 20 mg capsule 20 mg PO QAM per md 03/27/23 03/27/23 History lithium carbonate 300 mg capsule 300 mg PO HS MOOD 03/27/23 03/27/23 History insulin glargine 100 unit/mL (3 40 unit (0.4 mL) SQ DAILY Diabetes 03/29/23 03/27/23 Rx mL) subcutaneous pen 30 days #12 mL mupirocin 2 % topical ointment 0.25 g topical TID 10 days #22 03/29/23 Rx grams New Prescriptions to Start Prescriptions: Manpreet De La Cruz Height: 1.63 m Weight: 58.74 kg Laboratory Results:: Laboratory Results - last 24 hr 03/27/23 15:30: [place] 0.3 L 03/28/23 18:09: POC Glucose 247 H 03/28/23 18:23: Sodium 133 L, Potassium 3.7 D, Chloride 106, Carbon Dioxide 19 L, Anion Gap 11.7, BUN 9 D, Creatinine 0.80, Estimated Creat Clear 81, Estimated GFR 77, Est GFR ( Amer) 93, Glucose 239 H, Calcium 8.1 L 03/28/23 20:38: POC Glucose 301 H* 03/28/23 23:00: Calcium 8.2 L, Phosphorus 1.5 L, Magnesium 1.9 03/29/23 05:36: POC Glucose 318 H* 03/29/23 05:43: Sodium 137, Potassium 4.0, Chloride 109 H, Carbon Dioxide 20 L, Anion Gap 12.0, BUN 8, Creatinine 0.80, Estimated Creat Clear 81, Estimated GFR 77, Est GFR ( Amer) 93, Glucose 323 H D, Calcium 8.4 Medical History: Medical History (Updated 03/29/23 @ 14:36 by Manpreet Figueroa MD) Anxiety Bipolar 1 disorder Constipation COVID Diabetes mellitus, insulin dependent (IDDM), uncontrolled DKA (diabetic ketoacidosis) Essential (primary) hypertension Former smoker Gastroparesis GERD (gastroesophageal reflux disease) Herpes High cholesterol History of drug abuse in remission History of suicidal ideation History of suicidal tendencies HTN (hypertension) Leukocytosis MDD (major depressive disorder) Neuropathy MALCOM (obstructive sleep apnea) RLS (restless legs syndrome) Sleep apnea Suicidal ideation UTI (urinary tract infection) Assessment and Plan Assessment and plan all Dx Assessment and Plan for all problems:: Pharmacokinetic dosing service Objective: Age: 47 yo Serum creatinine: 0.8 mg/dL Height: 64.2 Inches Weight (kg): 58.74 Diagnosis: SCALP ABSCESS Assessment: IBW (kg): 55.16 Dosing wt(kg): 58.74 Estimated Creatinine clearance (ml/min): 76.5 CRCL method: Cockcroft and Gault using ibw(default). Drug selected: Vancomycin Vd (liters): 38.2 (factor used: 0.65 L/kg) Stu (hr-1): 0.068 Half life (hrs): 10.19 CLvanco=?? 2.598 L/hr Recommended dose: 1000 mg Interval: 18 hrs Infusion time (hrs): 2.0 Predicted peak (mcg/mL): 34.7 Predicted trough (mcg/mL): 11.69 Total body weight is being used for vancomycin dosing. Recommendations:
[2023-03-29 16:36] LABS: POC Glucose,Bedside 235 (70-110)
[2023-03-29 17:22] LABS: POC Glucose,Bedside 198 (70-110)
--- NOTE | 2023-03-29 17:31 | P.PCN_ITS ---
Documented by User: Jose Brumfield APRN 03/29/23 17:36 [facility] Procedure Note Date: 03/29/23 Time: 14:30 Procedure Note:: Bedside wound care to the scalp furuncle wound, surrounding hair was trimmed, wound was cleaned Documented by User: Manpreet Jones MD 03/30/23 11:06 [facility] Procedure Note Procedure Note:: Bedside wound care to the scalp furuncle wound, surrounding hair was trimmed, wound was cleaned and packed with iodoform gauze. pt tolerated procedure well. dressing applied.
--- NOTE | 2023-03-29 18:44 | PC.NURSE ---
wound to patient head dressed with packing, iodophor, 4x4 and gauze. dressing placed per ALEJANDRO Garcia.
[2023-03-29 22:05] LABS: POC Glucose,Bedside 222 (70-110)
[2023-03-30] VITALS: BP 93/60; PULSE 96; RESP 16; TEMP 37.2; O2SAT 98
--- NOTE | 2023-03-30 03:44 | PC.NURSE ---
NO ACUTE CHANGES THIS SHIFT. VSS. REMAINS ON ROOM AIR. HAS RESTED WELL. NO C/O PAIN OR N/V/D THIS SHIFT. HAS GOTTEN UP TO THE BSC WITH X1 ASSIST. BED ALARM IN PLACE. CALL SKY WITHIN REACH.
[2023-03-30 04:00] VITALS: BP 106/68; PULSE 90; RESP 16; TEMP 36.7; O2SAT 97; BMI 22.4
[2023-03-30 05:54] LABS: POC Glucose,Bedside 125 (70-110)
[2023-03-30 06:23] LABS: Anion Gap 11.9 mEq/L (5-15); Blood Urea Nitrogen 5 mg/dl (7-17); Calcium 8.3 mg/dl (8.4-10.2); Carbon Dioxide 21 mmol/L (22.0-30.0); Chloride 110 mmol/L (98-107); Creatinine Clearance Estimated 110 mL/min (50-200); Estimated Glomerular Filt Rate 108 ml/min (>60); GFR (African American) 130 ML/MIN (>60); Glucose 126 mg/dl (74-100); Magnesium 2.1 mg/dl (1.6-2.3); Potassium 3.9 mmoL/L (3.5-5.1); Sodium 139 mmol/L (136-145)
[2023-03-30 06:31] LABS: Basophils % 0.2 % (0.1-2.0); Eosinophils # 0.2 K/mm3 (0.0-0.4); Eosinophils % 3.7 % (0.1-12.0); Hematocrit 32.8 % (37.0-47.0); Hemoglobin 10.5 g/dL (12.2-16.2); Lymphocytes # 2.1 K/mm3 (0.7-4.5); Lymphocytes % 37.2 % (10-50); Mean Corpuscular HGB Conc 31.9 g/dL (31.8-35.4); Mean Corpuscular Hemoglobin 29.9 pg (27.0-31.2); Mean Corpuscular Volume 93.8 fl (81-99); Mean Platelet Volume 9.5 fl (7.4-10.4); Monocytes # 0.4 K/mm3 (0.1-1.0); Monocytes % 7.7 % (1.7-9.3); Neutrophils # 2.9 K/mm3 (1.8-7.8); Neutrophils % 51.2 % (37.0-80.0); Platelet Count 201 K/mm3 (142-424); Red Cell Distribution Width 15.4 % (11.5-17.5); White Blood Count 5.7 K/mm3 (4.8-10.8)
[2023-03-30 08:00] VITALS: BP 89/62; PULSE 116; RESP 18; TEMP 36.5; O2SAT 97; O2SAT 99
--- NOTE | 2023-03-30 08:27 | EXP.PHA.CONS ---
Pharmacy Consult Date: 03/30/23 Time: 08:27 Referring provider: DR. FIGUEROA Reason for Consult:: VANCOMYCIN DOSE CHANGE Allergies Allergy/AdvReac Type Severity Reaction Status Date / Time Penicillins Allergy Intermediate Rash Verified 03/12/23 18:45 Home Medications Medication Instructions Recorded Confirmed Type atorvastatin 20 mg tablet 20 mg PO HS Cholesterol 30 days 02/07/23 03/27/23 Rx #30 tabs bupropion HCl 300 mg 24 hr tablet, 300 mg PO DAILY Mood 30 days #30 02/07/23 03/27/23 Rx extended release (Wellbutrin XL) tabs ferrous sulfate 325 mg (65 mg 325 mg PO DAILY Supplement 30 days 02/07/23 03/27/23 Rx iron) tablet,delayed release #30 tabs pantoprazole 40 mg tablet,delayed 40 mg PO DAILY Acid reflux 30 days 02/07/23 03/27/23 Rx release #30 tabs gabapentin 300 mg capsule 300 mg PO TID Nerve pain 02/12/23 03/27/23 History aspirin 81 mg tablet,delayed 81 mg PO DAILY Heart health 03/06/23 03/27/23 History release risperidone 1 mg tablet 1 mg PO BID Mood 03/12/23 03/27/23 History insulin lispro 100 unit/mL 10 unit (0.1 mL) SQ AC Diabetes 30 03/22/23 03/27/23 Rx subcutaneous solution ( days #10 mL U-100 Insulin) fluoxetine 20 mg capsule 20 mg PO QAM per 03/27/23 03/27/23 History lithium carbonate 300 mg capsule 300 mg PO HS MOOD 03/27/23 03/27/23 History insulin glargine 100 unit/mL (3 40 unit (0.4 mL) SQ DAILY Diabetes 03/29/23 03/27/23 Rx mL) subcutaneous pen 30 days #12 mL mupirocin 2 % topical ointment 0.25 g topical TID 10 days #22 03/29/23 Rx grams New Prescriptions to Start Prescriptions: Manpreet De La Cruz Height: 1.63 m Weight: 59.591 kg Laboratory Results:: Laboratory Results - last 24 hr 03/27/23 15:30: [place] 0.3 L 03/29/23 12:29: POC Glucose 235 H 03/29/23 17:14: POC Glucose 198 H 06/13/23 20:38: POC Glucose 222 H 03/30/23 05:38: WBC 5.7 D, RBC 3.50 L, Hgb 10.5 L, Hct 32.8 L, MCV 93.8, MCH 29.9, MCHC 31.9, RDW 15.4, Plt Count 201, MPV 9.5, Neut % (Auto) 51.2, Lymph % (Auto) 37.2, [place] % (Auto) 7.7, Eos % (Auto) 3.7, Baso % (Auto) 0.2, Neut # (Auto) 2.9, Lymph # (Auto) 2.1, [place] # (Auto) 0.4, Eos # (Auto) 0.2, Baso # (Auto) 0.0 03/30/23 05:38: Sodium 139, Potassium 3.9, Chloride 110 H, Carbon Dioxide 21 L, Anion Gap 11.9, BUN 5 L D, Creatinine 0.60 D, Estimated Creat Clear 110, Estimated GFR 108, Est GFR ( Amer) 130 D, Glucose 126 H D, Calcium 8.3 L, Magnesium 2.1 D 03/30/23 05:38: POC Glucose 125 H Medical History: Medical History (Updated 03/29/23 @ 14:36 by Manpreet Figueroa MD) Anxiety Bipolar 1 disorder Constipation COVID Diabetes mellitus, insulin dependent (IDDM), uncontrolled DKA (diabetic ketoacidosis) Essential (primary) hypertension Former smoker Gastroparesis GERD (gastroesophageal reflux disease) Herpes High cholesterol History of drug abuse in remission History of suicidal ideation History of suicidal tendencies HTN (hypertension) Leukocytosis MDD (major depressive disorder) Neuropathy MALCOM (obstructive sleep apnea) RLS (restless legs syndrome) Sleep apnea Suicidal ideation UTI (urinary tract infection) Assessment and Plan Assessment and plan all Dx Assessment and Plan for all problems:: Pharmacokinetic dosing service Objective: Patient: Floor: Age: 47 yo Serum creatinine: 0.60 mg/dL Height: 64.2 Inches Weight (kg): 58.7 Assessment: IBW (kg): 55.16 Dosing wt(kg): 58.7 Estimated Creatinine clearance (ml/min): 102.0 CRCL method: Cockcroft and Gault using ibw(default). Drug selected: Vancomycin Loading dose (mg): Vd (liters): 44.0 (factor used: 0.75 L/kg) Stu (hr-1): 0.089 Half life (hrs): 7.79 CLvanco=?? 3.916 L/hr Recommended dose: 1000 mg Interval: 12 hrs Infusion time (hrs): 2.0 Predicted peak (mcg/mL): 31.7 Predicted trough (mcg/mL): 13
--- NOTE | 2023-03-30 11:06 | EXP.ACUTE.PN ---
Subjective *Date: 03/30/23 *Time: 11:20 Interval history: Patient did well overnight. Glucose relatively well controlled between 102 150. Stable on room air. Significant decrease in drainage from scalp lesion. No fever overnight. Alert and oriented on exam this morning, pleasant on exam. Medical Exam Vital signs and Labs for Last 24 Hours: Vital Signs Temp Pulse Pulse Resp BP Pulse Ox 03/30/23 08:00 97 03/30/23 08:00 97.7 F 116 H 18 89/62 L 99 03/30/23 04:00 98.1 F 90 16 106/68 L 97 03/30/23 00:00 99.0 F 96 H 16 93/60 L 98 03/29/23 20:00 98.3 F 96 H 18 107/63 L 99 03/29/23 16:00 97 H 03/29/23 16:00 98.7 F 103 H 20 108/76 L 99 03/29/23 12:00 98.2 F 107 H 20 138/87 100 Intake and Output 03/29/23 03/30/23 03/30/23 23:59 07:59 15:59 Intake Total 480 / 1712 462 / 2682 2220 / 2682 Output Total 950 / 2200 250 / 950 700 / 950 Balance -470 / -488 212 / 1732 1520 / 1732 Intake: Intake, Oral Amount 480 / 1662 462 / 1182 720 / 1182 Intake, Other Amount 1500 / 1500 Output: Output, Urine Amount 950 / 2200 250 / 950 700 / 950 Other: Number of Unmeasured Voids 0 1 0 Weight 59.591 kg 59.591 kg Patient Weight 03/30/23 23:59 Weight 59.591 kg Laboratory Results - last 24 hr 03/27/23 15:30: [place] 0.3 L 03/29/23 12:29: POC Glucose 235 H 03/29/23 17:14: POC Glucose 198 H 03/29/23 20:38: POC Glucose 222 H 03/30/23 05:38: WBC 5.7 D, RBC 3.50 L, Hgb 10.5 L, Hct 32.8 L, MCV 93.8, MCH 29.9, MCHC 31.9, RDW 15.4, Plt Count 201, MPV 9.5, Neut % (Auto) 51.2, Lymph % (Auto) 37.2, [place] % (Auto) 7.7, Eos % (Auto) 3.7, Baso % (Auto) 0.2, Neut # (Auto) 2.9, Lymph # (Auto) 2.1, [place] # (Auto) 0.4, Eos # (Auto) 0.2, Baso # (Auto) 0.0 03/30/23 05:38: Sodium 139, Potassium 3.9, Chloride 110 H, Carbon Dioxide 21 L, Anion Gap 11.9, BUN 5 L D, Creatinine 0.60 D, Estimated Creat Clear 110, Estimated GFR 108, Est GFR ( Amer) 130 D, Glucose 126 H D, Calcium 8.3 L, Magnesium 2.1 D 03/30/23 05:38: POC Glucose 125 H I & O for Labs for Last 24 Hours: Intake & Output 03/27/23 03/28/23 03/29/23 03/30/23 23:59 23:59 23:59 23:59 Intake Total 1020 / 1020 3350 / 3350 1250 / 1712 2682 / 2682 Output Total 300 / 300 1050 / 1050 2200 / 2200 950 / 950 Balance 720 / 720 2300 / 2300 -950 / -488 1732 / 1732 Weight 54.431 kg 58.25 kg 58.74 kg 59.591 kg Microbiology Reports for the Last 24 Hours: Microbiology 03/27/23 10:41 Blood Blood Culture - Preliminary NO GROWTH AFTER 48 HOURS 03/27/23 10:41 Blood Blood Culture - Preliminary NO GROWTH AFTER 48 HOURS Constitutional: Present no acute distress, thin and chronically ill appearing Head: Present atraumatic ENT: Present mucous membranes moist Comment:: edentulous; lesion on crown of head with scant purulent drainage. Improvement with decreased diameter of lesion. No significant bleeding. Redressed on exam. Neck: Present normal inspection Respiratory: Present normal respiratory effort; Absent rhonchi, stridor, wheezes or crackles Cardiac: Present Regular Rhythm and Tachycardia GI: Present soft and normal bowel sounds; Absent distention or tenderness Extremities: Present normal inspection and full ROM Skin: Present intact; Absent erythema Neuro: Present Grossly Intact, alert, awake, oriented x 3 and moves all extremities Additional Findings:: depressed, exhibiting SI. tearful and agitated Assessment and Plan *Assessment and plan (1) Diabetes mellitus, insulin dependent (IDDM), uncontrolled: Status: Acute Category: Medical (2) DKA (diabetic ketoacidosis): Status: Acute Category: Medical Code(s): E11.10 - Type 2 diabetes mellitus with ketoacidosis without coma (3) Abscess of scalp: Status: Acute Category: Medical Code(s): L02.811 - Cutaneous abscess of head [any part, except face] (4) Depression:
[2023-03-30 11:54] VITALS: BP 115/79; PULSE 99; RESP 20; TEMP 36.8; O2SAT 97
[2023-03-30 12:14] LABS: POC Glucose,Bedside 343 (70-110)
[2023-03-30 16:00] VITALS: BP 112/70; PULSE 100; RESP 18; TEMP 36.8; O2SAT 99
[2023-03-30 20:00] VITALS: BP 124/74; PULSE 104; RESP 18; TEMP 36.7; O2SAT 100
[2023-03-30 20:54] LABS: POC Glucose,Bedside 255 (70-110)
[2023-03-30 21:51] LABS: POC Glucose,Bedside 188 (70-110)
[2023-03-31] VITALS: BP 90/60; PULSE 106; RESP 16; TEMP 36.7; O2SAT 100
[2023-03-31 04:00] VITALS: BP 110/74; PULSE 103; RESP 16; TEMP 37; O2SAT 96; BMI 21.6
[2023-03-31 06:06] LABS: POC Glucose,Bedside 345 (70-110)
[2023-03-31 07:41] LABS: Basophils % 0.3 % (0.1-2.0); Eosinophils # 0.2 K/mm3 (0.0-0.4); Eosinophils % 2.6 % (0.1-12.0); Hematocrit 34.4 % (37.0-47.0); Hemoglobin 10.6 g/dL (12.2-16.2); Lymphocytes # 3.2 K/mm3 (0.7-4.5); Lymphocytes % 39.6 % (10-50); Mean Corpuscular HGB Conc 30.7 g/dL (31.8-35.4); Mean Corpuscular Hemoglobin 29.3 pg (27.0-31.2); Mean Corpuscular Volume 95.3 fl (81-99); Mean Platelet Volume 8.6 fl (7.4-10.4); Monocytes # 0.4 K/mm3 (0.1-1.0); Monocytes % 5.3 % (1.7-9.3); Neutrophils # 4.2 K/mm3 (1.8-7.8); Neutrophils % 52.2 % (37.0-80.0); Platelet Count 323 K/mm3 (142-424); Red Blood Count 3.61 M/mm3 (4.20-5.40); Red Cell Distribution Width 15.2 % (11.5-17.5)
[2023-03-31 08:00] VITALS: BP 94/61; PULSE 113; RESP 18; TEMP 36.8; O2SAT 100
[2023-03-31 08:18] LABS: Chloride 106 mmol/L (98-107); Potassium 3.7 mmoL/L (3.5-5.1); Sodium 139 mmol/L (136-145)
[2023-03-31 08:21] LABS: Anion Gap 13.7 mEq/L (5-15); Blood Urea Nitrogen 5 mg/dl (7-17); Carbon Dioxide 23 mmol/L (22.0-30.0); Creatinine Clearance Estimated 80 mL/min (50-200); Estimated Glomerular Filt Rate 77 ml/min (>60); GFR (African American) 93 ML/MIN (>60); Glucose 193 mg/dl (74-100); Magnesium 2.1 mg/dl (1.6-2.3)
--- NOTE | 2023-03-31 09:04 | P.PN_ITS ---
Subjective *Date: 03/31/23 *Time: 09:04 Medical Exam Vital signs and Labs for Last 24 Hours: Vital Signs Temp Pulse Resp BP Pulse Ox 03/31/23 08:00 98.3 F 113 H 18 94/61 L 100 03/31/23 04:00 98.6 F 103 H 16 110/74 96 03/31/23 00:00 98.1 F 106 H 16 90/60 L 100 03/30/23 20:00 98.1 F 104 H 18 124/74 100 03/30/23 16:00 98.2 F 100 H 18 112/70 99 03/30/23 11:54 98.2 F 99 H 20 115/79 97 Intake and Output 03/30/23 03/31/23 03/31/23 23:59 07:59 15:59 Intake Total 930 / 4752 1020 / 1380 360 / 1380 Output Total 0 / 1900 1400 / 1999 600 / 2000 Balance 930 / 2852 -380 / -620 -240 / -620 Intake: Intake, Oral Amount 480 / 2502 720 / 1080 360 / 1080 Intake, Total IV Amount 350 / 650 300 / 300 Cefepime HCl 1 gm In 0.9 % 100 / 150 50 / 50 Sodium Chloride 50 ml @ 100 mls /hr IV Q12H [facility] Rx#:[id number] Vancomycin HCl 1,000 mg In 0.9 250 / 500 250 / 250 % Sodium Chloride 250 ml @ 125 mls/hr IV Q12H [facility] Rx#:[id number] Infusion Intake 100 / 100 Cefepime HCl 1 gm In 0.9 % 100 / 100 Sodium Chloride 50 ml @ 100 mls /hr IV Q12H [facility] Rx#:[id number] Output: Output, Urine Amount 0 / 1900 1399 / 1999 600 / 1999 Other: Number of Unmeasured Voids 1 0 0 Weight 57.351 kg Patient Weight 03/31/23 23:59 Weight 57.351 kg Laboratory Results - last 24 hr 03/30/23 12:02: POC Glucose 343 H* 03/30/23 16:26: POC Glucose 188 H 03/30/23 20:47: POC Glucose 255 H 03/31/23 05:32: POC Glucose 345 H* 03/31/23 07:33: WBC 8.0 D, RBC 3.61 L, Hgb 10.6 L, Hct 34.4 L, MCV 95.3, MCH 29.3, MCHC 30.7 L, RDW 15.2, Plt Count 323 D, MPV 8.6, Neut % (Auto) 52.2, Lymph % (Auto) 39.6, [place] % (Auto) 5.3, Eos % (Auto) 2.6, Baso % (Auto) 0.3, Neut # (Auto) 4.2, Lymph # (Auto) 3.2, [place] # (Auto) 0.4, Eos # (Auto) 0.2, Baso # (Auto) 0.0 03/31/23 07:33: Sodium 139, Potassium 3.7, Chloride 106, Carbon Dioxide 23, Anion Gap 13.7, BUN 5 L, Creatinine 0.80 D, Estimated Creat Clear 80, Estimated GFR 77, Est GFR ( Amer) 93 D, Glucose 193 H, Calcium 9.0, Magnesium 2.1 I & O for Labs for Last 24 Hours: Intake & Output 03/28/23 03/29/23 03/30/23 03/31/23 23:59 23:59 23:59 23:59 Intake Total 3350 / 3350 1250 / 1712 3972 / 4752 1380 / 1380 Output Total 1050 / 1050 2200 / 2200 1400 / 1900 1999 / 1999 Balance 2300 / 2300 -950 / -488 2572 / 2852 -620 / -620 Weight 58.25 kg 58.74 kg 59.591 kg 57.351 kg The patient's infection will respond to the chosen ABx?: Yes (BLOOD CULTURES NO GROWTH) Is the patient receiving the right drug, dose, and route?: Yes Could a more targeted ABx be ordered?: No
[2023-03-31 10:02] LABS: Vancomycin,Trough 18.4 ug/mL (5.0-10.0)
--- NOTE | 2023-03-31 10:59 | PC.NURSE ---
COURTESY TECH NOTE; ROUNDED ON PT 0855, PT DENIED NEED FOR DRINK, ASSISTANCE WITH RESTROOM, NEED TO REPOSITION. CALL LIGHT WITHIN REACH, NO FURTHER REQUESTS AT THIS TIME KARLA RICKETTS
[2023-03-31 11:04] LABS: POC Glucose,Bedside 330 (70-110)
[2023-03-31 14:17] LABS: Vancomycin,Peak 31.5 ug/ml (11-39)
--- NOTE | 2023-03-31 14:59 | EXP.DC.SUM ---
General Admission date:: 03/27/23 Discharge date: 03/29/23 HPI HPI HPI: Magali High is a 47 year old female who is a resident at [facility] with a past medical history of diabetes mellitus, recurrent hospital admissions due to DKA secondary to medication noncompliance, bipolar disorder, cigarette nicotine dependence and hyperlipidemia. She presented via EMS with a chief complaints of dizziness. Workup in the ED revealed blood glucose of 885, CO2 <5, K 5.8 and a VBG pH 6.92. At the time of my interview the patient was alert but confused, oriented to person but not place or time. Initial vitals: BP 128/89 - P 66 - RR 16 - T 97.9 degrees F - SpO2 98% RA Initial workup: CBC with 19.3K WBCs VBG pH 6.92 BMP na 133, K 5.8, CO2 <5, cr 1.9 (baseline ~1), glucose 885 UA 3+ ketones Hospital Course Hospital Course Hospital Course: 47 year old female who presented to the ED yesterday for c/o weakness and elevated blood sugar. PMHX diabetes, hx of DKA, anxiety and bipolar disorder.? Gap remains closed.? Tolerating basal bolus regimen.? Problems addressed as follows: DKA Uncontrolled diabetes Medication noncompliant -Patient initiated on DKA protocol and insulin drip on admission. Overall did well and responded with closure of her anion gap. Transition to basal bolus regimen. Insulin gradually titrated to glargine 50 every morning. Requiring 5 to 18 units of sliding scale with meals throughout admission. Transitioned to a mealtime regimen with 12 units with meals and at bedtime if fingersticks greater than 150. Will need further adjustment in the outpatient setting. Defer further management to patient's PCP. Treated by physical therapy and Occupational Therapy during admission. Patient stable for discharge back to her personal-custodial. Stressed the importance to Ms. Colón of complying with her diabetes regimen as she is at high risk for complications including worsening infections, recurrent DKA, or even . Patient states understanding of needing to comply with insulin. She is administered her own insulin intermittently during hospitalization and shows ability to give insulin. Needs reminders to slow down to inject full dose. Scalp abscess -Abscess concerning for polymicrobial. Treating with broad-spectrum antibiotics during admission. Transition to Bactrim at discharge. Wound repacked today. Showing improvement. Will need removal of packing tomorrow by home health and repacking 1 more time. Continue 6 more days of Bactrim. Meds sent to meds to beds to make sure patient had antibiotics at discharge. Uncontrolled diabetes complicates risk for progression of infection and difficulty for healing. Anxiety Bipolar -Continue Wellbutrin 150mg daily -Continue Prozac -Continue Risperidone 1 mg BID -Continue lithium, level pending. HLD -Continue Atorvastatin 20 mg daily. Treated once for candidal vaginitis during admission. Would benefit from repeat treatment after completing antibiotics. Consider 150 mg oral Diflucan x1 in 1 week. Stable for discharge home. Will return back to [facility]. Case management assisting with home health referral. Diabetes adjustment as follows Insulin glargine 50 units in the morning. Mealtime insulin lispro 12 units with meals and at bedtime if glucose elevated above 150. Recommend administering 18 units of insulin lispro if fingerstick glucose greater than 400. Exam Data for Last 24 hours Vital signs and Labs for Last 24 Hours: Temp Pulse Resp BP Pulse Ox 98.6 F 96 H 16 115/75 98 03/29/23 04:00 03/29/23 06:00 03/29/23 06:00 03/29/23 06:00 03/29/23 06:00 Laboratory Results - last 24 hr 03/28/23 07:53: POC Glucose 154 H 03/28/23 09:07: POC Glucose 156 H 03/28/23 11:26: POC Glucose 212 H 03/28/23 11:33: Calcium 8.4, Phosphorus 2.0 L D, Magnesium 1.9 03/28/23 11:33: Sodium 135 L, Potassium 4.8 D, Chloride 110 H, Carbon Dioxide 12 L, Anion Gap 17.8 H, BUN 13, Creatinine 0
--- NOTE | 2023-03-31 15:46 | CARE MANAGER ---
Contacted [employer] to arrange ride to [facility] for discharge. TARAH Silva
[2023-03-31 17:18] LABS: POC Glucose,Bedside 207 (70-110)
== END 2023-03-31 19:00 | disposition home or self-care (01) | DRG 638 ==
LOC: ER 10:15 → 2ND 11:00
PROVIDERS: Internal Medicine Adolescent Medicine; Admitting Provider Internal Medicine; Emergency Provider Student in an Organized Health Care Education/Training Program; Visit Provider Internal Medicine
DX: E11.10 Type 2 diabetes mellitus with ketoacidosis without coma (principal); N17.9 Acute kidney failure, unspecified; Z91.199 Patient's noncompliance with other medical treatment and regimen due to unspecified reason; F31.9 Bipolar disorder, unspecified; G47.33 Obstructive sleep apnea (adult) (pediatric); E78.00 Pure hypercholesterolemia, unspecified; I10 Essential (primary) hypertension; E11.40 Type 2 diabetes mellitus with diabetic neuropathy, unspecified; E11.43 Type 2 diabetes mellitus with diabetic autonomic (poly)neuropathy; K31.84 Gastroparesis; F41.9 Anxiety disorder, unspecified; B37.31 Acute candidiasis of vulva and vagina; D53.9 Nutritional anemia, unspecified
CPT/HCPCS: 10060; 36415; 80048; 80053; 80178; 80202; 81001; 82009; 82310; 82803; 82962; 83605; 83735; 84100; 85007; 85025; 87040; 87636; 97110; 97116; 97163; 97165; 97530; 97535; 99285; 99291; C9803; G0378; J0692; J2405; J3370; U0003; U0005

== ENCOUNTER 2023-04-01 12:29 | Outpatient (CLI) | payer MEDICARE, SELFPAY | END 2023-04-01 12:50 | disposition home or self-care (01) | LOC: INF 12:31 | PROVIDERS: PCP Emergency Medicine; Visit Provider Internal Medicine Adolescent Medicine | DX: L02.811 Cutaneous abscess of head [any part, except face] (principal); Z48.00 Encounter for change or removal of nonsurgical wound dressing | CPT/HCPCS: G0463 ==

== ENCOUNTER 2023-04-04 21:13 | Emergency (ER) | payer MEDICARE, SELFPAY ==
[2023-04-04 21:13] VITALS: BP 92/60; PULSE 120; RESP 18; TEMP 37.1; O2SAT 99; BMI 22.1
[2023-04-04 21:15] VITALS: BMI 22.1
--- NOTE | 2023-04-04 21:27 | XR_ITS ---
PROCEDURE INFORMATION: Exam: XR Chest Exam date and time: 04/04/23 09:28 PM Age: 47 years old Clinical indication: Other: Weakness TECHNIQUE: Imaging protocol: Radiologic exam of the chest. Views: 1 view. COMPARISON: CR XR CHEST PORTABLE 03/12/23 06:23 PM FINDINGS: Lungs: Unremarkable. No consolidation. Pleural spaces: Unremarkable. No pleural effusion. No pneumothorax. Heart/Mediastinum: Unremarkable. No cardiomegaly. Bones/joints: Unremarkable. IMPRESSION: No acute findings.
--- NOTE | 2023-04-04 21:30 | ECG_ITS ---
APPROVED REPORT Exam: Resting ECG HR:114 bpm ECG Measurements Heart Rate 114 AXES FL 159 P 59 QRSd 93 QRS 59 QT 385 T 60 QTc 453 Conclusion SINUS TACHYCARDIA NONSPECIFIC T-WAVE ABNORMALITY ABNORMAL RHYTHM ECG UNCONFIRMED REPORT Electronically signed by : Jed Early MD 04/05/2023 20:14:24
[2023-04-04 21:33] LABS: Coronavirus 19, PCR Not Detected (NotDetected); Influenza A, PCR Not Detected (NotDetected); Influenza B, PCR Not Detected (NotDetected)
[2023-04-04 21:42] LABS: Alanine Aminotransferase 39 U/L (12-78); Albumin Level 3.7 g/dl (3.5-5.0); Albumin/Globulin Ratio 1.2 (1.1-1.8); Alkaline Phosphatase 128 U/L (38-126); Anion Gap 19.1 mEq/L (5-15); Aspartate Amino Transferase 66 U/L (14-36); Bilirubin,Total 0.3 mg/dl (0.2-1.3); Blood Urea Nitrogen 17 mg/dl (7-17); Calcium 8.3 mg/dl (8.4-10.2); Carbon Dioxide 22 mmol/L (22.0-30.0); Chloride 94 mmol/L (98-107); Creatinine Clearance Estimated 63 mL/min (50-200); Estimated Glomerular Filt Rate 60 ml/min (>60); GFR (African American) 72 ML/MIN (>60); Globulin 3.2 g/dL (1.3-3.2); Potassium 5.1 mmoL/L (3.5-5.1); Sodium 130 mmol/L (136-145); Total Protein,Serum 6.9 g/dl (6.3-8.2)
[2023-04-04 21:46] LABS: Glucose 609 mg/dl (74-100)
[2023-04-04 21:47] LABS: Basophils % 0.2 % (0.1-2.0); Eosinophils # 0.2 K/mm3 (0.0-0.4); Eosinophils % 1.8 % (0.1-12.0); Hematocrit 37.6 % (37.0-47.0); Hemoglobin 11.4 g/dL (12.2-16.2); Lymphocytes % 22.6 % (10-50); Mean Corpuscular HGB Conc 30.3 g/dL (31.8-35.4); Mean Corpuscular Hemoglobin 29.2 pg (27.0-31.2); Mean Corpuscular Volume 96.5 fl (81-99); Mean Platelet Volume 8.7 fl (7.4-10.4); Monocytes # 0.8 K/mm3 (0.1-1.0); Monocytes % 8.9 % (1.7-9.3); Neutrophils # 5.7 K/mm3 (1.8-7.8); Neutrophils % 66.4 % (37.0-80.0); Platelet Count 333 K/mm3 (142-424); White Blood Count 8.6 K/mm3 (4.8-10.8)
--- NOTE | 2023-04-04 21:47 | PC.NURSE ---
notified jose of critical glucose 604
--- NOTE | 2023-04-04 21:53 | HMH.EDWEAK ---
Discharge Plan Disposition Patient Disposition: Home, Self-Care Prescriptions Prescriptions: No Action risperidone 1 mg tablet See Rx Instructions .ROUTE .COMPLEX Qty: 60 11RF Dose Instruction: GIVE 1 TABLET BY MOUTH TWICE DAILY Rx Instructions: GIVE 1 TABLET BY MOUTH TWICE DAILY atorvastatin 20 mg Tablet 20 mg PO HS 30 Days Qty: 30 0RF pantoprazole 40 mg Tablet,Delayed Release (Dr/Ec) 40 mg PO DAILY 30 Days Qty: 30 0RF ferrous sulfate 325 mg (65 mg iron) Tablet,Delayed Release (Dr/Ec) 325 mg PO DAILY 30 Days Qty: 30 0RF bupropion HCl [Wellbutrin XL] 300 mg Tablet Extended Release 24 Hr 300 mg PO DAILY 30 Days Qty: 30 0RF gabapentin 300 mg capsule 300 mg PO TID aspirin 81 mg tablet,delayed release (DR/EC) 81 mg PO DAILY Label Comments: GIVE 1 TABLET BY MOUTH ONCE DAILY lithium carbonate 300 mg capsule 300 mg PO HS fluoxetine 20 mg capsule 20 mg PO QAM mupirocin 2 % Ointment 0.25 g topical TID 10 Days Qty: 22 0RF ibuprofen 600 mg Tablet 600 mg PO Q6HP PRN (Reason: Fever Or Mild Pain) 10 Days Qty: 40 0RF sennosides-docusate sodium [Stool Softener-Stimulant Laxat] 8.6-50 mg Tablet 1 tab PO BID PRN (Reason: Constipation) 10 Days Qty: 20 0RF insulin glargine [Lantus Solostar U-100 Insulin] 100 unit/mL (3 mL) Insulin Pen 50 unit SQ DAILY 30 Days Qty: 15 0RF insulin lispro [Humalog U-100 Insulin] 100 unit/mL solution 12 unit SQ AC 30 Days Qty: 10 0RF sulfamethoxazole-trimethoprim [Bactrim DS] 800-160 mg tablet 1 tab PO BID 6 Days Qty: 12 0RF Referrals Follow up/Referrals: Jovanny Rachel MD [Primary Care Provider] - See instructions Clinical Impressions Clinical Impression: Hyperglycemia, Diabetes mellitus, insulin dependent (IDDM), uncontrolled Instructions Patient Instructions: DI for Diabetes Type 1 -- Adult Discharge ED Provider: Wilson (ED)Jovanny Weakness HPI General Chief complaint: Weakness Stated complaint: weakness Time Seen by Provider: 04/04/23 21:15 Mode of Arrival: EMS Source of Information: Patient and Medical Record Limitations: No Limitations Description of Symptoms (Recalled from ER Triage Doc. by RN): pt reports that she has been weak tired and unable to control her blood sugar or her blood pressure for the past 3 days the pt states that she hasnt been able to check her glucose. History of Present Illness HPI Narrative: weakness in general and reports no fever and has been using her meds - MD Complaint: generalized weakness Onset (ago): minute(s) Duration: intermittent Location: generalized Migration: none Severity: moderate Associated symptoms: denies other symptoms Related Data Home Medications Medication Instructions Recorded Confirmed gabapentin 300 mg capsule 300 mg PO TID Nerve pain 02/12/23 03/27/23 aspirin 81 mg tablet,delayed 81 mg PO DAILY Heart health 03/06/23 03/27/23 release fluoxetine 20 mg capsule 20 mg PO QAM per md 03/27/23 03/27/23 lithium carbonate 300 mg capsule 300 mg PO HS MOOD 03/27/23 03/27/23 Previous Rx's Medication Instructions Recorded atorvastatin 20 mg tablet 20 mg PO HS Cholesterol 30 days 02/07/23 #30 tabs bupropion HCl 300 mg 24 hr tablet, 300 mg PO DAILY Mood 30 days #30 02/07/23 extended release (Wellbutrin XL) tabs ferrous sulfate 325 mg (65 mg 325 mg PO DAILY Supplement 30 days 02/07/23 iron) tablet,delayed release #30 tabs pantoprazole 40 mg tablet,delayed 40 mg PO DAILY Acid reflux 30 days 02/07/23 release #30 tabs mupirocin 2 % topical ointment 0.25 g topical TID 10 days #22 03/29/23 grams ibuprofen 600 mg tablet 600 mg PO Q6HP PRN Fever Or Mild 03/31/23 Pain 10 days #40 tabs insulin glargine 100 unit/mL (3 50 unit (0.5 mL) SQ DAILY 30 days 03/31/23 mL) subcutaneous pen (Lantus #15 mL Solostar U-100 Insulin) insulin lispro 100 unit/mL 12 unit (0.12 mL) SQ AC Diabetes 03/31/23 subcutaneous solution (Humalog 30 days #1
[2023-04-04 21:55] LABS: Troponin I < 0.01 ng/ml (0.00-0.034)
[2023-04-04 21:57] LABS: Acetone, Serum (Rapid) None Detected (None Detect)
[2023-04-04 21:59] LABS: Microscopic, Urine URINE MICROSCOPIC (MICROSCOPIC)
[2023-04-04 22:00] VITALS: BP 88/56; PULSE 114; O2SAT 99
[2023-04-04 22:01] VITALS: BP 89/57; PULSE 114; O2SAT 99
[2023-04-04 22:04] LABS: Appearance,Urine CLEAR (Clear); Bilirubin,Urine Negative (Negative); Blood, Urine Negative (Negative); Color,Urine YELLOW (Yellow); Glucose,Urine (UA) 3+ (Negative); Ketones,Urine TRACE (Negative); Leukocyte Esterase,Urine Negative (Negative); Nitrate,Urine Negative (Negative); PH,Urine 6.5 (5.0-8.5); Protein,Urine Negative (Negative); Specific Gravity, Urine <= 1.005 (1.005-1.030); Urobilinogen,Urine 0.2 EU/dl (0.2)
[2023-04-04 22:19] LABS: WBC,Urine Occasional #/hpf (0-3)
[2023-04-04 22:30] VITALS: BP 85/55; PULSE 107; O2SAT 98
[2023-04-04 23:00] VITALS: BP 89/51; PULSE 106; O2SAT 97
[2023-04-04 23:08] LABS: POC Glucose,Bedside 500 (70-110)
[2023-04-04 23:08] LABS: POC Glucose,Bedside 546 (70-110)
[2023-04-04 23:21] LABS: Glucose,Random 401 mg/dL (74-100)
--- NOTE | 2023-04-04 23:21 | PC.NURSE ---
notified jose critical glucose 401
[2023-04-04 23:30] VITALS: BP 79/49; PULSE 104; O2SAT 95
[2023-04-05] VITALS: BP 85/54; PULSE 105; RESP 16; O2SAT 97
[2023-04-05 00:19] LABS: Anion Gap 15.7 mEq/L (5-15); Blood Urea Nitrogen 14 mg/dl (7-17); Calcium 7.2 mg/dl (8.4-10.2); Carbon Dioxide 19 mmol/L (22.0-30.0); Chloride 102 mmol/L (98-107); Creatinine Clearance Estimated 70 mL/min (50-200); Estimated Glomerular Filt Rate 67 ml/min (>60); GFR (African American) 82 ML/MIN (>60); Potassium 4.7 mmoL/L (3.5-5.1); Sodium 132 mmol/L (136-145)
[2023-04-05 00:20] LABS: Glucose 445 mg/dl (74-100)
--- NOTE | 2023-04-05 00:20 | PC.NURSE ---
notified jose of critical glucose 445
[2023-04-05 00:30] VITALS: BP 91/49; PULSE 102; RESP 18; O2SAT 96
--- NOTE | 2023-04-05 00:32 | PC.NURSE ---
pt reported that there was not a working glucometer at the facility. when calling to notify the facility that the pt is ready to discharge The facility did clarify they in fact had a glucometer that had no battery. I educated the facility staff of the importance of having a way to monitor pt glucose levels.
[2023-04-05 00:34] VITALS: BP 91/49; PULSE 97; RESP 16; TEMP 37.1; O2SAT 96
[2023-04-05 00:35] LABS: Troponin I < 0.01 ng/ml (0.00-0.034)
--- NOTE | 2023-04-05 00:42 | PC.NURSE ---
notified rachelle rivas that pt is ready for discharged. staff member states they don't have anyone to drive and will have to call reema
[2023-04-05 01:00] VITALS: BP 90/51; PULSE 100; RESP 16; O2SAT 97
== END 2023-04-05 01:20 | disposition home or self-care (01) ==
PROVIDERS: Emergency Provider Emergency Medicine; PCP Emergency Medicine
DX: E10.65 Type 1 diabetes mellitus with hyperglycemia (principal); R53.1 Weakness; F17.210 Nicotine dependence, cigarettes, uncomplicated; I10 Essential (primary) hypertension; G47.33 Obstructive sleep apnea (adult) (pediatric); E78.49 Other hyperlipidemia; F41.9 Anxiety disorder, unspecified; F31.9 Bipolar disorder, unspecified; K21.9 Gastro-esophageal reflux disease without esophagitis; E87.1 Hypo-osmolality and hyponatremia
CPT/HCPCS: 71045; 80048; 80053; 81001; 82009; 82947; 82962; 84484; 85025; 93005; C9803; U0003; U0005

== ENCOUNTER 2023-04-06 11:54 | Observation (INO) | payer MEDICARE, SELFPAY ==
[2023-04-06] VITALS (11 sets, daily range): BP systolic 87–123; BP diastolic 58–87; PULSE 100–120; RESP 15–22; TEMP 36.5–37.2; O2SAT 97–100; BMI 21.4; BMI 20.2
--- NOTE | 2023-04-06 12:19 | HMH.EDGENADL ---
Discharge Plan Disposition Patient Disposition: Admitted Condition: Serious Chief Complaint: Hyper/Hypoglycemia Prescriptions Prescriptions: No Action risperidone 1 mg tablet See Rx Instructions .ROUTE .COMPLEX Qty: 60 11RF Dose Instruction: GIVE 1 TABLET BY MOUTH TWICE DAILY Rx Instructions: GIVE 1 TABLET BY MOUTH TWICE DAILY atorvastatin 20 mg Tablet 20 mg PO HS 30 Days Qty: 30 0RF pantoprazole 40 mg Tablet,Delayed Release (Dr/Ec) 40 mg PO DAILY 30 Days Qty: 30 0RF ferrous sulfate 325 mg (65 mg iron) Tablet,Delayed Release (Dr/Ec) 325 mg PO DAILY 30 Days Qty: 30 0RF bupropion HCl [Wellbutrin XL] 300 mg Tablet Extended Release 24 Hr 300 mg PO DAILY 30 Days Qty: 30 0RF gabapentin 300 mg capsule 300 mg PO TID aspirin 81 mg tablet,delayed release (DR/EC) 81 mg PO DAILY Label Comments: GIVE 1 TABLET BY MOUTH ONCE DAILY lithium carbonate 300 mg capsule 300 mg PO HS fluoxetine 20 mg capsule 20 mg PO QAM mupirocin 2 % Ointment 0.25 g topical TID 10 Days Qty: 22 0RF ibuprofen 600 mg Tablet 600 mg PO Q6HP PRN (Reason: Fever Or Mild Pain) 10 Days Qty: 40 0RF sennosides-docusate sodium [Stool Softener-Stimulant Laxat] 8.6-50 mg Tablet 1 tab PO BID PRN (Reason: Constipation) 10 Days Qty: 20 0RF insulin glargine [Lantus Solostar U-100 Insulin] 100 unit/mL (3 mL) Insulin Pen 50 unit SQ DAILY 30 Days Qty: 15 0RF insulin lispro [Humalog U-100 Insulin] 100 unit/mL solution 12 unit SQ AC 30 Days Qty: 10 0RF sulfamethoxazole-trimethoprim [Bactrim DS] 800-160 mg tablet 1 tab PO BID 6 Days Qty: 12 0RF Referrals Follow up/Referrals: Jovanny Rachel MD [Primary Care Provider] - See instructions Clinical Impressions Clinical Impression: DKA (diabetic ketoacidosis) Instructions Patient Instructions: DI for Hyperglycemia -- Adult Discharge ED Provider: Alli Manzanares General Adult HPI General Chief complaint: Hyper/Hypoglycemia Stated complaint: HYPERGLYCEMIA Time Seen by Provider: 04/06/23 11:55 History of Present Illness HPI narrative: This a 47-year-old female with a history of poorly controlled diabetes who presents to the emergency room with a complaint of headache stomach pain polydipsia polyuria polyphagia. Patient has had multiple prior admissions for DKA. Patient denies any diarrhea fevers chills cough hemoptysis shortness of breath dysuria pyuria hematuria Related Data Home Medications Medication Instructions Recorded Confirmed gabapentin 300 mg capsule 300 mg PO TID Nerve pain 02/12/23 03/27/23 aspirin 81 mg tablet,delayed 81 mg PO DAILY Heart health 03/06/23 03/27/23 release fluoxetine 20 mg capsule 20 mg PO QAM per md 03/27/23 03/27/23 lithium carbonate 300 mg capsule 300 mg PO HS MOOD 03/27/23 03/27/23 Previous Rx's Medication Instructions Recorded atorvastatin 20 mg tablet 20 mg PO HS Cholesterol 30 days 02/07/23 #30 tabs bupropion HCl 300 mg 24 hr tablet, 300 mg PO DAILY Mood 30 days #30 02/07/23 extended release (Wellbutrin XL) tabs ferrous sulfate 325 mg (65 mg 325 mg PO DAILY Supplement 30 days 02/07/23 iron) tablet,delayed release #30 tabs pantoprazole 40 mg tablet,delayed 40 mg PO DAILY Acid reflux 30 days 02/07/23 release #30 tabs mupirocin 2 % topical ointment 0.25 g topical TID 10 days #22 03/29/23 grams ibuprofen 600 mg tablet 600 mg PO Q6HP PRN Fever Or Mild 03/31/23 Pain 10 days #40 tabs insulin glargine 100 unit/mL (3 50 unit (0.5 mL) SQ DAILY 30 days 03/31/23 mL) subcutaneous pen (Lantus #15 mL Solostar U-100 Insulin) insulin lispro 100 unit/mL 12 unit (0.12 mL) SQ AC Diabetes 03/31/23 subcutaneous solution (Humalog 30 days #10 mL U-100 Insulin) risperidone 1 mg tablet See Rx Instructions .Route 03/31/23 .COMPLEX #60 ea sennosides 8.6 mg-docusate sodium 1 tab PO BID PRN Constipation 10 03/31/23 50 mg tablet (Stool days #20 tabs Softener-Stimulant Laxative)
[2023-04-06 12:26] LABS: Basophils % 0.2 % (0.1-2.0); Eosinophils % 0.1 % (0.1-12.0); Hematocrit 36.5 % (37.0-47.0); Hemoglobin 11.1 g/dL (12.2-16.2); Lymphocytes # 1.2 K/mm3 (0.7-4.5); Lymphocytes % 11.3 % (10-50); Mean Corpuscular HGB Conc 30.4 g/dL (31.8-35.4); Mean Corpuscular Volume 98.5 fl (81-99); Mean Platelet Volume 8.6 fl (7.4-10.4); Monocytes # 0.5 K/mm3 (0.1-1.0); Monocytes % 4.7 % (1.7-9.3); Neutrophils # 9.1 K/mm3 (1.8-7.8); Neutrophils % 83.6 % (37.0-80.0); Platelet Count 338 K/mm3 (142-424); Red Cell Distribution Width 14.6 % (11.5-17.5); White Blood Count 10.9 K/mm3 (4.8-10.8)
--- NOTE | 2023-04-06 12:34 | PC.NURSE ---
rt at bedside
[2023-04-06 12:42] LABS: ABG Base Excess -14.7 mmol/L (-2.4-2.3); ABG HCO3 11.1 mmhg (22.0-26.0); ABG Oxygen Saturation 98 % (90-100); ABG PCO2 21.4 mmhg (35.0-45.0); ABG PH 7.33 mmol/L (7.35-7.45); ABG PO2 97.5 mmhg (80-100); ABG TCO2 11.8 mmhg (23-27); Oxygen ROOM AIR %; Source L BRACHIAL
[2023-04-06 12:46] LABS: Lactic Acid 6.7 mmol/L (0.7-2.1)
[2023-04-06 12:47] LABS: Coronavirus 19, PCR Not Detected (NotDetected); Influenza A, PCR Not Detected (NotDetected); Influenza B, PCR Not Detected (NotDetected)
[2023-04-06 12:48] LABS: Acetone, Serum (Rapid) Moderate (None Detect)
--- NOTE | 2023-04-06 12:49 | PC.NURSE ---
notified of critical lactic level
--- NOTE | 2023-04-06 12:51 | XR_ITS ---
FINAL REPORT CLINICAL HISTORY: dka weakness COMPARISON: 04/04/2023 FINDINGS: SINGLE VIEW CHEST The heart size is normal. The mediastinum is normal. The lungs are clear. There is no pneumothorax. IMPRESSION: No acute cardiopulmonary process. Reviewed, Interpreted and Dictated by Suraj Allan MD Transcribed by Nara Tay Authenticated and [facility]
[2023-04-06 12:54] LABS: Alanine Aminotransferase 66 U/L (12-78); Albumin Level 4.2 g/dl (3.5-5.0); Albumin/Globulin Ratio 1.3 (1.1-1.8); Alkaline Phosphatase 106 U/L (38-126); Anion Gap 37.2 mEq/L (5-15); Aspartate Amino Transferase 55 U/L (14-36); Bilirubin,Total 0.4 mg/dl (0.2-1.3); Blood Urea Nitrogen 17 mg/dl (7-17); Calcium 9.5 mg/dl (8.4-10.2); Chloride 100 mmol/L (98-107); Creatinine Clearance Estimated 48 mL/min (50-200); Estimated Glomerular Filt Rate 44 ml/min (>60); GFR (African American) 53 ML/MIN (>60); Globulin 3.3 g/dL (1.3-3.2); Potassium 4.2 mmoL/L (3.5-5.1); Sodium 141 mmol/L (136-145); Total Protein,Serum 7.5 g/dl (6.3-8.2)
[2023-04-06 12:55] LABS: Lipase 111 U/L (23-300)
[2023-04-06 12:56] LABS: Carbon Dioxide 8 mmol/L (22.0-30.0)
[2023-04-06 12:57] LABS: Glucose 434 mg/dl (74-100)
--- NOTE | 2023-04-06 12:58 | PC.NURSE ---
critical lab values reported to . CO2 8 , glucose 434
[2023-04-06 13:01] LABS: Microscopic, Urine URINE MICROSCOPIC (MICROSCOPIC)
[2023-04-06 13:03] LABS: Appearance,Urine CLEAR (Clear); Blood, Urine Negative (Negative); Color,Urine YELLOW (Yellow); Glucose,Urine (UA) 3+ (Negative); Ketones,Urine 3+ (Negative); Leukocyte Esterase,Urine Negative (Negative); Nitrate,Urine Negative (Negative); PH,Urine 5.5 (5.0-8.5); Protein,Urine Negative (Negative); Urobilinogen,Urine 0.2 EU/dl (0.2)
[2023-04-06 13:05] LABS: Urine Pregnancy, HCG Qual. Negative (Negative)
[2023-04-06 13:08] LABS: Bilirubin,Urine 1+ (Negative)
--- NOTE | 2023-04-06 13:11 | PC.NURSE ---
Dr Manzanares speaking with hospitalist
[2023-04-06 13:13] LABS: Bacteria,Urine Trace /lpf
--- NOTE | 2023-04-06 13:15 | PC.NURSE ---
care management called for admission
--- NOTE | 2023-04-06 14:19 | PC.NURSE ---
arrived to floor from ED by stretcher
--- NOTE | 2023-04-06 14:53 | EXP.HP ---
History of Present Illness *Admission Date: 04/06/23 *Reason for visit:: Nausea, vomiting, abdominal pain *History of present illness: Patient presents complaining of nausea, vomiting, abdominal pain. Patient sent to hospital from long term. States symptoms started yesterday after eating bologna sandwich . Admits to awaking overnight around 3 to 4 AM with copious nausea/vomiting/abdominal pain. States that abdominal pain occurs with diarrhea which is intermittently black/melanotic in color. Presents to hospital with bicarb level of 8, elevated blood sugar, and signs of metabolic acidosis. Patient subsequently admitted for DKA. Admits to previous recent admission for DKA. Also admits to good compliance with outpatient insulin. Denies fevers, chills, sick contacts, recent travel. [facility] Disclaimer: The information contained in this section may have been updated after the patient was seen, as this information can be updated by other users. Past medical history: Agree with information listed below Past surgical history: Status post LEEP cervical. Also admits to previous partial hysterectomy 2008 Past social history: Lives in long term, admits to daily smoking Past family history: ? Mother from CVA Father from brain cancer Medical History Anxiety Bipolar 1 disorder Constipation COVID Diabetes mellitus, insulin dependent (IDDM), uncontrolled DKA (diabetic ketoacidosis) Essential (primary) hypertension Former smoker Gastroparesis GERD (gastroesophageal reflux disease) Herpes High cholesterol History of drug abuse in remission History of suicidal ideation History of suicidal tendencies HTN (hypertension) Leukocytosis MDD (major depressive disorder) Neuropathy MALCOM (obstructive sleep apnea) RLS (restless legs syndrome) Sleep apnea Suicidal ideation UTI (urinary tract infection) Family History Other No significant family history Social History (Updated 03/27/23 @ 12:36 by Dilia Delaney RN) Smoking Status: Never smoker alcohol intake: never current occupational status: unemployed and disabled Travel in the last 8 weeks: None Review of Systems Review of Systems Review of systems:: pertinent systems reviewed and negative unless documented below Meds Home Medications and Allergies Home Medications Medication Instructions Recorded Confirmed Type atorvastatin 20 mg tablet 20 mg PO HS Cholesterol 30 days 02/07/23 03/27/23 Rx #30 tabs bupropion HCl 300 mg 24 hr tablet, 300 mg PO DAILY Mood 30 days #30 02/07/23 03/27/23 Rx extended release (Wellbutrin XL) tabs ferrous sulfate 325 mg (65 mg 325 mg PO DAILY Supplement 30 days 02/07/23 03/27/23 Rx iron) tablet,delayed release #30 tabs pantoprazole 40 mg tablet,delayed 40 mg PO DAILY Acid reflux 30 days 02/07/23 03/27/23 Rx release #30 tabs gabapentin 300 mg capsule 300 mg PO TID Nerve pain 02/12/23 03/27/23 History aspirin 81 mg tablet,delayed 81 mg PO DAILY Heart health 03/06/23 03/27/23 History release fluoxetine 20 mg capsule 20 mg PO QAM per md 03/27/23 03/27/23 History lithium carbonate 300 mg capsule 300 mg PO HS MOOD 03/27/23 03/27/23 History mupirocin 2 % topical ointment 0.25 g topical TID 10 days #22 03/29/23 Rx grams ibuprofen 600 mg tablet 600 mg PO Q6HP PRN Fever Or Mild 03/31/23 Rx Pain 10 days #40 tabs insulin glargine 100 unit/mL (3 50 unit (0.5 mL) SQ DAILY 30 days 03/31/23 Rx mL) subcutaneous pen (Lantus #15 mL Solostar U-100 Insulin) insulin lispro 100 unit/mL 12 unit (0.12 mL) SQ AC Diabetes 03/31/23 Rx subcutaneous solution (Humalog 30 days #10 mL U-100 Insulin) risperidone 1 mg tablet See Rx Instructions .Route 03/31/23 Rx .COMPLEX #60 ea sennosides 8.6 mg-docusate sodium 1 tab PO BID PRN Constipation 10 03/31/23 Rx 50 mg tablet (Stool days #20 tabs Softener-Stimulant Laxativ
[2023-04-06 15:14] LABS: POC Glucose,Bedside 165 (70-110)
[2023-04-06 16:10] LABS: Procalcitonin 0.415 ng/mL (0.0-2.0)
[2023-04-06 16:16] LABS: Acetone, Serum (Rapid) Moderate (None Detect)
[2023-04-06 16:18] LABS: POC Glucose,Bedside 125 (70-110)
[2023-04-06 16:31] LABS: Reflex Lactic Add Lactic Reflex
[2023-04-06 17:17] LABS: Lactic Acid Follow Up (RFLX 1) 1.1 mmol/L (0.7-2.1)
[2023-04-06 18:19] LABS: POC Glucose,Bedside 177 (70-110)
[2023-04-06 19:14] LABS: Chloride 103 mmol/L (98-107); Potassium 3.8 mmoL/L (3.5-5.1); Sodium 136 mmol/L (136-145)
[2023-04-06 19:18] LABS: Anion Gap 19.8 mEq/L (5-15); Calcium 8.1 mg/dl (8.4-10.2); Carbon Dioxide 17 mmol/L (22.0-30.0); Glucose 176 mg/dl (74-100)
[2023-04-06 19:22] LABS: Blood Urea Nitrogen 15 mg/dl (7-17)
[2023-04-06 19:23] LABS: Creatinine Clearance Estimated 61 mL/min (50-200); Estimated Glomerular Filt Rate 60 ml/min (>60); GFR (African American) 72 ML/MIN (>60)
[2023-04-06 20:12] LABS: POC Glucose,Bedside 141 (70-110)
[2023-04-06 21:31] LABS: Anion Gap 13.7 mEq/L (5-15); Blood Urea Nitrogen 14 mg/dl (7-17); Calcium 7.9 mg/dl (8.4-10.2); Carbon Dioxide 20 mmol/L (22.0-30.0); Chloride 104 mmol/L (98-107); Creatinine Clearance Estimated 77 mL/min (50-200); Estimated Glomerular Filt Rate 77 ml/min (>60); GFR (African American) 93 ML/MIN (>60); Glucose 141 mg/dl (74-100); Potassium 3.7 mmoL/L (3.5-5.1); Sodium 134 mmol/L (136-145)
--- NOTE | 2023-04-06 22:44 | PC.NURSE ---
gap closed and fsbs WNL, instructed by VALERIE Seymour to give 10units levemier and then stop insulin drip at 2330 and resume achs protocol
[2023-04-06 23:12] LABS: Lactic Acid 0.6 mmol/L (0.7-2.1)
[2023-04-07] VITALS (8 sets, daily range): BP systolic 82–111; BP diastolic 54–72; PULSE 90–110; RESP 10–18; TEMP 36.7–36.9; O2SAT 94–100; BMI 21.5
[2023-04-07 01:40] LABS: Anion Gap 16.8 mEq/L (5-15); Blood Urea Nitrogen 12 mg/dl (7-17); Calcium 8.2 mg/dl (8.4-10.2); Carbon Dioxide 19 mmol/L (22.0-30.0); Chloride 106 mmol/L (98-107); Creatinine Clearance Estimated 77 mL/min (50-200); Estimated Glomerular Filt Rate 77 ml/min (>60); GFR (African American) 93 ML/MIN (>60); Glucose 178 mg/dl (74-100); Potassium 3.8 mmoL/L (3.5-5.1); Sodium 138 mmol/L (136-145)
[2023-04-07 02:28] LABS: Acetone, Serum (Rapid) Small (None Detect)
[2023-04-07 06:46] LABS: Basophils % 0.4 % (0.1-2.0); Eosinophils # 0.1 K/mm3 (0.0-0.4); Eosinophils % 0.8 % (0.1-12.0); Hematocrit 30.9 % (37.0-47.0); Lymphocytes # 2.9 K/mm3 (0.7-4.5); Lymphocytes % 29.1 % (10-50); Mean Corpuscular HGB Conc 31.4 g/dL (31.8-35.4); Mean Corpuscular Hemoglobin 30.1 pg (27.0-31.2); Mean Corpuscular Volume 95.9 fl (81-99); Mean Platelet Volume 8.3 fl (7.4-10.4); Monocytes # 0.7 K/mm3 (0.1-1.0); Monocytes % 7.4 % (1.7-9.3); Neutrophils # 6.1 K/mm3 (1.8-7.8); Neutrophils % 62.3 % (37.0-80.0); Platelet Count 271 K/mm3 (142-424); Red Blood Count 3.22 M/mm3 (4.20-5.40); Red Cell Distribution Width 15.1 % (11.5-17.5); White Blood Count 9.8 K/mm3 (4.8-10.8)
[2023-04-07 06:53] LABS: Hemoglobin 10.1 g/dL (12.2-16.2)
[2023-04-07 07:11] LABS: Chloride 105 mmol/L (98-107); Potassium 4.4 mmoL/L (3.5-5.1); Sodium 134 mmol/L (136-145)
[2023-04-07 07:14] LABS: Alanine Aminotransferase 25 U/L (12-78); Alkaline Phosphatase 73 U/L (38-126); Anion Gap 15.4 mEq/L (5-15); Aspartate Amino Transferase 26 U/L (14-36); Bilirubin,Total 0.3 mg/dl (0.2-1.3); Blood Urea Nitrogen 10 mg/dl (7-17); Carbon Dioxide 18 mmol/L (22.0-30.0); Creatinine Clearance Estimated 81 mL/min (50-200); Estimated Glomerular Filt Rate 77 ml/min (>60); GFR (African American) 93 ML/MIN (>60); Globulin 2.9 g/dL (1.3-3.2); Total Protein,Serum 5.9 g/dl (6.3-8.2)
[2023-04-07 07:15] LABS: Calcium 8.3 mg/dl (8.4-10.2); Glucose 190 mg/dl (74-100)
--- NOTE | 2023-04-07 09:13 | HMH.PHAINT1 ---
Pharmacy Intervention Comments: patient's home medications reviewed and verified by external pharmacy. -Chaka Hererra, Pharm Student
--- NOTE | 2023-04-07 09:18 | SW/DCPLANNER ---
Addendum entered by Wendy Mak 04/07/23 15:09: Patient is medically stable for discharge today. I have arranged [facility] for transport back to [facility]. I have updated Janine regarding discharge plans. Original Note: This patient currently resides at [facility]. I will continue to follow up w/ Janine at [facility] until discharge date is known.
[2023-04-07 11:48] LABS: POC Glucose,Bedside 114 (70-110)
[2023-04-07 11:48] LABS: POC Glucose,Bedside 189 (70-110)
[2023-04-07 11:48] LABS: POC Glucose,Bedside 154 (70-110)
[2023-04-07 11:48] LABS: POC Glucose,Bedside 215 (70-110)
[2023-04-07 12:27] LABS: Chloride 104 mmol/L (98-107); Potassium 3.7 mmoL/L (3.5-5.1); Sodium 138 mmol/L (136-145)
[2023-04-07 12:30] LABS: Anion Gap 14.7 mEq/L (5-15); Blood Urea Nitrogen 7 mg/dl (7-17); Carbon Dioxide 23 mmol/L (22.0-30.0); Creatinine Clearance Estimated 72 mL/min (50-200); Estimated Glomerular Filt Rate 67 ml/min (>60); GFR (African American) 82 ML/MIN (>60)
[2023-04-07 12:31] LABS: Calcium 8.5 mg/dl (8.4-10.2); Glucose 121 mg/dl (74-100)
--- NOTE | 2023-04-07 14:51 | EXP.DC.SUM ---
General Admission date:: 04/06/23 Discharge date: 04/07/23 HPI HPI HPI: Patient presents complaining of nausea, vomiting, abdominal pain. Patient sent to hospital from group home. States symptoms started yesterday after eating bologna sandwich . Admits to awaking overnight around 3 to 4 AM with copious nausea/vomiting/abdominal pain. States that abdominal pain occurs with diarrhea which is intermittently black/melanotic in color. Presents to hospital with bicarb level of 8, elevated blood sugar, and signs of metabolic acidosis. Patient subsequently admitted for DKA. Admits to previous recent admission for DKA. Also admits to good compliance with outpatient insulin. Denies fevers, chills, sick contacts, recent travel. Hospital Course Hospital Course Hospital Course: Patient presented with diabetic ketoacidosis. Patient placed on DKA protocol, with anion gap rapidly closed overnight. Patient restarted on home long-acting insulin, and euglycemic by 1300 on 04/07/23. Patient subsequently discharged back to group home with instructions to follow-up with primary care physician within 1 week of hospital discharge. Exam Data for Last 24 hours Vital signs and Labs for Last 24 Hours: Temp Pulse Resp BP Pulse Ox 98.5 F 97 H 14 109/62 L 99 04/07/23 12:00 04/07/23 14:00 04/07/23 14:00 04/07/23 14:00 04/07/23 14:00 Laboratory Results - last 24 hr 04/06/23 15:07: POC Glucose 165 H 04/06/23 15:37: Acetone Level Moderate 04/06/23 15:37: Procalcitonin 0.415 04/06/23 16:12: POC Glucose 125 H 04/06/23 16:55: Lactate 1.1 04/06/23 18:01: POC Glucose 177 H 04/06/23 18:40: Sodium 136, Potassium 3.8, Chloride 103, Carbon Dioxide 17 L, Anion Gap 19.8 H, BUN 15, Creatinine 1.00 D, Estimated Creat Clear 61, Estimated GFR 60, Est GFR ( Amer) 72 D, Glucose 176 H D, Calcium 8.1 L 04/06/23 20:03: POC Glucose 141 H 04/06/23 21:07: Sodium 134 L, Potassium 3.7, Chloride 104, Carbon Dioxide 20 L, Anion Gap 13.7, BUN 14, Creatinine 0.80, Estimated Creat Clear 77, Estimated GFR 77, Est GFR ([facility] Am) 93 D, Glucose 141 H, Calcium 7.9 L 04/06/23 21:55: POC Glucose 154 H 04/06/23 23:00: Lactate 0.6 L 04/07/23 01:25: Sodium 138, Potassium 3.8, Chloride 106, Carbon Dioxide 19 L, Anion Gap 16.8 H, BUN 12, Creatinine 0.80, Estimated Creat Clear 77, Estimated GFR 77, Est [facility]) 93, Glucose 178 H D, Calcium 8.2 L 04/07/23 01:25: Acetone Level Small 04/07/23 03:16: POC Glucose 189 H 04/07/23 05:54: WBC 9.8, RBC 3.22 L, Hgb 10.1 L, Hct 30.9 L, MCV 95.9, MCH 30.1, MCHC 31.4 L, RDW 15.1, Plt Count 271, MPV 8.3, Neut % (Auto) 62.3, Lymph % (Auto) 29.1, Cochran % (Auto) 7.4, Eos % (Auto) 0.8, Baso % (Auto) 0.4, Neut # (Auto) 6.1, Lymph # (Auto) 2.9, Cochran # (Auto) 0.7, Eos # (Auto) 0.1, Baso # (Auto) 0.0 04/07/23 05:55: Sodium 134 L, Potassium 4.4, Chloride 105, Carbon Dioxide 18 L, Anion Gap 15.4 H, BUN 10, Creatinine 0.80, Estimated Creat Clear 81, Estimated GFR 77, Est GFR ([facility]) 93, Glucose 190 H, Calcium 8.3 L, Total Bilirubin 0.3, AST 26 D, ALT 25 D, Alkaline Phosphatase 73, Total Protein 5.9 L, Albumin 3.0 L D, Globulin 2.9, Albumin/Globulin Ratio 1.0 L 04/07/23 06:11: POC Glucose 215 H 04/07/23 11:42: POC Glucose 114 H 04/07/23 12:10: Sodium 138, Potassium 3.7, Chloride 104, Carbon Dioxide 23, Anion Gap 14.7, BUN 7 D, Creatinine 0.90, Estimated Creat Clear 72, Estimated GFR 67, Est GFR ( Amer) 82, Glucose 121 H D, Calcium 8.5 I & O for Last 24 hours: Intake & Output 04/04/23 04/05/23 04/06/23 04/07/23 23:59 23:59 23:59 23:59 Intake Total 978 / 1218 1080 / 1080 Output Total 0 / 0 0 / 0 Balance 978 / 1218 1080 / 1080 Weight 55.367 kg 58.655 kg Constitutional Constitutional: no acute distress and cooperative *Routine HEENT Exam Head: Present normocephalic Eye: Present EOMI and normal accommodation ENT: Present mucous membranes moist *Routine Neck Exam Neck: Present supple and full ROM *Routine Respirato
--- NOTE | 2023-04-08 13:19 | CARE MANAGER ---
Contacted [facility] regarding patient. They reported blood sugars which were better for patient. Deny any questions or concerns. TARAH Silva
== END 2023-04-07 16:11 | disposition home or self-care (01) ==
LOC: ER 13:15 → 2ND 13:28
PROVIDERS: Nurse Practitioner Family; Admitting Provider Internal Medicine; Emergency Provider Emergency Medicine; PCP Emergency Medicine; Visit Provider Internal Medicine
DX: E11.10 Type 2 diabetes mellitus with ketoacidosis without coma (principal); E78.5 Hyperlipidemia, unspecified; F41.9 Anxiety disorder, unspecified; Z79.899 Other long term (current) drug therapy; Z79.4 Long term (current) use of insulin; F31.30 Bipolar disorder, current episode depressed, mild or moderate severity, unspecified
CPT/HCPCS: G0378; 36415; 71045; 80048; 80053; 81001; 81025; 82009; 82803; 82947; 82962; 83605; 83690; 84145; 84484; 85025; 87636; 93005; 99285; 99291; C9803; U0003; U0005

== ENCOUNTER 2024-11-20 13:49 | Inpatient (IN) | payer MEDICARE, SELFPAY ==
[2024-11-20] VITALS (18 sets, daily range): BP systolic 71–113; BP diastolic 41–89; PULSE 71–119; RESP 13–32; TEMP 36.6–36.7; O2SAT 94–100; BMI 18.9
--- NOTE | 2024-11-20 13:52 | ED_ITS ---
<Statement entered by Valerie Loving MD - 11/20/24 22:19> I was consulted by the LEANNA, and we discussed the complexity of the problems being addressed. I approved the treatment and management plan for this patient's care in the emergency department, thus performing a substantive portion of the medical decision making. Valerie Loving MD, BRIAN, FACEP <Statement entered by Neftaly Pierce MD - 11/20/24 16:10> I was consulted by the LEANNA, and we discussed the complexity of the problems being addressed. I approved the treatment and management plan for this patient's care in the emergency department, thus performing a substantive portion of the medical decision making. Neftaly Pierce MD Discharge Plan Disposition Chief Complaint: Hyper/Hypoglycemia Prescriptions Prescriptions: No Action atorvastatin 20 mg Tablet 20 mg PO HS 30 Days Qty: 30 0RF pantoprazole 40 mg Tablet,Delayed Release (Dr/Ec) 40 mg PO DAILY 30 Days Qty: 30 0RF ferrous sulfate 325 mg (65 mg iron) Tablet,Delayed Release (Dr/Ec) 325 mg PO DAILY 30 Days Qty: 30 0RF bupropion HCl [Wellbutrin XL] 300 mg Tablet Extended Release 24 Hr 300 mg PO DAILY 30 Days Qty: 30 0RF gabapentin 300 mg capsule 300 mg PO TID aspirin 81 mg tablet,delayed release (DR/EC) 81 mg PO DAILY Patient Comments: GIVE 1 TABLET BY MOUTH ONCE DAILY lithium carbonate 300 mg capsule 300 mg PO HS fluoxetine 20 mg capsule 20 mg PO DAILY mupirocin 2 % Ointment 0.25 g topical TID 10 Days Qty: 22 0RF ibuprofen 600 mg Tablet 600 mg PO Q6HP PRN (Reason: Fever Or Mild Pain) 10 Days Qty: 40 0RF sennosides-docusate sodium [Stool Softener-Stimulant Laxat] 8.6-50 mg Tablet 1 tab PO BID PRN (Reason: Constipation) 10 Days Qty: 20 0RF insulin lispro [Humalog U-100 Insulin] 100 unit/mL solution 15 unit SQ AC 30 Days Qty: 10 3RF insulin glargine [Lantus Solostar U-100 Insulin] 100 unit/mL (3 mL) insulin pen 53 unit SQ DAILY Qty: 3 3RF Referrals Follow up/Referrals: Provider,Referral, MD [Primary Care Provider] - See instructions Instructions Patient Instructions: DI for Hyperglycemia -- Adult Print Language Print Language: Azeri Discharge ED Provider: Neftaly Pierce General Adult HPI <DANIEL Wong - Last Filed: 11/20/24 16:09> General Chief complaint: Hyper/Hypoglycemia Stated complaint: DKA Time Seen by Provider: 11/20/24 13:52 History of Present Illness HPI narrative: Patient presents for reportedly elevated blood sugar. Patient has a long history of poorly controlled insulin-dependent diabetes mellitus and was recently in the [facility] however she left AMA yesterday. EMS got a call today because patient is having abdominal pain high blood sugar and right groin pain. At the time of my exam patient is oriented to self only thus a reliable history is unobtainable. She does complain of abdominal pain diffusely and right groin pain reports he is thirsty but an interactive discussion is not possible to the patient's mental status currently. Related Data Home Medications ?Medication ?Instructions ?Recorded ?Confirmed gabapentin 300 mg capsule 300 mg PO TID Nerve pain 02/12/23 11/20/24 aspirin 81 mg tablet,delayed 81 mg PO DAILY Heart health 03/06/23 11/20/24 release fluoxetine 20 mg capsule 20 mg PO DAILY MOOD 03/27/23 11/20/24 lithium carbonate 300 mg capsule 300 mg PO HS MOOD 03/27/23 11/20/24 Previous Rx's ?Medication ?Instructions ?Recorded atorvastatin 20 mg tablet 20 mg PO HS Cholesterol 30 days 02/07/23 #30 tabs bupropion HCl 300 mg 24 hr tablet, 300 mg PO DAILY Mood 30 days #30 02/07/23 extended release (Wellbutrin XL) tabs ferrous sulfate 325 mg (65 mg 325 mg PO DAILY Supplement 30 days 02/07/23 iron) tablet,delayed release #30 tabs pantoprazole 40 mg tablet,delayed 40 mg PO DAILY Acid reflux 30 days 02/07/23 release #30 tabs mupirocin 2 % topical ointment 0.25 g topical TID 10 days #22 03/29/23 grams ibuprofen 600 mg tablet 600 mg PO Q6HP PRN Fever Or Mild 03/31/23 Pain 10 days #40 tabs sennosides 8.6 mg-docusate sodium 1 tab PO BID PRN Constipation 10 03/31/23 50 mg tablet (Stool days #20 tabs Softener-Stimulant Laxative) insulin glargine 100 unit/mL (3 53 unit (0.53 mL) SQ DAILY glucose 04/07/23 mL) subcutaneous pen (Lantus #3 mL Solostar U-100 Insulin) insulin lispro 100 unit/mL 15 unit (0.15 mL) SQ AC Diabetes 04/07/23 subcutaneous solution (Humalog 30 days #10 mL U-100 Insulin) Allergies Allergy/AdvReac Type Severity Reaction Status Date / Time Penicillins Allergy Intermediate Rash Verified 11/20/24 15:02 amoxicillin Allergy Rash Verified 11/20/24 15:02 [facility] <DANIEL Wong - Last Filed: 11/20/24 16:09> [facility] Disclaimer: The information contained in this section may have been updated after the patient was seen, as this information can be updated by other users. Medical History Anxiety Bipolar 1 disorder Constipation COVID Diabetes mellitus, insulin dependent (IDDM), uncontrolled DKA (diabetic ketoacidosis) Essential (primary) hypertension Former smoker Gastroparesis GERD (gastroesophageal reflux disease) Herpes High cholesterol History of drug abuse in remission History of suicidal ideation History of suicidal tendencies HTN (hypertension) Leukocytosis MDD (major depressive disorder) Neuropathy MALCOM (obstructive sleep apnea) RLS (restless legs syndrome) Sleep apnea Suicidal ideation UTI (urinary tract infection) Family History Other No significant family history Social History Smoking Status: Current every day smoker alcohol intake: never current occupational status: unemployed and disabled Travel in the last 8 weeks: None Have you lived/traveled outside [place] in past 30 days?: No Contact w/someone who lives/traveled outside US past 30 days?: No Exposure to someone with infectious disease in past 14 days?: No Do you have a fever (greater than 100.4 F or 38 C)?: No Have you tested positive for COVID-19: No Exposed to someone with COVID-19 in past 14 days?: No Do you have a sore throat?: No Do you have a cough?: No Do you have any weakness?: No Do you have any diarrhea?: No Are you experiencing any unusual bleeding?: No Do you have any muscle aches/pain?: No Do you have any abdominal pain?: No Are you experiencing loss of taste or smell?: No Other Medical History Have you received the Flu Vaccine for this season: No Have you received the Pneumonia Vaccine: No <DANIEL Wong - Last Filed: 11/20/24 16:09> ROS Obtained: Yes unobtainable due to mental status Physical Exam <DANIEL Wong - Last Filed: 11/20/24 16:09> General General appearance: in no apparent distress Respiratory Respiratory exam: Present normal lung sounds bilaterally Cardiovascular Cardiovascular exam: Present regular rate Neurological Exam Neurological exam: Absent oriented X3 Medical Decision Making <DANIEL Wong - Last Filed: 11/20/24 16:09> Medical Records Medical records reviewed: Yes I reviewed the patient's medical records. Screening: Per USPSTF and CDC recommendations, given the prevalence of disease in our region, it is our hospital?s policy to screen for HIV and viral Hepatitis for all patients aged 18 and over and those with ongoing risk factors. Randy Inquiry Pt receiving controlled substance: No Vital Signs: 11/20/24 14:31 11/20/24 14:52 11/20/24 15:01 Temperature 98.1 F Temperature Source Oral Pulse Rate Pulse Rate [Left] 110 H Respiratory Rate 15 16 18 Blood Pressure 111/88 109/49 L Blood Pressure [Right Arm] 87/55 L Blood Pressure Mean 95 69 Blood Pressure Mean [Right Arm] 65 Blood Pressure Source [Right Arm] Automatic Cuff Blood Pressure Position [Right Arm] Sitting 02 Sat by Pulse Oximetry 95 100 98 Oxygen Delivery Method Room Air 11/20/24 15:30 Temperature Temperature Source Pulse Rate 71 Pulse Rate [Left] Respiratory Rate 13 Blood Pressure 113/89 Blood Pressure [Right Arm] Blood Pressure Mean Blood Pressure Mean [Right Arm] Blood Pressure Source [Right Arm] Blood Pressure Position [Right Arm] 02 Sat by Pulse Oximetry 100 Oxygen Delivery Method Room Air Lab Data Lab results reviewed: Yes I reviewed the patient's lab results. Lab Results 11/20/24 14:19: WBC 12.8 H, RBC 3.67 L, Hgb 9.7 L, Hct 35.9 L, MCV 97.8, MCH 26.4 L, MCHC 27.0 L, RDW 18.5 H, Plt Count 345, MPV 11.5 H, Neut % (Auto) 84.5 H , Lymph % (Auto) 8.6 L, [place] % (Auto) 4.7, Eos % (Auto) 0.0 L, Baso % (Auto) 0.8, Neut # (Auto) 10.8 H, Lymph # (Auto) 1.1, [place] # (Auto) 0.6, Eos # (Auto) 0.0, Baso # (Auto) 0.1, Sodium 121 L, Potassium 5.9 H, Chloride 85 L, Carbon Dioxide < 5 L*, Anion Gap 36.9 H, BUN 23 H, Creatinine 1.40 H, Estimated GFR 40 L, Est GFR ( Amer) 49 L, Glucose 1188 H*, Hemoglobin A1c 10.7 H, Calcium 8.8, Phosphorus 9.4 H, Magnesium 2.2, Total Bilirubin 0.4, AST 28, ALT 25, Alkaline Phosphatase 124, Total Protein 6.4, Albumin 3.6, Globulin 2.8, Albumin/Globulin Ratio 1.3, Lipase 171, Acetone Level Large 11/20/24 15:23: VBG pH 7.01 L, VBG pCO2 22.5 L, VBG pO2 67.4 H, VBG HCO3 5.6 L, VBG Total CO2 6.3 L, VBG O2 Saturation 84.0 H, VBG Base Excess -25.5 L, VBG Lactic Acid 2.8 H 11/20/24 14:19 11/20/24 14:19 Orders (Tests/Meds): ED MEDICATIONS Generic Name Dose Route Start Last Admin Trade Name Freq PRN Reason Stop Dose Admin Sodium Chloride 1,000 mls @ 150 mls/hr 11/20/24 17:15 Sod Chlor 0.9% 1000ml Bag IV 12/20/24 17:14 .Q6H40M PAWAN Sodium Chloride 2,000 mls @ 999 mls/hr 11/20/24 15:15 11/20/24 15:53 Sod Chlor 0.9% 1000ml Bag IV 12/20/24 15:14 999 mls/hr .Q2H1M PAWAN Administration Insulin Human Regular 100 unit 101 mls @ 5.05 mls/hr 11/20/24 15:15 11/20/24 15:30 / Sodium Chloride IV 12/20/24 15:14 5 unit/hr .Q20H PAWAN 5.05 mls/hr Administration Protocol 5 UNIT/HR Discontinued Medications Generic Name Dose Route Start Last Admin Trade Name Jennie PRN Reason Stop Dose Admin Acetaminophen 1,000 mg 11/20/24 13:53 11/20/24 14:37 Acetaminophen 1,000mg/100ml Vial IV 11/20/24 13:54 1,000 mg ONCE ONE Administration Droperidol 2.5 mg 11/20/24 15:21 11/20/24 15:25 Droperidol 5mg/2ml Vial IV 11/20/24 15:22 2.5 mg ONCE ONE Administration Sodium Chloride 1,000 mls @ 999 mls/hr 11/20/24 13:53 11/20/24 14:36 Sod Chlor 0.9% 1000ml Bag IV 11/20/24 14:53 999 mls/hr .Q1H1M ONE Administration Ondansetron HCl 4 mg 11/20/24 13:53 11/20/24 14:36 Ondansetron 4mg/2ml Vial IV 11/20/24 13:54 4 mg ONCE ONE Administration ORDERS Category Date Time Status POCUS Point of Care (ER Only) Stat Exams 11/20/24 13:53 Completed Acetone, Serum (Rapid) Stat Lab 11/20/24 14:19 Completed CBC w/Auto Diff [Complete Blood Count Auto Diff] Stat Lab 11/20/24 14:19 Completed CMP [Comprehensive Metabolic Panel] Stat Lab 11/20/24 14:19 Completed Hemoglobin A1C Stat Lab 11/20/24 14:19 Completed Lipase Stat Lab 11/20/24 14:19 Completed Magnesium Stat Lab 11/20/24 14:19 Completed Phosphorous Stat Lab 11/20/24 14:19 Completed Rapid PCR Covid and Flu A/B Stat Lab 11/20/24 15:45 Received UA [Urinalysis and Microscopic] Stat Lab 11/20/24 13:54 Ordered UDS [Drug Screen,Urine] Stat Lab 11/20/24 13:54 Ordered Blood Culture Stat Micro 11/20/24 15:02 Ordered VBG [Venous Blood Gas] Stat RT 11/20/24 15:23 Completed Medical Decision Narrative: In summary patient is a 49-year-old female who presents to the emergency department for evaluation of evaded blood sugar altered mental status. Patient is initially normotensive 111/88 breathing 15 times a minute satting at 95% room air initially tachycardic at 110 with sinus tachycardia the bedside monitor upon arrival, with a temperature of 98.1. Patient is an unwell appearing altered appearing much older than stated age appearing 49-year-old female who is disoriented but no obvious acute distress. Alejo Coma Score is currently 4 ? 4 ? 5, patient moves all 4 extremities spontaneously but does not follow commands and is not oriented to place or circumstance. Patient has normal breath sounds normal heart sounds normal bowel sounds. 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 No meaningful history can be obtained from the patient.. Differential diagnosis includes DKA versus intoxication versus infection versus other etiologies. Patient was just inpatient at the [facility] for 4 days before she abruptly left AMA.. Initial workup will be conducted with hematologic labs ABG POCUS twelve-lead EKG urinalysis urine drug screen. Initial interventions include crystalloid bolus only until workup is complete. Initial workup reviewed by me as multiple critical derangements but all pending from DKA. Patient's VBG shows a pH of 7.01 with a venous blood gas lactate of 2.8 sodium 121 calcium 5.9 chloride 85 CO2 less than 5 gap is 36.9 creatinine 1.4 serum glucose 1188 GFR 40 hemoglobin A1c is 10.7 with a large amount of acetone. I have initiated the DKA protocol which includes electrolyte repletion insulin drip fluid bolus. Patient meets SIRS criteria however patient has no evidence of actual infection but is getting a crystalloid bolus however I am not initiating antibiotics. Given her significant derangements I had interactive discussion with hospital medicine regarding the critical nature and patient will be admitted to the ICU for further evaluation and care Neftaly Pierce: Patient is a 49-year-old female who has extensive history of insulin-dependent diabetes with noncompliance, recently sent out AGAINST MEDICAL ADVICE from [facility]. She presents today with intermittent confusion and undetectably high glucose. Patient does not have capacity although she is alert and oriented she is not able to understand or appreciate the consequences of her actions and or clear reasoning expressing a clear choice. Patient is being obstruction her to care and for safety and patient's best interest she will have to be chemically sedated while we complete this workup as she is in obvious DKA with a sugar over thousand and a anion gap approaching 40. Insulin drip has been started under my care, patient is being volume resuscitated. [id number] ultrasound at bedside service no evidence of DVT or fluid collection from previous central line. She does not appear to have a nidus of infection for which broad-spectrum antibiotics are indicated however blood cultures were obtained. Continued care was pending at time of transition to the oncoming physician, Dr. Loving. Procedure: Procedure performed was ultrasound-guided IV. Procedure performed by Neftaly Pierce. Using a long 18-gauge peripheral IV was placed in the patient's left brachial vein. Vessel cannula was patent. Images were saved to a permanent archive. Patient tolerated procedure well. There were no immediate complications. Procedure: Procedure performed was ultrasound-guided IV. Procedure performed by Neftaly Pierce. Using a long 18-gauge peripheral IV was placed in the patient's right brachial vein. Vessel cannula was patent. Images were saved to a permanent archive. Patient tolerated the procedure well. There were no immediate complications. <Neftaly Peirce MD - Last Filed: 11/20/24 15:30> Vital Signs: 11/20/24 14:31 11/20/24 14:52 11/20/24 15:01 Temperature 98.1 F Temperature Source Oral Pulse Rate Pulse Rate [Left] 110 H Respiratory Rate 15 16 18 Blood Pressure 111/88 109/49 L Blood Pressure [Right Arm] 87/55 L Blood Pressure Mean 95 69 Blood Pressure Mean [Right Arm] 65 Blood Pressure Source [Right Arm] Automatic Cuff Blood Pressure Position [Right Arm] Sitting 02 Sat by Pulse Oximetry 95 100 98 Oxygen Delivery Method Room Air 11/20/24 15:30 Temperature Temperature Source Pulse Rate 71 Pulse Rate [Left] Respiratory Rate 13 Blood Pressure 113/89 Blood Pressure [Right Arm] Blood Pressure Mean Blood Pressure Mean [Right Arm] Blood Pressure Source [Right Arm] Blood Pressure Position [Right Arm] 02 Sat by Pulse Oximetry 100 Oxygen Delivery Method Room Air Lab Data Lab Results 11/20/24 14:19: WBC 12.8 H, RBC 3.67 L, Hgb 9.7 L, Hct 35.9 L, MCV 97.8, MCH 26.4 L, MCHC 27.0 L, RDW 18.5 H, Plt Count 345, MPV 11.5 H, Neut % (Auto) 84.5 H , Lymph % (Auto) 8.6 L, [place] % (Auto) 4.7, Eos % (Auto) 0.0 L, Baso % (Auto) 0.8, Neut # (Auto) 10.8 H, Lymph # (Auto) 1.1, [place] # (Auto) 0.6, Eos # (Auto) 0.0, Baso # (Auto) 0.1, Sodium 121 L, Potassium 5.9 H, Chloride 85 L, Carbon Dioxide < 5 L*, Anion Gap 36.9 H, BUN 23 H, Creatinine 1.40 H, Estimated GFR 40 L, Est GFR ( Amer) 49 L, Glucose 1188 H*, Hemoglobin A1c 10.7 H, Calcium 8.8, Phosphorus 9.4 H, Magnesium 2.2, Total Bilirubin 0.4, AST 28, ALT 25, Alkaline Phosphatase 124, Total Protein 6.4, Albumin 3.6, Globulin 2.8, Albumin/Globulin Ratio 1.3, Lipase 171, Acetone Level Large 11/20/24 15:23: VBG pH 7.01 L, VBG pCO2 22.5 L, VBG pO2 67.4 H, VBG HCO3 5.6 L, VBG Total CO2 6.3 L, VBG O2 Saturation 84.0 H, VBG Base Excess -25.5 L, VBG Lactic Acid 2.8 H Orders (Tests/Meds): ED MEDICATIONS Generic Name Dose Route Start Last Admin Trade Name Freq PRN Reason Stop Dose Admin Sodium Chloride 1,000 mls @ 150 mls/hr 11/20/24 17:15 Sod Chlor 0.9% 1000ml Bag IV 12/20/24 17:14 .Q6H40M PAWAN Sodium Chloride 2,000 mls @ 999 mls/hr 11/20/24 15:15 11/20/24 15:53 Sod Chlor 0.9% 1000ml Bag IV 12/20/24 15:14 999 mls/hr .Q2H1M PAWAN Administration Insulin Human Regular 100 unit 101 mls @ 5.05 mls/hr 11/20/24 15:15 11/20/24 15:30 / Sodium Chloride IV 12/20/24 15:14 5 unit/hr .Q20H PAWAN 5.05 mls/hr Administration Protocol 5 UNIT/HR Discontinued Medications Generic Name Dose Route Start Last Admin Trade Name Freq PRN Reason Stop Dose Admin Acetaminophen 1,000 mg 11/20/24 13:53 11/20/24 14:37 Acetaminophen 1,000mg/100ml Vial IV 11/20/24 13:54 1,000 mg ONCE ONE Administration Droperidol 2.5 mg 11/20/24 15:21 11/20/24 15:25 Droperidol 5mg/2ml Vial IV 11/20/24 15:22 2.5 mg ONCE ONE Administration Sodium Chloride 1,000 mls @ 999 mls/hr 11/20/24 13:53 11/20/24 14:36 Sod Chlor 0.9% 1000ml Bag IV 11/20/24 14:53 999 mls/hr .Q1H1M ONE Administration Ondansetron HCl 4 mg 11/20/24 13:53 11/20/24 14:36 Ondansetron 4mg/2ml Vial IV 11/20/24 13:54 4 mg ONCE ONE Administration ORDERS Category Date Time Status POCUS Point of Care (ER Only) Stat Exams 11/20/24 13:53 Completed Acetone, Serum (Rapid) Stat Lab 11/20/24 14:19 Completed CBC w/Auto Diff [Complete Blood Count Auto Diff] Stat Lab 11/20/24 14:19 Completed CMP [Comprehensive Metabolic Panel] Stat Lab 11/20/24 14:19 Completed Hemoglobin A1C Stat Lab 11/20/24 14:19 Completed Lipase Stat Lab 11/20/24 14:19 Completed Magnesium Stat Lab 11/20/24 14:19 Completed Phosphorous Stat Lab 11/20/24 14:19 Completed Rapid PCR Covid and Flu A/B Stat Lab 11/20/24 15:45 Received UA [Urinalysis and Microscopic] Stat Lab 11/20/24 13:54 Ordered UDS [Drug Screen,Urine] Stat Lab 11/20/24 13:54 Ordered Blood Culture Stat Micro 11/20/24 15:02 Ordered VBG [Venous Blood Gas] Stat RT 11/20/24 15:23 Completed Medical Decision Narrative: In summary patient is a [age, sex] who presents to the emergency department for evaluation of [complaint]. Patient is [hemodynamically stable/unstable] upon arrival, [febrile/afebrile]. [Unremarkable physical exam, nonfocal exam versus focal remarkable exam]. Differential diagnosis includes [DDx]. Initial workup will be conducted with [hematologic labs, imaging, respiratory swab, describe workup]. Initial interventions include [crystalloid bolus, medications, p.o. challenge, etc.] initial workup reviewed by me [hematologic labs are remarkable for... Imaging remarkable for... Urinalysis remarkable for]. Upon repeat evaluation [patient had acceptable resolution of symptoms, had persistent pain for which additional interventions were conducted (describe interventions), tolerated p.o., was ambulatory, etc.]. Given this [patient is appropriate for discharge at this time and will be discharged with a prescription for... The case was discussed with hospital medicine regarding management and they will admit the patient their service for continued evaluation at this time... Etc.] Neftaly Pierce: Patient is a 49-year-old female who has extensive history of insulin-dependent diabetes with noncompliance, recently sent out AGAINST MEDICAL ADVICE from [facility]. She presents today with intermittent confusion and undetectably high glucose. Patient does not have capacity although she is alert and oriented she is not able to understand or appreciate the consequences of her actions and or clear reasoning expressing a clear choice. Patient is being obstruction her to care and for safety and patient's best interest she will have to be chemically sedated while we complete this workup as she is in obvious DKA with a sugar over thousand and a anion gap approaching 40. Insulin drip has been started under my care, patient is being volume resuscitated. [id number] ultrasound at bedside service no evidence of DVT or fluid collection from previous central line. She does not appear to have a nidus of infection for which broad-spectrum antibiotics are indicated however blood cultures were obtained. Continued care was pending at time of transition to the oncoming physician, Dr. Loving. Procedure: Procedure performed was ultrasound-guided IV. Procedure performed by Neftaly Pierce. Using a long 18-gauge peripheral IV was placed in the patient's left brachial vein. Vessel cannula was patent. Images were saved to a permanent archive. Patient tolerated procedure well. There were no immediate complications. Procedure: Procedure performed was ultrasound-guided IV. Procedure performed by Neftaly Pierce. Using a long 18-gauge peripheral IV was placed in the patient's right brachial vein. Vessel cannula was patent. Images were saved to a permanent archive. Patient tolerated the procedure well. There were no immediate complications. Critical Care <Neftaly Pierce MD - Last Filed: 11/20/24 15:30> Critical Care Time Critical Care Time: Yes Attestation: On 11/20/24, the high probability of a clinically significant, sudden or life threatening deterioration of the following system(s) required my full and direct attention, intervention and personal management. The time I documented below is in addition to time spent performing reported procedures but includes the following listed in this critical care notation. Total Time Total Critical Care Time: 45
[2024-11-20 14:27] LABS: Basophils # 0.1 K/mm3 (0-0.2); Basophils % 0.8 % (0.1-2.0); Hematocrit 35.9 % (37.0-47.0); Hemoglobin 9.7 g/dL (12.2-16.2); Lymphocytes # 1.1 K/mm3 (0.7-4.5); Lymphocytes % 8.6 % (10-50); Mean Corpuscular Hemoglobin 26.4 pg (27.0-31.2); Mean Corpuscular Volume 97.8 fl (81-99); Mean Platelet Volume 11.5 fl (7.4-10.4); Monocytes # 0.6 K/mm3 (0.1-1.0); Monocytes % 4.7 % (1.7-9.3); Neutrophils # 10.8 K/mm3 (1.8-7.8); Neutrophils % 84.5 % (37.0-80.0); Platelet Count 345 K/mm3 (142-424); Red Blood Count 3.67 M/mm3 (4.20-5.40); Red Cell Distribution Width 18.5 % (11.5-17.5); White Blood Count 12.8 K/mm3 (4.8-10.8)
[2024-11-20 14:33] LABS: Albumin Level 3.6 g/dl (3.5-5.0); Chloride 85 mmol/L (98-107)
[2024-11-20 14:34] LABS: Potassium 5.9 mmoL/L (3.5-5.1); Sodium 121 mmol/L (136-145)
[2024-11-20 14:36] LABS: Alanine Aminotransferase 25 U/L (12-78); Alkaline Phosphatase 124 U/L (38-126); Aspartate Amino Transferase 28 U/L (14-36); Bilirubin,Total 0.4 mg/dl (0.2-1.3); Blood Urea Nitrogen 23 mg/dl (7-17); Estimated Glomerular Filt Rate 40 ml/min (>60); GFR (African American) 49 ML/MIN (>60); Lipase 171 U/L (23-300)
[2024-11-20] MEDS: 0.9 % SODIUM CHLORIDE 1000ML 1,000 ML 999 ML IV (14:36)
[2024-11-20] MEDS: ONDANSETRON 4MG/2ML VIAL 4 MG IV (14:36)
[2024-11-20 14:37] LABS: Albumin/Globulin Ratio 1.3 (1.1-1.8); Calcium 8.8 mg/dl (8.4-10.2); Globulin 2.8 g/dL (1.3-3.2); Magnesium 2.2 mg/dl (1.6-2.3); Phosphorous 9.4 mg/dl (2.5-4.5); Total Protein,Serum 6.4 g/dl (6.3-8.2)
[2024-11-20] MEDS: ACETAMINOPHEN 1,000MG/100ML VIAL 1000 MG IV (14:37)
[2024-11-20 14:42] LABS: Anion Gap 36.9 mEq/L (5-15); Carbon Dioxide < 5 mmol/L (22.0-30.0)
[2024-11-20 14:59] LABS: Glucose 1188 mg/dl (74-100)
--- NOTE | 2024-11-20 14:59 | PC.NURSE ---
Dr. Pierce states we are not starting a sepsis criteria work up due to the cause of her triggering is DKA.
--- NOTE | 2024-11-20 14:59 | PC.NURSE ---
CRITICAL GLUCOSE 1188, PT NAME AND R/V. DR BRYAN NOTIFIED
[2024-11-20 15:09] LABS: Acetone, Serum (Rapid) Large (None Detect)
--- NOTE | 2024-11-20 15:14 | PC.NURSE ---
DR BRYAN AT BEDSIDE
--- NOTE | 2024-11-20 15:19 | ECG_ITS ---
APPROVED REPORT Exam: Resting ECG HR:119 bpm ECG Measurements Heart Rate 119 AXES RI 239 P 127 QRSd 92 QRS 70 QT 320 T 24 QTc 391 Conclusion ECTOPIC ATRIAL TACHYCARDIA WITH FIRST DEGREE AV BLOCK LEFT ATRIAL ENLARGEMENT [-0.15mV P-WAVE IN V1/V2] ABNORMAL ECG UNCONFIRMED REPORT Electronically signed by : Manpreet Loving, 11/20/2024 22:27:16
[2024-11-20 15:21] LABS: Hemoglobin A1C 10.7 % (4.0-6.0)
[2024-11-20] MEDS: droPERidol 5MG/2ML VIAL 2.5 MG IV (15:25)
--- NOTE | 2024-11-20 15:26 | PC.NURSE ---
As per the MAR administered 2.5mg of droperidol and verified with Jonathan Jones RN
[2024-11-20] MEDS: INSULIN REGULAR, HUMAN 100 UNIT in 0.9 % SODIUM CHLORIDE 100 ML 5.05 UNIT IV (15:30)
[2024-11-20 15:35] LABS: VBG PCO2 22.5 mmol/L (35-51); VBG PH 7.01 mmol/L (7.31-7.41); VBG PO2 67.4 mmol/L (28-40)
[2024-11-20 15:36] LABS: Lactate Venous 2.8 mmol/L (0.4-2.0); VBG Base Excess -25.5 mmol/L (-2.4-2.3); VBG HCO3 5.6 mmol/L (23-30); VBG Total CO2 6.3 mmol/L (23-27)
--- NOTE | 2024-11-20 15:42 | PC.NURSE ---
SENDY MCQUEEN IS READING IN @[id number].
--- NOTE | 2024-11-20 15:44 | PC.NURSE ---
ROUNDED ON THE PT. THE PT VOICES THAT SHE DOES NOT NEED ANYTHING AT THIS TIME. CALL LIGHT IS WITHIN REACH OF THE PT.
[2024-11-20 15:49] LABS: Coronavirus 19, PCR Not Detected (NotDetected); Influenza A, PCR Not Detected (NotDetected); Influenza B, PCR Not Detected (NotDetected)
[2024-11-20] MEDS: 0.9 % SODIUM CHLORIDE 1000ML 2,000 ML 999 ML IV (15:53)
--- NOTE | 2024-11-20 15:59 | P.HP_ITS ---
History of Present Illness *Admission Date: 11/20/24 *Reason for visit:: confused, DKA *History of present illness: Ms. High is a 49-year-old female previously well-known to our facility with uncontrolled diabetes, depression, bipolar disorder, recurrent DKA. She has not been admitted to our facility for over a year and a half after moving to [facility]. She presented today to the ER for report of elevated blood sugar. Was recently at [facility] but left AMA yesterday per her report from EMS in the ER. EMS was called today by patient's friend whom she lives with because she was having worsening abdominal pain, nausea, confusion, fatigue. Oriented to self only. Presented to the ER and was found to have significant metabolic disturbances, kidney injury, high anion gap metabolic acidosis, and severe DKA. Initial blood sugar 1188, bicarb less than 5. Anion gap 36. Initiated on DKA protocol. Medicine consulted to admit patient to the ICU for further management. On evaluation, she keeps saying how thirsty she is. Unable to provide significant history. Denies any fever. Has mortgage coordinator small respirations on evaluation. States she is cold. [facility] Disclaimer: The information contained in this section may have been updated after the patient was seen, as this information can be updated by other users. Medical History History of suicidal ideation Suicidal ideation HTN (hypertension) Sleep apnea Constipation Herpes High cholesterol COVID MALCOM (obstructive sleep apnea) Gastroparesis Essential (primary) hypertension UTI (urinary tract infection) Leukocytosis History of suicidal tendencies Anxiety Bipolar 1 disorder MDD (major depressive disorder) RLS (restless legs syndrome) Neuropathy History of drug abuse in remission Former smoker GERD (gastroesophageal reflux disease) DKA (diabetic ketoacidosis) Diabetes mellitus, insulin dependent (IDDM), uncontrolled Family History Other No significant family history Social History Smoking Status: Current every day smoker alcohol intake: never current occupational status: unemployed and disabled Travel in the last 8 weeks: None Have you lived/traveled outside US in past 30 days?: No Contact w/someone who lives/traveled outside US past 30 days?: No Exposure to someone with infectious disease in past 14 days?: No Do you have a fever (greater than 100.4 F or 38 C)?: No Have you tested positive for COVID-19: No Exposed to someone with COVID-19 in past 14 days?: No Do you have a sore throat?: No Do you have a cough?: No Do you have any weakness?: No Do you have any diarrhea?: No Are you experiencing any unusual bleeding?: No Do you have any muscle aches/pain?: No Do you have any abdominal pain?: No Are you experiencing loss of taste or smell?: No Other Medical History Have you received the Flu Vaccine for this season: No Have you received the Pneumonia Vaccine: No Review of Systems Review of Systems Review of systems:: unable to obtain Meds Home Medications and Allergies Home Medications ?Medication ?Instructions ?Recorded ?Confirmed ?Type atorvastatin 20 mg tablet 20 mg PO HS Cholesterol 30 days 02/07/23 11/20/24 Rx #30 tabs bupropion HCl 300 mg 24 hr tablet, 300 mg PO DAILY Mood 30 days #30 02/07/23 11/20/24 Rx extended release (Wellbutrin XL) tabs ferrous sulfate 325 mg (65 mg 325 mg PO DAILY Supplement 30 days 02/07/23 11/20/24 Rx iron) tablet,delayed release #30 tabs pantoprazole 40 mg tablet,delayed 40 mg PO DAILY Acid reflux 30 days 02/07/23 11/20/24 Rx release #30 tabs gabapentin 300 mg capsule 300 mg PO TID Nerve pain 02/12/23 11/20/24 History aspirin 81 mg tablet,delayed 81 mg PO DAILY Heart health 03/06/23 11/20/24 History release fluoxetine 20 mg capsule 20 mg PO DAILY MOOD 03/27/23 11/20/24 History lithium carbonate 300 mg capsule 300 mg PO HS MOOD 03/27/23 11/20/24 History mupirocin 2 % topical ointment 0.25 g topical TID 10 days #22 03/29/23 11/20/24 Rx grams ibuprofen 600 mg tablet 600 mg PO Q6HP PRN Fever Or Mild 03/31/23 11/20/24 Rx Pain 10 days #40 tabs sennosides 8.6 mg-docusate sodium 1 tab PO BID PRN Constipation 10 03/31/23 11/20/24 Rx 50 mg tablet (Stool days #20 tabs Softener-Stimulant Laxative) insulin glargine 100 unit/mL (3 53 unit (0.53 mL) SQ DAILY glucose 04/07/23 11/20/24 Rx mL) subcutaneous pen (Lantus #3 mL Solostar U-100 Insulin) insulin lispro 100 unit/mL 15 unit (0.15 mL) SQ AC Diabetes 04/07/23 11/20/24 Rx subcutaneous solution (Humalog 30 days #10 mL U-100 Insulin) New Prescriptions to Start Prescriptions: Allergies Allergy/AdvReac Type Severity Reaction Status Date / Time Penicillins Allergy Intermediate Rash Verified 11/20/24 17:04 amoxicillin Allergy Rash Verified 11/20/24 17:04 Exam Data for Last 24 hours Vital signs and Labs for Last 24 Hours: Temp Pulse Resp BP Pulse Ox O2 Del Method 98.1 F 71 13 113/89 100 Room Air 11/20/24 14:52 11/20/24 15:30 11/20/24 15:30 11/20/24 15:30 11/20/24 15:30 11/20/24 15:30 Laboratory Results - last 24 hr 11/20/24 14:19: WBC 12.8 H, RBC 3.67 L, Hgb 9.7 L, Hct 35.9 L, MCV 97.8, MCH 26.4 L, MCHC 27.0 L, RDW 18.5 H, Plt Count 345, MPV 11.5 H, Neut % (Auto) 84.5 H , Lymph % (Auto) 8.6 L, [place] % (Auto) 4.7, Eos % (Auto) 0.0 L, Baso % (Auto) 0.8, Neut # (Auto) 10.8 H, Lymph # (Auto) 1.1, [place] # (Auto) 0.6, Eos # (Auto) 0.0, Baso # (Auto) 0.1, Sodium 121 L, Potassium 5.9 H, Chloride 85 L, Carbon Dioxide < 5 L*, Anion Gap 36.9 H, BUN 23 H, Creatinine 1.40 H, Estimated GFR 40 L, Est GFR ( Amer) 49 L, Glucose 1188 H*, Hemoglobin A1c 10.7 H, Calcium 8.8, Phosphorus 9.4 H, Magnesium 2.2, Total Bilirubin 0.4, AST 28, ALT 25, Alkaline Phosphatase 124, Total Protein 6.4, Albumin 3.6, Globulin 2.8, Albumin/Globulin Ratio 1.3, Lipase 171, Acetone Level Large 11/20/24 15:23: VBG pH 7.01 L, VBG pCO2 22.5 L, VBG pO2 67.4 H, VBG HCO3 5.6 L, VBG Total CO2 6.3 L, VBG O2 Saturation 84.0 H, VBG Base Excess -25.5 L, VBG Lactic Acid 2.8 H I & O for Last 24 hours: Intake & Output 11/17/24 11/18/24 11/19/24 11/20/24 23:59 23:59 23:59 23:59 Weight 51.71 kg Constitutional Constitutional: moderate distress, thin, chronically ill appearing and cooperative *Routine HEENT Exam Head: Present normocephalic and atraumatic Eye: Present EOMI ENT: Present mucous membranes dry *Routine Neck Exam Neck: Present supple and full ROM *Routine Respiratory Exam Respiratory: Present accessory muscle use and prolonged expiratory phase; Absent wheezes or crackles Comments: Kussmaul respiration *Routine Cardiovascular Exam Cardiovascular: Present tachycardia *Routine Abdominal Exam Abdominal: Present soft and normoactive bowel sounds; Absent rebound or guarding *Routine Rectal Exam Rectal:: deferred *Routine Genitalia Exam Genitalia:: deferred *Routine Extremities Exam Extremities: Present normal capillary refill; Absent cyanosis, clubbing or edema *Routine Skin Exam Skin: Present intact and warm *Routine Neurological Exam Neurological: Present alert, altered mental status, moving all extremities and normal tone Comments: Oriented to self only Assessment and Plan *Assessment and plan (1) DKA (diabetic ketoacidosis): Status: Acute Qualifiers: Diabetes mellitus type: type 1 Diabetes mellitus complication detail: without coma Qualified Code(s): E10.10 - Type 1 diabetes mellitus with ketoacidosis without coma Category: Medical Code(s): E11.10 - Type 2 diabetes mellitus with ketoacidosis without coma (2) ALEX (acute kidney injury): Status: Acute Category: Medical Code(s): N17.9 - Acute kidney failure, unspecified (3) High anion gap metabolic acidosis: Status: Acute Category: Medical Code(s): E87.29 - Other acidosis (4) Medical non-compliance: Status: Acute Category: Medical Code(s): Z91.199 - Patient's noncompliance with other medical treatment and regimen due to unspecified reason (5) Depression: Status: Chronic Qualifiers: Depression Type: major depressive disorder Major depression recurrence: recurrent Active/Remission status: currently active Category: Medical Code(s): F32.A - Depression, unspecified (6) Diabetes mellitus, insulin dependent (IDDM), uncontrolled: Status: Acute Category: Medical (7) Bipolar disorder: Status: Acute Category: Medical Code(s): F31.9 - Bipolar disorder, unspecified (8) Hyperphosphatemia: Status: Acute Category: Medical Code(s): E83.39 - Other disorders of phosphorus metabolism Plan 49 year old female who presented to the ED yesterday for c/o confusion, weakness and elevated blood sugar. PMHX diabetes, hx of DKA, anxiety and bipolar disorder.? Discussed case with ER physician, request admission for treatment of high anion gap metabolic acidosis and severe DKA. I agreed to admit to the ICU for further care. Patient critically ill. Necessitating inpatient management. Initiated on DKA protocol. High risk for decompensation. Problems addressed as follows: DKA Uncontrolled diabetes High anion gap metabolic acidosis Medication noncompliant -Extensive history of readmission to the hospital due to noncompliance with medication. Recently just left . Presents with anion gap of 36, glucose of 1188, sodium 121, potassium 5.8. Phosphorus 9.8. Magnesium 2.2. A1c elevated at 10.7. Blood gas with pH 7.0, pCO2 22.5. Consistent with combined metabolic acidosis with attempted respiratory compensation. -Initiate DKA protocol. Continue insulin drip. Initiate normal saline at 150 cc an hour. -Repeat BMP ordered every 4 hours to monitor blood glucose improvement and gap. -Will initiate insulin glargine 20 units twice daily. Per chart review she was previously on insulin glargine 50 units once a day last time she was admitted to our facility in 2022. -Clear liquids until anion gap closes -Pending improvement clinically, will consider PT and OT eval tomorrow - White count elevated at 12.8, hemoglobin 9.7. Will administer 1 g ceftriaxone every 24 hours empirically for possible infection coverage. Discontinue at 48 hours if cultures do not show any positive finding -Large acetone in blood. - Chest x-ray per my review with no focal consolidation or airspace disease ALEX: BUN 23, creatinine 1.4. Monitor for improvement with fluid resuscitation. Bipolar: Does not appear to be on any medications at this time. Will reevaluate psych meds in the morning. N.p.o. Full code Lovenox 40 mg subcu daily Pantoprazole 40 mg GI prophylaxis
--- NOTE | 2024-11-20 16:07 | PC.NURSE ---
SHAKE TABLE OPERATOR NOTIFIED OF ADMISSION
--- NOTE | 2024-11-20 16:08 | XR_ITS ---
PROCEDURE INFORMATION: Exam: XR Chest Exam date and time: 11/20/2024 4:21 PM Age: 49 years old Clinical indication: Other: Dka protocol TECHNIQUE: Imaging protocol: Radiologic exam of the chest. Views: 1 view. COMPARISON: CR XR CHEST PORTABLE 04/06/2023 1:15 PM FINDINGS: Lungs: No evidence of acute pulmonary disease or infiltrates Pleural spaces: No large effusion or pneumothorax. Heart/Mediastinum: No evidence of mediastinal widening or cardiac silhouette enlargement; the mediastinum and heart appear within normal limits for contour and size. Bones/joints: No evidence of acute osseous abnormalities within the visualized portions of the thoracic spine and ribs. Osseous structures appear appropriate for patient age. IMPRESSION: No dense parenchymal consolidation, pleural effusion, or pneumothorax.
--- NOTE | 2024-11-20 16:32 | PC.NURSE ---
REPORT GIVEN TO TARAH LEONARDO
--- NOTE | 2024-11-20 16:45 | PC.NURSE ---
pt arrived to room. glucose checked, read high. lab at bedside to draw 1600 labs. insulin drip currently infusing at 5 ml/hr will start dka protocol after glucose returns.
--- NOTE | 2024-11-20 17:50 | PC.NURSE ---
pt reported to this nurse that she only takes the medication she has with her which is pantoprazole 40mg daily, reglan 10 mg bid, and novolog 70/30. medication does not match previous home medication list. Dr. Jones to see patient at this time and notified of medications patient states she currently takes.
[2024-11-20 17:51] LABS: Chloride 91 mmol/L (98-107)
[2024-11-20 17:52] LABS: Potassium 5.5 mmoL/L (3.5-5.1); Sodium 123 mmol/L (136-145)
[2024-11-20 17:54] LABS: Blood Urea Nitrogen 24 mg/dl (7-17); Creatinine Clearance Estimated 43 mL/min (50-200); Estimated Glomerular Filt Rate 44 ml/min (>60); GFR (African American) 53 ML/MIN (>60)
[2024-11-20 17:55] LABS: Magnesium 1.9 mg/dl (1.6-2.3); Phosphorous 9.1 mg/dl (2.5-4.5)
[2024-11-20] MEDS: 0.9 % SODIUM CHLORIDE 1000ML 1,000 ML 150 ML IV (18:03)
[2024-11-20 18:08] LABS: Anion Gap 32.5 mEq/L (5-15); Carbon Dioxide < 5 mmol/L (22.0-30.0)
[2024-11-20 18:09] LABS: Glucose 963 mg/dl (74-100)
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
[2024-11-20] MEDS: CEFTRIAXONE SODIUM 1 GM in 0.9 % SODIUM CHLORIDE 50 ML IV (18:38)
--- NOTE | 2024-11-20 19:32 | PC.NURSE ---
at this time pt refusing for lab to to obtain blood for glucose and lactic. pt educated on need for lab draw and checking her glucose level.
[2024-11-20 19:34] LABS: Reflex Lactic Add Lactic Reflex
[2024-11-20 19:40] LABS: Microscopic, Urine URINE MICROSCOPIC (MICROSCOPIC)
[2024-11-20 19:43] LABS: Appearance,Urine CLEAR (Clear); Blood, Urine 3+ (Negative); Color,Urine YELLOW (Yellow); Glucose,Urine (UA) 2+ (Negative); Ketones,Urine 2+ (Negative); Leukocyte Esterase,Urine Negative (Negative); Nitrate,Urine POSITIVE (Negative); PH,Urine 5.5 (5.0-8.5); Protein,Urine Negative (Negative); Specific Gravity, Urine 1.015 (1.005-1.030); Urobilinogen,Urine 0.2 EU/dl (0.2)
[2024-11-20 20:03] LABS: Benzodiazepines Screen,Urine Negative ng/ml (<200)
[2024-11-20 20:04] LABS: Amphetamine/Metha Screen,Urine Negative ng/ml (<1000); Bilirubin,Urine 1+ (Negative)
[2024-11-20 20:05] LABS: Barbiturates Screen,Urine Negative ng/ml (<200); Methadone Screen,Urine Negative ng/ml (<300)
[2024-11-20 20:06] LABS: Cannabinoid Screen,Urine Negative ng/ml (<50); Cocaine Screen,Urine Negative ng/ml (<300)
[2024-11-20 20:07] LABS: Opiate Screen,Urine Negative ng/ml (<300)
[2024-11-20 20:08] LABS: Phencyclidine Screen,Urine Negative ng/ml (<25)
[2024-11-20 20:10] LABS: Bacteria,Urine 2+ /lpf; Yeast,Urine Occasional /lpf
[2024-11-20 20:35] LABS: POC Glucose,Bedside 419 (70-110)
[2024-11-20] MEDS: FLUCONAZOLE 200MG TABLET 200 MG PO (20:52)
[2024-11-20 21:43] LABS: POC Glucose,Bedside 290 (70-110)
[2024-11-20 22:07] LABS: Chloride 101 mmol/L (98-107)
[2024-11-20 22:08] LABS: Potassium 4.4 mmoL/L (3.5-5.1); Sodium 132 mmol/L (136-145)
[2024-11-20 22:10] LABS: Blood Urea Nitrogen 22 mg/dl (7-17); Creatinine Clearance Estimated 56 mL/min (50-200); Estimated Glomerular Filt Rate 59 ml/min (>60); GFR (African American) 72 ML/MIN (>60)
[2024-11-20 22:11] LABS: Anion Gap 27.4 mEq/L (5-15); Calcium 8.4 mg/dl (8.4-10.2); Glucose 297 mg/dl (74-100); Magnesium 1.9 mg/dl (1.6-2.3); Phosphorous 4.2 mg/dl (2.5-4.5)
[2024-11-20 22:20] LABS: Carbon Dioxide 8 mmol/L (22.0-30.0)
--- NOTE | 2024-11-20 22:21 | PC.NURSE ---
notified Satya PADILLA of critical CO2
[2024-11-20 22:33] LABS: POC Glucose,Bedside 213 (70-110)
[2024-11-20] MEDS: 0.9% NaCl w/20mEq KCL 1,000 ML 150 ML IV (22:53)
[2024-11-20 23:06] LABS: POC Glucose,Bedside 187 (70-110)
[2024-11-21] VITALS: BP 127/68; PULSE 102; PULSE 106; RESP 17; TEMP 36.9; O2SAT 96; O2SAT 99
[2024-11-21 00:10] LABS: POC Glucose,Bedside 132 (70-110)
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
[2024-11-21 01:00] VITALS: PULSE 100
--- NOTE | 2024-11-22 06:39 | P.DS_ITS ---
General Admission date:: 11/20/24 Discharge date: 11/21/24 HPI HPI HPI: Ms. High is a 49-year-old female previously well-known to our facility with uncontrolled diabetes, depression, bipolar disorder, recurrent DKA. She has not been admitted to our facility for over a year and a half after moving to [facility]. She presented today to the ER for report of elevated blood sugar. Was recently at [facility] but left AMA yesterday per her report from EMS in the ER. EMS was called today by patient's friend whom she lives with because she was having worsening abdominal pain, nausea, confusion, fatigue. Oriented to self only. Presented to the ER and was found to have significant metabolic disturbances, kidney injury, high anion gap metabolic acidosis, and severe DKA. Initial blood sugar 1188, bicarb less than 5. Anion gap 36. Initiated on DKA protocol. Medicine consulted to admit patient to the ICU for further management. On evaluation, she keeps saying how thirsty she is. Unable to provide significant history. Denies any fever. Has cooler operator small respirations on evaluation. States she is cold. Hospital Course Hospital Course Hospital Course: Patient was admitted to the ICU and started on insulin drip during the day shift by Dr. Jones, shortly after shift change patient expressed desire to leave AMA. Discussed with patient medical concerns. Patient agreed to stay if we would feed her snacks specifically crackers. Informed her that would increase the time she spent on her insulin drip was not recommended. Patient remained adamant. Determine discretion and allowed patient to have small amount of crackers. Patient agreed to stay. However patient ultimately decided that she wished to leave. She was alert and oriented. Has strong history of leaving AGAINST MEDICAL ADVICE. Patient phoned taxi to come from [place]. Patient stated again she would stay but then again changed her mind again and left hospital with maintenance truck driver despite being strongly encouraged to stay. Patient was advised of the medical concerns and consequences. AMA forms were signed pr ior to her departure. Discussed patient in the morning, agree with care plan as documented. Exam Data for Last 24 hours Vital signs and Labs for Last 24 Hours: Temp Pulse Resp BP Pulse Ox O2 Del Method 98.4 F 100 H 17 127/68 96 Room Air 11/21/24 00:00 11/21/24 01:00 11/21/24 00:00 11/21/24 00:00 11/21/24 00:00 11/21/24 00:00 Laboratory Results - last 24 hr 11/20/24 18:45: Urine Color Yellow, Urine Appearance Clear, Urine pH 5.5, Ur Specific [place] 1.015, Urine Protein Negative, Urine Glucose (UA) 2+, Urine Ketones 2+, Urine Blood 3+ A, Urine Nitrate Positive A, Urine Bilirubin 1+ A, Urine Urobilinogen 0.2, Ur Leukocyte Esterase Negative, Urine RBC None, Urine WBC 5-10, Ur Squamous Epith Cells 5-10, Urine Bacteria 2+, Urine Yeast Occasional I & O for Last 24 hours: Intake & Output 11/19/24 11/20/24 11/21/24 11/22/24 23:59 23:59 23:59 23:59 Intake Total 497.982 / 502.260 4.278 / 4.278 Output Total 200 / 300 100 / 100 Balance 297.982 / 202.260 -95.722 / -95.722 Weight 51.71 kg Microbiology Reports for the Last 24 Hours: Microbiology 11/20/24 18:45 Urine,Clean Catch Urine Culture - Preliminary Gram Negative Rods Results Data Completed and Pending Labs on day of discharge: Labs from last 24 hours 11/20/24 18:45 Urine Color Yellow Urine Appearance Clear Urine pH 5.5 Ur Specific [place] 1.015 Urine Protein Negative Urine Glucose (UA) 2+ Urine Ketones 2+ Urine Blood 3+ A Urine Nitrate Positive A Urine Bilirubin 1+ A Urine Urobilinogen 0.2 Ur Leukocyte Esterase Negative Urine RBC None Urine WBC 5-10 Ur Squamous Epith Cells 5-10 Urine Bacteria 2+ Urine Yeast Occasional Preliminary micro results at discharge 11/20/24 18:45 Urine Culture - Preliminary Urine,Clean Catch Gram Negative Rods DS: Diagnosis Discharge Diagnosis (1) DKA (diabetic ketoacidosis): Status: Acute Code(s): E11.10 - Type 2 diabetes mellitus with ketoacidosis without coma Qualifiers: Diabetes mellitus complication detail: without coma Diabetes mellitus type: type 1 Qualified Code(s): E10.10 - Type 1 diabetes mellitus with ketoacidosis without coma (2) ALEX (acute kidney injury): Status: Acute Code(s): N17.9 - Acute kidney failure, unspecified (3) High anion gap metabolic acidosis: Status: Acute Code(s): E87.29 - Other acidosis (4) Medical non-compliance: Status: Acute Code(s): Z91.199 - Patient's noncompliance with other medical treatment and regimen due to unspecified reason (5) Depression: Status: Chronic Code(s): F32.A - Depression, unspecified Qualifiers: Active/Remission status: currently active Depression Type: major depressive disorder Major depression recurrence: recurrent (6) Diabetes mellitus, insulin dependent (IDDM), uncontrolled: Status: Acute (7) Bipolar disorder: Status: Acute Code(s): F31.9 - Bipolar disorder, unspecified (8) Hyperphosphatemia: Status: Acute Code(s): E83.39 - Other disorders of phosphorus metabolism Meds Home Medications and Allergies Home Medications ?Medication ?Instructions ?Recorded ?Confirmed ?Type atorvastatin 20 mg tablet 20 mg PO HS Cholesterol 30 days 02/07/23 11/20/24 Rx #30 tabs bupropion HCl 300 mg 24 hr tablet, 300 mg PO DAILY Mood 30 days #30 02/07/23 11/20/24 Rx extended release (Wellbutrin XL) tabs ferrous sulfate 325 mg (65 mg 325 mg PO DAILY Supplement 30 days 02/07/23 11/20/24 Rx iron) tablet,delayed release #30 tabs pantoprazole 40 mg tablet,delayed 40 mg PO DAILY Acid reflux 30 days 02/07/23 11/20/24 Rx release #30 tabs gabapentin 300 mg capsule 300 mg PO TID Nerve pain 02/12/23 11/20/24 History aspirin 81 mg tablet,delayed 81 mg PO DAILY Heart health 03/06/23 11/20/24 History release fluoxetine 20 mg capsule 20 mg PO DAILY MOOD 03/27/23 11/20/24 History lithium carbonate 300 mg capsule 300 mg PO HS MOOD 03/27/23 11/20/24 History mupirocin 2 % topical ointment 0.25 g topical TID 10 days #22 03/29/23 11/20/24 Rx grams ibuprofen 600 mg tablet 600 mg PO Q6HP PRN Fever Or Mild 03/31/23 11/20/24 Rx Pain 10 days #40 tabs sennosides 8.6 mg-docusate sodium 1 tab PO BID PRN Constipation 10 03/31/23 11/20/24 Rx 50 mg tablet (Stool days #20 tabs Softener-Stimulant Laxative) insulin glargine 100 unit/mL (3 53 unit (0.53 mL) SQ DAILY glucose 04/07/23 11/20/24 Rx mL) subcutaneous pen (Lantus #3 mL Solostar U-100 Insulin) insulin lispro 100 unit/mL 15 unit (0.15 mL) SQ AC Diabetes 04/07/23 11/20/24 Rx subcutaneous solution (Humalog 30 days #10 mL U-100 Insulin) New Prescriptions to Start Prescriptions: Allergies Allergy/AdvReac Type Severity Reaction Status Date / Time Penicillins Allergy Intermediate Rash Verified 11/20/24 17:04 amoxicillin Allergy Rash Verified 11/20/24 17:04 Discharge Plan Disposition Patient Disposition: Left Against Medical Advice Condition: Serious Patient Discharge Instructions Print Language: Maori Providers Admit Provider: Manpreet Jones Attending Provider: Manpreet Jones
== END 2024-11-21 00:37 | disposition left against medical advice (07) | DRG 638 ==
LOC: ER 14:17 → ICU 16:13
PROVIDERS: Physician Assistant; Admitting Provider Internal Medicine Adolescent Medicine; Emergency Provider Emergency Medicine; Visit Provider Internal Medicine Adolescent Medicine
DX: E10.10 Type 1 diabetes mellitus with ketoacidosis without coma (principal); N17.9 Acute kidney failure, unspecified; F31.9 Bipolar disorder, unspecified; F17.210 Nicotine dependence, cigarettes, uncomplicated; T38.3X6A Underdosing of insulin and oral hypoglycemic [antidiabetic] drugs, initial encounter; Z91.148 Patient's other noncompliance with medication regimen for other reason; Z79.02 Long term (current) use of antithrombotics/antiplatelets; Z79.82 Long term (current) use of aspirin; Z79.899 Other long term (current) drug therapy
CPT/HCPCS: 36415; 71045; 80048; 80053; 80307; 81001; 82009; 82803; 82962; 83036; 83690; 83735; 84100; 85025; 87086; 87088; 87186; 87636; 93005; 99291; J0131; J0696; J1790; J2405; J7030